=== PATIENT | male | born 1940 | race Caucasian/White ===

== ENCOUNTER → 2016-05-13 | Outpatient (CLI) | payer MEDICARE ==
[2016-05-13 12:14] LABS: Blood Urea Nitrogen 20 mg/dL (9-20); Non-African American GFR(MDRD) >60 (>60 ml/min/1.73 sqM)
--- NOTE | 2016-05-13 13:08 | CT ---
EXAMINATION TYPE: CT chest w con DATE OF EXAM: 05/13/2016 12:47 PM COMPARISON: NONE HISTORY: COPD CT DLP: 637.3 mGycm Automated exposure control for dose reduction was used. CONTRAST: CT scan of the chest is performed with IV Contrast, patient injected with 100 ml mL of Omnipaque 300. FINDINGS: LUNGS: Vague subsegmental changes at the right lung base. There is no pleural effusion or pneumothora x seen. The tracheobronchial tree is patent. Pleural-based density within the left lower lobe appear s linear and likely postinflammatory. MEDIASTINUM: There are no greater than 1 cm hilar or mediastinal lymph nodes. No pericardial effusi on is seen. Sternotomy wires noted. Atherosclerotic change of the aorta. Coronary artery calcificati on seen. Previous intervention rib involving the aortic valve noted. OTHER: There are bilateral less than 5 mm renal calculi and hypodense lesion suggestive of cysts. Nu merous hypodensities are seen involving the liver. The majority appear to relate simple cysts. Lesion at the dome of the liver does not appear to be compatible with a simple cyst and contains rim calcif ication. Follow-up MRI recommended. Degenerative change of the spine noted. IMPRESSION: 1. Subsegmental changes at the right lung base are felt to be more typical of atelectasis than pneumo gregg. Correlate clinically. 2. Numerous hepatic lesions the majority which probably relates simple cyst. There is a lesion in the dome of the liver with peripheral calcification is not compatible with a simple cyst by Hounsfield u nit measurements and MRI is recommended. 3. Bilateral renal cysts and nonobstructing renal calculi
== END ==
LOC: RADCTMAIN 10:31
PROVIDERS: ATTEND Family Medicine
DX: R05 Cough (principal); J44.0 Chronic obstructive pulmonary disease with (acute) lower respiratory infection; R06.02 Shortness of breath
CPT/HCPCS: 82565; 84520; 71260; 36415; Q9967

== ENCOUNTER → 2016-05-30 | Outpatient (CLI) | payer MEDICARE | END | disposition home or self-care (01) | LOC: RADMRIMAIN 11:51 | PROVIDERS: ATTEND Family Medicine | DX: Z53.9 Procedure and treatment not carried out, unspecified reason (principal) ==

== ENCOUNTER → 2019-01-22 | Outpatient (CLI) | payer MEDICARE ==
--- NOTE | 2019-01-22 08:11 | US ---
EXAMINATION TYPE: US venous doppler duplex LE DATE OF EXAM: 01/22/2019 7:54 AM COMPARISON: NONE CLINICAL HISTORY: DVT I82.40. Leg pain SIDE PERFORMED: Bilateral TECHNIQUE: The lower extremity deep venous system is examined utilizing real time linear array sonog rodger with graded compression, doppler sonography and color-flow sonography. VESSELS IMAGED: External Iliac Vein (EIV) Common Femoral Vein Deep Femoral Vein Greater Saphenous Vein * Femoral Vein Popliteal Vein Small Saphenous Vein * Proximal Calf Veins (* superficial vessels) Right Leg: Negative for DVT Left Leg: Negative for DVT Grayscale, color doppler, spectral doppler imaging performed of the deep veins of the bilateral lower extremities. There is normal flow, compressibility, vascular waveforms. IMPRESSION: No ultrasound evidence for acute DVT in either lower extremity.
== END | disposition home or self-care (01) ==
LOC: RADUSWWP 07:30
PROVIDERS: ATTEND Internal Medicine Cardiovascular Disease
DX: I82.403 Acute embolism and thrombosis of unspecified deep veins of lower extremity, bilateral (principal)
CPT/HCPCS: 93970

== ENCOUNTER → 2019-03-16 | Outpatient (CLI) | payer MEDICARE ==
[2019-03-16 11:09] LABS: HCT 47.8 % (39.0-53.0); HGB 16.1 gm/dL (13.0-17.5); MCH 33.4 pg (25.0-35.0); MCHC 33.7 g/dL (31.0-37.0); Platelet Count 256 k/uL (150-450); RBC 4.83 m/uL (4.30-5.90); RDW 12.3 % (11.5-15.5); WBC 6.2 k/uL (3.8-10.6)
[2019-03-16 17:26] LABS: African American GFR (CKD) 99.9 (60.0-200.0); Anion Gap 11.7 mmol/L (4.00-12.00); Carbon Dioxide 25.3 mmol/L (21.6-31.8); Non-African American GFR(CKD) 86.2 (60.0-200.0); Potassium 4.4 mmol/L (3.5-5.5)
== END | disposition home or self-care (01) ==
LOC: LABWHC1 10:32
PROVIDERS: ATTEND Internal Medicine Cardiovascular Disease
DX: I25.10 Atherosclerotic heart disease of native coronary artery without angina pectoris (principal)
CPT/HCPCS: 36415; 80051; 82565; 84520; 85027

== ENCOUNTER 2022-04-30 10:43 | Inpatient (IN) | payer MEDICARE ==
[2022-04-30] MEDS ORDERED: ASPIRIN 81 MG PO STA (11:22)
--- NOTE | 2022-04-30 11:30 | ED ---
General Adult HPI - General Chief complaint: Shortness of Breath Stated complaint: SOB Time Seen by Provider: 04/30/22 11:10 Source: patient, RN notes reviewed, old records reviewed Mode of arrival: ambulatory Limitations: no limitations - History of Present Illness Initial comments: Patient is an 81-year-old male who presents emergency Department complaining of shortness of breath. Has a history of multiple aortic valve replacements. Patient states he should be having a third one place but medically he is not a candidate for surgery as the risks outweigh the benefits. He is a history of hypertension, diabetes, asthma as well. Presents emergency Department complaining of generalized shortness of breath as well as intermittent chest tightness. This is been a progressive issue that is gone worse over the last year or so, noticeably more worse over the last few weeks. On exertion, patient gets chest tightness sensation with dyspnea and has to rest. Follow-up with his PCP today who sent him here for further evaluation over concern for his EKG showing possible new changes but he has no prior one for comparison. We also have no prior EKG for comparison. Patient at rest has no symptoms. Feels well. Follows up with Dr. Reyes his latent fingerprint examiner out of [facility]. Presents for further evaluation at this time. Denies any fevers, chills, cough, vomiting, nausea, vomiting. - Related Data Home Medications Medication Instructions Recorded Confirmed Aspirin EC [Ecotrin Low Dose] 81 mg PO DAILY 04/30/22 04/30/22 Atorvastatin Calcium [Lipitor] 40 mg PO HS 04/30/22 04/30/22 Clopidogrel [Plavix] 75 mg PO DAILY 04/30/22 04/30/22 Dulaglutide [Trulicity] 0.75 mg SQ TH 04/30/22 04/30/22 Dulaglutide [Trulicity] 1.5 mg SQ DIRECTED 04/30/22 04/30/22 Furosemide [Lasix] 40 mg PO BID 04/30/22 04/30/22 Isosorbide Mononitrate ER [Imdur] 60 mg PO HS 04/30/22 04/30/22 Metoprolol Tartrate [Lopressor] 25 mg PO HS 04/30/22 04/30/22 Omeprazole [PriLOSEC] 20 mg PO DAILY 04/30/22 04/30/22 Potassium Chloride [Klor-Con 8] 8 meq PO BID 04/30/22 04/30/22 Tamsulosin HCl [Flomax] 0.4 mg PO HS 04/30/22 04/30/22 lisinopriL [Zestril] 20 mg PO HS 04/30/22 04/30/22 Allergies Allergy/AdvReac Type Severity Reaction Status Date / Time No Known Allergies Allergy Verified 04/30/22 12:55 Review of Systems ROS Statement: Those systems with pertinent positive or pertinent negative responses have been documented in the HPI. Review of Systems: CONST: Denies fever EYES: Denies blurry vision ENT: Denies nasal congestion C/V: Denies Chest pain RESP: Denies shortness of breath GI: Denies abdominal pain : Denies dysuria SKIN: Denies rash. MSK: Denies joint pain. NEURO: Denies headache ROS Other: All systems not noted in ROS Statement are negative. Past Medical History Past Medical History: Asthma, Diabetes Mellitus, Hypertension History of Any Multi-Drug Resistant Organisms: None Reported Additional Past Surgical History / Comment(s): Aortic valve Past Psychological History: No Psychological Hx Reported Smoking Status: Never smoker Past Alcohol Use History: None Reported Past Drug Use History: None Reported General Exam - General Exam Comments Initial Comments: General: Appears in no acute distress. HEAD: Normal with no signs of head trauma. EYES: PERRLA, EOMI, conjunctiva normal, no discharge. ENT: Hearing grossly intact, normal oropharynx. RESPIRATORY: Clear breath sounds bilaterally. No wheezes, rales, or rhonchi. C/V: Regular rate and rhythm. S1 and S2 auscultated, chronic symmetrical lower extremity edema, peripheral pulses 2+ and intact throughout ABD: Abd is soft, nontender, nondistended EXT: Normal range of motion, no obvious deformity SKIN: No rashes or lesions observed on exposed skin. NEURO: Alert and oriented 4. Limitations: no limitations Course Vital Signs 04/30/22 04/30/22 04/30/22 10:47 13:00 14:00 Temperature 98.2 F Pulse Rate 83 73 73 Respiratory 20 22 22 Rate Blood Pressure 185/71 130/56 132/59 O2 Sat by Pulse 95 94 L 91 L Oximetry 04/30/22 14:17 Temperature Pulse Rate Respiratory Rate Blood Pressure O2 Sat by Pulse 94 L Oximetry Medical Decision Making - Medical Decision Making Was pt. sent in by a medical professional or institution (ALEXIS Salazar, [employer], urgent care, hospital, or senior care...) When possible be specific @ -Yes, sent by Dr. Benjie Jacques's office over concern for EKG but had no prior EKG for comparison. Did you speak to anyone other than the patient for history (EMS, parent, family, police, friend...)? What history was obtained from this source @ -No Did you review nursing and triage notes (agree or disagree)? Why? @ -I reviewed and agree with nursing and triage notes Were old charts reviewed (outside hosp., previous admission, EMS record, old EKG, old radiological studies, urgent care reports/EKG's, senior care records)? Report findings @ -EKG from earlier today was compared. No prior charts to review. We'll attempt to obtain an EKG from his latent fingerprint examiner's office. Differential Diagnosis (chest pain, altered mental status, abdominal pain women, abdominal pain men, vaginal bleeding, weakness, fever, dyspnea, syncope, headache, dizziness, GI bleed, back pain, seizure, CVA, palpatations, mental health, musculoskeletal)? @ -Differential Dyspnea: Coronary syndrome, arrhythmia, tamponade, asthma, COPD, pulmonary embolism, pneu monia, pneumothorax, pulmonary effusion, anaphylaxis, diabetic ketoacidosis, flailed chest, pulmonary contusion, diaphragmatic rupture, anemia, neuromuscular, chronic aortic insufficiency, this is not meant to be an all- inclusive list. EKG interpreted by me (3pts min.). @ -As above X-rays interpreted by me (1pt min.). @ -Mild bilateral pleural effusions as well as mild pulmonary vascular congestion seen on chest x-ray CT interpreted by me (1pt min.). @ -None done U/S interpreted by me (1pt. min.). @ -None done What testing was considered but not performed or refused? (CT, X-rays, U/S, labs)? Why? @ -None What meds were considered but not given or refused? Why? @ -None Did you discuss the management of the patient with other professionals (pro fessionals i.e. ALEXIS Salazar, [employer], lab, RT, psych nurse, licensed social worker, edge roller, teacher, commercial loan collection officer, casework specialist)? Give summary @ -No Was smoking cessation discussed for >3mins.? @ -No Was critical care preformed (if so, how long)? @ -Yes, 35 minutes Were there social determinants of health that impacted care today? How? (Homelessness, low income, unemployed, alcoholism, drug addiction, transportation, low edu. Level, literacy, decrease access to med. care, assisted, rehab)? @ -No Was there de-escalation of care discussed even if they declined (Discuss DNR or withdrawal of care, Hospice)? DNR status @ -No What co-morbidities impacted this encounter? (DM, HTN, Smoking, COPD, CAD, Cancer, CVA, ARF, Chemo, Hep., AIDS, mental health diagnosis, sleep apnea, morbid obesity)? @ -None Was patient admitted / discharged? Hospital course, mention meds given and route, prescriptions, significant lab abnormalities, going to OR and other pertinent info. @ -Based on the patient's presentation and physical exam, I'm concerned for cardiopulmonary etiology for his current symptoms. He doesn't a history of aortic insufficiency with multiple aortic valve replacements. Symptoms seem to be progressing over the last months and is likely related to this but cannot rule out acute process at this time. Was sent over due to abnormal EKG with no prior EKG for comparison by his PCP as well as his chronic dyspnea with chest tightness. Has no symptoms at this time. We will obtain cardiopulmonary labs as well as chest x-ray, EKG. We will repeat an EKG as well as attempt to obtain a EKG from Dr. Reyes's office, his latent fingerprint examiner. He was in agreement this plan. Vital signs within acceptable limits. He will be given 324mg aspirin. Patient's EKG did show the ST segment depressions that are very minimal in the lateral precordial leads as well as II and aVF. This is redemonstrated on the EKG from Dr. Jacques's office. Chest x-ray showed mild lateral pleural effusions as well as mild pulmonary vascular congestion. Laboratory studies were remarkable for an elevated BNP of 4300. Troponin is also elevated to 0.7. On reevaluation, patient remains asystematic. Repeat EKG shows improvement in the ST segment depressions normally. We received an EKG from Dr. Nuñez's office which shows that these slight depressions are new. Patient remains asymptomatic with no chest pain and no shortness of breath at this time. He has been asymptomatic he states all morning. Last had symptoms when he presented originally to Dr. Jacques's office but has been having these symptoms on a daily basis for weeks to months. We discussed that his symptoms are likely all chronic, and likely are related to his aortic insufficiency and possible aortic valve replacements but I would like to admitted to the hospital for Nstemi. He was in agreement this plan. He did consent to heparin therapy. Patient was started on a heparin drip. Cardiology was consulted. Echo was ordered. I spoke with the patient's admitting physician, Dr. Jacques who was in agreement with the plan and accepted the admission. Vital signs remained within acceptable limits at this time. Undiagnosed new problem with uncertain prognosis? @ -Yes Drug Therapy requiring intensive monitoring for toxicity (Heparin, Nitro, Insulin, Cardizem)? @ -Heparin Were any procedures done? @ -No Diagnosis/symptom? @ -Dyspnea, likely from aortic valve insufficiency status post multiple aortic valve replacements Acute, or Chronic, or Acute on Chronic? @ -Acute on chronic Uncomplicated (without systemic symptoms) or Complicated (systemic symptoms)? @ -Uncomplicated Side effects of treatment? @ -none Exacerbation, Progression, or Severe Exacerbation] @ -Progression Poses a threat to life or bodily function? @ -Potentially asking result in significant morbidity and mortality. Diagnosis/symptom? @ -Nstemi with elevated troponin and mild ST segment depressions Acute, or Chronic, or Acute on Chronic? @ -Acute Uncomplicated (without systemic symptoms) or Complicated (systemic symptoms)? @ -Complicated Side effects of treatment? @ -none Exacerbation, Progression, or Severe Exacerbation] @ -no Poses a threat to life or bodily function? @ -Yes, if untreated can result in significant morbidity and mortality dep ending in etiology. - Lab Data Result diagrams: 04/30/22 11:29 04/30/22 11:29 Lab Results 04/30/22 04/30/22 04/30/22 Range/Units 11:29 11:29 11:29 WBC 11.3 H (3.8-10.6) k/uL RBC 4.90 (4.30-5.90) m/uL Hgb 16.1 (13.0-17.5) gm/dL Hct 48.3 (39.0-53.0) % MCV 98.6 (80.0-100.0) fL MCH 32.9 (25.0-35.0) pg MCHC 33.3 (31.0-37.0) g/dL RDW 12.7 (11.5-15.5) % Plt Count 185 (150-450) k/uL MPV 9.1 Neutrophils % 80 % Lymphocytes % 7 % Monocytes % 8 % Eosinophils % 0 % Basophils % 1 % Neutrophils # 9.0 H (1.3-7.7) k/uL Lymphocytes # 0.8 L (1.0-4.8) k/uL Monocytes # 0.9 (0-1.0) k/uL Eosinophils # 0.1 (0-0.7) k/uL Basophils # 0.1 (0-0.2) k/uL PT 10.5 (9.0-12.0) sec INR 1.0 (<1.2) APTT 26.4 (22.0-30.0) sec Sodium 138 (137-145) mmol/L Potassium 4.6 (3.5-5.1) mmol/L Chloride 100 (98-107) mmol/L Carbon Dioxide 28 (22-30) mmol/L Anion Gap 10 mmol/L BUN 17 (9-20) mg/dL Creatinine 0.74 (0.66-1.25) mg/dL Est GFR (CKD-EPI)AfAm >90 (>60 ml/min/1.73 sqM) Est GFR (CKD-EPI)NonAf 87 (>60 ml/min/1.73 sqM) Glucose 103 H (74-99) mg/dL Calcium 8.9 (8.4-10.2) mg/dL Magnesium 2.0 (1.6-2.3) mg/dL Total Bilirubin 1.7 H (0.2-1.3) mg/dL AST 39 (17-59) U/L ALT 29 (4-49) U/L Alkaline Phosphatase 80 (38-126) U/L Troponin I (0.000-0.034) ng/mL NT-Pro-B Natriuret Pep pg/mL Total Protein 7.0 (6.3-8.2) g/dL Albumin 4.3 (3.5-5.0) g/dL 04/30/22 04/30/22 Range/Units 11:29 11:29 WBC (3.8-10.6) k/uL RBC (4.30-5.90) m/uL Hgb (13.0-17.5) gm/dL Hct (39.0-53.0) % MCV (80.0-100.0) fL MCH (25.0-35.0) pg MCHC (31.0-37.0) g/dL RDW (11.5-15.5) % Plt Count (150-450) k/uL MPV Neutrophils % % Lymphocytes % % Monocytes % % Eosinophils % % Basophils % % Neutrophils # (1.3-7.7) k/uL Lymphocytes # (1.0-4.8) k/uL Monocytes # (0-1.0) k/uL Eosinophils # (0-0.7) k/uL Basophils # (0-0.2) k/uL PT (9.0-12.0) sec INR (<1.2) APTT (22.0-30.0) sec Sodium (137-145) mmol/L Potassium (3.5-5.1) mmol/L Chloride (98-107) mmol/L Carbon Dioxide (22-30) mmol/L Anion Gap mmol/L BUN (9-20) mg/dL Creatinine (0.66-1.25) mg/dL Est GFR (CKD-EPI)AfAm (>60 ml/min/1.73 sqM) Est GFR (CKD-EPI)NonAf (>60 ml/min/1.73 sqM) Glucose (74-99) mg/dL Calcium (8.4-10.2) mg/dL Magnesium (1.6-2.3) mg/dL Total Bilirubin (0.2-1.3) mg/dL AST (17-59) U/L ALT (4-49) U/L Alkaline Phosphatase (38-126) U/L Troponin I 0.738 H* (0.000-0.034) ng/mL NT-Pro-B Natriuret Pep 4330 pg/mL Total Protein (6.3-8.2) g/dL Albumin (3.5-5.0) g/dL - EKG Data -: EKG Interpreted by Me EKG Comments: 12-lead Electrocardiogram Interpretation Note EKG was reviewed and interpreted by myself. 12-lead ECG performed at 1054 is interpreted by me as revealing normal sinus rhythm at a rate of 80 beats per minute. [place] is normal. CO interval is 198 ms, QRS duration is 80 ms, QTc is 427 ms.. There are mild ST segment depressions in the lateral precordial leads seen on V4, V5, V6, mildly on II, aVF. Seen again on EKG from Dr. Jacques's office. No other prior EKG for comparison.. No other ST segment abnormalities or T wave abnormalities. R wave progression across the precordium was satisfactory. 12-lead Electrocardiogram Interpretation Note EKG was reviewed and interpreted by myself. 12-lead ECG performed at 1220 is interpreted by me as revealing normal sinus rhythm at a rate of 71 beats per minute. [place] is normal. CO interval is 206 ms, QRS duration is 82 ms, QTc is [address] segment depressions seen in leads V4 through V6, II have improved for the most part. Very slight depression and II. Also very mild d epression in V6. Overall improved EKG.. R wave progression across the precordium was satisfactory. When compared with EKG from earlier, appears improved. Able to compare with a EKG from Dr. Pérez's office from December 2021 and these findings are new.. Critical Care Time Critical Care Time: Yes Total Critical Care Time: 35 Critical Care Time: Upon my evaluation, this patient had a high probability of imminent or life- threatening deterioration due to NSTEMI, chronic dyspnea, heparin drip initiation, which required my direct attention, intervention, and personal management. I have personally provided 35 minutes of critical care time exclusive of time spent on separately billable procedures. Time includes review of laboratory data, radiology results, discussion with consultants, and monitoring for potential decompensation. Interventions were performed as documented in my note. Disposition Clinical Impression: NSTEMI (non-ST elevated myocardial infarction), Chronic dyspnea, History of aortic valve repair Disposition: ADMITTED IP TO THIS [facility] Condition: Serious Time of Disposition: 12:35
[2022-04-30 11:37] LABS: Basophils # (A) 0.1 k/uL (0-0.2); Basophils % (A) 1 %; Eosinophils # (A) 0.1 k/uL (0-0.7); Eosinophils % (A) 0 %; HCT 48.3 % (39.0-53.0); HGB 16.1 gm/dL (13.0-17.5); Lymphocytes # (A) 0.8 k/uL (1.0-4.8); Lymphocytes % (A) 7 %; MCH 32.9 pg (25.0-35.0); MCHC 33.3 g/dL (31.0-37.0); MCV 98.6 fL (80.0-100.0); Mean Platelet Volume 9.1; Monocytes # (A) 0.9 k/uL (0-1.0); Monocytes % (A) 8 %; Neutrophils % (A) 80 %; Platelet Count 185 k/uL (150-450); RDW 12.7 % (11.5-15.5); WBC 11.3 k/uL (3.8-10.6)
[2022-04-30 11:48] LABS: ALT 29 U/L (4-49); AST 39 U/L (17-59); African American GFR (CKD) >90 (>60 ml/min/1.73 sqM); Albumin 4.3 g/dL (3.5-5.0); Alkaline Phosphatase 80 U/L (38-126); Anion Gap 10 mmol/L; Blood Urea Nitrogen 17 mg/dL (9-20); Calcium 8.9 mg/dL (8.4-10.2); Carbon Dioxide 28 mmol/L (22-30); Chloride 100 mmol/L (98-107); Glucose 103 mg/dL (74-99); Non-African American GFR(CKD) 87 (>60 ml/min/1.73 sqM); Potassium 4.6 mmol/L (3.5-5.1); Sodium 138 mmol/L (137-145); Total Bilirubin 1.7 mg/dL (0.2-1.3)
--- NOTE | 2022-04-30 11:51 | XR ---
EXAMINATION TYPE: XR chest 2V DATE OF EXAM: 04/30/2022 COMPARISON: NONE HISTORY: Difficulty breathing. TECHNIQUE: Frontal and lateral views of the chest are obtained. FINDINGS: Cardiac silhouette is mildly enlarged. There are midline sternotomy wires. There is some s cattered interstitial changes seen throughout the lungs bilaterally and small bilateral pleural effus ions which is likely related to mild edema. IMPRESSION: Mild cardiomegaly with mild edema and small bilateral pleural effusions.
[2022-04-30 12:02] LABS: Partial Thromboplastin Time 26.4 sec (22.0-30.0); Prothrombin Time 10.5 sec (9.0-12.0)
[2022-04-30] MEDS ORDERED: HEPARIN SODIUM 1,000 UN/ML (10ML VL) IV PRN (12:41)
[2022-04-30] MEDS ORDERED: HEPARIN SODIUM 1,000 UN/ML (10ML VL) IV ONE (12:41)
[2022-04-30] MEDS ORDERED: NALOXONE 0.4 MG/ML 1 ML VIAL IV PRN ×2 (12:42→12:43)
[2022-04-30] MEDS: HEPARIN SOD,PORK IN 0.45% NACL 25,000 UNIT in 0.45% NACL 1 250ML.BAG IV SCH (13:08)
--- NOTE | 2022-04-30 14:54 | P.CRDCN ---
History of Present Illness Consult date: 04/30/22 History of present illness: HISTORY OF PRESENT ILLNESS: This is a 81-year-old male with a past medical history significant for prediabetes, hypertension, hyperlipidemia, bleeding ulcer, asthma, and aortic stenosis with 2 aortic valve replacements. Patient follows with a Dr. Reyes. We have been asked to see the patient in consultation for abnormal troponins. Patient examined at the bedside. Patient states he was at Dr. Jacques office today when he had an EKG performed which concerns Dr. Jacques and he was referred to the emergency room. The patient reports he has chronic shortness of breath. However yesterday his shortness of breath seemed to get worse. He also reports having some chest tightness when he is extremity and shortness of breath. The patient states he had his first aortic valve replacement in 2006 with a bovine valve. He states he had a redo aortic valve replacement after that (unsure of the year). He states he was told he needed another valve replacement but was not a good surgical candidate. The patient currently denies chest pain or pressure. Denies SOB. He was found to have elevated troponin and started on IV heparin. Patient believes he had a cardiac catheterization performed about 6 years ago which was normal to his knowledge. He denies any previous history of coronary artery disease. * EKG reveals sinus mechanism with diffuse ST depression. This is new compared to EKG performed in December 2021 at the patient's primary cardiology office. * Chest xray mild cardio megaly with mild edema and small bilateral pleural effusions. * Laboratory data: WBC 11.3. Hemoglobin 16.1. Platelet count 185. Sodium 138. Potassium 4.6. BUN 17. Creatinine 0.74. Troponin 0.738. ProBNP 4330. * Current home cardiac medications include aspirin 81 mg daily, Plavix 75 mg daily, Lasix 40 mg twice a day, metoprolol tartrate 25 mg at night, Lipitor 40 mg at night, Imdur 60 mg at night, lisinopril 20 mg at night REVIEW OF SYSTEMS: At the time of my exam: CONSTITUTIONAL: Denies fever or chills. HEENT: Denies blurred vision, vision changes, or eye pain. Denies hemoptysis CARDIOVASCULAR: Denies chest pain. Denies orthopnea. Denies PND. Denies palpitations RESPIRATORY: Denies shortness of breath. GASTROINTESTINAL: Denies abdominal pain. Denies nausea or vomiting. HEMATOLOGIC: Denies bleeding disorders. GENITOURINARY: Denies any blood in urine. SKIN: Denies pruitis. Denies rash. PHYSICAL EXAM: VITAL SIGNS: Reviewed. GENERAL: Well-developed in no acute distress. HEENT: Head is normocephalic. Pupils are equal, round. Sclerae anicteric. Mucous membranes of the mouth are moist. Neck supple. No JVD or thyromegaly LUNGS: Respirations even and unlabored. Lungs essentially clear to auscultation bilaterally. HEART: Regular rate and rhythm. S1 and S2 heard. + Systolic murmur noted. ABDOMEN: Soft. Nondistended. Nontender. EXTREMITIES: Normal range of motion. No clubbing or cyanosis. Peripheral pulses intact. No lower extremity edema NEUROLOGIC: Awake and alert. Oriented x 3. ASSESSMENT: Elevated troponin with abnormal EKG, possible NSTEMI History of aortic valve replacement x 2 Aortic stenosis, told he was not a good surgical candidate to have AV replaced again Chronic shortness of breath Hypertension Hyperlipidemia Pre-diabetes, per patient History of bleeding ulcer PLAN: Obtain 2D echo to assess cardiac structure and function Resume home cardiac medications Increase metoprolol to 25mg BID Trend troponins Continue IV heparin NPO at midnight Obtain records from patients primary junior business analyst Possible cardiac catheterization tomorrow Further recommendations pending patient's course Nurse practitioner note has been reviewed by physician. Signing provider agrees with the documented findings, assessment, and plan of care. Past Medical History Past Medical History: Asthma, Diabetes Mellitus, Hypertension History of Any Multi-Drug Resistant Organisms: None Reported Additional Past Surgical History / Comment(s): Aortic valve Past Psychological History: No Psychological Hx Reported Smoking Status: Never smoker Past Alcohol Use History: None Reported Past Drug Use History: None Reported Medications and Allergies Home Medications Medication Instructions Recorded Confirmed Type Aspirin EC [Ecotrin Low Dose] 81 mg PO DAILY 04/30/22 04/30/22 History Atorvastatin Calcium [Lipitor] 40 mg PO HS 04/30/22 04/30/22 History Clopidogrel [Plavix] 75 mg PO DAILY 04/30/22 04/30/22 History Dulaglutide [Trulicity] 0.75 mg SQ TH 04/30/22 04/30/22 History Dulaglutide [Trulicity] 1.5 mg SQ DIRECTED 04/30/22 04/30/22 History Furosemide [Lasix] 40 mg PO BID 04/30/22 04/30/22 History Isosorbide Mononitrate ER [Imdur] 60 mg PO HS 04/30/22 04/30/22 History Metoprolol Tartrate [Lopressor] 25 mg PO HS 04/30/22 04/30/22 History Omeprazole [PriLOSEC] 20 mg PO DAILY 04/30/22 04/30/22 History Potassium Chloride [Klor-Con 8] 8 meq PO BID 04/30/22 04/30/22 History Tamsulosin HCl [Flomax] 0.4 mg PO HS 04/30/22 04/30/22 History lisinopriL [Zestril] 20 mg PO HS 04/30/22 04/30/22 History Allergies Allergy/AdvReac Type Severity Reaction Status Date / Time No Known Allergies Allergy Verified 04/30/22 12:55 Physical Exam Vitals: Vital Signs Temp Pulse Resp BP Pulse Ox 04/30/22 14:17 94 L 04/30/22 14:00 73 22 132/59 91 L 04/30/22 13:00 73 22 130/56 94 L 04/30/22 10:47 98.2 F 83 20 185/71 95 Intake and Output 04/29/22 04/30/22 04/30/22 22:59 06:59 14:59 Other: Weight 106.594 kg Results 04/30/22 11:29 04/30/22 11:29 Cardiac Enzymes 04/30/22 04/30/22 Range/Units 11:29 11:29 AST 39 (17-59) U/L Troponin I 0.738 H* (0.000-0.034) ng/mL Coagulation 04/30/22 Range/Units 11:29 PT 10.5 (9.0-12.0) sec APTT 26.4 (22.0-30.0) sec CBC 04/30/22 Range/Units 11:29 WBC 11.3 H (3.8-10.6) k/uL RBC 4.90 (4.30-5.90) m/uL Hgb 16.1 (13.0-17.5) gm/dL Hct 48.3 (39.0-53.0) % Plt Count 185 (150-450) k/uL Comprehensive Metabolic Panel 04/30/22 Range/Units 11:29 Sodium 138 (137-145) mmol/L Potassium 4.6 (3.5-5.1) mmol/L Chloride 100 (98-107) mmol/L Carbon Dioxide 28 (22-30) mmol/L BUN 17 (9-20) mg/dL Creatinine 0.74 (0.66-1.25) mg/dL Glucose 103 H (74-99) mg/dL Calcium 8.9 (8.4-10.2) mg/dL AST 39 (17-59) U/L ALT 29 (4-49) U/L Alkaline Phosphatase 80 (38-126) U/L Total Protein 7.0 (6.3-8.2) g/dL Albumin 4.3 (3.5-5.0) g/dL Current Medications Generic Name Dose Route Start Last Admin Trade Name Freq PRN Reason Stop Dose Admin Atorvastatin Calcium 40 mg 04/30/22 21:00 Atorvastatin 40 Mg Tab PO HS ADITHYA Clopidogrel Bisulfate 75 mg 05/01/22 09:00 Clopidogrel 75 Mg Tab PO DAILY ADITHYA Furosemide 40 mg 04/30/22 21:00 Furosemide 40 Mg Tab PO BID ADITHYA Heparin Sodium (Porcine) 0 unit 04/30/22 12:41 Heparin Sodium 1,000 Un/Ml (10ml Vl) IV PER PROTOCOL PRN Low PTT Protocol Heparin Sodium/Sodium Chloride 250 mls @ 9.999 mls/hr 04/30/22 12:45 04/30/22 13:08 25,000 unit/ Sodium Chloride IV 9.38 units/kg/hr .Q24H ADITHYA 9.999 mls/hr Administration Protocol 9.38 UNITS/KG/HR Isosorbide Mononitrate 60 mg 04/30/22 21:00 Isosorbide Mononitrate Er 60 Mg Tab.Er.24h PO HS ADITHYA Lisinopril 20 mg 04/30/22 21:00 Lisinopril 20 Mg Tab PO HS ADITHYA Naloxone HCl 0.2 mg 04/30/22 12:42 Naloxone 0.4 Mg/Ml 1 Ml Vial IV Q2M PRN Opioid Reversal Non-Formulary Medication 81 mg 05/01/22 09:00 Aspirin Ec PO DAILY ADITHYA Intake and Output 04/29/22 04/30/22 04/30/22 22:59 06:59 14:59 Other: Weight 106.594 kg Patient Weight 05/01/22 06:59 Weight 106.594 kg 04/30/22 11:29 04/30/22 11:29
[2022-04-30] MEDS: FUROSEMIDE 40 MG TAB PO SCH (16:18)
--- NOTE | 2022-04-30 18:57 | CT ---
EXAMINATION TYPE: CT chest wo con CT DLP: 634.6 mGycm, Automated exposure control for dose reduction was used. DATE OF EXAM: 04/30/2022 6:45 PM COMPARISON: 05/13/2016 CT chest CLINICAL INDICATION:Male, 81 years old with history of dyspnea; SOB TECHNIQUE: Multiple axial images were obtained through the chest. Sagittal and coronal reformats were created for review. Contrast used: none. Oral contrast used: none. FINDINGS: LUNGS/ PLEURA: No evidence of focal consolidation, pneumothorax or pleural effusion. There are some g roundglass opacities predominantly in lung bases. Trace bilateral pleural effusions. 4 mm left lower lobe pulmonary nodule. AIRWAY: Patent and unremarkable. HEART: Size within normal limits. Coronary artery calcifications. MEDIASTINUM: No gross evidence of adenopathy. VASCULATURE: No aortic aneurysm. Aortic valve prosthesis is noted. MUSCULOSKELETAL: Mild disc degeneration changes are present throughout the thoracolumbar spine. Acosta otomy wires are present. SOFT TISSUES/LYMPH NODES: Unremarkable. LOWER NECK: No significant findings. UPPER ABDOMEN: Mildly increased in size in cystic lesions throughout the liver compared to 2017. One of these has peripheral calcification. Additional calcified granuloma noted. Right renal cyst is pres ent. IMPRESSION: 1. Groundglass opacities predominantly in the lower lobes are fairly subtle lung with trace bilatera l pleural effusions. Correlate for early congestive heart failure, alternatively these may represent a resolving atypical infection versus aspiration. 2. 4 mm left lower lobe pulmonary nodule. Stable back to 2017.
[2022-04-30] MEDS ORDERED: METOPROLOL TARTRATE 25 MG TAB PO SCH (21:00)
[2022-04-30] MEDS: ATORVASTATIN 40 MG TAB PO SCH (21:51)
[2022-04-30] MEDS: POTASSIUM CHLORIDE ER 10 MEQ TAB.ER.PRT PO SCH (21:51)
[2022-04-30] MEDS: METOPROLOL TARTRATE 25 MG TAB PO SCH (21:51)
[2022-04-30] MEDS: ISOSORBIDE MONONITRATE ER 60 MG TAB.ER.24H PO SCH (21:51)
[2022-04-30] MEDS: lisinopriL 20 MG TAB PO SCH (21:51)
[2022-04-30] MEDS: TAMSULOSIN 0.4 MG CAP.ER.24H PO SCH (21:51)
[2022-05-01 03:26] LABS: INR 1.1 (<1.2); Prothrombin Time 11.2 sec (9.0-12.0)
[2022-05-01 03:27] LABS: African American GFR (CKD) >90 (>60 ml/min/1.73 sqM); Anion Gap 4 mmol/L; Blood Urea Nitrogen 20 mg/dL (9-20); Calcium 8.1 mg/dL (8.4-10.2); Carbon Dioxide 29 mmol/L (22-30); Chloride 104 mmol/L (98-107); Glucose 93 mg/dL (74-99); Non-African American GFR(CKD) 84 (>60 ml/min/1.73 sqM); Potassium 4.2 mmol/L (3.5-5.1); Sodium 137 mmol/L (137-145)
[2022-05-01 03:46] LABS: HCT 41.3 % (39.0-53.0); HGB 13.6 gm/dL (13.0-17.5); MCHC 32.9 g/dL (31.0-37.0); MCV 100.2 fL (80.0-100.0); Mean Platelet Volume 9.8; Platelet Count 160 k/uL (150-450); RBC 4.13 m/uL (4.30-5.90); RDW 12.8 % (11.5-15.5); WBC 8.1 k/uL (3.8-10.6)
[2022-05-01 04:14] LABS: Eosinophils # (M) 0.08 k/uL (0-0.7); Lymphocytes # (M) 1.46 k/uL (1.0-4.8); Monocytes # (M) 0.81 k/uL (0-1.0); Neutrophils # (M) 5.75 k/uL (1.3-7.7); Neutrophils % (M) 71 %; Nucleated Red Blood Cells 0 /100 WBC (0-0); Total Cells Counted 100
[2022-05-01] MEDS: PANTOPRAZOLE 40 MG TABLET PO SCH (05:27)
[2022-05-01] MEDS: HEPARIN SOD,PORK IN 0.45% NACL 25,000 UNIT in 0.45% NACL 1 250ML.BAG IV SCH ×2 (06:48→23:37)
[2022-05-01] MEDS: ASPIRIN 81 MG PO SCH (10:13)
[2022-05-01] MEDS: POTASSIUM CHLORIDE ER 10 MEQ TAB.ER.PRT PO SCH ×2 (10:13→19:53)
[2022-05-01] MEDS: CLOPIDOGREL 75 MG TAB PO SCH (10:13)
[2022-05-01] MEDS: METOPROLOL TARTRATE 25 MG TAB PO SCH ×2 (10:13→19:52)
[2022-05-01] MEDS: FUROSEMIDE 40 MG TAB PO SCH ×2 (10:14→15:51)
--- NOTE | 2022-05-01 12:53 | P.PN ---
Subjective Progress Note Date: 05/01/22 HISTORY OF PRESENT ILLNESS: This is a 81-year-old male with a past medical history significant for prediabetes, hypertension, hyperlipidemia, bleeding ulcer, asthma, and aortic stenosis with 2 aortic valve replacements. Patient follows with a Dr. Reyes. We have been asked to see the patient in consultation for abnormal troponins. Patient examined at the bedside. Patient states he was at Dr. Jacques office today when he had an EKG performed which concerns Dr. Jacques and he was referred to the emergency room. The patient reports he has chronic shortness of breath. However yesterday his shortness of breath seemed to get worse. He also reports having some chest tightness when he is extremity and shortness of breath. The patient states he had his first aortic valve replacement in 2006 with a bovine valve. He states he had a redo aortic valve replacement after at (unsure of the year). He states he was told he needed another valve replacement but was not a good surgical candidate. The patient currently denies chest pain or pressure. Denies SOB. He was found to have elevated troponin and started on IV heparin. Patient believes he had a cardiac catheterization performed about 6 years ago which was normal to his knowledge. He denies any previous history of coronary artery disease. * EKG reveals sinus mechanism with diffuse ST depression. This is new compared to EKG performed in December 2021 at the patient's primary cardiology office. * Chest xray mild cardio megaly with mild edema and small bilateral pleural effusions. * Laboratory data: WBC 11.3. Hemoglobin 16.1. Platelet count 185. Sodium 138. Potassium 4.6. BUN 17. Creatinine 0.74. Troponin 0.738. ProBNP 4330. * Current home cardiac medications include aspirin 81 mg daily, Plavix 75 mg daily, Lasix 40 mg twice a day, metoprolol tartrate 25 mg at night, Lipitor 40 mg at night, Imdur 60 mg at night, lisinopril 20 mg at night 05/01/2022 Patient examined this morning at the bedside. Patient denies chest pain or pressure. He reports an episode of shortness of breath when he is up ambulating to the bathroom that resolved with rest. He remains on IV heparin. 0.738. 0.716. 0.79. PHYSICAL EXAM: VITAL SIGNS: Reviewed. GENERAL: Well-developed in no acute distress. HEENT: Head is normocephalic. Pupils are equal, round. Sclerae anicteric. Mucous membranes of the mouth are moist. Neck supple. No JVD or thyromegaly LUNGS: Respirations even and unlabored. Lungs essentially clear to auscultation bilaterally. HEART: Regular rate and rhythm. S1 and S2 heard. + Systolic murmur noted. ABDOMEN: Soft. Nondistended. Nontender. EXTREMITIES: Normal range of motion. No clubbing or cyanosis. Peripheral pulses intact. No lower extremity edema NEUROLOGIC: Awake and alert. Oriented x 3. ASSESSMENT: Elevated troponins with abnormal EKG, possible NSTEMI History of aortic valve replacement x 2 Aortic stenosis, told he was not a good surgical candidate to have AV replaced again Chronic shortness of breath Hypertension Hyperlipidemia Pre-diabetes, per patient History of bleeding ulcer PLAN: Continue current cardiac medications Continue IV heparin NPO at midnight Still awaiting records from patients primary electrophysiology tech Possible cardiac catheterization tomorrow Further recommendations pending patient's course Nurse practitioner note has been reviewed by physician. Signing provider agrees with the documented findings, assessment, and plan of care. Objective - Vital Signs Vital signs: Vital Signs Temp 97.4 F L 05/01/22 03:52 Pulse 69 05/01/22 12:40 Resp 16 05/01/22 12:40 BP 130/58 05/01/22 12:40 Pulse Ox 97 05/01/22 12:40 FiO2 Intake & Output 04/30/22 05/01/22 05/01/22 18:59 06:59 18:59 Intake Total 739.345 Balance 739.345 Weight 106.594 kg 109 kg Intake: Intake, IV Titration 199.345 Amount Heparin Sod,Pork in 0.45% 199.345 NaCl 25,000 unit In 0.45 % NaCl 1 250ml.bag @ 9.38 UNITS/KG/HR 9.999 mls/hr IV .Q24H ADITHYA Rx#: [id number] Oral 540 Other: Voiding Method Toilet # Voids 1 - Labs CBC & Chem 7: 05/01/22 02:50 05/01/22 02:50 Labs: Abnormal Lab Results - Last 24 Hours (Table) 04/30/22 04/30/22 04/30/22 Range/Units 16:10 19:01 19:01 RBC (4.30-5.90) m/uL MCV (80.0-100.0) fL APTT 38.2 H (22.0-30.0) sec Calcium (8.4-10.2) mg/dL Troponin I 0.716 H* 0.799 H* (0.000-0.034) ng/mL 05/01/22 05/01/22 05/01/22 Range/Units 02:50 02:50 02:50 RBC 4.13 L (4.30-5.90) m/uL MCV 100.2 H (80.0-100.0) fL APTT 46.4 H (22.0-30.0) sec Calcium 8.1 L (8.4-10.2) mg/dL Troponin I (0.000-0.034) ng/mL
--- NOTE | 2022-05-01 19:18 | HP ---
HISTORY AND PHYSICAL HISTORY OF PRESENT ILLNESS: An 81-year-old white male came in with atypical chest pain. Positive troponins. Cardiology was then consulted. He is on heparin drip. History of extensive cardiac disease, short of breath, oxygen at night recently, has bad COPD, sleep apnea, coronary artery disease, obesity, and diabetes mellitus. REVIEW OF SYSTEMS: A 14-point review of systems otherwise negative. PHYSICAL EXAMINATION: GENERAL: Obese white male who ends up fatigued and weak. LUNGS: Scattered wheeze and rhonchi. HEART: S1, S2. ABDOMEN: Distended, obesity. EXTREMITIES: 2+ to 3+ edema. NEUROLOGIC: Cranial nerves intact. MEDICATIONS: Reviewed. FAMILY HISTORY: Reviewed. ALLERGIES: Reviewed. ASSESSMENT: Elevated troponin, abnormal EKG, possible non-STEMI, history of aortic valve replacement x2. History of extensive coronary artery disease, aortic stenosis, chronic shortness of breath, hypertension, sleep apnea, dyslipidemia, prediabetes, history of bleeding ulcer. Echo has been ordered. Continue on heparin drip, metoprolol. Trend troponins. Prognosis guarded. MMODL / IJN: [id number] /
[2022-05-01] MEDS: ISOSORBIDE MONONITRATE ER 60 MG TAB.ER.24H PO SCH (19:52)
[2022-05-01] MEDS: ATORVASTATIN 40 MG TAB PO SCH (19:53)
[2022-05-01] MEDS: lisinopriL 20 MG TAB PO SCH (19:53)
[2022-05-01] MEDS: TAMSULOSIN 0.4 MG CAP.ER.24H PO SCH (19:53)
[2022-05-02] MEDS: PANTOPRAZOLE 40 MG TABLET PO SCH (04:53)
[2022-05-02] MEDS ORDERED: ALPRAZolam 0.5 MG TAB PO PRN (08:08)
[2022-05-02] MEDS ORDERED: ASPIRIN 325 MG TAB PO STA (08:08)
[2022-05-02] MEDS ORDERED: NITROGLYCERIN SL TABS 0.4 MG TAB SUBLINGUAL PRN (08:08)
[2022-05-02] MEDS ORDERED: ALPRAZolam 0.25 MG TAB PO PRN (08:08)
[2022-05-02] MEDS ORDERED: ATORVASTATIN 80 MG TAB PO STA (08:08)
[2022-05-02] MEDS ORDERED: SODIUM CHLORIDE 0.9% 1,000 ML in EMPTY BAG 1 BAG IV SCH (08:15)
--- NOTE | 2022-05-02 08:26 | CA ---
Transthoracic Echo Report Name: Lonnie Guzman Age: 81 Gender: M : 1940 Exam Date: 05/01/2022 09:17 Exam Location: [facility] Ht (in): 67 Wt (lb): 240 Ordering Physician: Adis Ware MD Attending/Referring Phys: Materials Specialist Chanda Weeks RDCS Procedure CPT: Indications: nstemi, dyspnea Cardiac Hx: Bovine AV; CHF;Obesity Technical Quality: Technically difficult study Contrast 1: Lumason Total Dose (mL): 4 Contrast 2: Total Dose (mL): MEASUREMENTS (Male / Female) Normal Values 2D ECHO LV Diastolic Diameter PLAX 4.2 cm 4.2 - 5.9 / 3.9 - 5.3 cm LV Systolic Diameter PLAX 3.0 cm IVS Diastolic Thickness 1.4 cm 0.6 - 1.0 / 0.6 - 0.9 cm LVPW Diastolic Thickness 1.5 cm 0.6 - 1.0 / 0.6 - 0.9 cm LV Relative Wall Thickness 0.7 LV Diastolic Volume MOD BP 68.8 cm??? 67 - 155 / 56 - 104 cm??? LV Systolic Volume MOD BP 13.2 cm??? 22 - 58 / 19 - 49 cm??? LV Ejection Fraction MOD BP 80.8 % >= 55 % LV Diastolic Volume MOD 4C 64.4 cm??? LV Systolic Volume MOD 4C 20.5 cm??? LV Ejection Fraction MOD 4C 68.1 % LV Diastolic Length 4C 7.5 cm LV Systolic Length 4C 6.4 cm LV Diastolic Volume MOD 2C 65.7 cm??? LV Systolic Volume MOD 2C 8.0 cm??? LV Ejection Fraction MOD 2C 87.8 % LV Diastolic Length 2C 8.5 cm LV Systolic Length 2C 5.6 cm M-MODE MV E Point Septal Separation 1.3 cm DOPPLER AV Peak Velocity 156.9 cm/s AV Peak Gradient 9.8 mmHg AI Peak Velocity 284.9 cm/s AI Peak Gradient 32.5 mmHg AI Pressure Half Time 394.8 ms Mitral E Point Velocity 97.2 cm/s Mitral A Point Velocity 51.4 cm/s Mitral E to A Ratio 1.9 MV Deceleration Time 180.1 ms MV E' Velocity 8.3 cm/s Mitral E to MV E' Ratio 11.7 TR Peak Velocity 145.1 cm/s TR Peak Gradient 8.4 mmHg Right Ventricular Systolic Press 13.4 mmHg PV Peak Velocity 71.4 cm/s PV Peak Gradient 2.0 mmHg FINDINGS Left Ventricle Left ventricular ejection fraction is estimated at 55-60 %. Mild concentric left ventricular hypertrophy. Grade 2 diastolic dysfunction. Right Ventricle Right ventricle not well visualized. Normal right ventricular size and function. Right Atrium Right atrium not well visualized. Normal right atrial size. Left Atrium Left atrium not well visualized. Mitral Valve Mitral valve thickened. Trace mitral regurgitation. Aortic Valve Bovine prosthetic AV with minimal paravalvular AR and mild/moderate central AR. Tricuspid Valve Tricuspid valve not well visualized. Trace to mild tricuspid regurgitation. Pulmonic Valve Pulmonic valve not well visualized. Pericardium Small pericardial effusion. Aorta Aortic root and proximal ascending aorta not well visualized. CONCLUSIONS Normal LV size and function without any segmental wall motion abnormalities, ejection fraction greater than 60% Aortic valve is difficult to visualize, technically difficult study with suboptimal acoustic windows Previewed by: Dr. Noah Tucker MD (Electronically Signed) Final Date: 02 May 2022 08:25
[2022-05-02] MEDS: METOPROLOL TARTRATE 12.5 MG TAB PO SCH ×2 (08:53→20:41)
[2022-05-02] MEDS: FUROSEMIDE 40 MG TAB PO SCH ×2 (08:53→16:38)
[2022-05-02] MEDS: POTASSIUM CHLORIDE ER 10 MEQ TAB.ER.PRT PO SCH ×2 (08:54→20:41)
[2022-05-02] MEDS: CLOPIDOGREL 75 MG TAB PO SCH (08:54)
[2022-05-02] MEDS: ASPIRIN 81 MG PO SCH (10:04)
[2022-05-02] MEDS ORDERED: VERAPAMIL 2.5 MG/ML 2 ML AMP ONE (10:38)
[2022-05-02] MEDS ORDERED: fentaNYL (PF) 50 MCG/ML 2 ML AMP ONE (11:01)
[2022-05-02] MEDS ORDERED: HEPARIN SODIUM 1,000 UN/ML (10ML VL) ONE (11:01)
[2022-05-02] MEDS ORDERED: fentaNYL (PF) 50 MCG/ML 2 ML AMP IVP ONE (11:15)
[2022-05-02] MEDS ORDERED: LIDOCAINE 1% INJ 10MG/ML (5 ML VIAL-PF) SQ ONE ×2 (11:17→11:18)
[2022-05-02] MEDS ORDERED: SODIUM CHLORIDE 0.9% 1,000 ML IV ONE (11:17)
[2022-05-02] MEDS ORDERED: VERAPAMIL SYRINGE (5 MG/10 ML) INTRAARTER ONE (11:20)
[2022-05-02] MEDS ORDERED: HEPARIN SODIUM 1,000 UN/ML (10ML VL) IVP ONE (11:26)
[2022-05-02] MEDS ORDERED: IOPAMIDOL-370 125ML BTL INJ ONE (11:34)
[2022-05-02] MEDS ORDERED: RX INFO: IV CONTRAST WAS GIVEN 1 EACH MISC MISCELLANE PRN (11:48)
--- NOTE | 2022-05-02 11:55 | P.CARDCATH ---
Date of Procedure: 05/02/22 Description of Procedure: Cardiac Catheterization: The patient is an 81-year-old male with known history of aortic valve disease status post surgical aortic valve replacement and subsequent TAVR is evidence of progressive aortic stenosis who presented with symptoms progressive chest discomfort, dyspnea and mild EKG changes and mild troponin elevation Recommendations were made regarding cardiac catheterization, the risks and the complications were discussed with the patient who is in full understanding and agreement. Procedure Description: Patient was brought to cardiac cath lab technologist in fasting semi-sedated state after receiving Fentanyl and Benadryl achieiving moderate conscious sedated state. Using Xylocaine Anesthesia and Seldinger technique, a 6-Libyan sheath was introduced in the right radial artery . Subsequently, selective coronary angiography was performed using a 5-Libyan by bend Mindy catheter. Multiple views of the coronary artery including hemiaxial views were obtained. Following that, catheter and sheath were removed. Hemostasis was obtained with deployment of TR band . There was no immediate complication. Patient was returned to room in stable condition. Of note, the patient received a total of 5000 units of intravenous heparin as well as intra- arterial verapamil. Findings: Left main: This is a large size vessel, bifurcating to LAD and left circumflex the proximal left main is a 30% to 40% plaque, the rest of the vessel has no high-grade stenosis. LAD: This is a large size vessel, reaching the apex with a wraparound the apex segment, the LAD has mild obstructive Left circumflex: Large nondominant vessel giving rise to a large branch obtuse marginal branch that has mild intimal disease RCA: This is a large dominant vessel, bifurcating into PDA and PLV, the RCA has no evidence of high-grade stenosis Left Ventriculogram: Not performed Conclusion: 1. Mild to moderate disease in the proximal left main 2. Mild disease in the LAD and left circumflex 3. No obstructive disease in the RCA 4. Fluoroscopy the valve in valve structure valve Recommendations: Have recommended to continue medical therapy at this time, the patient will follow with his primary lifter regarding the options for treatment of his severe aortic stenosis. The prognosis is guarded. The findings and the recommendations were discussed with the patient and the family and they were in full understanding and agreement. Duration of sedation is 20 minutes.
[2022-05-02] MEDS ORDERED: SODIUM CHLORIDE 0.9% 1,000 ML IV SCH (12:00)
[2022-05-02] MEDS: lisinopriL 20 MG TAB PO SCH (20:41)
[2022-05-02] MEDS: ISOSORBIDE MONONITRATE ER 60 MG TAB.ER.24H PO SCH (20:41)
[2022-05-02] MEDS: ATORVASTATIN 40 MG TAB PO SCH (20:41)
[2022-05-02] MEDS: TAMSULOSIN 0.4 MG CAP.ER.24H PO SCH (20:41)
[2022-05-02 23:31] VITALS: TEMP 97.6
--- NOTE | 2022-05-03 03:41 | PN ---
PROGRESS NOTE SUBJECTIVE: An 81-year-old white male, history of aortic valve disease, status post aortic valve replacement and TAVR, aortic stenosis, was atypical of chest pain, discomfort. He went for heart catheterization today. Findings were 30%-40% blockage in the left main. LAD, mild obstructive disease left circumflex, minimal disease RCA, negative for blockage. Has [id number] aortic disease in the left main and LAD. Follow up with primary health and nutrition specialist for severe aortic stenosis. OBJECTIVE: LUNGS: Clear. GI: Soft. HEMATOLOGY: Negative for Homans. PSYCH: Fair mood and affect. PROGNOSIS: Guarded, followup. He will be possibly discharged home with after cleared by Cardiology. Echo shows good ejection fraction but as mentioned, aortic stenosis, he will possibly be discharged home. Follow up as an outpatient. MMODL / IJN: [id number] /
[2022-05-03 05:11] LABS: African American GFR (CKD) >90 (>60 ml/min/1.73 sqM); Anion Gap 8 mmol/L; Blood Urea Nitrogen 14 mg/dL (9-20); Carbon Dioxide 25 mmol/L (22-30); Chloride 103 mmol/L (98-107); Glucose 83 mg/dL (74-99); Non-African American GFR(CKD) >90 (>60 ml/min/1.73 sqM); Potassium 4.2 mmol/L (3.5-5.1); Sodium 136 mmol/L (137-145)
[2022-05-03] MEDS: PANTOPRAZOLE 40 MG TABLET PO SCH (05:58)
[2022-05-03] MEDS ORDERED: HEPARIN SODIUM,PORCINE 2,500 UNIT in SODIUM CHLORIDE 0.9% 250 ML IRRIGATION PRN (07:00)
[2022-05-03] MEDS ORDERED: HEPARIN SODIUM,PORCINE 10,000 UNIT in SODIUM CHLORIDE 0.9% 1,000 ML IRRIGATION PRN (07:00)
[2022-05-03 08:25] VITALS: RESP 18
[2022-05-03] MEDS: ASPIRIN 81 MG PO SCH (08:25)
[2022-05-03] MEDS: FUROSEMIDE 40 MG TAB PO SCH (08:25)
[2022-05-03] MEDS: METOPROLOL TARTRATE 12.5 MG TAB PO SCH (08:25)
[2022-05-03] MEDS: POTASSIUM CHLORIDE ER 10 MEQ TAB.ER.PRT PO SCH (08:25)
[2022-05-03] MEDS: CLOPIDOGREL 75 MG TAB PO SCH (08:25)
--- NOTE | 2022-05-03 10:55 | P.PN ---
Subjective Progress Note Date: 05/03/22 HISTORY OF PRESENT ILLNESS: This is a 81-year-old male with a past medical history significant for prediabetes, hypertension, hyperlipidemia, bleeding ulcer, asthma, and aortic stenosis with 2 aortic valve replacements. Patient follows with a Dr. Reyes. We have been asked to see the patient in consultation for abnormal troponins. Patient examined at the bedside. Patient states he was at Dr. Jacques office today when he had an EKG performed which concerns Dr. Jacques and he was referred to the emergency room. The patient reports he has chronic shortness of breath. However yesterday his shortness of breath seemed to get worse. He also reports having some chest tightness when he is extremity and shortness of breath. The patient states he had his first aortic valve replacement in 2006 with a bovine valve. He states he had a redo aortic valve replacement after at (unsure of the year). He states he was told he needed another valve replacement but was not a good surgical candidate. The patient currently denies chest pain or pressure. Denies SOB. He was found to have elevated troponin and started on IV heparin. Patient believes he had a cardiac catheterization performed about 6 years ago which was normal to his knowledge. He denies any previous history of coronary artery disease. * EKG reveals sinus mechanism with diffuse ST depression. This is new compared to EKG performed in December 2021 at the patient's primary cardiology office. * Chest xray mild cardio megaly with mild edema and small bilateral pleural effusions. * Laboratory data: WBC 11.3. Hemoglobin 16.1. Platelet count 185. Sodium 138. Potassium 4.6. BUN 17. Creatinine 0.74. Troponin 0.738. ProBNP 4330. * Current home cardiac medications include aspirin 81 mg daily, Plavix 75 mg daily, Lasix 40 mg twice a day, metoprolol tartrate 25 mg at night, Lipitor 40 mg at night, Imdur 60 mg at night, lisinopril 20 mg at night 05/01/2022 Patient examined this morning at the bedside. Patient denies chest pain or pressure. He reports an episode of shortness of breath when he is up ambulating to the bathroom that resolved with rest. He remains on IV heparin. 0.738. 0.716. 0.79. 05/03/2022 Patient is status post cardiac catheterization revealing mild to moderate disease in the proximal left main, mild disease in the LAD and left circumflex, no obstructive disease in the RCA. Patient examined this morning at the bedside. Patient denies chest pain or pressure. PHYSICAL EXAM: VITAL SIGNS: Reviewed. GENERAL: Well-developed in no acute distress. HEENT: Head is normocephalic. Pupils are equal, round. Sclerae anicteric. Mucous membranes of the mouth are moist. Neck supple. No JVD or thyromegaly LUNGS: Respirations even and unlabored. Lungs essentially clear to auscultation bilaterally. HEART: Regular rate and rhythm. S1 and S2 heard. + Systolic murmur noted. ABDOMEN: Soft. Nondistended. Nontender. EXTREMITIES: Normal range of motion. No clubbing or cyanosis. Peripheral pulses intact. No lower extremity edema NEUROLOGIC: Awake and alert. Oriented x 3. ASSESSMENT: Elevated troponins with abnormal EKG, possible NSTEMI History of aortic valve replacement x 2 Aortic stenosis, told he was not a good surgical candidate to have AV replaced again Chronic shortness of breath Hypertension Hyperlipidemia Pre-diabetes, per patient History of bleeding ulcer PLAN: Continue current cardiac medications Stable for discharge home today from a cardiac standpoint Patient to follow up outpatient with his primary hotel guest service agent Nurse practitioner note has been reviewed by physician. Signing provider agrees with the documented findings, assessment, and plan of care. Objective - Vital Signs Vital signs: Vital Signs Temp 97.6 F 05/03/22 03:06 Pulse 66 05/03/22 08:25 Resp 18 05/03/22 08:25 BP 119/66 05/03/22 08:25 Pulse Ox 96 05/03/22 08:25 FiO2 Intake & Output 05/02/22 05/03/22 05/03/22 18:59 06:59 18:59 Intake Total 321.445 598 Output Total 300 Balance 21.445 598 Intake: IV 50 Intake, IV Titration 153.445 Amount Heparin Sod,Pork in 0.45% 153.445 NaCl 25,000 unit In 0.45 % NaCl 1 250ml.bag @ 9.38 UNITS/KG/HR 9.999 mls/hr IV .Q24H ADITHYA Rx#: [id number] Oral 118 598 Output: Urine 300 Other: Voiding Method Toilet Toilet Toilet # Voids 1 - Labs CBC & Chem 7: 05/01/22 02:50 05/03/22 04:31 Labs: Abnormal Lab Results - Last 24 Hours (Table) 05/03/22 Range/Units 04:31 Sodium 136 L (137-145) mmol/L Calcium 8.0 L (8.4-10.2) mg/dL
[2022-05-03 12:58] VITALS: BP 133/65; PULSE 63
--- NOTE | 2022-05-04 07:31 | DS ---
DISCHARGE SUMMARY DISCHARGE MEDICINES: 1. Metoprolol 12.5 b.i.d. 2. Zestril 20 mg daily. 3. Potassium chloride 8 mEq b.i.d. 4. Prilosec 20 mg daily. 5. Lasix 40 mg b.i.d. 6. Plavix 75 mg daily. 7. Aspirin 81 mg daily. 8. Trulicity 1.5 subcu weekly. 9. Flomax 0.4 mg daily. 10.Imdur 60 mg daily. 11.Lipitor 40 mg daily. CONDITION: Stable. PROGNOSIS: Guarded. Ambulate as tolerated. He also is going to go home on a prednisone taper, Medrol Dosepak, a Z-Chicho, and Breztri inhaler 2 puffs b.i.d. DISCHARGE DIAGNOSES: Chronic dyspnea, non-STEMI, aortic valve repair, diastolic congestive heart failure, coronary artery disease. He had a heart catheterization done which showed [id number] blockage. Medicines were adjusted. CAT scan of his chest shows possible aspiration pneumonia, some interstitial fibrosis. Medicines were given for that. He will follow up as an outpatient. He qualifies to wear home O2 at nighttime due to overnight test at his house. He will go home on home O2 2 L at night . Condition stable, prognosis guarded. MMODL / IJN: [id number] /
--- NOTE | 2022-05-07 11:09 | CDI ---
Documentation Clarification Form Date: 05/07/2022 10:33:10 AM From: Criss Carl RN CCDS Phone: [phone] Admit Date: 04/30/2022 12:44:00 PM Patient Name: Lonnie Guzman Visit Number: [id number] Discharge Date: 05/03/2022 4:08:00 PM ATTENTION: The Clinical Documentation Specialists (CDI) and [facility] Coding Staff appreciate your assistance in clarifying documentation. Please respond to the clarification below the line at the bottom and electronically sign. The CDI & [facility] Coding staff will review the response and follow-up if needed. Please note: Queries are made part of the Legal Health Record. If you have any questions, please contact the author of this message via ITS. Dr. Benjie Jacques Aspiration Pneumonia is documented 05/03, Discharge summary which may lack sufficient clinical evidence/support in the medical record. Additional clarification is requested. History/Risk Factors: 81-year-old male presents to the ED for chest pain. Medical History: HTN, CAD, SOB, HTN, Sleep Apnea, Dyslipidemia and Prediabetes. 05/01, H&P. Clinical Indicators: VSS, 04/30: B/P 185/71, HR 83, Temp 98.2 F Oral, RR 20, SpO2 95% room air CXR, 04/30: Mild cardiomegaly with mild edema and small bilateral pleural effusions. CT ABD PELVIS, 04/30: Groundglass opacities predominantly in the lower lobes are fairly subtle lung with trace bilateral pleural effusions. Correlate for early congestive heart failure, alternatively these may represent a resolving atypical infection versus aspiration. 05/07, DCS: He is also going to go home on a prednisone taper, Medrol Dosepak, a Z-Chicho, and Breztri inhaler 2 puffs bid. Treatment: 04/30 19:39 05/01 19:56 2L Please clarify if Aspiration Pneumonia is a valid diagnosis? [ ] Yes, Aspiration Pneumonia is present as evidence by (additional clinical support): [ ] No, Aspiration Pneumonia is ruled out [ ] Other (please specify diagnosis) [ ] Unable to determine See prog note 05/08 for responseJames MTDErnie
--- NOTE | 2022-05-08 21:27 | PN ---
PROGRESS NOTE He has aspiration pneumonia. MMODL / IJN: [id number] /
== END 2022-05-03 16:08 | disposition home or self-care (01) | DRG 280 ==
LOC: EC 10:43 → 3SCARD 12:44
PROVIDERS: ADMIT Family Medicine; ATTEND Family Medicine
PROC: B246ZZ4 Ultrasonography of Right and Left Heart, Transesophageal (ICD-10-PCS; 2022-05-01)
PROC: B2111ZZ Fluoroscopy of Multiple Coronary Arteries using Low Osmolar Contrast (ICD-10-PCS; 2022-05-02)
PROC: 4A023N7 Measurement of Cardiac Sampling and Pressure, Left Heart, Percutaneous Approach (ICD-10-PCS; principal; 2022-05-02 09:55)
DX: I21.4 Non-ST elevation (NSTEMI) myocardial infarction (principal); J69.0 Pneumonitis due to inhalation of food and vomit; I50.32 Chronic diastolic (congestive) heart failure; Z95.2 Presence of prosthetic heart valve; I08.3 Combined rheumatic disorders of mitral, aortic and tricuspid valves; I11.0 Hypertensive heart disease with heart failure; Z68.37 Body mass index [BMI] 37.0-37.9, adult; E11.9 Type 2 diabetes mellitus without complications; J45.909 Unspecified asthma, uncomplicated; I25.10 Atherosclerotic heart disease of native coronary artery without angina pectoris; E78.5 Hyperlipidemia, unspecified; J84.89 Other specified interstitial pulmonary diseases; G47.30 Sleep apnea, unspecified; E66.9 Obesity, unspecified; Z79.02 Long term (current) use of antithrombotics/antiplatelets; Z79.82 Long term (current) use of aspirin; Z79.899 Other long term (current) drug therapy; Z87.19 Personal history of other diseases of the digestive system
CPT/HCPCS: 36415; 71046; 71250; 80048; 80053; 83735; 83880; 84484; 85025; 85610; 85730; 93005; 93306; 93458; 94760; 96374; 99291

== ENCOUNTER 2022-08-23 19:13 | Observation (INO) | payer MEDICARE ==
[2022-08-23] MEDS ORDERED: IOPAMIDOL CONTRAST (ORAL USE) VIAL PO PRN (19:49)
--- NOTE | 2022-08-23 20:05 | ED ---
Abdominal Pain HPI - General Chief Complaint: Abdominal Pain Stated Complaint: Abd pain Time Seen by Provider: 08/23/22 19:35 Source: patient Mode of arrival: ambulatory Limitations: no limitations - History of Present Illness Initial Comments: 82-year-old male with past medical history significant for hypertension, aortic stenosis, and prior LA presents to the ED with a chief complaint of abdominal pain. Patient states upon getting out of bed this morning onset of upper abdominal pain. Pain does not radiate. Pain at onset was 8/10 on the severity however patient reports now pain is almost a 0. Associated nausea no vomiting. Patient states he has had problems with constipation over the last few days however now reports that he has been having bowel movements normally. Patient states last bowel movement approximately 12 PM, nonbloody in normal in consistency. No other complaints. - Related Data Home Medications Medication Instructions Recorded Confirmed Aspirin EC [Ecotrin Low Dose] 81 mg PO DAILY 04/30/22 08/23/22 Atorvastatin Calcium [Lipitor] 40 mg PO HS 04/30/22 08/23/22 Clopidogrel [Plavix] 75 mg PO DAILY 04/30/22 08/23/22 Dulaglutide [Trulicity] 1.5 mg SQ SA 04/30/22 08/23/22 Furosemide [Lasix] 40 mg PO BID 04/30/22 08/23/22 Isosorbide Mononitrate ER [Imdur] 60 mg PO HS 04/30/22 08/23/22 Potassium Chloride [Klor-Con 8] 8 meq PO BID 04/30/22 08/23/22 Tamsulosin HCl [Flomax] 0.4 mg PO HS 04/30/22 08/23/22 lisinopriL [Zestril] 20 mg PO BID 04/30/22 08/23/22 Budesonide/Formoterol Fumarate 2 puff INHALATION RT-BID 08/23/22 08/23/22 [Symbicort 160-4.5 Mcg Inhaler] Metoprolol Tartrate [Lopressor] 25 mg PO HS 08/23/22 08/23/22 Omeprazole 40 mg PO DAILY 08/23/22 08/23/22 Allergies Allergy/AdvReac Type Severity Reaction Status Date / Time No Known Allergies Allergy Verified 08/23/22 21:34 Review of Systems ROS Statement: Those systems with pertinent positive or pertinent negative responses have been documented in the HPI. ROS Other: All systems not noted in ROS Statement are negative. Past Medical History Past Medical History: Asthma, Cancer, Hypertension Additional Past Medical History / Comment(s): pre diabetic History of Any Multi-Drug Resistant Organisms: None Reported Additional Past Surgical History / Comment(s): Aortic valve replaced - to cor valve inside other valve. dental sx Past Anesthesia/Blood Transfusion Reactions: No Reported Reaction Past Psychological History: No Psychological Hx Reported Smoking Status: Never smoker Past Alcohol Use History: None Reported Past Drug Use History: None Reported General Exam Limitations: no limitations General appearance: alert, in no apparent distress Head exam: Present: atraumatic, normocephalic Eye exam: Present: normal appearance ENT exam: Present: mucous membranes moist Neck exam: Present: other (No bruit) Respiratory exam: Present: normal lung sounds bilaterally Cardiovascular Exam: Present: regular rate, normal rhythm, systolic murmur (2/6 S heard over RUSB) GI/Abdominal exam: Present: soft, distended, mass (Vental hernia easily reducible) Neurological exam: Present: alert, oriented X3 Psychiatric exam: Present: normal affect, normal mood Skin exam: Present: warm, dry Course Vital Signs 08/23/22 08/23/22 19:15 21:46 Temperature 97.9 F Pulse Rate 81 72 Respiratory 20 16 Rate Blood Pressure 145/59 154/60 O2 Sat by Pulse 94 L 95 Oximetry - Reevaluation(s) Reevaluation #1: Spoke to Dr. Jacques who accepts admission with consult to surgery. 08/24/22 00:06 Medical Decision Making - Medical Decision Making Was pt. sent in by a medical professional or institution (, PA, VB NET DEVELOPER, urgent care, hospital, or assisted...) When possible be specific @ -No Did you speak to anyone other than the patient for history (EMS, parent, family, police, friend...)? What history was obtained from this source @ -No Did you review nursing and triage notes (agree or disagree)? Why? @ -I reviewed and agree with nursing and triage notes Were old charts reviewed (outside hosp., previous admission, EMS record, old EKG, old radiological studies, urgent care reports/EKG's, assisted records)? Report findings @ -Old charts reviewed showing history of an NSTEMI and aortic valve repair. Differential Diagnosis (chest pain, altered mental status, abdominal pain women, abdominal pain men, vaginal bleeding, weakness, fever, dyspnea, syncope, headache, dizziness, GI bleed, back pain, seizure, CVA, palpatations, mental health, musculoskeletal)? @ -Differential Abdominal Pain Men: Appendicitis, cholecystitis, diverticulosis, ischemic bowel, pancreatitis, hepatitis, UTI, gastroenteritis, AAA, incarcerated hernia, bowel obstruction, constipation, inflammatory bowel, hepatitis, peptic ulcer disease, splenic infarction, perforated viscus, testicular torsion, this is not meant to be an all-inclusive list EKG interpreted by me (3pts min.). @ -As above X-rays interpreted by me (1pt min.). @ -Chest x-ray showed no acute process CT interpreted by me (1pt min.). @ -Abdominal CT showed gallbladder wall thickening with no cholelithiasis. Also findings of multiple hepatic and renal cysts. Nonobstructing right renal colic list. U/S interpreted by me (1pt. min.). @ -Ultrasound being performed at time of disposition and unavailable for review. What testing was considered but not performed or refused? (CT, X-rays, U/S, labs)? Why? @ -None What meds were considered but not given or refused? Why? @ -None Did you discuss the management of the patient with other professionals (professionals i.e. , PA, VB NET DEVELOPER, lab, RT, psych nurse, social media specialist, medical device engineer, teacher, chief nursing officer, nurse outreach case manager)? Give summary @ -Spoke to , who accepts admission and requests consult to Dr. Mccann Was smoking cessation discussed for >3mins.? @ -No Was critical care preformed (if so, how long)? @ -No Were there social determinants of health that impacted care today? How? (Homelessness, low income, unemployed, alcoholism, drug addiction, transportation, low edu. Level, literacy, decrease access to med. care, residential, rehab)? @ -No Was there de-escalation of care discussed even if they declined (Discuss DNR or withdrawal of care, Hospice)? DNR status @ -No What co-morbidities impacted this encounter? (DM, HTN, Smoking, COPD, CAD, Cancer, CVA, ARF, Chemo, Hep., AIDS, mental health diagnosis, sleep apnea, morbid obesity)? @ - Obesity Was patient admitted / discharged? Hospital course, mention meds given and route, prescriptions, significant lab abnormalities, going to OR and other pertinent info. @ -Admitted. Laboratory studies significant for white blood cell count of 11.9. Bilirubin 3.2. AST 258. ALT 185. Imaging studies showed evidence of cholecystitis. Ultrasound pending at this time. Additionally initial troponin elevated at 0.083. Repeat troponin at 0.110. She will be admitted with consult to surgery with serial troponins. Discussed plan of care with patient who is agreeable. Undiagnosed new problem with uncertain prognosis? @ -No Drug Therapy requiring intensive monitoring for toxicity (Heparin, Nitro, Insuli n, Cardizem)? @ -No Were any procedures done? @ -No Diagnosis/symptom? @ -Cholecystitis, rule out NSTEMI. Acute, or Chronic, or Acute on Chronic? @ -Acute Uncomplicated (without systemic symptoms) or Complicated (systemic symptoms)? @ -Uncomplicated Side effects of treatment? @ -No Exacerbation, Progression, or Severe Exacerbation? @ -No Poses a threat to life or bodily function? How? (Chest pain, USA, LA, pneumonia, PE, COPD, DKA, ARF, appy, cholecystitis, CVA, Diverticulitis, Homicidal, Suicidal, threat to staff... and all critical care pts) @ -No - Lab Data Result diagrams: 08/23/22 20:14 08/23/22 20:14 Lab Results 08/23/22 08/23/22 08/23/22 Range/Units 20:14 20:14 20:14 WBC 11.9 H (3.8-10.6) k/uL RBC 4.51 (4.30-5.90) m/uL Hgb 15.3 (13.0-17.5) gm/dL Hct 45.9 (39.0-53.0) % MCV 101.8 H (80.0-100.0) fL MCH 33.9 (25.0-35.0) pg MCHC 33.2 (31.0-37.0) g/dL RDW 13.2 (11.5-15.5) % Plt Count 227 (150-450) k/uL MPV 9.4 Neutrophils % 81 % Lymphocytes % 7 % Monocytes % 9 % Eosinophils % 0 % Basophils % 0 % Neutrophils # 9.6 H (1.3-7.7) k/uL Lymphocytes # 0.9 L (1.0-4.8) k/uL Monocytes # 1.0 (0-1.0) k/uL Eosinophils # 0.0 (0-0.7) k/uL Basophils # 0.0 (0-0.2) k/uL Macrocytosis Slight Sodium 139 (137-145) mmol/L Potassium 4.1 (3.5-5.1) mmol/L Chloride 105 (98-107) mmol/L Carbon Dioxide 27 (22-30) mmol/L Anion Gap 7 mmol/L BUN 26 H (9-20) mg/dL Creatinine 0.86 (0.66-1.25) mg/dL Est GFR (CKD-EPI)AfAm >90 (>60 ml/min/1.73 sqM) Est GFR (CKD-EPI)NonAf 82 (>60 ml/min/1.73 sqM) Glucose 102 H (74-99) mg/dL Plasma Lactic Acid Giorgio 1.9 (0.7-2.0) mmol/L Calcium 8.9 (8.4-10.2) mg/dL Total Bilirubin 3.2 H (0.2-1.3) mg/dL AST 258 H (17-59) U/L ALT 185 H (4-49) U/L Alkaline Phosphatase 76 (38-126) U/L Troponin I (0.000-0.034) ng/mL Total Protein 6.4 (6.3-8.2) g/dL Albumin 3.9 (3.5-5.0) g/dL Amylase 46 (30-110) U/L Lipase 143 (23-300) U/L Urine Color Urine Appearance (Clear) Urine pH (5.0-8.0) Ur Specific [place] (1.001-1.035) Urine Protein (Negative) Urine Glucose (UA) (Negative) Urine Ketones (Negative) Urine Blood (Negative) Urine Nitrite (Negative) Urine Bilirubin (Negative) Urine Urobilinogen (<2.0) mg/dL Ur Leukocyte Esterase (Negative) 08/23/22 08/23/22 08/23/22 Range/Units 20:14 22:55 22:58 WBC (3.8-10.6) k/uL RBC (4.30-5.90) m/uL Hgb (13.0-17.5) gm/dL Hct (39.0-53.0) % MCV (80.0-100.0) fL MCH (25.0-35.0) pg MCHC (31.0-37.0) g/dL RDW (11.5-15.5) % Plt Count (150-450) k/uL MPV Neutrophils % % Lymphocytes % % Monocytes % % Eosinophils % % Basophils % % Neutrophils # (1.3-7.7) k/uL Lymphocytes # (1.0-4.8) k/uL Monocytes # (0-1.0) k/uL Eosinophils # (0-0.7) k/uL Basophils # (0-0.2) k/uL Macrocytosis Sodium (137-145) mmol/L Potassium (3.5-5.1) mmol/L Chloride (98-107) mmol/L Carbon Dioxide (22-30) mmol/L Anion Gap mmol/L BUN (9-20) mg/dL Creatinine (0.66-1.25) mg/dL Est GFR (CKD-EPI)AfAm (>60 ml/min/1.73 sqM) Est GFR (CKD-EPI)NonAf (>60 ml/min/1.73 sqM) Glucose (74-99) mg/dL Plasma Lactic Acid Giorgio (0.7-2.0) mmol/L Calcium (8.4-10.2) mg/dL Total Bilirubin (0.2-1.3) mg/dL AST (17-59) U/L ALT (4-49) U/L Alkaline Phosphatase (38-126) U/L Troponin I 0.083 H* 0.110 H* (0.000-0.034) ng/mL Total Protein (6.3-8.2) g/dL Albumin (3.5-5.0) g/dL Amylase (30-110) U/L Lipase (23-300) U/L Urine Color Dark Yellow Urine Appearance Clear (Clear) Urine pH 6.5 (5.0-8.0) Ur Specific [place] >1.050 H (1.001-1.035) Urine Protein Trace H (Negative) Urine Glucose (UA) Negative (Negative) Urine Ketones Negative (Negative) Urine Blood Negative (Negative) Urine Nitrite Negative (Negative) Urine Bilirubin 1+ H (Negative) Urine Urobilinogen 8.0 (<2.0) mg/dL Ur Leukocyte Esterase Negative (Negative) - EKG Data EKG Comments: EKG shows a sinus rhythm with nonspecific T-wave and ST wave changes at 72 bpm. GA 186, QRS 90, QT/QTc 405/429 Disposition Clinical Impression: Cholecystitis Disposition: ADMITTED IP TO THIS HOSP Condition: Good Referrals: Benjie Jacques MD [Primary Care Provider] - 1-2 days Time of Disposition: 00:06
[2022-08-23 20:31] LABS: Basophils % (A) 0 %; Eosinophils % (A) 0 %; HCT 45.9 % (39.0-53.0); HGB 15.3 gm/dL (13.0-17.5); Lymphocytes # (A) 0.9 k/uL (1.0-4.8); Lymphocytes % (A) 7 %; MCH 33.9 pg (25.0-35.0); MCHC 33.2 g/dL (31.0-37.0); MCV 101.8 fL (80.0-100.0); Macrocytosis Slight; Mean Platelet Volume 9.4; Monocytes % (A) 9 %; Neutrophils # (A) 9.6 k/uL (1.3-7.7); Neutrophils % (A) 81 %; Platelet Count 227 k/uL (150-450); RBC 4.51 m/uL (4.30-5.90); RDW 13.2 % (11.5-15.5); WBC 11.9 k/uL (3.8-10.6)
[2022-08-23 20:47] LABS: ALT 185 U/L (4-49); AST 258 U/L (17-59); African American GFR (CKD) >90 (>60 ml/min/1.73 sqM); Albumin 3.9 g/dL (3.5-5.0); Alkaline Phosphatase 76 U/L (38-126); Amylase 46 U/L (30-110); Anion Gap 7 mmol/L; Blood Urea Nitrogen 26 mg/dL (9-20); Calcium 8.9 mg/dL (8.4-10.2); Carbon Dioxide 27 mmol/L (22-30); Chloride 105 mmol/L (98-107); Glucose 102 mg/dL (74-99); Lipase 143 U/L (23-300); Non-African American GFR(CKD) 82 (>60 ml/min/1.73 sqM); Potassium 4.1 mmol/L (3.5-5.1); Sodium 139 mmol/L (137-145); Total Bilirubin 3.2 mg/dL (0.2-1.3); Total Protein 6.4 g/dL (6.3-8.2)
--- NOTE | 2022-08-23 21:49 | CT ---
EXAMINATION TYPE: CT abdomen pelvis w con DATE OF EXAM: 08/23/2022 COMPARISON: CT chest 04/30/2022 HISTORY: abdominal pain, bloating CT DLP: 1972.6 mGycm CONTRAST: CT scan of the abdomen and pelvis is performed with Oral Contrast and with IV Contrast, patient injec lexis with 100 mL of Isovue 300. FINDINGS: LUNG BASES-: No visible nodule. No infiltrate. Small bilateral pleural effusions. LIVER/GB: Gallbladder hydrops at 9.1 cm with mild wall thickening. No obvious cholelithiasis seen at this time. Multiple hepatic cystic lesions seen on prior CT chest 04/30/2022. Biliary tree is of normal caliber. PANCREAS: No inflammation. No distinct mass. SPLEEN: No splenic enlargement. No lesion seen. ADRENALS: No nodule. No thickening. KIDNEYS/BLADDER: No hydronephrosis. 7.8 cm cyst upper pole right kidney. Nonobstructing 5 mm calculu s mid pole right kidney. Urinary bladder wall thickening may reflect cystitis. Correlate clinically. BOWEL: Normal appendix. Normal bowel caliber. No inflammation. Sigmoid diverticulosis without diver ticulitis. GENITAL ORGANS: No gross abnormality. LYMPH NODES: No greater than 1cm abdominal or pelvic lymph nodes are appreciated. AORTA: No significant abnormality. OSSEOUS STRUCTURES: Generative changes lumbar spine and bilateral hips. OTHER: No significant additional abnormality is seen. IMPRESSION: 1. Correlate for urinary bladder cystitis. 2. Gallbladder hydrops with wall thickening and no calcified cholelithiasis. Consider ultrasound candie elation. 3. Multiple hepatic and renal cysts. 4. nonobstructing right renal calculus.
--- NOTE | 2022-08-23 21:50 | XR ---
EXAMINATION TYPE: XR chest 2V DATE OF EXAM: 08/23/2022 COMPARISON: 04/30/22 HISTORY: Shortness of breath TECHNIQUE: Frontal and lateral views of the chest are obtained. FINDINGS: Scattered senescent parenchymal changes noted. Hyperinflation compatible with COPD. No evidence for infiltrate. No evidence for atelectasis. Small pleural effusions noted. Heart size is stable. Pulmonary venous congestion without evidence for overt failure. Mediastinal structures are stable and grossly unremarkable. No evidence for hilar prominence. Degenerative changes dorsal spine. IMPRESSION: 1. Pulmonary venous congestion without evidence for overt failure. Small pleural effusions noted.
[2022-08-23 23:54] LABS: Appearance,Urine Clear (Clear); Bilirubin,Urine 1+ (Negative); Blood,Urine Negative (Negative); Color,Urine Dark Yellow; Glucose,Urine (UA) Negative (Negative); Ketones,Urine Negative (Negative); Leukocyte Esterase,Urine Negative (Negative); Nitrite,Urine Negative (Negative); PH, Urine 6.5 (5.0-8.0); Protein,Urine Trace (Negative)
[2022-08-23 23:55] LABS: Specific Gravity,Urine >1.050 (1.001-1.035)
[2022-08-24] MEDS ORDERED: ACETAMINOPHEN TAB 325 MG TAB PO PRN (00:16)
[2022-08-24] MEDS ORDERED: NALOXONE 0.4 MG/ML 1 ML VIAL IV PRN (00:16)
[2022-08-24] MEDS ORDERED: MORPHINE SULFATE 4 MG/ML SYRINGE IV PRN (00:16)
--- NOTE | 2022-08-24 02:34 | US ---
EXAM: US Abdomen Limited, Right Upper Quadrant CLINICAL HISTORY: ITS.REASON US Reason: r/o cholelithiasis TECHNIQUE: Real-time ultrasound of the right upper quadrant with image documentation. COMPARISON: CT 08/23/2022 FINDINGS: Liver: Multiple cysts in the liver. Peripherally calcified lesion measuring 4.4 x 4.2 cm. Gallbladder: No cholelithiasis or cholecystitis. Common bile duct: Common bile duct measures 5 mm. Pancreas: Unremarkable as visualized. Right kidney: Nonobstructing stone superior pole of the right kidney measuring 7 mm. Right renal simple cyst measuring 8.3 x 6.7 x 7.2 cm. IMPRESSION: 1. No cholelithiasis or cholecystitis. 2. Multiple cysts in the liver. Peripherally calcified lesion in the liver which is incompletely characterized.
[2022-08-24] MEDS ORDERED: NON FORMULARY DRUG (Dulaglutide [Trulicity] 1.5 MG/0.5 ML Each) SQ SCH (10:45)
[2022-08-24 11:16] LABS: HCT 42.3 % (39.0-53.0); MCH 34.3 pg (25.0-35.0); MCHC 33.1 g/dL (31.0-37.0); MCV 103.7 fL (80.0-100.0); Macrocytosis Slight; Platelet Count 219 k/uL (150-450); RBC 4.09 m/uL (4.30-5.90); RDW 13.2 % (11.5-15.5); WBC 8.1 k/uL (3.8-10.6)
[2022-08-24 11:22] LABS: ALT 225 U/L (4-49); AST 169 U/L (17-59); African American GFR (CKD) >90 (>60 ml/min/1.73 sqM); Alkaline Phosphatase 86 U/L (38-126); Anion Gap 5 mmol/L; Blood Urea Nitrogen 23 mg/dL (9-20); Calcium 8.3 mg/dL (8.4-10.2); Carbon Dioxide 27 mmol/L (22-30); Chloride 105 mmol/L (98-107); Glucose 88 mg/dL (74-99); Non-African American GFR(CKD) 86 (>60 ml/min/1.73 sqM); Potassium 4.2 mmol/L (3.5-5.1); Sodium 137 mmol/L (137-145); Total Bilirubin 1.5 mg/dL (0.2-1.3); Total Protein 5.3 g/dL (6.3-8.2)
--- NOTE | 2022-08-24 11:24 | P.GSCN ---
History of Present Illness Consult date: 08/24/22 Reason for Consult: abdominal pain History of present illness: 82M developed upper abdominal pain, bandlike with significant "regurgitation". Has known history of GERD, reflux & ulcers. Has had EGDs in past but unsure of date of last one. Has had similar pain in past. Also has had colonoscopies in past with Dr. Zamora. No bowel issues. No current pain. Wants to eat something. CT showing a dilated gallbladder; US with no significant pathology, no signs of cholecystitis or cholelithiasis. Elevated TBili & LFTs. Slight leukocytosis. Has a significant cardiac history of aortic stenosis. Has had two AVR by Dr. Nuñez & had been told he will likely need another aortic valve replacement vs open heart surgery. Does cause him to have shortness of breath. Had troponin release this admission. Also has history of buccal oral cancer, underwent surgery; no chemo or radiation needed. Review of Systems - Constitutional Reports as per HPI - Cardiovascular Reports as per HPI - Respiratory Reports as per HPI - Gastrointestinal Reports as per HPI - Genitourinary Reports as per HPI - Musculoskeletal Reports as per HPI - Integumentary Reports as per HPI - Neurological Reports as per HPI - Psychiatric Reports as per HPI - Endocrine Reports as per HPI - Hematologic/Lymphatic Reports as per HPI - Allergic/Immunologic Reports as per HPI Past Medical History Past Medical History: Asthma, Cancer, Hypertension Additional Past Medical History / Comment(s): pre diabetic, mouth cancer, aortic stenosis, polio as a child History of Any Multi-Drug Resistant Organisms: None Reported Past Surgical History: Cardiac Valve Replacement, Heart Catheterization Additional Past Surgical History / Comment(s): Aortic valve replaced - to cor valve inside other valve, colonoscopy- polyp removal. dental sx Past Anesthesia/Blood Transfusion Reactions: No Reported Reaction Past Psychological History: No Psychological Hx Reported Smoking Status: Never smoker Past Alcohol Use History: None Reported Past Drug Use History: None Reported - Past Family History Diabetes Family Medical History: Diabetes Mellitus Medications and Allergies Home Medications Medication Instructions Recorded Confirmed Type Aspirin EC [Ecotrin Low Dose] 81 mg PO DAILY 04/30/22 08/23/22 History Atorvastatin Calcium [Lipitor] 40 mg PO HS 04/30/22 08/23/22 History Clopidogrel [Plavix] 75 mg PO DAILY 04/30/22 08/23/22 History Dulaglutide [Trulicity] 1.5 mg SQ SA 04/30/22 08/23/22 History Furosemide [Lasix] 40 mg PO BID 04/30/22 08/23/22 History Isosorbide Mononitrate ER [Imdur] 60 mg PO HS 04/30/22 08/23/22 History Potassium Chloride [Klor-Con 8] 8 meq PO BID 04/30/22 08/23/22 History Tamsulosin HCl [Flomax] 0.4 mg PO HS 04/30/22 08/23/22 History lisinopriL [Zestril] 20 mg PO BID 04/30/22 08/23/22 History Budesonide/Formoterol Fumarate 2 puff INHALATION RT-BID 08/23/22 08/23/22 History [Symbicort 160-4.5 Mcg Inhaler] Metoprolol Tartrate [Lopressor] 25 mg PO HS 08/23/22 08/23/22 History Omeprazole 40 mg PO DAILY 08/23/22 08/23/22 History Allergies Allergy/AdvReac Type Severity Reaction Status Date / Time No Known Allergies Allergy Verified 08/23/22 21:34 Surgical - Exam Vital Signs Temp Pulse Resp BP Pulse Ox 97.9 F 81 20 145/59 94 L 08/23/22 19:15 08/23/22 19:15 08/23/22 19:15 08/23/22 19:15 08/23/22 19:15 - General well developed, well nourished, no distress, no pain - ENT normal mucosa, no hearing loss - Neck supple - Respiratory normal expansion, normal respiratory effort, clear to auscultation - Cardiovascular Rhythm: regular Abnormal Heart Sounds: other (murmurs present) - Abdomen Abdomen: soft, non tender, no guarding, no rigid, no rebound, no distended - Integumentary warm & dry, no diaphoresis - Neurologic no gross deficits - Musculoskeletal slight LE edema, no obvious deformities - Psychiatric alert & oriented, normal affect Results - Labs 08/23/22 20:14 08/23/22 20:14 Abnormal Lab Results - Last 24 Hours (Table) 08/23/22 08/23/22 08/23/22 Range/Units 20:14 20:14 20:14 WBC 11.9 H (3.8-10.6) k/uL MCV 101.8 H (80.0-100.0) fL Neutrophils # 9.6 H (1.3-7.7) k/uL Lymphocytes # 0.9 L (1.0-4.8) k/uL BUN 26 H (9-20) mg/dL Glucose 102 H (74-99) mg/dL Total Bilirubin 3.2 H (0.2-1.3) mg/dL AST 258 H (17-59) U/L ALT 185 H (4-49) U/L Troponin I 0.083 H* (0.000-0.034) ng/mL Ur Specific [place] (1.001-1.035) Urine Protein (Negative) Urine Bilirubin (Negative) 08/23/22 08/23/22 08/24/22 Range/Units 22:55 22:58 02:30 WBC (3.8-10.6) k/uL MCV (80.0-100.0) fL Neutrophils # (1.3-7.7) k/uL Lymphocytes # (1.0-4.8) k/uL BUN (9-20) mg/dL Glucose (74-99) mg/dL Total Bilirubin (0.2-1.3) mg/dL AST (17-59) U/L ALT (4-49) U/L Troponin I 0.110 H* 0.118 H* (0.000-0.034) ng/mL Ur Specific [place] >1.050 H (1.001-1.035) Urine Protein Trace H (Negative) Urine Bilirubin 1+ H (Negative) 08/24/22 Range/Units 06:46 WBC (3.8-10.6) k/uL MCV (80.0-100.0) fL Neutrophils # (1.3-7.7) k/uL Lymphocytes # (1.0-4.8) k/uL BUN (9-20) mg/dL Glucose (74-99) mg/dL Total Bilirubin (0.2-1.3) mg/dL AST (17-59) U/L ALT (4-49) U/L Troponin I 0.107 H* (0.000-0.034) ng/mL Ur Specific [place] (1.001-1.035) Urine Protein (Negative) Urine Bilirubin (Negative) Diabetes panel 08/23/22 Range/Units 20:14 Sodium 139 (137-145) mmol/L Potassium 4.1 (3.5-5.1) mmol/L Chloride 105 (98-107) mmol/L Carbon Dioxide 27 (22-30) mmol/L BUN 26 H (9-20) mg/dL Creatinine 0.86 (0.66-1.25) mg/dL Glucose 102 H (74-99) mg/dL Calcium 8.9 (8.4-10.2) mg/dL AST 258 H (17-59) U/L ALT 185 H (4-49) U/L Alkaline Phosphatase 76 (38-126) U/L Total Protein 6.4 (6.3-8.2) g/dL Albumin 3.9 (3.5-5.0) g/dL Calcium panel 08/23/22 Range/Units 20:14 Calcium 8.9 (8.4-10.2) mg/dL Albumin 3.9 (3.5-5.0) g/dL Pituitary panel 08/23/22 Range/Units 20:14 Sodium 139 (137-145) mmol/L Potassium 4.1 (3.5-5.1) mmol/L Chloride 105 (98-107) mmol/L Carbon Dioxide 27 (22-30) mmol/L BUN 26 H (9-20) mg/dL Creatinine 0.86 (0.66-1.25) mg/dL Glucose 102 H (74-99) mg/dL Calcium 8.9 (8.4-10.2) mg/dL Adrenal panel 08/23/22 Range/Units 20:14 Sodium 139 (137-145) mmol/L Potassium 4.1 (3.5-5.1) mmol/L Chloride 105 (98-107) mmol/L Carbon Dioxide 27 (22-30) mmol/L BUN 26 H (9-20) mg/dL Creatinine 0.86 (0.66-1.25) mg/dL Glucose 102 H (74-99) mg/dL Calcium 8.9 (8.4-10.2) mg/dL Total Bilirubin 3.2 H (0.2-1.3) mg/dL AST 258 H (17-59) U/L ALT 185 H (4-49) U/L Alkaline Phosphatase 76 (38-126) U/L Total Protein 6.4 (6.3-8.2) g/dL Albumin 3.9 (3.5-5.0) g/dL - Imaging CT scan - abdomen: report reviewed, image reviewed CT scan - pelvis: report reviewed, image reviewed US - abdomen: report reviewed, image reviewed Assessment and Plan Assessment: epigastric abdominal pain, resolved - has history of gastric ulcers, GERD - CT showing dilated GB but US showing no signs of cholecystitis elevated TBili, LFTs slight leukocytosis troponin release - has significant cardiac history including two AVR, needing a third vs open heart surgery hx of buccal oral cancer, treated with surgery Plan: Poor surgical candidate without medical & cardiac optimization, especially due to his potential need for a third AVR vs open heart surgery. - Would recommend outpatient follow up for EGD & discussion regarding gallbladder options. - Agree with Cardiac consultation Repeat CMP ordered. If LFTs, TBili still elevated will need MRCP. - Agree with GI consultation - If labs down-trending, OK to trial clear liquids. If continues to have abdominal pain & unable to tolerate PO, best option due to his medical comorbidities at this time would be IR placed cholecystostomy tube until cleared for any surgical intervention. May need HIDA prior to placement to confirm biliary pathology. Not an ideal inpatient surgical candidate. Thank you for this consultation & allowing me to participate in the care of your patient. Time with Patient: Greater than 30
[2022-08-24 11:31] LABS: NT-Pro-B-Type Natriuretic Pept 8600 pg/mL
[2022-08-24] MEDS: IPRATROPIUM-ALBUTEROL 3 ML NEB INHALATION SCH ×3 (11:36→20:44)
[2022-08-24] MEDS: SODIUM CHLORIDE 0.9% 1,000 ML IV SCH (12:07)
[2022-08-24] MEDS: HEPARIN SODIUM,PORCINE/PF 5,000 UNIT/0.5 ML SYRINGE SQ SCH ×2 (12:11→15:36)
--- NOTE | 2022-08-24 14:10 | CT ---
EXAMINATION TYPE: CT chest wo con DATE OF EXAM: 08/24/2022 COMPARISON: 04/30/2022 HISTORY: Dyspnea CT DLP: 641.2 mGycm. Automated Exposure Control for Dose Reduction was Utilized. TECHNIQUE: CT scan of the thorax is performed without IV contrast. FINDINGS: There are scattered groundglass opacities in the lower lung zones which have increased compared to pr evious. There are small to moderate bilateral pleural effusions which have increased in the interval as well. There are median sternotomy wires and a prosthetic aortic valve. The heart is mildly prominent in siz e. There are median sternotomy wires otherwise the osseous structures are intact. As noted on prior study are multiple hepatic cysts one of which contains rim-like calcification. The abdomen is unchanged compared to previous IMPRESSION: 1. Scattered groundglass opacities and rudil-vz-gxnoartd pleural effusions both of which have increas ed compared to the prior study 04/30/2022.. Findings raise question of CHF although there are nonspecif ic findings and inflammatory disease not excluded. Clinical correlation recommended 2. Prosthetic aortic valve and mild cardiomegaly. 3. Multiple hepatic cysts.
[2022-08-24] MEDS: SYMBICORT 160-4.5 MCG INHALER INHALATION SCH (20:44)
[2022-08-24] MEDS ORDERED: ATORVASTATIN 40 MG TAB PO SCH (21:00)
[2022-08-24] MEDS: METOPROLOL TARTRATE 25 MG TAB PO SCH (21:27)
[2022-08-24] MEDS: lisinopriL 20 MG TAB PO SCH (21:28)
[2022-08-24] MEDS: POTASSIUM CHLORIDE ER 10 MEQ TAB.ER.PRT PO SCH (21:28)
[2022-08-24] MEDS: ISOSORBIDE MONONITRATE ER 60 MG TAB.ER.24H PO SCH (21:28)
[2022-08-24] MEDS: TAMSULOSIN 0.4 MG CAP.ER.24H PO SCH (21:28)
[2022-08-24] MEDS: FUROSEMIDE 40 MG TAB PO SCH (21:28)
[2022-08-24 23:34] LABS: Alpha Fetoprotein, Tumor Mkr <3.00 ng/mL (0.00-7.90)
[2022-08-25] MEDS: HEPARIN SODIUM,PORCINE/PF 5,000 UNIT/0.5 ML SYRINGE SQ SCH ×4 (00:09→23:36)
[2022-08-25] MEDS: SODIUM CHLORIDE 0.9% 1,000 ML IV SCH (05:39)
[2022-08-25 08:05] LABS: HCT 44.1 % (39.0-53.0); HGB 14.3 gm/dL (13.0-17.5); MCH 33.9 pg (25.0-35.0); MCHC 32.5 g/dL (31.0-37.0); MCV 104.4 fL (80.0-100.0); Macrocytosis Slight; Mean Platelet Volume 9.3; Platelet Count 204 k/uL (150-450); RBC 4.22 m/uL (4.30-5.90); RDW 13.1 % (11.5-15.5); WBC 7.6 k/uL (3.8-10.6)
[2022-08-25] MEDS: IPRATROPIUM-ALBUTEROL 3 ML NEB INHALATION SCH ×4 (08:14→20:34)
[2022-08-25] MEDS: SYMBICORT 160-4.5 MCG INHALER INHALATION SCH ×2 (08:14→20:33)
[2022-08-25 08:21] LABS: ALT 160 U/L (4-49); African American GFR (CKD) >90 (>60 ml/min/1.73 sqM); Albumin 3.3 g/dL (3.5-5.0); Anion Gap 6 mmol/L; Blood Urea Nitrogen 21 mg/dL (9-20); Calcium 8.4 mg/dL (8.4-10.2); Carbon Dioxide 23 mmol/L (22-30); Chloride 107 mmol/L (98-107); Glucose 89 mg/dL (74-99); Non-African American GFR(CKD) 86 (>60 ml/min/1.73 sqM); Sodium 136 mmol/L (137-145); Total Bilirubin 1.8 mg/dL (0.2-1.3); Total Protein 5.6 g/dL (6.3-8.2)
[2022-08-25 08:29] LABS: AST 65 U/L (17-59); Alkaline Phosphatase 74 U/L (38-126); Potassium 4.3 mmol/L (3.5-5.1)
[2022-08-25] MEDS: POTASSIUM CHLORIDE ER 10 MEQ TAB.ER.PRT PO SCH ×2 (08:59→19:52)
[2022-08-25] MEDS: lisinopriL 20 MG TAB PO SCH ×2 (08:59→19:53)
[2022-08-25] MEDS: ASPIRIN 81 MG PO SCH (08:59)
[2022-08-25] MEDS: FUROSEMIDE 40 MG TAB PO SCH ×2 (08:59→19:52)
[2022-08-25] MEDS: PANTOPRAZOLE 40 MG TABLET PO SCH (08:59)
[2022-08-25] MEDS ORDERED: CLOPIDOGREL 75 MG TAB PO SCH (09:00)
--- NOTE | 2022-08-25 09:38 | P.PN ---
Subjective Progress Note Date: 08/25/22 Principal diagnosis: abdominal pain, distended GB on CT with negative GB US 82M developed upper abdominal pain, bandlike with significant "regurgitation". Has known history of GERD, reflux & ulcers. Has had EGDs in past but unsure of date of last one. Has had similar pain in past. Also has had colonoscopies in past with Dr. Zamora. No bowel issues. No current pain. Wants to eat something. CT showing a dilated gallbladder; US with no significant pathology, no signs of cholecystitis or cholelithiasis. Elevated TBili & LFTs. Slight leukocytosis. Has a significant cardiac history of aortic stenosis. Has had two AVR by Dr. Nuñez & had been told he will likely need another aortic valve replacement vs open heart surgery. Does cause him to have shortness of breath. Had troponin release this admission. Also has history of buccal oral cancer, underwent surgery; no chemo or radiation needed. Today, TBili up-trending. Tolerated clears without nausea or abdominal pain. H aving some diarrhea. Objective - Vital Signs Vital signs: Vital Signs Temp 97.5 F L 08/25/22 04:10 Pulse 70 08/25/22 08:44 Resp 18 08/25/22 04:10 BP 117/58 08/25/22 04:10 Pulse Ox 98 08/25/22 08:30 FiO2 Intake & Output 08/24/22 08/25/22 08/25/22 18:59 06:59 18:59 Intake Total 682 100 Balance 682 100 Intake: Intake, IV Titration 50 Amount Sodium Chloride 0.9% 1, 50 000 ml @ 50 mls/hr IV . Q20H [facility] Rx#:[id number] Oral 632 100 Other: # Voids 1 - Constitutional Constitutional Comment(s): sitting up in chair, resting comfortably General appearance: Present: cooperative, no acute distress - EENT Eyes: Present: anicteric sclerae ENT: Present: hearing grossly normal - Neck Details: supple - Respiratory Details: non labored, normal effort & excursion - Cardiovascular Details: known murmur Rhythm: regular - Gastrointestinal General gastrointestinal: Present: soft. Absent: distended, rigid, tenderness - Integumentary Integumentary Comment(s): warm & dry, no diaphoresis - Neurologic Neurologic Comment(s): no gross deficits - Psychiatric Psychiatric Comment(s): cooperative, normal affect - Labs CBC & Chem 7: 08/25/22 07:16 08/25/22 07:16 Labs: Abnormal Lab Results - Last 24 Hours (Table) 08/24/22 08/24/22 08/25/22 Range/Units 06:46 06:46 07:16 RBC 4.09 L 4.22 L (4.30-5.90) m/uL MCV 103.7 H 104.4 H (80.0-100.0) fL Sodium (137-145) mmol/L BUN 23 H (9-20) mg/dL Calcium 8.3 L (8.4-10.2) mg/dL Total Bilirubin 1.5 H (0.2-1.3) mg/dL AST 169 H (17-59) U/L ALT 225 H (4-49) U/L Total Protein 5.3 L (6.3-8.2) g/dL Albumin 3.0 L (3.5-5.0) g/dL 08/25/22 Range/Units 07:16 RBC (4.30-5.90) m/uL MCV (80.0-100.0) fL Sodium 136 L (137-145) mmol/L BUN 21 H (9-20) mg/dL Calcium (8.4-10.2) mg/dL Total Bilirubin 1.8 H (0.2-1.3) mg/dL AST 65 H (17-59) U/L ALT 160 H (4-49) U/L Total Protein 5.6 L (6.3-8.2) g/dL Albumin 3.3 L (3.5-5.0) g/dL Assessment and Plan Assessment: epigastric abdominal pain, resolved - has history of gastric ulcers, GERD - CT showing dilated GB but US showing no signs of cholecystitis or cholelithiasis elevated TBili, LFTs - concerning in light of no cholelithiasis noted on US; must rule out other biliary pathology slight leukocytosis, resolved troponin release - has significant cardiac history including two AVR, needing a third vs open heart surgery hx of buccal oral cancer, treated with surgery Plan: Poor surgical candidate without medical & cardiac optimization, especially due t o his potential need for a third AVR vs open heart surgery. - Would recommend outpatient follow up for EGD & discussion regarding gallbladder options. - Agree with Cardiac consultation MRCP ordered, will make NPO at midnight for imaging - Needs GI consultation for possible ERCP - If unable to obtain MRCP tomorrow, would recommend transfer to tertiary care facility with hepatobiliary surgery & GI capabilities for possible ERCP. Would recommend [facility], the same system as his activity leader. If continues to have abdominal pain & unable to tolerate PO, best option due to his medical comorbidities at this time would be IR placed cholecystostomy tube until cleared for any surgical intervention. May need HIDA prior to placement to confirm biliary pathology. Not an ideal inpatient surgical candidate. Time with Patient: Greater than 30 (Spent 30 min face to face with patient discussing labs, clinical picture & answering questions. Spent another 20 minutes talking to RN, reviewing chart & completing documentation.)
--- NOTE | 2022-08-25 10:50 | P.CRDCN ---
History of Present Illness Consult date: 08/25/22 Reason for Consult (text): High troponins History of present illness: History of present illness: This is an 82-year-old male patient of Dr. Reyes with past medical history of prediabetes, hypertension, hyperlipidemia, bleeding ulcer, asthma, and aortic stenosis status post surgical aortic valve replacement and subsequently TAVR with progression of aortic stenosis. We have been asked to evaluate the patient for elevated troponins. Patient presented to [facility] in April of this year at which time he was seen by Dr. Winter underwent cardiac catheterization which revealed mild to moderate obstructive disease. He has chronic dyspnea on exertion and peripheral edema and in the past has been thought to be high risk for redo aortic valve surgery. Patient presented to the hospital due to pain along the ribs most severe at the epigastric area and has been worked up for gallbladder disease with plan for MRCP possibly on Friday. Patient denies having any chest pain. He continues to have difficulty with exertion and lower extremity edema but no worsening of these symptoms. EKG reveals sinus rhythm Chest xray pulmonary venous congestion without evidence of overt failure. Small pleural effusions. CTA of the chest revealed scattered groundglass opacities and small to moderate pleural effusions both of which have increased compared to study on . Findings raise question of heart failure although nonspecific findings and inflammatory disease not excluded. Prosthetic aortic valve and mild cardiom egaly. Multiple hepatic cysts. WBC 7.6, hemoglobin 14.3, platelet count 204. Sodium 136, potassium 4.3, BUN 21 and creatinine 0.75. Total bilirubin 1.8, AST 65, ALT 160, alkaline phosphatase 74. Troponins 0.083, 0.110, 0.118, 0.107. ProBNP 8600. AFP tumor marker less than 3. CA 199 33. Current home cardiac medications include aspirin 81 mg daily, atorvastatin 40 mg at bedtime, Plavix 75 mg daily, Lasix 40 mg twice a day, Imdur 60 mg at bedtime, lisinopril 20 mg twice daily, Lopressor 25 mg at bedtime, potassium chloride 8 mEq twice daily. Cardiac catheterization 05/02/2022 revealed 35% stenosis of the mid LM, 20% in the mid LAD, right dominant. Echocardiogram 05/01/2022 revealed normal EF, TTS, [id number] AR, prosthetic AV. REVIEW OF SYSTEMS: At the time of my exam: CONSTITUTIONAL: Denies fever or chills. HEENT: Denies blurred vision, vision changes, or eye pain. Denies hemoptysis CARDIOVASCULAR: Denies chest pain. Denies orthopnea. Denies PND. Denies palpitations RESPIRATORY: Denies shortness of breath. GASTROINTESTINAL: Denies abdominal pain. Denies nausea or vomiting. HEMATOLOGIC: Denies bleeding disorders. GENITOURINARY: Denies any blood in urine. SKIN: Denies pruitis. Denies rash. PHYSICAL EXAM: VITAL SIGNS: Reviewed. GENERAL: Well-developed in no acute distress. HEENT: Head is normocephalic. Pupils are equal, round. Sclerae anicteric. Mucous membranes of the mouth are moist. Neck supple. No JVD or thyromegaly LUNGS: Respirations even and unlabored. Lungs essentially clear to auscultation bilaterally. HEART: Regular rate and rhythm. S1 and S2 heard. 3/6 Systolic murmur noted radiating to the neck. ABDOMEN: Soft. Nondistended. Nontender. EXTREMITIES: Normal range of motion. No clubbing or cyanosis. Peripheral pulses intact. Mild lower extremity edema NEUROLOGIC: Awake and alert. Oriented x 3. ASSESSMENT: Epigastric pain Elevated troponins most likely due to congestive heart failure. Elevated troponins are substantially less than when previously documented in April Chronic diastolic heart failure History of aortic valve replacement and TAVR Aortic stenosis, told he was not a good surgical candidate to have AV replaced again Chronic dyspnea on exertion and edema Hypertension Hyperlipidemia Pre-diabetes, per patient History of bleeding ulcer PLAN: Resume home cardiac medications Hold Lipitor due to elevated liver function tests Abdominal pain workup per general surgery Elevated troponins most likely due to heart failure is less elevated than on previous admission. Plan for medical therapy. At the time of discharge, sheryl ent may follow up with his primary visual supervisor, Dr. Reyes. Further recommendations pending patient's course Nurse practitioner note has been reviewed by physician. Signing provider agrees with the documented findings, assessment, and plan of care. Past Medical History Past Medical History: Asthma, Cancer, Hypertension Additional Past Medical History / Comment(s): pre diabetic, mouth cancer, aortic stenosis, polio as a child History of Any Multi-Drug Resistant Organisms: None Reported Past Surgical History: Cardiac Valve Replacement, Heart Catheterization Additional Past Surgical History / Comment(s): Aortic valve replaced - to cor valve inside other valve, colonoscopy- polyp removal. dental sx Past Anesthesia/Blood Transfusion Reactions: No Reported Reaction Past Psychological History: No Psychological Hx Reported Smoking Status: Never smoker Past Alcohol Use History: None Reported Past Drug Use History: None Reported - Past Family History Diabetes Family Medical History: Diabetes Mellitus Medications and Allergies Home Medications Medication Instructions Recorded Confirmed Type Aspirin EC [Ecotrin Low Dose] 81 mg PO DAILY 04/30/22 08/23/22 History Atorvastatin Calcium [Lipitor] 40 mg PO HS 04/30/22 08/23/22 History Clopidogrel [Plavix] 75 mg PO DAILY 04/30/22 08/23/22 History Dulaglutide [Trulicity] 1.5 mg SQ SA 04/30/22 08/23/22 History Furosemide [Lasix] 40 mg PO BID 04/30/22 08/23/22 History Isosorbide Mononitrate ER [Imdur] 60 mg PO HS 04/30/22 08/23/22 History Potassium Chloride [Klor-Con 8] 8 meq PO BID 04/30/22 08/23/22 History Tamsulosin HCl [Flomax] 0.4 mg PO HS 04/30/22 08/23/22 History lisinopriL [Zestril] 20 mg PO BID 04/30/22 08/23/22 History Budesonide/Formoterol Fumarate 2 puff INHALATION RT-BID 08/23/22 08/23/22 History [Symbicort 160-4.5 Mcg Inhaler] Metoprolol Tartrate [Lopressor] 25 mg PO HS 08/23/22 08/23/22 History Omeprazole 40 mg PO DAILY 08/23/22 08/23/22 History Allergies Allergy/AdvReac Type Severity Reaction Status Date / Time No Known Allergies Allergy Verified 08/23/22 21:34 Physical Exam Vitals: Vital Signs Temp Pulse Pulse Resp BP Pulse Ox 08/25/22 04:10 97.5 F L 61 18 117/58 96 08/25/22 01:57 66 18 08/25/22 00:00 97.6 F 64 18 109/66 96 08/24/22 20:00 98.1 F 66 18 123/68 95 08/24/22 15:36 70 08/24/22 15:22 70 08/24/22 14:30 97.4 F L 68 18 162/68 94 L 08/24/22 11:53 68 08/24/22 11:37 70 92 L 08/24/22 08:40 98.3 F 62 18 148/67 94 L Intake and Output 08/24/22 08/25/22 08/25/22 22:59 06:59 14:59 Intake Total 732 Balance 732 Intake: Oral 732 Other: # Voids 1 1 Results 08/25/22 07:16 08/25/22 07:16 Cardiac Enzymes 08/24/22 Range/Units 06:46 AST 169 H (17-59) U/L CBC 08/24/22 08/25/22 Range/Units 06:46 07:16 WBC 8.1 7.6 (3.8-10.6) k/uL RBC 4.09 L 4.22 L (4.30-5.90) m/uL Hgb 14.0 14.3 (13.0-17.5) gm/dL Hct 42.3 44.1 (39.0-53.0) % Plt Count 219 204 (150-450) k/uL Comprehensive Metabolic Panel 08/24/22 Range/Units 06:46 Sodium 137 (137-145) mmol/L Potassium 4.2 (3.5-5.1) mmol/L Chloride 105 (98-107) mmol/L Carbon Dioxide 27 (22-30) mmol/L BUN 23 H (9-20) mg/dL Creatinine 0.75 (0.66-1.25) mg/dL Glucose 88 (74-99) mg/dL Calcium 8.3 L (8.4-10.2) mg/dL AST 169 H (17-59) U/L ALT 225 H (4-49) U/L Alkaline Phosphatase 86 (38-126) U/L Total Protein 5.3 L (6.3-8.2) g/dL Albumin 3.0 L (3.5-5.0) g/dL Current Medications Generic Name Dose Route Start Last Admin Trade Name Freq PRN Reason Stop Dose Admin Acetaminophen 650 mg 08/24/22 00:16 Acetaminophen Tab 325 Mg Tab PO Q6HR PRN Mild Pain or Fever > 100.5 Albuterol/Ipratropium 3 ml 08/24/22 12:00 08/24/22 20:44 Ipratropium-Albuterol 3 Ml Neb INHALATION Not Given RT-QID [facility] Aspirin 81 mg 08/25/22 09:00 Aspirin 81 Mg PO DAILY [facility] Atorvastatin Calcium 40 mg 08/24/22 21:00 08/24/22 21:27 Atorvastatin 40 Mg Tab PO 40 mg HS [facility] Administration Budesonide/Formoterol Fumarate 2 puff 08/24/22 20:00 08/24/22 20:44 Symbicort 160-4.5 Mcg Inhaler INHALATION Not Given RT-BID [facility] Furosemide 40 mg 08/24/22 21:00 08/24/22 21:28 Furosemide 40 Mg Tab PO 40 mg BID [facility] Administration Heparin Sodium (Porcine) 5,000 unit 08/24/22 10:45 08/25/22 00:09 Heparin Sodium,Porcine/Pf 5,000 Unit/0.5 Ml Syringe SQ 5,000 unit Q8HR [facility] Administration Sodium Chloride 1,000 mls @ 50 mls/hr 08/24/22 11:00 08/25/22 05:39 Saline 0.9% IV Not Given .Q20H [facility] Isosorbide Mononitrate 60 mg 08/24/22 21:00 08/24/22 21:28 Isosorbide Mononitrate Er 60 Mg Tab.Er.24h PO 60 mg HS [facility] Administration Lisinopril 20 mg 08/24/22 21:00 08/24/22 21:28 Lisinopril 20 Mg Tab PO 20 mg BID [facility] Administration Metoprolol Tartrate 25 mg 08/24/22 21:00 08/24/22 21:27 Metoprolol Tartrate 25 Mg Tab PO 25 mg HS [facility] Administration Morphine Sulfate 4 mg 08/24/22 00:16 Morphine Sulfate 4 Mg/Ml Syringe IV Q4HR PRN Severe Pain (Scale 7 to 10) Naloxone HCl 0.2 mg 08/24/22 00:16 Naloxone 0.4 Mg/Ml 1 Ml Vial IV Q2M PRN Opioid Reversal Non-Formulary Medication 1.5 mg 08/24/22 10:45 08/24/22 12:12 Dulaglutide [Trulicity] SQ Not Given SA [facility] Pantoprazole Sodium 40 mg 08/25/22 09:00 Pantoprazole 40 Mg Tablet PO DAILY [facility] Potassium Chloride 8 meq 08/24/22 21:00 08/24/22 21:28 Potassium Chloride Er 10 Meq Tab.Er.Prt PO 8 meq BID [facility] Administration Tamsulosin HCl 0.4 mg 08/24/22 21:00 08/24/22 21:28 Tamsulosin 0.4 Mg Cap.Er.24h PO 0.4 mg HS [facility] Administration Intake and Output 08/24/22 08/25/22 08/25/22 22:59 06:59 14:59 Intake Total 732 Balance 732 Intake: Oral 732 Other: # Voids 1 1 08/25/22 07:16 08/24/22 06:46
[2022-08-25] MEDS: TAMSULOSIN 0.4 MG CAP.ER.24H PO SCH (19:52)
[2022-08-25] MEDS: METOPROLOL TARTRATE 25 MG TAB PO SCH (19:52)
[2022-08-25] MEDS: ISOSORBIDE MONONITRATE ER 60 MG TAB.ER.24H PO SCH (19:53)
--- NOTE | 2022-08-25 21:48 | DS ---
DISCHARGE SUMMARY He came in with cholecystitis, tolerating bilirubin of 3.1. He gets hydrated. His bilirubin went down to 1.5 and also gone back up to 1.8. He had elevated troponins secondary to diastolic heart failure with increased pleural effusions on a CAT scan of his chest. Elevated bilirubin on admission of 3.1 and is going back up again. He needs a tertiary center for ERCP. He has MRCP ordered for morning, but the patient wants to go down with [facility] as we do not have a GI ERCP physician here at this time. Condition stable. Prognosis guarded. Ambulate as tolerated. Discussed the case with the surgeon. He has multiple liver and renal cysts. Liver cysts are negative for tumor markers for alpha fetoprotein, CA-19-9 all negative. BNP was 8600. Cardiology saw the patient. Adjust medicines and await for transfer down to a tertiary center. He is on Lovenox, he went off his Plavix in order to procedures to be done with his gallbladder. He will go back on Plavix after that is over. Continue on Lovenox subcu in the meantime. He normally takes Plavix and aspirin for blood thinners. He has COPD also. He takes updraft treatments. He has taken Trulicity for weight loss, hypertension medications, BPH medications, etc. He has GERD medicine but he is stable from medical standpoint at this time for the ERCP or cholecystectomy if needed. He had normal heart catheterization 3 months ago in April of 2022, it showed [id number] aortic regurg and now just 25% to 30% blockage in his LAD, that is it. He has a history of 5 stents, but his heart catheterization was good, so he will be cleared for surgical standpoint. He goes to see so if you need him, you can get him, but his heart catheterization is essentially good in April of this year. MMODL / IJN: [id number] /
[2022-08-26 00:39] VITALS: TEMP 98.2
[2022-08-26] MEDS: SODIUM CHLORIDE 0.9% 1,000 ML IV SCH (05:43)
[2022-08-26 07:28] LABS: Basophils % (A) 0 %; Eosinophils # (A) 0.2 k/uL (0-0.7); Eosinophils % (A) 2 %; HCT 40.6 % (39.0-53.0); HGB 13.5 gm/dL (13.0-17.5); Lymphocytes # (A) 0.7 k/uL (1.0-4.8); Lymphocytes % (A) 9 %; MCH 34.2 pg (25.0-35.0); MCHC 33.2 g/dL (31.0-37.0); MCV 102.9 fL (80.0-100.0); Macrocytosis Slight; Monocytes # (A) 0.6 k/uL (0-1.0); Monocytes % (A) 7 %; Neutrophils # (A) 6.6 k/uL (1.3-7.7); Neutrophils % (A) 79 %; Platelet Count 206 k/uL (150-450); RBC 3.94 m/uL (4.30-5.90); RDW 13.2 % (11.5-15.5); WBC 8.4 k/uL (3.8-10.6)
[2022-08-26 07:42] LABS: ALT 103 U/L (4-49); AST 33 U/L (17-59); African American GFR (CKD) >90 (>60 ml/min/1.73 sqM); Albumin 2.9 g/dL (3.5-5.0); Alkaline Phosphatase 74 U/L (38-126); Anion Gap 2 mmol/L; Blood Urea Nitrogen 15 mg/dL (9-20); Carbon Dioxide 28 mmol/L (22-30); Chloride 106 mmol/L (98-107); Glucose 94 mg/dL (74-99); Non-African American GFR(CKD) 85 (>60 ml/min/1.73 sqM); Potassium 4.3 mmol/L (3.5-5.1); Sodium 136 mmol/L (137-145); Total Bilirubin 1.4 mg/dL (0.2-1.3); Total Protein 5.1 g/dL (6.3-8.2)
--- NOTE | 2022-08-26 09:26 | NM ---
EXAMINATION TYPE: NM hepatobiliary w CCK DATE OF EXAM: 08/26/2022 COMPARISON: NONE INDICATION: Cholecystitis TECHNIQUE: After the intravenous administration of 4.72 mCi Tc 99m Mebrofenin hepatobiliary scintigra phy is performed. Images were obtained immediately post injection. FINDINGS: There is prompt uptake and excretion of radiotracer by the liver. Extrahepatic ducts are identified at 4 minutes. The gallbladder is visualized within 24 minutes. Small bowel activity is noted within 8 minutes. At one hour CCK was administered, patient was injected with 2.14 mcg of Kinevac, and gallbladder ejec tion fraction is calculated at 12 %, which is which is low. (Normal >35% and <80%.). IMPRESSION: 1. Biliary hypokinesia with low ejection fraction of 12%. 2. No obstruction evident.
[2022-08-26] MEDS: IPRATROPIUM-ALBUTEROL 3 ML NEB INHALATION SCH ×3 (09:31→16:28)
[2022-08-26] MEDS: HEPARIN SODIUM,PORCINE/PF 5,000 UNIT/0.5 ML SYRINGE SQ SCH ×2 (10:21→16:05)
[2022-08-26] MEDS: ASPIRIN 81 MG PO SCH (10:21)
[2022-08-26] MEDS: PANTOPRAZOLE 40 MG TABLET PO SCH (10:21)
[2022-08-26] MEDS: FUROSEMIDE 40 MG TAB PO SCH (10:21)
[2022-08-26] MEDS: lisinopriL 20 MG TAB PO SCH (10:22)
[2022-08-26] MEDS: POTASSIUM CHLORIDE ER 10 MEQ TAB.ER.PRT PO SCH (10:22)
--- NOTE | 2022-08-26 10:33 | MR ---
EXAMINATION TYPE: MR MRCP DATE OF EXAM: 08/26/2022 10:10 AM CLINICAL INDICATION:Male, 82 years old with history of suspect choledocholithiasis; Abdominal pain, b loating, cholecystitis. COMPARISON: Ultrasound 08/23/2022, nuclear medicine scan 08/26/2022, CT 08/23/2022 TECHNIQUE: Multi planar, T2-weighted imaging with and without fat saturation and chemical shift imag ing was performed of the abdomen. Then, heavily T2 weighted imaging (half-Fourier acquisition single- shot turbo spin-echo) was utilized in order to study the biliary system. Maximum intensity projectio n images were reconstructed from the original data of the biliary tree. 3D images were created on a [employer] ([employer]AM) work station. No Gadolinium given. FINDINGS: Motion limits evaluation. Lower thorax: Trace bilateral pleural effusions are high T2 signal. MRCP: The intrahepatic ducts have a normal appearance. The common bile duct at the level of the welsh creatic head measures 6 mm in size. The common hepatic duct measures 6 mm in size. The pancreatic du ct is normal. The gallbladder appears mildly distended as characterized on prior CT during up to 7.7 cm in greatest dimension. Abdomen: Liver: Scattered simple appearing hepatic cysts. Additional cyst with thin septation versus 2 adjacen t cysts in the left hepatic lobe measuring up to 5.3 x 4.2 cm. There is a low T2 signal lesion within the liver which is higher signal on Ayala chemical shift in ph ase imaging somewhat heterogenous. There is peripheral desiccation within this lesion on prior CT. Pancreas: Unremarkable. Spleen: Unremarkable. Adrenal glands: Unremarkable. Kidneys: Bilateral simple appearing renal cysts measuring up to 8.3 cm on the right and 2.1 cm on lef t which are high T2 signal. Nonobstructing right low signal calculus as seen on prior CT. Stomach and Bowel: No evidence for bowel obstruction or acute bowel process. Peritoneum: No evidence of pneumoperitoneum or free fluid. Vasculature: Unremarkable. No aortic aneurysm. Musculoskeletal: The osseous structures appear intact. Lymph Nodes: No gross evidence for lymphadenopathy. Abdominal wall: Unremarkable. IMPRESSION: Mild motion limited exam. 1. No evidence to suggest ductal stricture, choledocholithiasis, or biliary ductal dilatation. No ev idence for cholelithiasis. The gallbladder is mildly distended. 2. Indeterminate hepatic lesion measuring up to 4.5 x 3.6 cm. Further evaluation with MRI or CT live r mass protocol with IV contrast is recommended. Additional simple appearing renal cysts. 3. Trace bilateral pleural effusions. 4. Simple appearing renal cysts. 5. Nonobstructing right renal calculus.
[2022-08-26 11:31] VITALS: RESP 17
--- NOTE | 2022-08-26 12:26 | P.CONS ---
History of Present Illness - Reason for Consult Consult date: 08/26/22 Elevated LFTs, ERCP Requesting physician: Benjie Jacques - Chief Complaint Epigastric pain - History of Present Illness This 40 pleasant 82-year-old male with a past medical history including asthma, hypertension, aortic stenosis with aortic valve replacement, and GERD who presented to the emergency department 4 days ago with complaints of abdominal pain/epigastric pain. States the was radiating across his abdomen, and he was belching. He had no associated nausea or vomiting. He states he has a history of acid reflux and GERD currently on omeprazole. He's had previous upper endoscopy done he plays around 10 years ago. I pain was intermittent and lasted about one week therefore he came in for further evaluation. Due to his cardiac history also had troponins drawn that were elevated however acute coronary event was ruled out. On admission he was noted to have elevated LFTs. He had a CT abdomen pelvis with contrast reporting correlate for urinary bladder cystitis, gallbladder hydrops with wall thickening cholelithiasis. consider ultrasound correlation. multiple hepatic and renal cysts, nonobstructing right renal calculus. Also underwent gallbladder ultrasound again reporting no cholelithiasis or cholecystitis. Common bile duct within normal limits measuring at 5 mm. Multiple cysts in the liver. Peripherally calcified lesion in the liver which is incompletely characterized. Gastroenterology was consulted for elevated LFTs, ERCP. Admitting LFTs total bilirubin 3.2 AST 258 ALT 185 alkaline phosphatase 76 he also had a tumor marker AFP which was less than 3 and a CA-19-9 antigen 33.0. In the meantime patient was evaluated by general surgery Dr. Mccann for cholecystitis, she had recommended HIDA scan and MRCP however those studies were not done until today. During which time she had recommended patient consider transfer to tertiary center for gastroenterology evaluation and possible ERCP. He did undergo his MRCP this morning with no evidence suggesting ductal stricture, choledocholithiasis or biliary ductal dilation. No evidence for cholelithiasis. Gallbladder is mildly distended. And determining hepatic lesion measuring up to 4.5 x 3.6 cm. Further evaluation with MRI or CT liver mass protocol with IV contrast recommended. Additional simple appearing renal cysts. Trace bilateral pleural effusions. Simple appearing renal cysts and nonobstructing right renal calculus. He also underwent a HIDA scan that reported biliary hypokinesia with an EF of 12%. He currently states abdominal pain has resolved. He denies any nausea or vomiting. Has not had any further abdominal pain since Friday evening. LFTs continued to trend down with a repeat today total bilirubin 1.4 AST 33 HE 103 alkaline phosphatase 74. Patient is unsure of he's had previous history of elevated liver enzymes, he states that he does know that he has hepatic cysts. Review of Systems REVIEW OF SYSTEMS: CARDIOPULMONARY: No chest pain or shortness of breath. Gastrointestinal: Patient was having epigastric pain spanning across his upper abdomen for several days, intermittent with no associated nausea or vomiting. Pain has improved. No hematemesis, coffee-ground emesis. No rectal bleeding, or melena. GENITOURINARY: No dysuria or hematuria. MUSCULOSKELETAL: Reports normal range of motion. SKIN: No rashes. No jaundice. ENDOCRINE: No chills, fevers. No excessive weight gain or loss. No polydipsia or polyuria. PSYCHIATRIC: Unremarkable. NEUROLOGY: No change in mental status. Denies dizziness, headache. ENT: Vision unremarkable. CONSTITUTIONAL: No recent weight loss. No fever, chills, night sweats. Past Medical History Past Medical History: Asthma, Cancer, Hypertension Additional Past Medical History / Comment(s): pre diabetic, mouth cancer, aortic stenosis, polio as a child History of Any Multi-Drug Resistant Organisms: None Reported Past Surgical History: Cardiac Valve Replacement, Heart Catheterization Additional Past Surgical History / Comment(s): Aortic valve replaced - to cor valve inside other valve, colonoscopy- polyp removal. dental sx Past Anesthesia/Blood Transfusion Reactions: No Reported Reaction Past Psychological History: No Psychological Hx Reported Smoking Status: Never smoker Past Alcohol Use History: None Reported Past Drug Use History: None Reported - Past Family History Diabetes Family Medical History: Diabetes Mellitus Medications and Allergies Home Medications Medication Instructions Recorded Confirmed Type Aspirin EC [Ecotrin Low Dose] 81 mg PO DAILY 04/30/22 08/23/22 History Atorvastatin Calcium [Lipitor] 40 mg PO HS 04/30/22 08/23/22 History Dulaglutide [Trulicity] 1.5 mg SQ SA 04/30/22 08/23/22 History Furosemide [Lasix] 40 mg PO BID 04/30/22 08/23/22 History Isosorbide Mononitrate ER [Imdur] 60 mg PO HS 04/30/22 08/23/22 History Potassium Chloride [Klor-Con 8] 8 meq PO BID 04/30/22 08/23/22 History Tamsulosin HCl [Flomax] 0.4 mg PO HS 04/30/22 08/23/22 History lisinopriL [Zestril] 20 mg PO BID 04/30/22 08/23/22 History Budesonide/Formoterol Fumarate 2 puff INHALATION RT-BID 08/23/22 08/23/22 History [Symbicort 160-4.5 Mcg Inhaler] Metoprolol Tartrate [Lopressor] 25 mg PO HS 08/23/22 08/23/22 History Omeprazole 40 mg PO DAILY 08/23/22 08/23/22 History Ipratropium-Albuterol Nebulize 3 ml INHALATION RT-QID each 08/25/22 Rx [Duoneb 0.5 mg-3 mg/3 ml Soln] Allergies Allergy/AdvReac Type Severity Reaction Status Date / Time No Known Allergies Allergy Verified 08/23/22 21:34 Physical Exam Vitals: Vital Signs Temp Pulse Pulse Resp BP Pulse Ox 08/26/22 10:20 74 16 155/67 97 08/26/22 02:00 66 18 118/56 94 L 08/25/22 20:44 77 08/25/22 20:34 73 08/25/22 20:00 98.2 F 64 18 131/61 97 08/25/22 16:00 98.3 F 69 18 122/59 95 08/25/22 15:56 68 08/25/22 15:40 70 08/25/22 11:53 72 08/25/22 11:40 74 Intake and Output 08/25/22 08/26/22 08/26/22 22:59 06:59 14:59 Intake Total 675 120 Balance 675 120 Intake: Oral 675 120 Other: # Voids 2 1 General appearance: The patient is alert, oriented, appears in no acute distress. HET: Head is normocephalic and atraumatic. Conjunctiva pink. Sclera anicteric. Neck: Supple without lymphadenopathy. Trachea midline. Heart: S1 S2. Regular rate and rhythm. Lungs: Clear to auscultation. Abdomen: Soft, nontender, nondistended with bowel sounds. No guarding or rigidity. Skin: No rashes. No jaundice. Extremities: Normal skin color and turgor. No pedal edema. Neurological: No focal deficits. Alert and oriented x3. Results CBC & Chem 7: 08/26/22 07:08 08/26/22 07:08 Labs: Abnormal Lab Results - Last 24 Hours (Table) 08/25/22 08/26/22 08/26/22 Range/Units 10:42 07:08 07:08 RBC 3.94 L (4.30-5.90) m/uL MCV 102.9 H (80.0-100.0) fL Lymphocytes # 0.7 L (1.0-4.8) k/uL Sodium 136 L (137-145) mmol/L Calcium 8.0 L (8.4-10.2) mg/dL Total Bilirubin 1.4 H (0.2-1.3) mg/dL ALT 103 H (4-49) U/L Troponin I 0.075 H* (0.000-0.034) ng/mL Total Protein 5.1 L (6.3-8.2) g/dL Albumin 2.9 L (3.5-5.0) g/dL 08/26/22 Range/Units 07:08 RBC (4.30-5.90) m/uL MCV (80.0-100.0) fL Lymphocytes # (1.0-4.8) k/uL Sodium (137-145) mmol/L Calcium (8.4-10.2) mg/dL Total Bilirubin (0.2-1.3) mg/dL ALT (4-49) U/L Troponin I 0.060 H* (0.000-0.034) ng/mL Total Protein (6.3-8.2) g/dL Albumin (3.5-5.0) g/dL Assessment and Plan (1) Elevated LFTs Narrative/Plan: 82-year-old male presenting with upper abdominal pain that had occurred intermittently for 1 week duration prior to coming in to the emergency department. Has a history of coronary artery disease with cardiac stenosis and mitral valve repair. Was found to have elevated troponins on admission and had cardiac workup with acute coronary event being ruled out. Patient does have long-standing history of occurred last EGD he believes was about 10 years ago. He maintains with omeprazole at home. She had elevated LFTs on admission, computed tomography scan without any evidence of cholelithiasis however did show gallbladder wall thickening. No dilated ducts. Also seen on gallbladder ultrasound with gallbladder wall thickening, and no cholelithiasis or CBD dilation. Further imaging with HIDA scan shows biliary hypokinesia with an EF of 12% as well as MRCP without any evidence of cholelithiasis, choledocholithiasis, cholecystitis and no biliary dilation. However liver lesion was noted along with multiple liver cyst. Unclear etiology of elevated LFTs, need to consider possible CBD stone that may have passed however LFTs continued to trend down, patient is without any abdominal pain and MRCP is negative for choledocholithiasis. No plans on ERCP. Current Visit: Yes Status: Acute Code(s): R79.89 - OTHER SPECIFIED ABNORMAL FINDINGS OF BLOOD CHEMISTRY SNOMED Code(s): 688290440 (2) Abdominal pain Current Visit: Yes Status: Acute Code(s): R10.9 - UNSPECIFIED ABDOMINAL PAIN SNOMED Code(s): 28000015 (3) History of gastroesophageal reflux (GERD) Current Visit: Yes Status: Acute Code(s): Z87.19 - PERSONAL HISTORY OF OTHER DISEASES OF THE DIGESTIVE SYSTEM SNOMED Code(s): 74603180005012 (4) Liver lesion Narrative/Plan: No further workup indicated. Liver lesion consistent with known liver cysts also documented per CT abdomen and pelvis as well as ultrasound. Current Visit: Yes Status: Acute Code(s): K76.9 - LIVER DISEASE, UNSPECIFIED SNOMED Code(s): 036476865 (5) Abnormal gallbladder ultrasound Current Visit: Yes Status: Acute Code(s): R93.2 - ABNORMAL FINDINGS ON DX IMAGING OF LIVER AND BILIARY TRACT SNOMED Code(s): 58043050182606424 (6) History of aortic valve repair Current Visit: No Status: Acute Code(s): Z98.890 - OTHER SPECIFIED POSTPROCEDURAL STATES; Z86.79 - PERSONAL HISTORY OF OTHER DISEASES OF THE CIRCULATORY SYSTEM SNOMED Code(s): 471475318266503 (7) Elevated troponin Current Visit: Yes Status: Acute Code(s): R77.8 - OTHER SPECIFIED ABNORMALITIES OF PLASMA PROTEINS SNOMED Code(s): 384857579 Plan: 1. Continue symptomatic and supportive care 2. Continue Protonix 40 mg daily 3. MRCP and HIDA scan reviewed 4. Can consider CT/MRI liver protocol as outpatient 5. No plans on any endoscopic evaluation, can consider outpatient EGD if symptoms return 6. Continue with recommendations from general surgery 7. Patient may advance to low-fat diet 8. The patient is cleared from gastroenterology for discharge Thank you for this consultation, we will continue to follow. Dr. Lisa York I agree with the dictator's note, documented as a scribe by Renea Mills.
[2022-08-26] MEDS: SYMBICORT 160-4.5 MCG INHALER INHALATION SCH (12:27)
--- NOTE | 2022-08-26 13:53 | P.PN ---
Subjective Progress Note Date: 08/26/22 History of present illness: This is an 82-year-old male patient of Dr. Reyes with past medical history of prediabetes, hypertension, hyperlipidemia, bleeding ulcer, asthma, and aortic stenosis status post surgical aortic valve replacement and subsequently TAVR with progression of aortic stenosis. We have been asked to evaluate the patient for elevated troponins. Patient presented to [facility] in April of this year at which time he was seen by Dr. Winter underwent cardiac catheterization which revealed mild to moderate obstructive disease. He has chronic dyspnea on exertion and peripheral edema and in the past has been thought to be high risk for redo aortic valve surgery. Patient presented to the hospital due to pain along the ribs most severe at the epigastric area and has been worked up for gallbladder disease with plan for MRCP possibly on Friday. Patient denies having any chest pain. He continues to have difficulty with exertion and lower extremity edema but no worsening of these symptoms. EKG reveals sinus rhythm Chest xray pulmonary venous congestion without evidence of overt failure. Small pleural effusions. CTA of the chest revealed scattered groundglass opacities and small to moderate pleural effusions both of which have increased compared to study on . Findings raise question of heart failure although nonspecific findings and inflammatory disease not excluded. Prosthetic aortic valve and mild cardiomegaly. Multiple hepatic cysts. WBC 7.6, hemoglobin 14.3, platelet count 204. Sodium 136, potassium 4.3, BUN 21 and creatinine 0.75. Total bilirubin 1.8, AST 65, ALT 160, alkaline phosphatase 74. Troponins 0.083, 0.110, 0.118, 0.107. ProBNP 8600. AFP tumor marker less than 3. CA 199 33. Current home cardiac medications include aspirin 81 mg daily, atorvastatin 40 mg at bedtime, Plavix 75 mg daily, Lasix 40 mg twice a day, Imdur 60 mg at bedtime, lisinopril 20 mg twice daily, Lopressor 25 mg at bedtime, potassium chloride 8 mEq twice daily. Cardiac catheterization 05/02/2022 revealed 35% stenosis of the mid LM, 20% in the mid LAD, right dominant. Echocardiogram 05/01/2022 revealed normal EF, TTS, [id number] AR, prosthetic AV. 08/26 Patient is seen today for follow-up. He now has GI on consult and underwent MRI and HIDA scan this morning. Blood pressure is 134/65, heart rate in the 60s, pulse ox 96% on room air. Patient continues to deny any chest pain. He also denies having any epigastric pain. He has chronic shortness of breath which is unchanged. Repeat blood work reveals WBC 8.4, hemoglobin 13.5, platelet count 206. Sodium 136, potassium 4.3, creatinine 0.78. Liver function tests improving with ALT 103, AST 33, total bilirubin 1.4. Repeat troponins were 0.075 and 0.060. PHYSICAL EXAM: VITAL SIGNS: Reviewed. GENERAL: Well-developed in no acute distress. HEENT: Head is normocephalic. Pupils are equal, round. Sclerae anicteric. Mucous membranes of the mouth are moist. Neck supple. No JVD or thyromegaly LUNGS: Respirations even and unlabored. Lungs essentially clear to auscultation bilaterally. HEART: Regular rate and rhythm. S1 and S2 heard. 3/6 Systolic murmur noted radiating to the neck. ABDOMEN: Soft. Nondistended. Nontender. EXTREMITIES: Normal range of motion. No clubbing or cyanosis. Peripheral pulses intact. Mild lower extremity edema NEUROLOGIC: Awake and alert. Oriented x 3. ASSESSMENT: Epigastric pain Elevated troponins most likely due to congestive heart failure. Elevated troponins are substantially less than when previously documented in April Chronic diastolic heart failure History of aortic valve replacement and TAVR Aortic stenosis, told he was not a good surgical candidate to have AV replaced again Chronic dyspnea on exertion and edema Hypertension Hyperlipidemia Pre-diabetes, per patient History of bleeding ulcer PLAN: Resume home cardiac medications Hold Lipitor due to elevated liver function tests Abdominal pain and elevated liver function test workup per general surgery Elevated troponins most likely due to heart failure is less elevated than on previous admission. Plan for medical therapy. At the time of discharge, patient may follow up with his primary security systems administrator, Dr. Reyes. Cardiology will sign off and follow on an as-needed basis. Please reconsult for any new concerns. Nurse practitioner note has been reviewed by physician. Signing provider agrees with the documented findings, assessment, and plan of care. Objective - Vital Signs Vital signs: Vital Signs Temp 98.2 F 08/25/22 20:00 Pulse 69 08/26/22 11:30 Resp 17 08/26/22 11:30 BP 134/65 08/26/22 11:30 Pulse Ox 96 08/26/22 11:30 FiO2 Intake & Output 08/25/22 08/26/22 08/26/22 18:59 06:59 18:59 Intake Total 750 360 Balance 750 360 Intake: Oral 750 360 Other: Voiding Method Toilet Urinal # Voids 2 1 - Labs CBC & Chem 7: 08/26/22 07:08 08/26/22 07:08 Labs: Abnormal Lab Results - Last 24 Hours (Table) 08/25/22 08/26/22 08/26/22 Range/Units 10:42 07:08 07:08 RBC 3.94 L (4.30-5.90) m/uL MCV 102.9 H (80.0-100.0) fL Lymphocytes # 0.7 L (1.0-4.8) k/uL Sodium 136 L (137-145) mmol/L Calcium 8.0 L (8.4-10.2) mg/dL Total Bilirubin 1.4 H (0.2-1.3) mg/dL ALT 103 H (4-49) U/L Troponin I 0.075 H* (0.000-0.034) ng/mL Total Protein 5.1 L (6.3-8.2) g/dL Albumin 2.9 L (3.5-5.0) g/dL 08/26/22 Range/Units 07:08 RBC (4.30-5.90) m/uL MCV (80.0-100.0) fL Lymphocytes # (1.0-4.8) k/uL Sodium (137-145) mmol/L Calcium (8.4-10.2) mg/dL Total Bilirubin (0.2-1.3) mg/dL ALT (4-49) U/L Troponin I 0.060 H* (0.000-0.034) ng/mL Total Protein (6.3-8.2) g/dL Albumin (3.5-5.0) g/dL
[2022-08-26 16:04] VITALS: BP 178/66
[2022-08-26 16:38] VITALS: PULSE 76
--- NOTE | 2022-08-26 19:26 | P.DS ---
Providers Date of admission: 08/24/22 01:03 Expected date of discharge: 08/26/22 Attending physician: Benjie Jacques Consults: 08/24/22 00:16 Consult Physician Urgent Consulting Provider: Sadie Mccann Consult Reason/Comments: Cholecystitis Do you want consulting provider notified?: Yes 08/24/22 10:43 Consult Physician Routine Consulting Provider: Ean Moore Consult Reason/Comments: high troponin Do you want consulting provider notified?: Yes 08/26/22 07:39 Consult Physician Routine Consulting Provider: Samina York Consult Reason/Comments: elevated LFT's Do you want consulting provider notified?: Already Contacted Primary care physician: [facility] Hospital Course: Hospital course: I'm rounding for Dr. Benjie Jacques. Patient was admitted with upper abdominal pain. After patient presented to the hospital the pain was not present anymore. It was in the upper abdomen bandlike. CT abdomen pelvis: Gallbladder hydrops with wall thickening. Multiple hepatic and renal cyst. Nonobstructing right renal calculus Gallbladder ultrasound: No gallstones. Or cholecystitis. Multiple liver cysts. CT chest: Scattered groundglass opacities. Prosthetic aortic valve. Today: Patient feeling comfortable. Did tolerate a diet. Comfortable HIDA scan done today showed biliary hypokinesia with EF of 20%. Cholangiopancreatography MRI showed: No evidence of stricture. No gallstones. No bile duct dilatation. Mildly distended. Indeterminate hepatic lesion 4.5 x 3.[address] with from Dr[address] surgery: Patient to be discharged. He'll follow-up in the office in one week. No surgical intervention at present time. Patient at risk for surgery because of his valve. Patient also seen by Dr. Lisa York from GI. Cleared for discharge. Follow-up outpatient. Discussion and discharge planning more than 35 minutes On examination: Afebrile, 85, 17, 134/65, 96% room air Sitting up, comfortable Abdomen: Soft nontender Cardiovascular: First seconds are normal, no edema Psychiatry A0 3 Assessment and plan: -Probable acalculous cholecystitis. Patient is a risk for surgery. Patient's had no further symptoms following his presentation. No fever. No white count. Patient to follow-up outpatient with surgery. -Chronic diastolic heart failure. Causing elevated troponins. -Aortic stenosis, not a good surgical candidate to have AV replaced again. Prior history of aortic valve replacement and TAVR. Patient seen by cardiology. Follow-up with Dr. Reyes outpatient. -GERD -Diabetes mellitus type 2 On Trulicity. -Moderate persistent asthma DuoNeb, Symbicort -BPH Flomax Disposition: Home Follow up with general surgery Dr. Mccann, Dr. Blackmon, from GI, Dr. Reyes from cardiology. Dr. Jacques Plan - Discharge Summary Discharge Rx Participant: Yes New Discharge Prescriptions: New Ipratropium-Albuterol Nebulize [Duoneb 0.5 mg-3 mg/3 ml Soln] 3 ml INHALATION RT-QID each Continue lisinopriL [Zestril] 20 mg PO BID Potassium Chloride [Klor-Con 8] 8 meq PO BID Furosemide [Lasix] 40 mg PO BID Aspirin EC [Ecotrin Low Dose] 81 mg PO DAILY Metoprolol Tartrate [Lopressor] 25 mg PO HS Omeprazole 40 mg PO DAILY Dulaglutide [Trulicity] 1.5 mg SQ SA Tamsulosin HCl [Flomax] 0.4 mg PO HS Isosorbide Mononitrate ER [Imdur] 60 mg PO HS Atorvastatin Calcium [Lipitor] 40 mg PO HS Budesonide/Formoterol Fumarate [Symbicort 160-4.5 Mcg Inhaler] 2 puff INHALATION RT-BID Discontinued Clopidogrel [Plavix] 75 mg PO DAILY Discharge Medication List Aspirin EC [Ecotrin Low Dose] 81 mg PO DAILY 04/30/22 [History] Atorvastatin Calcium [Lipitor] 40 mg PO HS 04/30/22 [History] Dulaglutide [Trulicity] 1.5 mg SQ SA 04/30/22 [History] Furosemide [Lasix] 40 mg PO BID 04/30/22 [History] Isosorbide Mononitrate ER [Imdur] 60 mg PO HS 04/30/22 [History] Potassium Chloride [Klor-Con 8] 8 meq PO BID 04/30/22 [History] Tamsulosin HCl [Flomax] 0.4 mg PO HS 04/30/22 [History] lisinopriL [Zestril] 20 mg PO BID 04/30/22 [History] Budesonide/Formoterol Fumarate [Symbicort 160-4.5 Mcg Inhaler] 2 puff INHALATION RT-BID 08/23/22 [History] Metoprolol Tartrate [Lopressor] 25 mg PO HS 08/23/22 [History] Omeprazole 40 mg PO DAILY 08/23/22 [History] Ipratropium-Albuterol Nebulize [Duoneb 0.5 mg-3 mg/3 ml Soln] 3 ml INHALATION RT-QID each 08/25/22 [Rx] Follow up Appointment(s)/Referral(s): Benjie Jacques MD [Primary Care Provider] - 1-2 days Samina York MD [STAFF PHYSICIAN] - 10 Days Sadie Mccann DO [Doctor of Osteopathic Medicine] - 1 Week Patient Instructions/Handouts: Cholecystitis (GEN), Low Fat Diet (DC) Discharge Disposition: HOME SELF-CARE
== END 2022-08-26 18:36 | disposition home or self-care (01) ==
LOC: EC 19:13 → 6NMEDSUR 08-24 01:03 → 3SCARD 08-24 01:36
PROVIDERS: ADMIT Family Medicine; ATTEND Family Medicine
DX: K81.9 Cholecystitis, unspecified (principal); R74.8 Abnormal levels of other serum enzymes; K21.9 Gastro-esophageal reflux disease without esophagitis; I11.0 Hypertensive heart disease with heart failure; I50.30 Unspecified diastolic (congestive) heart failure; J90 Pleural effusion, not elsewhere classified; N28.1 Cyst of kidney, acquired; R73.03 Prediabetes; E78.5 Hyperlipidemia, unspecified; K76.89 Other specified diseases of liver; J44.9 Chronic obstructive pulmonary disease, unspecified; N40.0 Benign prostatic hyperplasia without lower urinary tract symptoms; R06.09 Other forms of dyspnea; Z95.5 Presence of coronary angioplasty implant and graft; I35.0 Nonrheumatic aortic (valve) stenosis; Z95.2 Presence of prosthetic heart valve; Z85.819 Personal history of malignant neoplasm of unspecified site of lip, oral cavity, and pharynx; J45.30 Mild persistent asthma, uncomplicated; Z86.12 Personal history of poliomyelitis; Z87.11 Personal history of peptic ulcer disease; Z83.3 Family history of diabetes mellitus; Z79.85 Long-term (current) use of injectable non-insulin antidiabetic drugs; Z79.02 Long term (current) use of antithrombotics/antiplatelets; Z79.82 Long term (current) use of aspirin; Z79.51 Long term (current) use of inhaled steroids; Z79.899 Other long term (current) drug therapy
CPT/HCPCS: 96376 ×2; 96374; 99285; 36415; 94640 ×6; 94760 ×3; 93005; 83880; 80053 ×4; 82150; 83605; 83690; 84484 ×4; 85025 ×2; 85027 ×2; 81003; 82105; 86301; 71046; 76705; 71250; 74177; 74181; 78227; G0378 ×4; A9537; J2805; Q9967; J1644 ×3

== ENCOUNTER 2022-08-30 11:26 | Observation (INO) | payer MEDICARE ==
[2022-08-30 12:42] LABS: Basophils % (A) 0 %; Eosinophils % (A) 0 %; HCT 46.2 % (39.0-53.0); HGB 15.6 gm/dL (13.0-17.5); Lymphocytes # (A) 0.6 k/uL (1.0-4.8); Lymphocytes % (A) 5 %; MCHC 33.8 g/dL (31.0-37.0); MCV 100.7 fL (80.0-100.0); Macrocytosis Slight; Monocytes # (A) 0.5 k/uL (0-1.0); Monocytes % (A) 4 %; Neutrophils # (A) 10.1 k/uL (1.3-7.7); Neutrophils % (A) 88 %; Platelet Count 206 k/uL (150-450); RBC 4.59 m/uL (4.30-5.90); RDW 13.8 % (11.5-15.5); WBC 11.6 k/uL (3.8-10.6)
[2022-08-30 12:54] LABS: ALT 113 U/L (4-49); AST 63 U/L (17-59); African American GFR (CKD) >90 (>60 ml/min/1.73 sqM); Albumin 3.9 g/dL (3.5-5.0); Alkaline Phosphatase 82 U/L (38-126); Anion Gap 10 mmol/L; Blood Urea Nitrogen 24 mg/dL (9-20); Calcium 8.9 mg/dL (8.4-10.2); Carbon Dioxide 20 mmol/L (22-30); Chloride 106 mmol/L (98-107); Glucose 115 mg/dL (74-99); Magnesium 2.1 mg/dL (1.6-2.3); Non-African American GFR(CKD) 81 (>60 ml/min/1.73 sqM); Potassium 4.5 mmol/L (3.5-5.1); Sodium 136 mmol/L (137-145); Total Bilirubin 1.3 mg/dL (0.2-1.3); Total Protein 6.3 g/dL (6.3-8.2)
--- NOTE | 2022-08-30 12:58 | XR ---
EXAMINATION TYPE: XR chest 2V DATE OF EXAM: 08/30/2022 12:51 PM COMPARISON: Chest radiographs from 08/23/2022 TECHNIQUE: XR chest 2V Frontal and lateral views of the chest. CLINICAL INDICATION:Male, 82 years old with history of difficulty breathing; FINDINGS: Lungs/Pleura: No evidence of focal consolidation or pneumothorax. Blunting of the costophrenic angles is present. Pulmonary vascularity: Pulmonary vascular congestion. Heart/mediastinum: Cardiomediastinal silhouette is enlarged and stable. Post aortic valve repair morena nges. Musculoskeletal: No acute osseous pathology. Midline sternotomy wires are noted. IMPRESSION: Cardiomegaly, pulmonary vascular congestion and bilateral pleural effusions. Correlate with BNP for c ongestive heart failure.
--- NOTE | 2022-08-30 13:03 | ED ---
SOB HPI - General Chief Complaint: Shortness of Breath Stated Complaint: SOB Time Seen by Provider: 08/30/22 12:00 Source: patient Mode of arrival: wheelchair Limitations: no limitations - History of Present Illness Initial Comments: Lonnie Guzman is a pleasant 82yo M with PMH of CHF, aortic stenosis who presents to the ER today for re-evaluation of progressively worsening shortness of breath. Patient was hospitalized last week for similar symptoms, he has been on home oxygen at night for months. Despite compliance with this he continues to have worsening shortness of breath and exertional dyspnea. Patient states he cannot walk to his restroom without becoming very short of breath. Patient denies any chest pain, productive cough, fever or any other complaints. Asians had 2 aortic valve replacements but has been told he has recurrent critical aortic stenosis, there is no current treatment plan in place for this. - Related Data Home Medications Medication Instructions Recorded Confirmed Aspirin EC [Ecotrin Low Dose] 81 mg PO DAILY 04/30/22 08/23/22 Atorvastatin Calcium [Lipitor] 40 mg PO HS 04/30/22 08/23/22 Dulaglutide [Trulicity] 1.5 mg SQ SA 04/30/22 08/23/22 Furosemide [Lasix] 40 mg PO BID 04/30/22 08/23/22 Isosorbide Mononitrate ER [Imdur] 60 mg PO HS 04/30/22 08/23/22 Potassium Chloride [Klor-Con 8] 8 meq PO BID 04/30/22 08/23/22 Tamsulosin HCl [Flomax] 0.4 mg PO HS 04/30/22 08/23/22 lisinopriL [Zestril] 20 mg PO BID 04/30/22 08/23/22 Budesonide/Formoterol Fumarate 2 puff INHALATION RT-BID 08/23/22 08/23/22 [Symbicort 160-4.5 Mcg Inhaler] Metoprolol Tartrate [Lopressor] 25 mg PO HS 08/23/22 08/23/22 Omeprazole 40 mg PO DAILY 08/23/22 08/23/22 Previous Rx's Medication Instructions Recorded Ipratropium-Albuterol Nebulize 3 ml INHALATION RT-QID each 08/25/22 [Duoneb 0.5 mg-3 mg/3 ml Soln] Allergies Allergy/AdvReac Type Severity Reaction Status Date / Time No Known Allergies Allergy Verified 08/23/22 21:34 Review of Systems ROS Statement: Those systems with pertinent positive or pertinent negative responses have been documented in the HPI. ROS Other: All systems not noted in ROS Statement are negative. 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 dental sx Past Anesthesia/Blood Transfusion Reactions: No Reported Reaction Past Psychological History: No Psychological Hx Reported Smoking Status: Never smoker Past Alcohol Use History: None Reported Past Drug Use History: None Reported - Past Family History Diabetes Family Medical History: Diabetes Mellitus General Exam - General Exam Comments Initial Comments: Physical Exam GENERAL: Chronically ill-appearing elderly gentleman HENT: Normocephalic, Atraumatic. EYES: PERRL, EOMI PULMONARY: Crackles at bases CARDIOVASCULAR: Systolic murmur consistent with aortic stenosis ABDOMEN: Soft and nontender with normal bowel sounds. SKIN: Skin is clear with no lesions or rashes and otherwise unremarkable. : Deferred NEUROLOGIC: Patient is alert and oriented x3. Moving all extremities spontaneously MUSCULOSKELETAL: 1+ pitting edema bilateral lower extremities PSYCHIATRIC: Normal psychiatric evaluation. Limitations: no limitations Course Vital Signs 08/30/22 08/30/22 11:28 13:05 Temperature 98.6 F Pulse Rate 83 73 Respiratory 24 20 Rate Blood Pressure 166/64 162/67 O2 Sat by Pulse 92 L 95 Oximetry Medical Decision Making - Medical Decision Making The patient was seen and evaluated, history is obtained from patient and review of medical record. 82-year-old gentleman with critical aortic stenosis, CHF who presents the ER today with progressively worsening shortness of breath without chest pain. Patient reports that the exertional dyspnea limits his ability to care for himself in the home. Patient's workup is consistent with CHF, troponin is chronically elevated and at baseline. Plan to admit patient for CHF exacerbation, this plan was discussed with the patient's primary care provider Dr. Benjie Baker who accepts admission. Patient requests consult to pastoral care while in the hospital. Was pt. sent in by a medical professional or institution (, [facility], HEAVY FORGER HELPER, urgent care, hospital, or intermediate...) When possible be specific @ -No Did you speak to anyone other than the patient for history (EMS, parent, family, police, friend...)? What history was obtained from this source @ -No Did you review nursing and triage notes (agree or disagree)? Why? @ -I reviewed and agree with nursing and triage notes Were old charts reviewed (outside hosp., previous admission, EMS record, old EKG, old radiological studies, urgent care reports/EKG's, intermediate records)? Report findings @ -Previous admission notes reviewed Differential Diagnosis (chest pain, altered mental status, abdominal pain women, abdominal pain men, vaginal bleeding, weakness, fever, dyspnea, syncope, headache, dizziness, GI bleed, back pain, seizure, CVA, palpatations, mental health, musculoskeletal)? @ -Differential Headache: Migraine, tension, cluster, carbon monoxide, central venous thrombosis, pension karma temporal arteritis, acute closure glaucoma, intercranial hemorrhage, mastoiditis, sinusitis, head injury, this is not meant to be an all-inclusive list. EKG interpreted by me (3pts min.). @ -As above X-rays interpreted by me (1pt min.). @ -X-ray interpreted by me with cardiomegaly and volume overload, no pneumo CT interpreted by me (1pt min.). @ -None done U/S interpreted by me (1pt. min.). @ -None done What testing was considered but not performed or refused? (CT, X-rays, U/S, labs)? Why? @ -Repeat echo could be considered, repeat troponins to be ordered upon admission What meds were considered but not given or refused? Why? @ -None Did you discuss the management of the patient with other professionals (professionals i.e. , [facility], HEAVY FORGER HELPER, lab, RT, psych nurse, social media project manager, diamond powder technician, teacher, branch officer, ed case manager)? Give summary @ -Discussed with patient's primary care Dr. Jacques Was smoking cessation discussed for >3mins.? @ -No Was critical care preformed (if so, how long)? @ -No Were there social determinants of health that impacted care today? How? (Homelessness, low income, unemployed, alcoholism, drug addiction, transportation, low edu. Level, literacy, decrease access to med. care, retirement, rehab)? @ -Transportation, decrease access to medical care Was there de-escalation of care discussed even if they declined (Discuss DNR or withdrawal of care, Hospice)? DNR status @ -No What co-morbidities impacted this encounter? (DM, HTN, Smoking, COPD, CAD, C ancer, CVA, ARF, Chemo, Hep., AIDS, mental health diagnosis, sleep apnea, morbid obesity)? @ -Hypertension, CAD, CHF Was patient admitted / discharged? Hospital course, mention meds given and route, prescriptions, significant lab abnormalities, going to OR and other pertinent info. @ -Admit Undiagnosed new problem with uncertain prognosis? @ -No Drug Therapy requiring intensive monitoring for toxicity (Heparin, Nitro, Insulin, Cardizem)? @ -No Were any procedures done? @ -No Diagnosis/symptom? @ -CHF exacerbation Acute, or Chronic, or Acute on Chronic? @ -Acute on chronic Uncomplicated (without systemic symptoms) or Complicated (systemic symptoms)? @ -Complicated Side effects of treatment? @ -No Exacerbation, Progression, or Severe Exacerbation? @ -Exacerbation Poses a threat to life or bodily function? How? (Chest pain, USA, ND, pneumonia, PE, COPD, DKA, ARF, appy, cholecystitis, CVA, Diverticulitis, Homicidal, Suicidal, threat to staff... and all critical care pts) @ -Yes, heart failure respiratory distress - Lab Data Result diagrams: 08/30/22 12:22 08/30/22 12:22 Lab Results 08/30/22 08/30/22 08/30/22 Range/Units 12:22 12:22 12:22 WBC 11.6 H (3.8-10.6) k/uL RBC 4.59 (4.30-5.90) m/uL Hgb 15.6 (13.0-17.5) gm/dL Hct 46.2 (39.0-53.0) % MCV 100.7 H (80.0-100.0) fL MCH 34.0 (25.0-35.0) pg MCHC 33.8 (31.0-37.0) g/dL RDW 13.8 (11.5-15.5) % Plt Count 206 (150-450) k/uL MPV 10.0 Neutrophils % 88 % Lymphocytes % 5 % Monocytes % 4 % Eosinophils % 0 % Basophils % 0 % Neutrophils # 10.1 H (1.3-7.7) k/uL Lymphocytes # 0.6 L (1.0-4.8) k/uL Monocytes # 0.5 (0-1.0) k/uL Eosinophils # 0.0 (0-0.7) k/uL Basophils # 0.0 (0-0.2) k/uL Macrocytosis Slight PT (9.0-12.0) sec INR (<1.2) APTT (22.0-30.0) sec Sodium 136 L (137-145) mmol/L Potassium 4.5 (3.5-5.1) mmol/L Chloride 106 (98-107) mmol/L Carbon Dioxide 20 L (22-30) mmol/L Anion Gap 10 mmol/L BUN 24 H (9-20) mg/dL Creatinine 0.88 (0.66-1.25) mg/dL Est GFR (CKD-EPI)AfAm >90 (>60 ml/min/1.73 sqM) Est GFR (CKD-EPI)NonAf 81 (>60 ml/min/1.73 sqM) Glucose 115 H (74-99) mg/dL Plasma Lactic Acid Giorgio 1.4 (0.7-2.0) mmol/L Calcium 8.9 (8.4-10.2) mg/dL Magnesium 2.1 (1.6-2.3) mg/dL Total Bilirubin 1.3 (0.2-1.3) mg/dL AST 63 H (17-59) U/L ALT 113 H (4-49) U/L Alkaline Phosphatase 82 (38-126) U/L Troponin I (0.000-0.034) ng/mL NT-Pro-B Natriuret Pep pg/mL Total Protein 6.3 (6.3-8.2) g/dL Albumin 3.9 (3.5-5.0) g/dL 08/30/22 08/30/22 08/30/22 Range/Units 12:22 12:22 12:22 WBC (3.8-10.6) k/uL RBC (4.30-5.90) m/uL Hgb (13.0-17.5) gm/dL Hct (39.0-53.0) % MCV (80.0-100.0) fL MCH (25.0-35.0) pg MCHC (31.0-37.0) g/dL RDW (11.5-15.5) % Plt Count (150-450) k/uL MPV Neutrophils % % Lymphocytes % % Monocytes % % Eosinophils % % Basophils % % Neutrophils # (1.3-7.7) k/uL Lymphocytes # (1.0-4.8) k/uL Monocytes # (0-1.0) k/uL Eosinophils # (0-0.7) k/uL Basophils # (0-0.2) k/uL Macrocytosis PT 10.8 (9.0-12.0) sec INR 1.0 (<1.2) APTT 26.0 (22.0-30.0) sec Sodium (137-145) mmol/L Potassium (3.5-5.1) mmol/L Chloride (98-107) mmol/L Carbon Dioxide (22-30) mmol/L Anion Gap mmol/L BUN (9-20) mg/dL Creatinine (0.66-1.25) mg/dL Est GFR (CKD-EPI)AfAm (>60 ml/min/1.73 sqM) Est GFR (CKD-EPI)NonAf (>60 ml/min/1.73 sqM) Glucose (74-99) mg/dL Plasma Lactic Acid Giorgio (0.7-2.0) mmol/L Calcium (8.4-10.2) mg/dL Magnesium (1.6-2.3) mg/dL Total Bilirubin (0.2-1.3) mg/dL AST (17-59) U/L ALT (4-49) U/L Alkaline Phosphatase (38-126) U/L Troponin I 0.054 H* (0.000-0.034) ng/mL NT-Pro-B Natriuret Pep 9640 pg/mL Total Protein (6.3-8.2) g/dL Albumin (3.5-5.0) g/dL - EKG Data -: EKG Interpreted by Me EKG Comments: EKG was obtained due to minor shortness of breath, EKG was obtained at 1144 and interpreted by me with a rate of 78 and rhythm of sinus with first-degree AV block, OH interval prolonged at 211, QRS 86, QTC 433 there are no acute ST elevations or depressions there is no evidence of acute ischemia or infarction. Disposition Clinical Impression: Congestive heart failure, Elevated troponin, Elevated LFTs Disposition: ADMITTED IP TO THIS HOSP Condition: Serious Is patient prescribed a controlled substance at d/c from ED?: No Referrals: Benjie Jacques MD [Primary Care Provider] - 1-2 days
[2022-08-30] MEDS ORDERED: FUROSEMIDE 10 MG/ML 4 ML VIAL IV STA (13:12)
[2022-08-30 13:15] LABS: Prothrombin Time 10.8 sec (9.0-12.0)
[2022-08-30] MEDS ORDERED: NALOXONE 0.4 MG/ML 1 ML VIAL IV PRN (13:48)
[2022-08-30] MEDS ORDERED: NON FORMULARY DRUG (Fluticasone/Umeclidin/Vilanter [Trelegy Ellipta 200-62.5-25] 1 EACH Bl INHALATION SCH (18:00)
[2022-08-30] MEDS: POTASSIUM CHLORIDE ER 10 MEQ TAB.ER.PRT PO SCH (20:08)
[2022-08-30] MEDS: ATORVASTATIN 40 MG TAB PO SCH (20:08)
[2022-08-30] MEDS: lisinopriL 20 MG TAB PO SCH (20:08)
[2022-08-30] MEDS: TAMSULOSIN 0.4 MG CAP.ER.24H PO SCH (20:08)
[2022-08-30] MEDS: ISOSORBIDE MONONITRATE ER 30 MG TAB.ER.24H PO SCH (20:08)
[2022-08-30] MEDS: FUROSEMIDE 40 MG TAB PO SCH (20:08)
[2022-08-30] MEDS: METOPROLOL TARTRATE 25 MG TAB PO SCH (20:08)
[2022-08-30] MEDS: SYMBICORT 160-4.5 MCG INHALER INHALATION SCH ×2 (20:50→21:00)
[2022-08-30] MEDS: IPRATROPIUM-ALBUTEROL 3 ML NEB INHALATION SCH (20:50)
[2022-08-31] MEDS: PANTOPRAZOLE 40 MG TABLET PO SCH (07:42)
[2022-08-31] MEDS: POTASSIUM CHLORIDE ER 10 MEQ TAB.ER.PRT PO SCH ×2 (07:42→21:05)
[2022-08-31] MEDS: ASPIRIN 81 MG PO SCH (07:42)
[2022-08-31] MEDS: FUROSEMIDE 40 MG TAB PO SCH (07:43)
[2022-08-31] MEDS: lisinopriL 20 MG TAB PO SCH ×2 (07:43→21:05)
[2022-08-31] MEDS: SYMBICORT 160-4.5 MCG INHALER INHALATION SCH ×2 (08:09→19:38)
[2022-08-31] MEDS: IPRATROPIUM-ALBUTEROL 3 ML NEB INHALATION SCH ×4 (08:09→19:38)
--- NOTE | 2022-08-31 09:57 | P.CRDCN ---
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 He presented to the hospital complaining of one-week history of progressive exertional dyspnea associated was bilateral lower extremity edema and also weight gain. No pain in the chest and no dizziness or lightheadedness and no feeling of heart racing or fluttering and no presyncope or syncope. He underwent further workup including EKG showing sinus mechanism was no significant ST or T-wave abnormalities and chest x-ray showed findings consistent with heart failure. The ENT proBNP came in to be 10,000. The troponin came in to be slightly elevated but that has been chronically elevated. The patient underwent a heart catheterization in 2022 and that showed [id number] nonobstructive coronary artery disease. The echo from 2019 showed normal right ventricular dimension and systolic function with normally functioning bioprosthetic aortic valve and only mild gradient and mild aortic insufficiency. The patient stated that he has not been compliant with his medications. The dose of Lasix which was twice a day and he has not been feeding twice daily on regular basis. He is compliant was low sodium diet. Examination is remarkable for severe bilateral lower extremity is pitting edema associated with diminished breathing sounds bilaterally and also regular rhythm with a systolic murmur at the right upper sternal border. Assessment Heart failure exacerbation secondary to heart failure with preserved ejection fraction Status post surgical aortic valve replacement and subsequently transcutaneous aortic valve replacement Noncompliance with medications Coronary artery disease mild to moderate on recent heart catheterization Multiple comorbid conditions including hypertension and dyslipidemia Plan Continue the current medical regimen Start the patient on Lasix IV and stop Lasix by mouth Monitor the kidney function and electrolytes Follow-up with the patient Past Medical History Past Medical History: Asthma, Cancer, Heart Failure, Hypertension Additional Past Medical History / Comment(s): pre diabetic, mouth cancer, aortic stenosis, polio as a child History of Any Multi-Drug Resistant Organisms: None Reported Past Surgical History: Cardiac Valve Replacement, Heart Catheterization Additional Past Surgical History / Comment(s): Aortic valve replaced - to cor valve inside other valve, colonoscopy- polyp removal. dental sx Past Anesthesia/Blood Transfusion Reactions: No Reported Reaction Past Psychological History: No Psychological Hx Reported Smoking Status: Never smoker Past Alcohol Use History: None Reported Past Drug Use History: None Reported - Past Family History Diabetes Family Medical History: Diabetes Mellitus Medications and Allergies Home Medications Medication Instructions Recorded Confirmed Type Aspirin EC [Ecotrin Low Dose] 81 mg PO DAILY 04/30/22 08/30/22 History Atorvastatin Calcium [Lipitor] 40 mg PO HS 04/30/22 08/30/22 History Dulaglutide [Trulicity] 1.5 mg SQ SA 04/30/22 08/30/22 History Furosemide [Lasix] 40 mg PO BID 04/30/22 08/30/22 History Isosorbide Mononitrate ER [Imdur] 60 mg PO HS 04/30/22 08/30/22 History Potassium Chloride [Klor-Con 8] 8 meq PO BID 04/30/22 08/30/22 History Tamsulosin HCl [Flomax] 0.4 mg PO HS 04/30/22 08/30/22 History lisinopriL [Zestril] 20 mg PO BID 04/30/22 08/30/22 History Budesonide/Formoterol Fumarate 2 puff INHALATION RT-BID 08/23/22 08/30/22 History [Symbicort 160-4.5 Mcg Inhaler] Metoprolol Tartrate [Lopressor] 25 mg PO HS 08/23/22 08/30/22 History Omeprazole 40 mg PO DAILY 08/23/22 08/30/22 History Ipratropium-Albuterol Nebulize 3 ml INHALATION RT-QID each 08/25/22 08/30/22 Rx [Duoneb 0.5 mg-3 mg/3 ml Soln] Albuterol Inhaler [Ventolin Hfa 1 - 2 puff INHALATION RT-Q6H PRN 08/30/22 08/30/22 History Inhaler] Fluticasone/Umeclidin/Vilanter 1 puff INHALATION DIRECTED 08/30/22 08/30/22 History [Trelegy Ellipta 200-62.5-25] Allergies Allergy/AdvReac Type Severity Reaction Status Date / Time No Known Allergies Allergy Verified 08/30/22 16:29 Physical Exam Vitals: Vital Signs Temp Pulse Pulse Resp BP BP Pulse Ox 08/31/22 08:25 60 08/31/22 08:10 58 L 95 08/31/22 07:00 97.3 F L 57 L 15 105/52 97 08/31/22 01:42 97.7 F 62 18 120/55 98 08/30/22 20:59 56 L 08/30/22 20:50 56 L 08/30/22 19:40 97.8 F 67 16 108/57 97 08/30/22 16:01 79 18 147/69 97 08/30/22 15:35 71 22 125/51 97 08/30/22 13:05 73 20 162/67 95 08/30/22 11:28 98.6 F 83 24 166/64 92 L Intake and Output 08/30/22 08/31/22 08/31/22 22:59 06:59 14:59 Intake Total 240 Balance 240 Intake: Oral 240 Other: # Voids 1 1 Results 08/30/22 12:22 08/30/22 12:22 Cardiac Enzymes 08/30/22 08/30/22 08/30/22 Range/Units 12:22 12:22 15:08 AST 63 H (17-59) U/L Troponin I 0.054 H* 0.070 H* (0.000-0.034) ng/mL 08/30/22 Range/Units 18:44 AST (17-59) U/L Troponin I 0.061 H* (0.000-0.034) ng/mL Coagulation 08/30/22 Range/Units 12:22 PT 10.8 (9.0-12.0) sec APTT 26.0 (22.0-30.0) sec CBC 08/30/22 Range/Units 12:22 WBC 11.6 H (3.8-10.6) k/uL RBC 4.59 (4.30-5.90) m/uL Hgb 15.6 (13.0-17.5) gm/dL Hct 46.2 (39.0-53.0) % Plt Count 206 (150-450) k/uL Comprehensive Metabolic Panel 08/30/22 Range/Units 12:22 Sodium 136 L (137-145) mmol/L Potassium 4.5 (3.5-5.1) mmol/L Chloride 106 (98-107) mmol/L Carbon Dioxide 20 L (22-30) mmol/L BUN 24 H (9-20) mg/dL Creatinine 0.88 (0.66-1.25) mg/dL Glucose 115 H (74-99) mg/dL Calcium 8.9 (8.4-10.2) mg/dL AST 63 H (17-59) U/L ALT 113 H (4-49) U/L Alkaline Phosphatase 82 (38-126) U/L Total Protein 6.3 (6.3-8.2) g/dL Albumin 3.9 (3.5-5.0) g/dL Current Medications Generic Name Dose Route Start Last Admin Trade Name Freq PRN Reason Stop Dose Admin Albuterol/Ipratropium 3 ml 08/30/22 20:00 08/31/22 08:09 Ipratropium-Albuterol 3 Ml Neb INHALATION 3 ml RT-QID ADITHYA Administration Aspirin 81 mg 08/31/22 09:00 08/31/22 07:42 Aspirin 81 Mg PO 81 mg DAILY ADITHYA Administration Atorvastatin Calcium 40 mg 08/30/22 21:00 08/30/22 20:08 Atorvastatin 40 Mg Tab PO 40 mg HS ADITHYA Administration Budesonide/Formoterol Fumarate 2 puff 08/30/22 20:00 08/31/22 08:09 Symbicort 160-4.5 Mcg Inhaler INHALATION 2 puff RT-BID ADITHYA Administration Furosemide 40 mg 08/30/22 21:00 08/31/22 07:43 Furosemide 40 Mg Tab PO 40 mg BID ADITHYA Administration Isosorbide Mononitrate 60 mg 08/30/22 21:00 08/30/22 20:08 Isosorbide Mononitrate Er 30 Mg Tab.Er.24h PO 60 mg HS ADITHYA Administration Lisinopril 20 mg 08/30/22 21:00 08/31/22 07:43 Lisinopril 20 Mg Tab PO 20 mg BID ADITHYA Administration Metoprolol Tartrate 25 mg 08/30/22 21:00 08/30/22 20:08 Metoprolol Tartrate 25 Mg Tab PO 25 mg HS ADITHYA Administration Naloxone HCl 0.2 mg 08/30/22 13:48 Naloxone 0.4 Mg/Ml 1 Ml Vial IV Q2M PRN Opioid Reversal Dulaglutide [ 1.5 mg 08/31/22 17:56 Trulicity] 1.5 Mg/0. SQ 5 Ml Each SA ADITHYA Pantoprazole Sodium 40 mg 08/31/22 09:00 08/31/22 07:42 Pantoprazole 40 Mg Tablet PO 40 mg DAILY ADITHYA Administration Potassium Chloride 10 meq 08/30/22 21:00 08/31/22 07:42 Potassium Chloride Er 10 Meq Tab.Er.Prt PO 10 meq BID ADITHYA Administration Tamsulosin HCl 0.4 mg 08/30/22 21:00 08/30/22 20:08 Tamsulosin 0.4 Mg Cap.Er.24h PO 0.4 mg HS ADITHYA Administration Intake and Output 08/30/22 08/31/22 08/31/22 22:59 06:59 14:59 Intake Total 240 Balance 240 Intake: Oral 240 Other: # Voids 1 1 08/30/22 12:22 08/30/22 12:22
[2022-08-31] MEDS: FUROSEMIDE 10 MG/ML 4 ML VIAL IV SCH ×2 (10:18→21:04)
[2022-08-31 12:05] LABS: Glucose,Whole Blood 113 mg/dL (70-110)
[2022-08-31] MEDS: DAPAGLIFLOZIN PROPANEDIOL 10 MG TABLET PO SCH (12:12)
--- NOTE | 2022-08-31 12:30 | HP ---
HISTORY AND PHYSICAL HISTORY OF PRESENT ILLNESS: He came in with shortness of breath, unable to ambulate. He went home from the hospital recently. He did not get his nebulizers or updraft treatments at home. He became severely hypoxic at home and had severe swelling of his extremities and short of breath and unable to ambulate. He has critical aortic stenosis, mild to moderate amount. He had 2 aortic valve replacements. His breathing is awful. He subsequently wears sleep apnea machine at home, he does not wear this also. HOME MEDICATIONS: 1. Lasix. 2. Trulicity. 3. Lipitor. 4. Aspirin. 5. Imdur. 6. . 7. Flomax. 8. Zestril. 9. Lopressor. 10.Symbicort inhaler. 11.Omeprazole. 12.DuoNeb updraft t.i.d. 13.Budesonide updrafts b.i.d. REVIEW OF SYSTEMS: 14-point review of systems otherwise negative. PAST MEDICAL HISTORY: CHF, coronary artery disease, acute on chronic diastolic heart failure, hypertension, diabetes, obesity, aortic stenosis, aortic valve replacement, heart catheterization, 5 stents. FAMILY HISTORY: Diabetes in the family, mother and father. PHYSICAL EXAMINATION: VITAL SIGNS: Reviewed. GENERAL: He is an elderly-appearing white male. He has fluid overload, generalized changes. CARDIOVASCULAR: 2/6 harsh mid sternal rub. LUNGS: Crackles at the bases. SKIN: Warm and dry. EXTREMITIES: 2 to 3+ edema. PSYCH: Fair mood and affect. NEUROLOGIC: Alert and oriented x3. Cranial nerves intact. Blood pressure /67, O2 92-95 on room air, temp 98.6, pulse 73 to 80. ASSESSMENT: Congestive heart failure with fluid overload, aortic stenosis, chronic obstructive pulmonary disease, asthma shortness of breath to diurese him, breathing treatments, etc. Prognosis is guarded. Since he was not taking his medicines at home, probably noncompliance is contributing to his readmission at this point in my opinion. Please see further orders. MMODL / IJN: [id number] /
--- NOTE | 2022-08-31 12:33 | PN ---
PROGRESS NOTE DATE OF SERVICE: 08/31/2022 SUBJECTIVE: The patient is improved now with IV Lasix. Going to get his breathing treatments. He is mid to low 90s on 3 L. Continue with diuresis for another 24 hours prior to discharge to a halfway or to home. OBJECTIVE: CARDIOVASCULAR: S1, S2. LUNGS: Rales at the base. HEMATOLOGY: 2+ edema. NEUROLOGIC: Cranial nerves intact. ASSESSMENT AND PLAN: Congestive heart failure with reduced ejection fraction, aortic stenosis, COPD, asthma. Prognosis guarded. Continue current treatments, home nighttime oxygen, do breathing treatments. Prognosis guarded. Possible discharge home in next 24 to 48 hours. MMODL / IJN: [id number] /
[2022-08-31] MEDS ORDERED: Dulaglutide [Trulicity] 1.5 MG/0.5 ML Each SQ SCH (17:56)
[2022-08-31] MEDS: BUDESONIDE 0.5 MG/2 ML NEBU INHALATION SCH (19:38)
[2022-08-31] MEDS: ATORVASTATIN 40 MG TAB PO SCH (21:04)
[2022-08-31] MEDS: TAMSULOSIN 0.4 MG CAP.ER.24H PO SCH (21:05)
[2022-08-31] MEDS: ISOSORBIDE MONONITRATE ER 30 MG TAB.ER.24H PO SCH (21:05)
[2022-08-31] MEDS: METOPROLOL TARTRATE 25 MG TAB PO SCH (21:05)
--- NOTE | 2022-09-01 01:46 | P.PN ---
Subjective Progress Note Date: 08/31/[address] Jacques Patient is a 82-year-old male with a past medical history of hypertension, hype rlipidemia, HFpEF, mild nonobstructive coronary disease, valvular heart disease status post aortic valve replacement in 2007 and subsequently transcutaneous aortic valve replacement in 2016 admitted to hospital with complaints of exertional dyspnea and bilateral lower extremity edema and weight gain. 08/31/2022 Patient is currently sitting in the chair. Breathing status is better. Leg swelling is also improving. No complaints of chest pain/chest tightness. No nausea vomiting abdominal pain or diarrhea. No cough or sputum production. Patient has been afebrile. Laboratory data reviewed. Troponin 0.054, 0.070 and 0.061, proBNP 9640. Cardiology is on board. Patient is being current Lasix 40 mg every 12. Current medications reviewed. Objective - Vital Signs Vital signs: Vital Signs Temp 97.3 F L 08/31/22 14:40 Pulse 63 08/31/22 19:40 Resp 16 08/31/22 14:40 BP 93/45 08/31/22 14:40 Pulse Ox 98 08/31/22 14:40 FiO2 Intake & Output 08/31/22 08/31/22 09/01/22 06:59 18:59 06:59 Intake Total 118 Balance 118 Intake: Oral 118 Other: # Voids 1 4 - Exam PHYSICAL EXAMINATION: Patient is lying in the bed comfortably, no acute distress, awake alert and oriented.. HEENT: Normocephalic. Neck is supple. Pupils reactive. Nostrils clear. Oral cavity is moist. Neck reveals no JVD, carotid bruits, or thyromegaly. CHEST EXAMINATION: Trachea is central. Symmetrical expansion. Bibasilar diminished sounds. No wheezing or rhonchi.. CARDIAC: Normal S1, S2 with no gallops. Systolic murmur. ABDOMEN: Soft. Bowel sounds present. Nontender. No organomegaly. No abdominal bruits. Extremities: Bilateral lower extremity 2+ edema. No clubbing or cyanosis Neurologically awake, alert, oriented x3 with well-coordinated movements. No focal deficits noted Skin: No rash or skin lesions. Psychiatric: Coperative. Nonsuicidal, Musculoskeletal: No joint swelling or deformity. Normal range of motion. - Labs CBC & Chem 7: 08/30/22 12:22 07/07/23 12:22 Labs: Abnormal Lab Results - Last 24 Hours (Table) 08/30/22 08/31/22 Range/Units 18:44 11:58 POC Glucose (mg/dL) 113 H (70-110) mg/dL Troponin I 0.061 H* (0.000-0.034) ng/mL Assessment and Plan Assessment: Acute on chronic CHF with preserved ejection fraction. History of aortic valve replacement and subsequently transcutaneous aortic valve replacement. Coronary artery disease mild to moderate as per recent cardiac catheterization. Hypertension Hyperlipidemia Noncompliance with medications Asthma not in exacerbation History of mouth cancer Polio as a child DVT prophylaxis Plan: Patient will be continued on Lasix 40 mg IV every 12. Continue with telemetry monitoring. Can with aspirin and statin Metoprolol and lisinopril. Continue with breathing treatments and follow-up renal function. Cardiology is on board. DVT prophylax with heparin subcu Time with Patient: Greater than 30
[2022-09-01] MEDS: SYMBICORT 160-4.5 MCG INHALER INHALATION SCH ×2 (07:33→21:25)
[2022-09-01] MEDS: BUDESONIDE 0.5 MG/2 ML NEBU INHALATION SCH ×3 (07:33→21:24)
[2022-09-01] MEDS: IPRATROPIUM-ALBUTEROL 3 ML NEB INHALATION SCH ×4 (07:33→21:25)
[2022-09-01] MEDS: HEPARIN SODIUM,PORCINE/PF 5,000 UNIT/0.5 ML SYRINGE SQ SCH ×3 (08:04→19:49)
[2022-09-01] MEDS: POTASSIUM CHLORIDE ER 10 MEQ TAB.ER.PRT PO SCH ×2 (08:04→19:49)
[2022-09-01] MEDS: PANTOPRAZOLE 40 MG TABLET PO SCH (08:04)
[2022-09-01] MEDS: DAPAGLIFLOZIN PROPANEDIOL 10 MG TABLET PO SCH (08:04)
[2022-09-01] MEDS: ASPIRIN 81 MG PO SCH (08:04)
[2022-09-01] MEDS: lisinopriL 20 MG TAB PO SCH ×2 (08:04→19:49)
[2022-09-01] MEDS: FUROSEMIDE 10 MG/ML 4 ML VIAL IV SCH ×2 (08:05→19:49)
[2022-09-01 08:30] LABS: Glucose,Whole Blood 94 mg/dL (70-110)
--- NOTE | 2022-09-01 09:41 | P.PN ---
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 He presented to the hospital complaining of one-week history of progressive exertional dyspnea associated was bilateral lower extremity edema and also weight gain. No pain in the chest and no dizziness or lightheadedness and no feeling of heart racing or fluttering and no presyncope or syncope. He underwent further workup including EKG showing sinus mechanism was no significant ST or T-wave abnormalities and chest x-ray showed findings consistent with heart failure. The ENT proBNP came in to be 10,000. The troponin came in to be slightly elevated but that has been chronically elevated. The patient underwent a heart catheterization in 2022 and that showed [id number] nonobstructive coronary artery disease. The echo from 2019 showed normal right ventricular dimension and systolic function with normally functioning bioprosthetic aortic valve and only mild gradient and mild aortic insufficiency. The patient stated that he has not been compliant with his medications. The dose of Lasix which was twice a day and he has not been feeding twice daily on regular basis. He is compliant was low sodium diet. 09/01/2022 The patient was seen and evaluated this morning. He stated that the shortness of breath has improved but not back to baseline. He continues to have bilateral lower extremity edema. No symptoms of chest pain or chest discomfort. He continues to be on Lasix IV and has been diuresing well. The patient continues to be in failure. He still have severe diminished in the breathing sounds bilat erally in both bases and bilateral lower extremity is edema noted. I will suggest continue the current medical regimen including the current dose of Lasix IV and follow-up with the BUN and creatinine and electrolytes from this morning. Examination is remarkable for severe bilateral lower extremity is pitting edema associated with diminished breathing sounds bilaterally and also regular rhythm with a systolic murmur at the right upper sternal border. Assessment Heart failure exacerbation secondary to heart failure with preserved ejection fraction Status post surgical aortic valve replacement and subsequently transcutaneous aortic valve replacement Noncompliance with medications Coronary artery disease mild to moderate on recent heart catheterization Multiple comorbid conditions including hypertension and dyslipidemia Plan Continue the current medical regimen Continue IV Lasix for additional 24 hours Monitor the kidney function and electrolytes Follow-up with the patient Objective - Vital Signs Vital signs: Vital Signs Temp 97.6 F 09/01/22 07:00 Pulse 66 09/01/22 07:46 Resp 18 09/01/22 07:00 BP 110/49 09/01/22 07:00 Pulse Ox 96 09/01/22 07:35 FiO2 Intake & Output 08/31/22 09/01/22 09/01/22 18:59 06:59 18:59 Intake Total 118 120 Balance 118 120 Intake: Oral 118 120 Other: # Voids 4 1 1 - Labs CBC & Chem 7: 08/30/22 12:22 08/30/22 12:22 Labs: Abnormal Lab Results - Last 24 Hours (Table) 08/31/22 Range/Units 11:58 POC Glucose (mg/dL) 113 H (70-110) mg/dL
[2022-09-01 13:46] LABS: ALT 78 U/L (10-49); AST 27 U/L (14-35); Albumin 3.5 d/dL (3.8-4.9); Albumin/Globulin Ratio 2.33 Ratio (1.60-3.17); Alkaline Phosphatase 57 U/L (41-126); Blood Urea Nitrogen 26.3 mg/dL (9.0-27.0); Calcium 8.7 mg/dL (8.7-10.3); Carbon Dioxide 23.1 mmol/L (21.6-31.8); Chloride 106 mmol/L (96-109); Globulin 1.5 d/dL (1.6-3.3); Glucose 90 mg/dL (70-110); Potassium 4.5 mmol/L (3.5-5.5); Sodium 140 mmol/L (135-145); Total Bilirubin 0.6 mg/dL (0.3-1.2)
[2022-09-01 15:06] LABS: Basophils # (A) 0.04 X 10*3/uL (0.00-0.10); Basophils % (A) 0.4 %; Eosinophils # (A) 0.16 X 10*3/uL (0.04-0.35); Eosinophils % (A) 1.7 %; HCT 39.3 % (39.6-50.0); HGB 12.8 d/dL (12.0-15.0); Lymphocytes # (A) 1.46 X 10*3/uL (0.90-5.00); Lymphocytes % (A) 15.4 %; MCHC 32.6 d/dL (32.0-37.0); MCV 104.2 FL (80.0-97.0); Mean Platelet Volume 13.1 FL (9.5-12.2); Monocytes # (A) 1.19 X 10*3/uL (0.20-1.00); Monocytes % (A) 12.6 %; NRBC Per 100 WBC 0 X 10*3/uL (0.00-0.01); Neutrophils % (A) 69.6 %; Platelet Count 164 X 10*3/uL (140-440); RBC 3.77 X 10*6/uL (4.40-5.60); WBC 9.48 X 10*3/uL (4.50-10.00)
[2022-09-01 19:25] VITALS: RESP 17
[2022-09-01] MEDS: ATORVASTATIN 40 MG TAB PO SCH (19:49)
[2022-09-01] MEDS: METOPROLOL TARTRATE 25 MG TAB PO SCH (19:49)
[2022-09-01] MEDS: TAMSULOSIN 0.4 MG CAP.ER.24H PO SCH (19:49)
[2022-09-01] MEDS: ISOSORBIDE MONONITRATE ER 30 MG TAB.ER.24H PO SCH (19:49)
--- NOTE | 2022-09-01 23:12 | PN ---
PROGRESS NOTE SUBJECTIVE: An 82-year-old white male with congestive heart failure diastolic in nature, coronary artery disease. He is breathing much better since when he is coming in. 24 hours. Possible discharge home tomorrow. He will use his nebulizer prior to going home. Afforded Osmel and Vane for his nebulizer. OBJECTIVE: VITAL SIGNS: O2 of 94% on room air, blood pressure 121/73, temp 97.9, pulse 60s, respiratory rate 16 to 18. CARDIOVASCULAR: S1, S2. LUNGS: Transmitted upper sounds. GI: Soft. HEMATOLOGY: Negative Homans. PLAN: Continue current treatment. Continue with Lasix for 24 hours. Possible discharge home on breathing treatments with nebulizer. PT, OT involved. ELISA / PRUDENCION: [id number] /
[2022-09-02] MEDS: BUDESONIDE 0.5 MG/2 ML NEBU INHALATION SCH (08:15)
[2022-09-02] MEDS: SYMBICORT 160-4.5 MCG INHALER INHALATION SCH (08:16)
[2022-09-02] MEDS: IPRATROPIUM-ALBUTEROL 3 ML NEB INHALATION SCH ×3 (08:16→15:56)
[2022-09-02 08:44] LABS: ALT 63 U/L (10-49); AST 22 U/L (14-35); Albumin 3.5 d/dL (3.8-4.9); Albumin/Globulin Ratio 2.06 Ratio (1.60-3.17); Alkaline Phosphatase 58 U/L (41-126); BUN/Creat Ratio 23.91 Ratio (12.00-20.00); Blood Urea Nitrogen 26.3 mg/dL (9.0-27.0); Calcium 8.9 mg/dL (8.7-10.3); Carbon Dioxide 24.9 mmol/L (21.6-31.8); Chloride 104 mmol/L (96-109); Globulin 1.7 d/dL (1.6-3.3); Glucose 87 mg/dL (70-110); Potassium 4.3 mmol/L (3.5-5.5); Sodium 141 mmol/L (135-145); Total Bilirubin 0.7 mg/dL (0.3-1.2); Total Protein 5.2 d/dL (6.2-8.2)
[2022-09-02] MEDS ORDERED: CLOPIDOGREL 75 MG TAB PO SCH (09:00)
[2022-09-02 09:35] LABS: Basophils # (A) 0.03 X 10*3/uL (0.00-0.10); Basophils % (A) 0.4 %; Eosinophils # (A) 0.19 X 10*3/uL (0.04-0.35); Eosinophils % (A) 2.4 %; HCT 40.4 % (39.6-50.0); HGB 13.6 d/dL (12.0-15.0); Lymphocytes # (A) 1.27 X 10*3/uL (0.90-5.00); Lymphocytes % (A) 16.1 %; MCH 34.9 pg (27.0-32.0); MCHC 33.7 d/dL (32.0-37.0); MCV 103.6 FL (80.0-97.0); Mean Platelet Volume 12.8 FL (9.5-12.2); Monocytes # (A) 0.99 X 10*3/uL (0.20-1.00); Monocytes % (A) 12.5 %; NRBC Per 100 WBC 0 X 10*3/uL (0.00-0.01); Neutrophils # (A) 5.39 X 10*3/uL (1.80-7.70); Neutrophils % (A) 68.3 %; Platelet Count 184 X 10*3/uL (140-440); RDW 13.8 % (11.5-14.5); WBC 7.89 X 10*3/uL (4.50-10.00)
[2022-09-02] MEDS: ASPIRIN 81 MG PO SCH (09:51)
[2022-09-02] MEDS: HEPARIN SODIUM,PORCINE/PF 5,000 UNIT/0.5 ML SYRINGE SQ SCH ×2 (09:51→15:09)
[2022-09-02] MEDS: DAPAGLIFLOZIN PROPANEDIOL 10 MG TABLET PO SCH (09:52)
[2022-09-02] MEDS: FUROSEMIDE 40 MG TAB PO SCH ×2 (09:52→15:09)
[2022-09-02] MEDS: POTASSIUM CHLORIDE ER 10 MEQ TAB.ER.PRT PO SCH (09:54)
[2022-09-02] MEDS: lisinopriL 20 MG TAB PO SCH (09:54)
[2022-09-02] MEDS: PANTOPRAZOLE 40 MG TABLET PO SCH (09:54)
--- NOTE | 2022-09-02 10:06 | PN ---
PROGRESS NOTE SUBJECTIVE: An 82-year-old gentleman who is admitted to hospital with acute exacerbation of chronic diastolic heart failure secondary to severe aortic stenosis involving the prosthetic valve. He had been treated with Lasix with significant improvement in his symptoms. 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 OBJECTIVE: GENERAL: He is comfortable at rest. VITAL SIGNS: Stable. NECK: There is no jugular venous distention. CHEST: Reveals good air entry bilaterally. HEART: Reveals first and second heart sounds. A grade 4/6 ejection systolic murmur in the aortic area. ABDOMEN: Soft. EXTREMITIES: Did not reveal any edema. Peripheral pulses are felt. ASSESSMENT: 1. Severe prosthetic valve aortic stenosis. 2. Acute exacerbation of chronic diastolic heart failure. PLAN: The patient is feeling better. I will switch the Lasix to p.o. Hopefully he can be discharged home later today. MMPABLOL / IJN: [id number] /
[2022-09-02] MEDS: FUROSEMIDE 10 MG/ML 4 ML VIAL IV SCH (10:11)
[2022-09-02 14:47] VITALS: BP 105/51; TEMP 97.3
[2022-09-02 16:06] VITALS: PULSE 60
--- NOTE | 2022-09-03 01:36 | DS ---
DISCHARGE SUMMARY HOSPITAL COURSE: An 82-year-old white male came with congestive heart failure, noncompliant with medications at home, asthma, COPD exacerbation, congestive heart failure, elevated LFTs, elevated troponin, history of aortic stenosis in moderate amount, treated with IV steroids, IV Lasix for 2-3 days. He improved with his breathing, at which time he was sent home on budesonide and DuoNeb nebulizers. Home medications; 1. Plavix 75 mg daily. 2. Pulmicort 0.5 b.i.d. 3. DuoNeb q.i.d. 4. Farxiga 10 mg daily. 5. Zestril 20 b.i.d. 6. Potassium chloride 8 mEq b.i.d. 7. Lasix 40 b.i.d. 8. Ecotrin 81 daily. 9. Lopressor 25 at night. 10.Omeprazole 40 daily. 11.Trulicity 1.5 subcu weekly. 12.Flomax 0.4 mg daily. 13.Imdur 60 mg daily. 14.Lipitor 40 mg daily. 15.Ventolin HFA p.r.n. 16. . Follow up in my office in a week. Diet as tolerated. Ambulate as tolerated. MMODL / IJN: [id number] /
== END 2022-09-02 19:07 ==
LOC: EC 11:26 → 6NMEDSUR 13:57
PROVIDERS: ADMIT Family Medicine; ATTEND Family Medicine
DX: T82.857A Stenosis of other cardiac prosthetic devices, implants and grafts, initial encounter (principal); I11.0 Hypertensive heart disease with heart failure; I50.33 Acute on chronic diastolic (congestive) heart failure; Z95.3 Presence of xenogenic heart valve; Y83.1 Surgical operation with implant of artificial internal device as the cause of abnormal reaction of the patient, or of later complication, without mention of misadventure at the time of the procedure; J44.1 Chronic obstructive pulmonary disease with (acute) exacerbation; Z99.81 Dependence on supplemental oxygen; I25.10 Atherosclerotic heart disease of native coronary artery without angina pectoris; E11.9 Type 2 diabetes mellitus without complications; I44.0 Atrioventricular block, first degree; E78.5 Hyperlipidemia, unspecified; Z91.148 Patient's other noncompliance with medication regimen for other reason; R79.89 Other specified abnormal findings of blood chemistry; R74.01 Elevation of levels of liver transaminase levels; E66.9 Obesity, unspecified; Z68.36 Body mass index [BMI] 36.0-36.9, adult; Z79.82 Long term (current) use of aspirin; Z79.85 Long-term (current) use of injectable non-insulin antidiabetic drugs; Z79.51 Long term (current) use of inhaled steroids; Z79.899 Other long term (current) drug therapy; Z85.819 Personal history of malignant neoplasm of unspecified site of lip, oral cavity, and pharynx; Z86.12 Personal history of poliomyelitis; Z86.010 Personal history of colon polyps; Z98.890 Other specified postprocedural states; Z83.3 Family history of diabetes mellitus
CPT/HCPCS: 96376 ×2; 96372 ×2; 96374; 99285; 36415; 94640 ×6; 94760 ×3; 93005; 97162; 97165; 83880; 80053 ×3; 83605; 83735; 84484; 85025 ×3; 85610; 85730; 71046; G0378 ×4; J1940 ×3; J1644 ×2

== ENCOUNTER 2022-11-21 13:42 | Inpatient (IN) | payer MEDICARE ==
--- NOTE | 2022-11-21 15:16 | ED ---
Chest Pain HPI - General Chief Complaint: Chest Pain Stated Complaint: sob/chest pains Time Seen by Provider: 11/21/22 13:51 Source: patient, RN notes reviewed Mode of arrival: ambulatory Limitations: no limitations - History of Present Illness Initial Comments: 82-year-old male presents emergency Department chief complaint chest pain, shortness breath. Patient has been hospital for CHF exacerbation. Patient states he's been getting worse and last couple nights states he has to sleep in his recliner. He states skin approximately 10 pounds. He states he cannot walk on distance because he is short of breath. Patient sees cardiology and he states his primary care physician is Dr. Valadez. Patient denies any fevers or chills states he has pain in his lower chest region. - Related Data Home Medications Medication Instructions Recorded Confirmed Aspirin EC [Ecotrin Low Dose] 81 mg PO DAILY 04/30/22 08/30/22 Atorvastatin Calcium [Lipitor] 40 mg PO HS 04/30/22 08/30/22 Dulaglutide [Trulicity] 1.5 mg SQ SA 04/30/22 08/30/22 Furosemide [Lasix] 40 mg PO BID 04/30/22 08/30/22 Isosorbide Mononitrate ER [Imdur] 60 mg PO HS 04/30/22 08/30/22 Potassium Chloride [Klor-Con 8] 8 meq PO BID 04/30/22 08/30/22 Tamsulosin HCl [Flomax] 0.4 mg PO HS 04/30/22 08/30/22 lisinopriL [Zestril] 20 mg PO BID 04/30/22 08/30/22 Budesonide/Formoterol Fumarate 2 puff INHALATION RT-BID 08/23/22 08/30/22 [Symbicort 160-4.5 Mcg Inhaler] Metoprolol Tartrate [Lopressor] 25 mg PO HS 08/23/22 08/30/22 Omeprazole 40 mg PO DAILY 08/23/22 08/30/22 Albuterol Inhaler [Ventolin Hfa 1 - 2 puff INHALATION RT-Q6H PRN 08/30/22 08/30/22 Inhaler] Fluticasone/Umeclidin/Vilanter 1 puff INHALATION DIRECTED 08/30/22 08/30/22 [Trelegy Ellipta 200-62.5-25] Previous Rx's Medication Instructions Recorded Budesonide [Pulmicort] 0.5 mg INHALATION RT-BID 30 Days 09/02/22 #60 ml Clopidogrel [Plavix] 75 mg PO DAILY tab 09/02/22 Dapagliflozin Propanediol [Farxiga] 10 mg PO DAILY 90 Days #90 tab 09/02/22 Ipratropium-Albuterol Nebulize 3 ml INHALATION RT-QID 30 Days 09/02/22 [Duoneb 0.5 mg-3 mg/3 ml Soln] #120 each Allergies Allergy/AdvReac Type Severity Reaction Status Date / Time No Known Allergies Allergy Verified 08/30/22 16:29 Review of Systems ROS Statement: Those systems with pertinent positive or pertinent negative responses have been documented in the HPI. ROS Other: All systems not noted in ROS Statement are negative. EKG Findings - EKG Comments: EKG Findings:: EKG performed at 13:56 sinus rhythm with first-degree block rate of 64 KS 220/84 QT/QTC 419/428 - EKG Results: EKG: interpreted by TANYA Past Medical History Past Medical History: Asthma, Cancer, Heart Failure, Hypertension Additional Past Medical History / Comment(s): pre diabetic, mouth cancer, aortic stenosis, polio as a child History of Any Multi-Drug Resistant Organisms: None Reported Past Surgical History: Cardiac Valve Replacement, Heart Catheterization Additional Past Surgical History / Comment(s): Aortic valve replaced - to cor valve inside other valve, colonoscopy- polyp removal. dental sx Past Anesthesia/Blood Transfusion Reactions: No Reported Reaction Past Psychological History: No Psychological Hx Reported Smoking Status: Never smoker Past Alcohol Use History: None Reported Past Drug Use History: None Reported - Past Family History Diabetes Family Medical History: Diabetes Mellitus General Exam Limitations: no limitations General appearance: alert, in no apparent distress Head exam: Present: atraumatic, normocephalic, normal inspection Eye exam: Present: normal appearance, PERRL, EOMI. Absent: scleral icterus, conjunctival injection, periorbital swelling ENT exam: Present: normal exam, mucous membranes moist Neck exam: Present: normal inspection, full ROM. Absent: tenderness, meningismus, lymphadenopathy Respiratory exam: Present: rales. Absent: normal lung sounds bilaterally, respiratory distress, wheezes, rhonchi, stridor Cardiovascular Exam: Present: regular rate, normal rhythm, normal heart sounds. Absent: systolic murmur, diastolic murmur, rubs, gallop, clicks Extremities exam: Present: pedal edema Course Vital Signs 11/21/22 13:43 Temperature 98.4 F Pulse Rate 70 Respiratory 18 Rate Blood Pressure 141/47 O2 Sat by Pulse 94 L Oximetry Chest Pain MDM - MDM Was pt. sent in by a medical professional or institution (, PA, [facility], urgent care, hospital, or longterm...) When possible be specific @ -No Did you speak to anyone other than the patient for history (EMS, parent, family, police, friend...)? What history was obtained from this source @ -No Did you review nursing and triage notes (agree or disagree)? Why? @ -I reviewed and agree with nursing and triage notes Were old charts reviewed (outside hosp., previous admission, EMS record, old EKG, old radiological studies, urgent care reports/EKG's, longterm records)? Report findings @ -No old charts were reviewed Differential Diagnosis (chest pain, altered mental status, abdominal pain women, abdominal pain men, vaginal bleeding, weakness, fever, dyspnea, syncope, headache, dizziness, GI bleed, back pain, seizure, CVA, palpatations, mental health, musculoskeletal)? @ -Differential Dyspnea: Coronary syndrome, arrhythmia, tamponade, asthma, COPD, pulmonary embolism, pneumonia, pneumothorax, pulmonary effusion, anaphylaxis, diabetic ketoacidosis, flailed chest, pulmonary contusion, diaphragmatic rupture, anemia, neuromuscular, this is not meant to be an all-inclusive list. le EKG interpreted by me (3pts min.). @ -As above X-rays interpreted by me (1pt min.). @ -Chest x-ray shows pulmonary edema, pleural effusions CT interpreted by me (1pt min.). @ -None done U/S interpreted by me (1pt. min.). @ -None done What testing was considered but not performed or refused? (CT, X-rays, U/S, labs)? Why? @ -None What meds were considered but not given or refused? Why? @ -None Did you discuss the management of the patient with other professionals (professionals i.e. , [facility], [facility], lab, RT, psych nurse, rn social services, physical director, teacher, promotions officer, shoe caser)? Give summary @ -PCP for admission secondary to CHF exacerbation, chest pain Was smoking cessation discussed for >3mins.? @ -No Was critical care preformed (if so, how long)? @ -35 Were there social determinants of health that impacted care today? How? (Homelessness, low income, unemployed, alcoholism, drug addiction, transportation, low edu. Level, literacy, decrease access to med. care, group home, rehab)? @ -No Was there de-escalation of care discussed even if they declined (Discuss DNR or withdrawal of care, Hospice)? DNR status @ -No What co-morbidities impacted this encounter? (DM, HTN, Smoking, COPD, CAD, Cancer, CVA, ARF, Chemo, Hep., AIDS, mental health diagnosis, sleep apnea, morbid obesity)? @ -CHF Was patient admitted / discharged? Hospital course, mention meds given and route, prescriptions, significant lab abnormalities, going to OR and other pertinent info. @ -Admitted patient has acute CHF exacerbation. Patient was given Lasix, patient will be admitted for cardiology evaluation, diuresis. Undiagnosed new problem with uncertain prognosis? @ -No Drug Therapy requiring intensive monitoring for toxicity (Heparin, Nitro, Insulin, Cardizem)? @ -No Were any procedures done? @ -No Diagnosis/symptom? @ -CHF exacerbation Acute, or Chronic, or Acute on Chronic? @ -Acute on chronic Uncomplicated (without systemic symptoms) or Complicated (systemic symptoms)? @ -Complicated Side effects of treatment? @ -No Exacerbation, Progression, or Severe Exacerbation? @ -Exacerbation Poses a threat to life or bodily function? How? (Chest pain, USA, ND, pneumonia, PE, COPD, DKA, ARF, appy, cholecystitis, CVA, Diverticulitis, Homicidal, Suicidal, threat to staff... and all critical care pts) @ -Yes patient has heart failure could lead to respiratory, cardiac arrest Critical Care Time Critical Care Time: Yes Total Critical Care Time: 35 Disposition Clinical Impression: Acute exacerbation of CHF (congestive heart failure), Chest pain Disposition: ADMITTED IP TO THIS [facility] Condition: Fair Referrals: Benjie Jacques MD [Primary Care Provider] - 1-2 days Time of Disposition: 16:16
[2022-11-21 15:38] LABS: Basophils % (A) 0 %; Eosinophils % (A) 0 %; HCT 48.1 % (39.0-53.0); HGB 15.6 gm/dL (13.0-17.5); Lymphocytes # (A) 0.8 k/uL (1.0-4.8); Lymphocytes % (A) 7 %; MCH 34.4 pg (25.0-35.0); MCHC 32.5 g/dL (31.0-37.0); MCV 105.9 fL (80.0-100.0); Macrocytosis Moderate; Mean Platelet Volume 9.3; Monocytes # (A) 0.6 k/uL (0-1.0); Monocytes % (A) 6 %; Neutrophils # (A) 9.2 k/uL (1.3-7.7); Neutrophils % (A) 84 %; Platelet Count 187 k/uL (150-450); RBC 4.55 m/uL (4.30-5.90); RDW 13.8 % (11.5-15.5)
[2022-11-21 15:49] LABS: INR 1.1 (<1.2); Partial Thromboplastin Time 25.8 sec (22.0-30.0); Prothrombin Time 11.8 sec (9.0-12.0)
[2022-11-21 15:55] LABS: ALT 68 U/L (4-49); AST 55 U/L (17-59); African American GFR (CKD) 69 (>60 ml/min/1.73 sqM); Albumin 3.8 g/dL (3.5-5.0); Alkaline Phosphatase 78 U/L (38-126); Anion Gap 8 mmol/L; Blood Urea Nitrogen 39 mg/dL (9-20); Calcium 9.5 mg/dL (8.4-10.2); Carbon Dioxide 23 mmol/L (22-30); Chloride 107 mmol/L (98-107); Glucose 95 mg/dL (74-99); Magnesium 2.4 mg/dL (1.6-2.3); Non-African American GFR(CKD) 60 (>60 ml/min/1.73 sqM); Potassium 4.5 mmol/L (3.5-5.1); Sodium 138 mmol/L (137-145); Total Bilirubin 1.4 mg/dL (0.2-1.3); Total Protein 6.3 g/dL (6.3-8.2)
[2022-11-21 16:02] LABS: NT-Pro-B-Type Natriuretic Pept 19800 pg/mL
[2022-11-21] MEDS ORDERED: FUROSEMIDE 10 MG/ML 4 ML VIAL IV STA (16:15)
--- NOTE | 2022-11-21 16:20 | XR ---
EXAMINATION TYPE: XR chest 2V DATE OF EXAM: 11/21/2022 4:13 PM COMPARISON: Chest radiographs from 08/30/2022 TECHNIQUE: XR chest 2V Frontal and lateral views of the chest. CLINICAL INDICATION:Male, 82 years old with history of Chest Pain; FINDINGS: Lungs/Pleura: Small left pleural effusion. No focal consolidation or pneumothorax. Chronic senescent parenchyma change. Underlying COPD changes with flattening of the hemidiaphragms. Pulmonary vascularity: Unremarkable. Heart/mediastinum: Cardiomediastinal silhouette is enlarged and stable. Postsurgical changes of the aortic valve. Musculoskeletal: No acute osseous pathology. Midline sternotomy wires are noted and stable. IMPRESSION: Cardiomegaly with small left pleural effusion. No overt pulmonary vascular congestion.
[2022-11-21] MEDS ORDERED: methylPREDNISolone SOD SUCCI 40 MG/ML 1 ML VIAL IV STA (17:48)
[2022-11-21] MEDS ORDERED: IPRATROPIUM-ALBUTEROL 3 ML NEB INHALATION STA (17:48)
--- NOTE | 2022-11-21 20:13 | HP ---
HISTORY AND PHYSICAL HISTORY OF PRESENT ILLNESS: An 82-year-old male, came to the hospital with chest pain and shortness of breath with CHF exacerbation. He has PND and orthopnea. He sleeps in his recliner. He gained 10 pounds recently. He has some worsening shortness of breath with exertion. Denies any fever or chills. Pain in his lower chest region. HOME MEDICATIONS: Include: 1. Metoprolol 25 at night. 2. Symbicort inhaler b.i.d. 3. Zestril 20 mg b.i.d. 4. Flomax 0.4 mg daily. 5. Imdur 60 mg daily. 6. Potassium chloride 8 mEq b.i.d. 7. Trulicity 1.5 mg subcutaneously weekly. 8. Lasix 40 mg b.i.d. 9. Atorvastatin 40 mg daily. 10.Aspirin 81 mg daily. 11.Omeprazole 40 mg daily. ALLERGIES: Negative. REVIEW OF SYSTEMS: A 14-point review of systems is otherwise negative. EKG shows sinus rhythm. PAST MEDICAL HISTORY: Asthma, cancer, heart failure, hypertension, aortic stenosis, valve replacement, and heart catheterization. PHYSICAL EXAMINATION: VITAL SIGNS: Blood pressure 141/47, O2 of 94%, pulse 70, respiratory rate 16 to 18, temperature 98.4. CARDIOVASCULAR: S1 and S2. LUNGS: Scattered wheeze and rhonchi. HEMATOLOGY: Negative Homans. PSYCHIATRIC: Fair mood and affect. NEUROLOGIC: Alert and oriented x3. ASSESSMENT: 1. Acute hypoxemic respiratory distress secondary to congestive heart failure. 2. [id number] diastolic heart failure. 3. Chronic obstructive pulmonary disease exacerbation. 4. Tracheobronchitis. 5. Atypical chest pain. PLAN: Continue with breathing treatments and updrafts. Prognosis is guarded. Medications have been reviewed. Please see further orders. MMODL / IJN: [id number] /
[2022-11-22] MEDS: FUROSEMIDE 10 MG/ML 4 ML VIAL IV SCH ×2 (07:01→15:14)
[2022-11-22] MEDS: MAGNESIUM OXIDE 400 MG TAB PO SCH (08:08)
[2022-11-22] MEDS: lisinopriL 20 MG TAB PO SCH ×2 (08:11→20:38)
[2022-11-22] MEDS: CLOPIDOGREL 75 MG TAB PO SCH (08:11)
[2022-11-22] MEDS: amLODIPine 5 MG TAB PO SCH (08:11)
[2022-11-22] MEDS: carvediloL 3.125 MG TAB PO SCH ×2 (08:11→16:34)
[2022-11-22] MEDS: POTASSIUM CHLORIDE ER 10 MEQ TAB.ER.PRT PO SCH ×2 (08:11→20:38)
[2022-11-22] MEDS: ASPIRIN 81 MG PO SCH (08:11)
[2022-11-22] MEDS ORDERED: amLODIPine 2.5 MG TAB PO SCH (09:00)
--- NOTE | 2022-11-22 12:11 | P.CRDCN ---
History of Present Illness Consult date: 11/22/22 Consult reason: congestive heart failure History of present illness: History of present illness: This is an 82-year-old male patient of Dr. Winter with past medical history of prediabetes, hypertension, hyperlipidemia, bleeding ulcer, asthma, and aortic stenosis status post surgical aortic valve replacement and subsequently TAVR with progression of aortic stenosis. We have been asked to evaluate the patient for heart failure. Patient states that he has had more shortness of breath for a couple months. He has had 2 recent hospitalizations in August which time he was treated for acute exacerbation of chronic diastolic heart failure. Patient states when he recently left the hospital he did not receive his nebulizer medications and he seemed to have a relapse. Patient is status post 1 dose of IV Lasix 40 mg and 1 not Cymetra. He states he is feeling a little bit better now. He is seen in the emergency center waiting for a bed on the cardiac stepdown unit. EKG reveals sinus rhythm Chest xray cardiomegaly with small left pleural effusion. No overt pulmonary vascular congestion. WBC 11. Hemoglobin 15.6, platelet count 187. Electrolytes normal. BUN 39 creatinine 1.1. Magnesium 2.4. Troponin negative 1. ProBNP 19,800. Current home cardiac medications include amlodipine 2.5 mg daily, aspirin 81 mg daily, Plavix 75 mg daily, Lasix 40 mg daily, lisinopril 20 mg twice daily, magnesium oxide 500 mg daily, metolazone 1.25 mg at bedtime, Lopressor 25 mg at bedtime, potassium chloride 8 mEq twice daily. Cardiac catheterization 05/02/2022 revealed 35% stenosis of the mid LM, 20% in the mid LAD, right dominant. Echocardiogram 05/01/2022 revealed normal EF, TTS, [id number] AR, prosthetic AV. REVIEW OF SYSTEMS: At the time of my exam: CONSTITUTIONAL: Denies fever or chills. HEENT: Denies blurred vision, vision changes, or eye pain. Denies hemoptysis CARDIOVASCULAR: Denies chest pain. Denies orthopnea. Denies PND. Denies palpitations RESPIRATORY: Chronic shortness of breath. Dyspnea on exertion. GASTROINTESTINAL: Denies abdominal pain. Denies nausea or vomiting. HEMATOLOGIC: Denies bleeding disorders. GENITOURINARY: Denies any blood in urine. SKIN: Denies pruitis. Denies rash. PHYSICAL EXAM: VITAL SIGNS: Reviewed. GENERAL: Well-developed in no acute distress. HEENT: Head is normocephalic. Pupils are equal, round. Sclerae anicteric. Mucous membranes of the mouth are moist. Neck supple. LUNGS: Respirations even and unlabored. Lungs essentially clear to auscultation bilaterally. HEART: Regular rate and rhythm. S1 and S2 heard. 3/6 Systolic murmur noted radiating to the neck. ABDOMEN: Soft. Nondistended. Nontender. EXTREMITIES: Normal range of motion. No clubbing or cyanosis. Peripheral puls es intact. Mild lower extremity edema NEUROLOGIC: Awake and alert. Oriented x 3. ASSESSMENT: Acute on chronic diastolic heart failure History of aortic valve replacement and TAVR Aortic stenosis, told he was not a good surgical candidate to have AV replaced again Chronic dyspnea on exertion and edema Hypertension Hyperlipidemia Pre-diabetes, per patient History of bleeding ulcer PLAN: Resume home cardiac medications Increase amlodipine to 5 mg daily Patient's been started on IV Lasix 40 mg every 12 hours, monitor I&O, daily weights, electrolytes and renal function Further recommendations pending patient's course Nurse practitioner note has been reviewed by physician. Signing provider agrees with the documented findings, assessment, and plan of care. 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 dental sx Past Anesthesia/Blood Transfusion Reactions: No Reported Reaction Past Psychological History: No Psychological Hx Reported Smoking Status: Never smoker Past Alcohol Use History: None Reported Past Drug Use History: None Reported - Past Family History Diabetes Family Medical History: Diabetes Mellitus Mother Family Medical History: Diabetes Mellitus Father Family Medical History: Myocardial Infarction (MD) Medications and Allergies Home Medications Medication Instructions Recorded Confirmed Type Aspirin EC [Ecotrin Low Dose] 81 mg PO DAILY 04/30/22 11/21/22 History Dulaglutide [Trulicity] 1.5 mg SQ Q7D 04/30/22 11/21/22 History Furosemide [Lasix] 40 mg PO DAILY 04/30/22 11/21/22 History Potassium Chloride [Klor-Con 8] 8 meq PO BID 04/30/22 11/21/22 History Tamsulosin HCl [Flomax] 0.4 mg PO HS 04/30/22 11/21/22 History lisinopriL [Zestril] 20 mg PO BID 04/30/22 11/21/22 History Metoprolol Tartrate [Lopressor] 25 mg PO HS 08/23/22 11/21/22 History Omeprazole 40 mg PO BID 08/23/22 11/21/22 History Budesonide [Pulmicort] 0.5 mg INHALATION RT-BID 30 Days 09/02/22 11/21/22 Rx #60 ml Clopidogrel [Plavix] 75 mg PO DAILY tab 09/02/22 11/21/22 Rx Ipratropium-Albuterol Nebulize 3 ml INHALATION RT-QID 30 Days 09/02/22 11/21/22 Rx [Duoneb 0.5 mg-3 mg/3 ml Soln] #120 each Calcium Carbonate/Vitamin D3 1 tab PO DAILY 11/21/22 11/21/22 History [Calcium 500-Vit D3 5 Mcg (200 Iu)] Empagliflozin [Jardiance] 10 mg PO HS 11/21/22 11/21/22 History Magnesium Oxide [Magnesium] 500 mg PO DAILY 11/21/22 11/21/22 History Multivitamins, Thera [Multivitamin 1 tab PO DAILY 11/21/22 11/21/22 History (formulary)] amLODIPine [Norvasc] 2.5 mg PO DAILY 11/21/22 11/21/22 History metOLazone 1.25 mg PO HS 11/21/22 11/21/22 History Allergies Allergy/AdvReac Type Severity Reaction Status Date / Time No Known Allergies Allergy Verified 11/21/22 18:01 Physical Exam Vitals: Vital Signs Temp Pulse Pulse Resp BP BP Pulse Ox 11/22/22 04:00 57 L 17 133/47 97 11/22/22 00:00 65 19 128/49 96 11/21/22 20:00 98.1 F 67 22 149/62 97 11/21/22 18:35 60 11/21/22 18:28 60 11/21/22 17:26 62 16 136/66 96 11/21/22 13:43 98.4 F 70 18 141/47 94 L Intake and Output 11/21/22 11/22/22 11/22/22 22:59 06:59 14:59 Intake Total 150 Output Total 650 Balance -500 Intake: Oral 150 Output: Urine 650 Other: Voiding Method Urinal Urinal Results 11/21/22 14:09 11/21/22 14:09 Cardiac Enzymes 11/21/22 11/21/22 Range/Units 14:09 14:09 AST 55 (17-59) U/L Troponin I 0.021 (0.000-0.034) ng/mL Coagulation 11/21/22 Range/Units 14:09 PT 11.8 (9.0-12.0) sec APTT 25.8 (22.0-30.0) sec CBC 11/21/22 Range/Units 14:09 WBC 11.0 H (3.8-10.6) k/uL RBC 4.55 (4.30-5.90) m/uL Hgb 15.6 (13.0-17.5) gm/dL Hct 48.1 (39.0-53.0) % Plt Count 187 (150-450) k/uL Comprehensive Metabolic Panel 11/21/22 Range/Units 14:09 Sodium 138 (137-145) mmol/L Potassium 4.5 (3.5-5.1) mmol/L Chloride 107 (98-107) mmol/L Carbon Dioxide 23 (22-30) mmol/L BUN 39 H (9-20) mg/dL Creatinine 1.15 (0.66-1.25) mg/dL Glucose 95 (74-99) mg/dL Calcium 9.5 (8.4-10.2) mg/dL AST 55 (17-59) U/L ALT 68 H (4-49) U/L Alkaline Phosphatase 78 (38-126) U/L Total Protein 6.3 (6.3-8.2) g/dL Albumin 3.8 (3.5-5.0) g/dL Current Medications Generic Name Dose Route Start Last Admin Trade Name Freq PRN Reason Stop Dose Admin Furosemide 40 mg 11/22/22 04:00 11/22/22 07:01 Furosemide 10 Mg/Ml 4 Ml Vial IV 40 mg Q12H ADITHYA Administration Intake and Output 11/21/22 11/22/22 11/22/22 22:59 06:59 14:59 Intake Total 150 Output Total 650 Balance -500 Intake: Oral 150 Output: Urine 650 Other: Voiding Method Urinal Urinal 11/21/22 14:09 11/21/22 14:09
[2022-11-22] MEDS ORDERED: NON FORMULARY DRUG (Dulaglutide [Trulicity] 1.5 MG/0.5 ML Each) SQ SCH (15:30)
[2022-11-22] MEDS: IPRATROPIUM-ALBUTEROL 3 ML NEB INHALATION SCH ×2 (15:53→20:05)
--- NOTE | 2022-11-22 16:08 | CT ---
EXAMINATION TYPE: CT chest wo con DATE OF EXAM: 11/22/2022 COMPARISON: 08/24/22 HISTORY: c/o SOB CT DLP: 589.[address] of the chest was performed with lung and mediastinal window settings submitted. The la ck of contrast limits evaluation of the vascular, mediastinal and parenchymal structures including th e upper abdomen. LUNGS: Persistent pleural effusions noted with right-sided AP dimension of 3.6 cm in left-sided AP di mension of 3.2 cm. Effusions are mildly increased from prior study. Scattered groundglass densities a s noted previously persists but appear to be improved. There is basilar increased density which likel y reflects atelectasis although infiltrates are not excluded. MEDIASTINUM/DOLLY: There is continued cardiomegaly with aortic valvular prosthesis. Increased density coronary arteries. There is right paratracheal adenopathy slightly increased from prior study measuri ng 1.9 cm. No evidence for mediastinal mass. UPPER ABDOMEN: There are calcified and noncalcified cysts noted of the liver. Large exophytic cyst ri ght kidney. Probable sludge material within the gallbladder lumen. Nonobstructing right renal calculu s. OTHER: No significant other abnormality. IMPRESSION: 1. Slight increase in small bilateral pleural effusions with persistent but improving groundglass de nsity may reflect improving congestive failure or inflammatory process. Basilar atelectasis or infilt rates. Prominent right paratracheal lymph node is nonspecific.
[2022-11-22] MEDS: BUDESONIDE 0.5 MG/2 ML NEBU INHALATION SCH (20:05)
[2022-11-22] MEDS: PANTOPRAZOLE 40 MG TABLET PO SCH (20:38)
[2022-11-22] MEDS: TAMSULOSIN 0.4 MG CAP.ER.24H PO SCH (20:38)
[2022-11-22] MEDS ORDERED: METOPROLOL TARTRATE 25 MG TAB PO SCH (21:00)
[2022-11-22] MEDS: metOLazone 2.5 MG TAB PO SCH (21:40)
[2022-11-22] MEDS: DAPAGLIFLOZIN PROPANEDIOL 5 MG TABLET PO SCH (21:40)
[2022-11-23] MEDS: FUROSEMIDE 10 MG/ML 4 ML VIAL IV SCH ×2 (03:37→16:18)
[2022-11-23] MEDS: carvediloL 3.125 MG TAB PO SCH ×2 (06:06→16:18)
--- NOTE | 2022-11-23 06:17 | PN ---
PROGRESS NOTE 82-year-old white male comes in with congestive heart failure, with diastolic heart failure and shortness of breath overnight. He is still short of breath. He did not receive his nebulizer medicines when he left the hospital last time. He was given some Lasix. He came to the emergency room. He was seen by Cardiology. BNP was 19,800. Home medications are reordered. Prostatic aortic valve, mild to moderate AR. REVIEW OF SYSTEMS: 14-point review of systems otherwise negative. PHYSICAL EXAMINATION: CARDIOVASCULAR: S1, S2. LUNGS: Scattered rhonchi and wheeze. HEMATOLOGY: Negative for Homans. GI: Soft. NEUROLOGIC: Cranial nerves intact. ASSESSMENT: Acute on chronic diastolic heart failure. History of aortic valve repair, aortic stenosis, hypertension, dyslipidemia, prediabetes, COPD, pulmonary hypertension. PLAN: IV Lasix, amlodipine, PT, OT, updrafts. PROGNOSIS: Guarded. MMODL / IJN: [id number] /
[2022-11-23] MEDS: PANTOPRAZOLE 40 MG TABLET PO SCH ×2 (07:51→20:03)
[2022-11-23] MEDS: ASPIRIN 81 MG PO SCH (07:51)
[2022-11-23] MEDS: CALCIUM CARB-VIT D 500 MG-5 MCG TAB PO SCH (07:51)
[2022-11-23] MEDS: POTASSIUM CHLORIDE ER 10 MEQ TAB.ER.PRT PO SCH ×2 (07:51→20:03)
[2022-11-23] MEDS: lisinopriL 20 MG TAB PO SCH ×2 (07:51→20:03)
[2022-11-23] MEDS: MAGNESIUM OXIDE 400 MG TAB PO SCH (07:51)
[2022-11-23] MEDS: amLODIPine 5 MG TAB PO SCH (07:51)
[2022-11-23] MEDS: MULTIVITAMINS, THERA 1 EACH TAB PO SCH (07:51)
[2022-11-23] MEDS: CLOPIDOGREL 75 MG TAB PO SCH (07:52)
[2022-11-23] MEDS ORDERED: FUROSEMIDE 40 MG TAB PO SCH (09:00)
[2022-11-23] MEDS: BUDESONIDE 0.5 MG/2 ML NEBU INHALATION SCH ×2 (09:23→22:13)
[2022-11-23] MEDS: IPRATROPIUM-ALBUTEROL 3 ML NEB INHALATION SCH ×4 (09:23→22:13)
[2022-11-23] MEDS ORDERED: diazePAM 5 MG TAB PO STA (10:11)
[2022-11-23 12:54] LABS: African American GFR (CKD) 71 (>60 ml/min/1.73 sqM); Anion Gap 12 mmol/L; Blood Urea Nitrogen 41 mg/dL (9-20); Calcium 9.6 mg/dL (8.4-10.2); Carbon Dioxide 24 mmol/L (22-30); Chloride 103 mmol/L (98-107); Glucose 90 mg/dL (74-99); Non-African American GFR(CKD) 62 (>60 ml/min/1.73 sqM); Potassium 4.5 mmol/L (3.5-5.1); Sodium 139 mmol/L (137-145)
[2022-11-23 12:58] VITALS: BMI 36.1
--- NOTE | 2022-11-23 13:32 | P.PN ---
Subjective Progress Note Date: 11/23/22 The patient is an 82-year-old male of follows in the office with Dr. Winter. He presented to the emergency room with shortness of breath and cardiology was consulted for congestive heart failure. Patient was started on IV furosemide with close monitoring of his electrolytes and kidney function. Patient was interviewed and examined sitting up comfortably on the side of the bed. Nursing staff does believe his edema is slowly improving. He states his breathing has improved since taking his IV diuretics. GENERAL: Well-appearing, well-nourished and in no acute distress. NECK: Supple without JVD or thyromegaly. LUNGS: Breath sounds diminished to auscultation bilaterally. Respiration equal and unlabored. No wheezes, rales or rhonchi. HEART: Regular rate and rhythm. Systolic ejection murmur. No rubs or gallops. S1 and S2 heard. EXTREMITIES: Normal range of motion, 3+ pitting edema. Compression wraps in place. No clubbing or cyanosis. Peripheral pulses intact and strong. TELEMETRY: Sinus rhythm IMPRESSION: Acute on chronic diastolic heart failure History of aortic valve replacement, TAVR Hypertension Hyperlipidemia Prediabetes Chronic lower extremity edema PLAN: Continue IV Lasix today Transition to furosemide 80 mg oral starting tomorrow morning Further recommendations to be based upon clinical course I am dictating on behalf of Dr Noah Tucker's history/physical and assessmen t/plan. Objective - Vital Signs Vital signs: Vital Signs Temp 97.6 F 11/23/22 11:30 Pulse 60 11/23/22 12:18 Resp 20 11/23/22 11:30 BP 144/54 11/23/22 11:30 Pulse Ox 96 11/23/22 12:11 FiO2 Intake & Output 11/22/22 11/23/22 11/23/22 18:59 06:59 18:59 Intake Total 540 320 Output Total 800 900 903 Balance -769 -885 -467 Weight 99.79 kg 101.5 kg 101.5 kg Intake: IV 20 Invasive Line 1 20 Oral 540 300 Output: Urine 800 900 900 Stool 3 Other: Voiding Method Urinal Urinal Urinal - Labs CBC & Chem 7: 11/21/22 14:09 11/23/22 11:39 Labs: Abnormal Lab Results - Last 24 Hours (Table) 11/23/22 Range/Units 11:39 BUN 41 H (9-20) mg/dL
[2022-11-23] MEDS: TAMSULOSIN 0.4 MG CAP.ER.24H PO SCH (20:03)
[2022-11-23] MEDS: metOLazone 2.5 MG TAB PO SCH (20:03)
[2022-11-23] MEDS: DAPAGLIFLOZIN PROPANEDIOL 5 MG TABLET PO SCH (20:03)
--- NOTE | 2022-11-23 20:44 | MR ---
EXAMINATION TYPE: MR liver wo/w con DATE OF EXAM: 11/23/2022 2:17 PM CLINICAL INDICATION:Male, 82 years old with history of elevated bilirubin; PHH, Elevated bilirubin, a bnormal MRCP. COMPARISON: CT scan abdomen from 11/22/2022 CT chest, 08/23/2022 CT abdomen pelvis.. TECHNIQUE: Multiplanar multi-sequence imaging was performed without contrast. Post contrast imaging was performed. Post IV contrast subtraction images were also submitted for review. IV Contrast: 9.5 cc Gadavist FINDINGS: LOWER CHEST: Small bilateral pleural effusions. ABDOMEN Motion artifact limits evaluation. Liver: Multiple high T2 signal well-circumscribed cysts are present. There is a lower heterogenous T2 signal, higher heterogenous DWI and intrinsic high T1 signal. This is measuring 4.5 x 3.5 cm, previo usly 3.9 x 3.3 cm on 08/26/2022 and 4.5 x 3.6 cm on 05/13/2016. Gallbladder and Bile ducts: No evidence for ductal dilation, or biliary stricture or evidence of chol edocholithiasis. The gallbladder is within normal limits. Pancreas: No ductal dilation. No evidence for solid mass. Spleen: Normal for size. Adrenal glands: Unremarkable. Kidneys: No evidence for obstructive uropathy. No suspicious renal masses. Similar right renal cyst measuring up to 8.3 cm. Left renal cyst measuring up to 2.1 cm. No abnormal postcontrast enhancement or suspicious renal mass. Stomach and Bowel: No evidence for bowel wall thickening or evidence for obstruction.. Peritoneum: No evidence of pneumoperitoneum or free fluid. Vasculature: No aortic aneurysm. Musculoskeletal: The osseous structures appear intact. Lymph Nodes: No gross evidence for lymphadenopathy. Abdominal wall: Unremarkable. IMPRESSION: 1. Moderate motion which limits evaluation. 2. Area of concern within the liver remains present as seen dating back to [address] chest wi th IV contrast. Size is not significantly changed on multiple prior's. Given stability findings favor benign etiology. 3. Small bilateral pleural effusions. 4. Multiple simple and slightly complex appearing hepatic cysts. Findings similar to prior. 5. No evidence for ductal dilation or stricture or evidence for choledocholithiasis.
[2022-11-24] MEDS: carvediloL 3.125 MG TAB PO SCH ×2 (05:53→17:06)
[2022-11-24] MEDS: CLOPIDOGREL 75 MG TAB PO SCH (07:25)
[2022-11-24] MEDS: lisinopriL 20 MG TAB PO SCH ×2 (07:25→21:06)
[2022-11-24] MEDS: amLODIPine 5 MG TAB PO SCH (07:25)
[2022-11-24] MEDS: POTASSIUM CHLORIDE ER 10 MEQ TAB.ER.PRT PO SCH ×2 (07:25→21:06)
[2022-11-24] MEDS: MAGNESIUM OXIDE 400 MG TAB PO SCH (07:26)
[2022-11-24] MEDS: MULTIVITAMINS, THERA 1 EACH TAB PO SCH (07:26)
[2022-11-24] MEDS: ASPIRIN 81 MG PO SCH (07:26)
[2022-11-24] MEDS: CALCIUM CARB-VIT D 500 MG-5 MCG TAB PO SCH (07:26)
[2022-11-24] MEDS: FUROSEMIDE 80 MG TAB PO SCH (07:26)
[2022-11-24] MEDS: PANTOPRAZOLE 40 MG TABLET PO SCH ×2 (07:26→21:06)
[2022-11-24 08:36] LABS: African American GFR (CKD) 67 (>60 ml/min/1.73 sqM); Anion Gap 9 mmol/L; Blood Urea Nitrogen 41 mg/dL (9-20); Calcium 9.5 mg/dL (8.4-10.2); Carbon Dioxide 28 mmol/L (22-30); Chloride 101 mmol/L (98-107); Glucose 92 mg/dL (74-99); Non-African American GFR(CKD) 58 (>60 ml/min/1.73 sqM); Potassium 4.1 mmol/L (3.5-5.1); Sodium 138 mmol/L (137-145)
[2022-11-24] MEDS: IPRATROPIUM-ALBUTEROL 3 ML NEB INHALATION SCH ×4 (08:55→20:16)
[2022-11-24] MEDS: BUDESONIDE 0.5 MG/2 ML NEBU INHALATION SCH ×2 (08:55→20:16)
[2022-11-24] MEDS: metOLazone 2.5 MG TAB PO SCH (11:50)
--- NOTE | 2022-11-24 14:55 | P.PN ---
Subjective Progress Note Date: 11/24/22 This is Alex Nichols NP, I'm dictating on behalf of Dr. Tucker's H&P and A&P. Patient was interviewed and examined. Patient is a pleasant 82-year-old male who presented to the emergency room with shortness of breath and cardiology was consulted for congestive heart failure. Patient was transitioned to oral furosemide this morning, and appears to be tolerating this well. Patient reports that his breathing is slightly improved today, and he feels the swelling in his legs though still there, has improved. Patient reports that he is feeling better today overall, and is breathing better today. GENERAL: Well-appearing, well-nourished and in no acute distress. NECK: Supple without JVD or thyromegaly. LUNGS: Breath sounds clear to auscultation bilaterally. Respiration equal and unlabored. No wheezes, rales or rhonchi. HEART: Regular rate and rhythm with a midsystolic murmur, no rubs or gallops. S1 and S2 heard. EXTREMITIES: Normal range of motion, no edema. No clubbing or cyanosis. Jackeline pheral pulses intact and strong. VITALS: Temp 98.0, pulse 61, respirations 16, blood pressure 112/48, O2 saturation 97% on room air TELEMETRY: Normal sinus mechanism LABS: Sodium 138, potassium 4.1, BUN 41, creatinine 1.18, calcium 9.5 IMPRESSION: 1. Acute on chronic diastolic heart failure 2. History of aortic valve replacement, TAVR 3. Hypertension 4. Hyperlipidemia 5. Prediabetes 6. Chronic lower extremity edema PLAN: Continue oral Lasix at this time. We want to slowly get the patient's fluid off, as to maintain his blood pressure and not put any further undue stress on the patient. Would maintain 80 mg daily of Lasix at home. Close follow-up with primary care provider in cardiology at discharge. Further recommendations based on patient's clinical course. Objective - Vital Signs Vital signs: Vital Signs Temp 98.0 F 11/24/22 11:41 Pulse 60 11/24/22 12:30 Resp 16 11/24/22 11:41 BP 112/48 11/24/22 11:41 Pulse Ox 97 11/24/22 11:41 FiO2 Intake & Output 11/23/22 11/24/22 11/24/22 18:59 06:59 18:59 Intake Total 560 20 310 Output Total 2903 1403 975 [facility] -[phone] Weight 101.5 kg 99 kg Intake: IV 20 20 15 Invasive Line 1 20 20 15 Oral 540 295 Output: Urine 2900 1400 975 Stool 3 3 Other: Voiding Method Urinal Urinal Urinal # Voids 4 1 # Bowel Movements 1 - Labs CBC & Chem 7: 11/21/22 14:09 11/24/22 07:08 Labs: Abnormal Lab Results - Last 24 Hours (Table) 11/24/22 Range/Units 07:08 BUN 41 H (9-20) mg/dL
--- NOTE | 2022-11-24 20:41 | PN ---
PROGRESS NOTE DATE OF SERVICE: 11/23/2022 SUBJECTIVE: An 82-year-old white male, came with systolic CHF, COPD. I ordered MRI of the liver, which is pending. Appears to be doing better with his IV diuresis with his Cardiology. He saw him yesterday. OBJECTIVE: VITAL SIGNS: Blood pressure 130/49, pulse 60 to 68, respiratory rate 18 to 16, temp 97.6. CARDIOVASCULAR: S1, S2. LUNGS: Scattered rhonchi and wheeze. HEMATOLOGY: Negative Homans. PSYCH: Fair mood and affect. ASSESSMENT: Congestive heart failure, chronic obstructive pulmonary disease, hypertension, generalized weakness. Continue current PT, OT. Prognosis guarded. IV diuresis, updraft treatments, etc. Prognosis is guarded. MMODL / IJN: [id number] /
[2022-11-24] MEDS: TAMSULOSIN 0.4 MG CAP.ER.24H PO SCH (21:06)
[2022-11-24] MEDS: DAPAGLIFLOZIN PROPANEDIOL 5 MG TABLET PO SCH (21:07)
--- NOTE | 2022-11-24 21:16 | PN ---
PROGRESS NOTE SUBJECTIVE: An 82-year-old white male, admitted with congestive heart failure. He has slight increase in pleural effusion, improving ground-glass densities, may reflect improving CHF for inflammatory processes, bibasilar atelectasis or infiltrates, prominent lymph node was seen on CT scan. Cardiology has kept him on IV diuresis. He had an elevated bilirubin, for which liver MRI was done, which shows limited evaluation due to motion. In 2017, the area of concern was in the liver and remains present back to 2017, it has not changed in favor of benign etiology. Multiple slightly complex appearing hepatic cysts similar. No evidence for duct dilation or stricture or evidence of choledocholithiasis. The patient will continue with diuresis. Continue PT, OT. Improve breathing. The patient will be continued with CHF treatment. OBJECTIVE: VITAL SIGNS: He is saturating 96% on room air, blood pressure 130/49, temp 97.6, pulse 68, respiratory rate 16 to 18. CARDIOVASCULAR: S1, S2. LUNGS: Transmitted upper sounds. GI: Soft. LUNGS: Clear. PLAN: Continue current treatment with updrafts. Congestive heart failure. Elevated BNP. Acute on chronic respiratory failure. Prognosis is guarded, but improved. Await for Cardiology recommendations. MMODL / IJN: [id number] /
[2022-11-25] MEDS: carvediloL 3.125 MG TAB PO SCH ×2 (06:48→16:43)
[2022-11-25] MEDS: MAGNESIUM OXIDE 400 MG TAB PO SCH (08:29)
[2022-11-25] MEDS: ASPIRIN 81 MG PO SCH (08:29)
[2022-11-25] MEDS: CLOPIDOGREL 75 MG TAB PO SCH (08:29)
[2022-11-25] MEDS: lisinopriL 20 MG TAB PO SCH (08:29)
[2022-11-25] MEDS: FUROSEMIDE 80 MG TAB PO SCH (08:29)
[2022-11-25] MEDS: POTASSIUM CHLORIDE ER 10 MEQ TAB.ER.PRT PO SCH ×2 (08:29→20:50)
[2022-11-25] MEDS: MULTIVITAMINS, THERA 1 EACH TAB PO SCH (08:29)
[2022-11-25] MEDS: CALCIUM CARB-VIT D 500 MG-5 MCG TAB PO SCH (08:29)
[2022-11-25] MEDS: PANTOPRAZOLE 40 MG TABLET PO SCH ×2 (08:29→20:49)
[2022-11-25] MEDS: amLODIPine 5 MG TAB PO SCH (08:29)
[2022-11-25] MEDS: metOLazone 2.5 MG TAB PO SCH (08:30)
[2022-11-25 09:06] LABS: Basophils % (A) 0 %; Eosinophils # (A) 0.1 k/uL (0-0.7); Eosinophils % (A) 2 %; HCT 48.9 % (39.0-53.0); Lymphocytes % (A) 14 %; MCH 34.4 pg (25.0-35.0); MCHC 32.7 g/dL (31.0-37.0); MCV 105.2 fL (80.0-100.0); Macrocytosis Moderate; Mean Platelet Volume 9.3; Monocytes # (A) 0.5 k/uL (0-1.0); Monocytes % (A) 7 %; Neutrophils # (A) 5.6 k/uL (1.3-7.7); Neutrophils % (A) 74 %; Platelet Count 196 k/uL (150-450); RBC 4.65 m/uL (4.30-5.90); RDW 13.7 % (11.5-15.5); WBC 7.6 k/uL (3.8-10.6)
[2022-11-25 09:25] LABS: ALT 39 U/L (4-49); AST 35 U/L (17-59); African American GFR (CKD) 82 (>60 ml/min/1.73 sqM); Albumin 3.6 g/dL (3.5-5.0); Alkaline Phosphatase 76 U/L (38-126); Anion Gap 10 mmol/L; Blood Urea Nitrogen 36 mg/dL (9-20); Calcium 9.3 mg/dL (8.4-10.2); Carbon Dioxide 23 mmol/L (22-30); Chloride 101 mmol/L (98-107); Glucose 128 mg/dL (74-99); Non-African American GFR(CKD) 71 (>60 ml/min/1.73 sqM); Sodium 134 mmol/L (137-145); Total Bilirubin 1.7 mg/dL (0.2-1.3)
[2022-11-25] MEDS ORDERED: FUROSEMIDE 10 MG/ML 4 ML VIAL IV SCH (09:30)
[2022-11-25] MEDS: BUDESONIDE 0.5 MG/2 ML NEBU INHALATION SCH ×2 (09:31→21:14)
[2022-11-25] MEDS: IPRATROPIUM-ALBUTEROL 3 ML NEB INHALATION SCH ×4 (09:32→21:14)
[2022-11-25 09:51] LABS: Potassium 4.3 mmol/L (3.5-5.1); Total Protein 5.8 g/dL (6.3-8.2)
--- NOTE | 2022-11-25 12:42 | P.PN ---
Subjective HISTORY OF PRESENT ILLNESS: 11/22/2022 This is an 82-year-old male patient of Dr. Winter with past medical history of prediabetes, hypertension, hyperlipidemia, bleeding ulcer, asthma, and aortic stenosis status post surgical aortic valve replacement and subsequently TAVR with progression of aortic stenosis. We have been asked to evaluate the patient for heart failure. Patient states that he has had more shortness of breath for a couple months. He has had 2 recent hospitalizations in August which time he was treated for acute exacerbation of chronic diastolic heart failure. Patient states when he recently left the hospital he did not receive his nebulizer medications and he seemed to have a relapse. Patient is status post 1 dose of IV Lasix 40 mg and 1 not Cymetra. He states he is feeling a little bit better now. He is seen in the emergency center waiting for a bed on the cardiac stepdown unit. EKG reveals sinus rhythm Chest xray cardiomegaly with small left pleural effusion. No overt pulmonary vascular congestion. WBC 11. Hemoglobin 15.6, platelet count 187. Electrolytes normal. BUN 39 creatinine 1.1. Magnesium 2.4. Troponin negative 1. ProBNP 19,800. Current home cardiac medications include amlodipine 2.5 mg daily, aspirin 81 mg daily, Plavix 75 mg daily, Lasix 40 mg daily, lisinopril 20 mg twice daily, magnesium oxide 500 mg daily, metolazone 1.25 mg at bedtime, Lopressor 25 mg at bedtime, potassium chloride 8 mEq twice daily. Cardiac catheterization 05/02/2022 revealed 35% stenosis of the mid LM, 20% in the mid LAD, right dominant. Echocardiogram 05/01/2022 revealed normal EF, TTS, [id number] AR, prosthetic AV. 11/25/2022 Patient examined this morning. Patient is sitting up in the chair. He denies chest pain or pressure. He currently denies shortness of breath. He continues to have significant lower extremity edema. He is maintained on oral diuretics. Vital signs are stable. PHYSICAL EXAM: VITAL SIGNS: Reviewed. GENERAL: Well-developed in no acute distress. NECK: Supple. No JVD or thyromegaly LUNGS: Respirations even and unlabored. Lungs essentially clear to auscultation bilaterally. HEART: Regular rate and rhythm. S1 and S2 heard. Systolic murmur noted EXTREMITIES: Normal range of motion. No clubbing or cyanosis. Peripheral pulses intact. 3+ bilateral lower extremity edema ASSESSMENT: 1. Acute on chronic heart failure with preserved ejection fraction 2. History of aortic valve replacement, TAVR 3. Hypertension 4. Hyperlipidemia 5. Prediabetes PLAN: Continue current cardiac medications Discontinue oral Lasix Begin IV Lasix 40 mg every 12 hours secondary to significant lower extremity edema Daily weights, accurate I&O, and monitor kidney function Further recommendations pending patient's course Nurse practitioner note has been reviewed by physician. Signing provider agrees with the documented findings, assessment, and plan of care. Objective - Vital Signs Vital signs: Vital Signs Temp 97.8 F 11/25/22 08:00 Pulse 56 L 11/25/22 09:50 Resp 18 11/25/22 08:00 BP 105/41 11/25/22 08:00 Pulse Ox 95 11/25/22 08:00 FiO2 Intake & Output 11/24/22 11/25/22 11/25/22 18:59 06:59 18:59 Intake Total 487 10 180 Output Total 2175 300 1125 [facility] -[phone] -[phone] Intake: IV 15 10 Invasive Line 1 15 10 Oral 472 180 Output: Urine 2175 300 1125 Other: Voiding Method Urinal Urinal # Voids 1 # Bowel Movements 1 - Labs CBC & Chem 7: 11/25/22 08:07 11/25/22 08:07 Labs: Abnormal Lab Results - Last 24 Hours (Table) 11/25/22 11/25/22 Range/Units 08:07 08:07 MCV 105.2 H (80.0-100.0) fL Sodium 134 L (137-145) mmol/L BUN 36 H (9-20) mg/dL Glucose 128 H (74-99) mg/dL Total Bilirubin 1.7 H (0.2-1.3) mg/dL Total Protein 5.8 L (6.3-8.2) g/dL
[2022-11-25] MEDS: FUROSEMIDE 10 MG/ML 4 ML VIAL IV SCH (16:43)
[2022-11-25] MEDS: ZOLPIDEM 5 MG TAB PO SCH (20:49)
[2022-11-25] MEDS: DAPAGLIFLOZIN PROPANEDIOL 5 MG TABLET PO SCH (20:50)
[2022-11-25] MEDS: TAMSULOSIN 0.4 MG CAP.ER.24H PO SCH (20:50)
[2022-11-25] MEDS: lisinopriL 10 MG TAB PO SCH (20:50)
[2022-11-26] MEDS: carvediloL 3.125 MG TAB PO SCH ×2 (06:20→17:06)
[2022-11-26 07:19] LABS: African American GFR (CKD) 66 (>60 ml/min/1.73 sqM); Anion Gap 8 mmol/L; Blood Urea Nitrogen 34 mg/dL (9-20); Calcium 8.9 mg/dL (8.4-10.2); Carbon Dioxide 31 mmol/L (22-30); Chloride 97 mmol/L (98-107); Glucose 91 mg/dL (74-99); Non-African American GFR(CKD) 57 (>60 ml/min/1.73 sqM); Potassium 4.2 mmol/L (3.5-5.1); Sodium 136 mmol/L (137-145)
[2022-11-26] MEDS: IPRATROPIUM-ALBUTEROL 3 ML NEB INHALATION SCH ×4 (08:05→22:04)
[2022-11-26] MEDS: BUDESONIDE 0.5 MG/2 ML NEBU INHALATION SCH ×2 (08:05→22:04)
[2022-11-26] MEDS: CLOPIDOGREL 75 MG TAB PO SCH (09:05)
[2022-11-26] MEDS: metOLazone 2.5 MG TAB PO SCH (09:05)
[2022-11-26] MEDS: FUROSEMIDE 10 MG/ML 4 ML VIAL IV SCH ×2 (09:06→19:53)
[2022-11-26] MEDS: PANTOPRAZOLE 40 MG TABLET PO SCH ×2 (09:06→19:52)
[2022-11-26] MEDS: ASPIRIN 81 MG PO SCH (09:06)
[2022-11-26] MEDS: lisinopriL 10 MG TAB PO SCH ×2 (09:06→19:53)
[2022-11-26] MEDS: MAGNESIUM OXIDE 400 MG TAB PO SCH (09:06)
[2022-11-26] MEDS: CALCIUM CARB-VIT D 500 MG-5 MCG TAB PO SCH (09:06)
[2022-11-26] MEDS: MULTIVITAMINS, THERA 1 EACH TAB PO SCH (09:06)
[2022-11-26] MEDS: POTASSIUM CHLORIDE ER 10 MEQ TAB.ER.PRT PO SCH ×2 (09:06→19:52)
[2022-11-26] MEDS: amLODIPine 5 MG TAB PO SCH (09:06)
--- NOTE | 2022-11-26 13:58 | P.PN ---
Subjective HISTORY OF PRESENT ILLNESS: 11/22/2022 This is an 82-year-old male patient of Dr. Winter with past medical history of prediabetes, hypertension, hyperlipidemia, bleeding ulcer, asthma, and aortic stenosis status post surgical aortic valve replacement and subsequently TAVR with progression of aortic stenosis. We have been asked to evaluate the patient for heart failure. Patient states that he has had more shortness of breath for a couple months. He has had 2 recent hospitalizations in August which time he was treated for acute exacerbation of chronic diastolic heart failure. Patient states when he recently left the hospital he did not receive his nebulizer medications and he seemed to have a relapse. Patient is status post 1 dose of IV Lasix 40 mg and 1 not Cymetra. He states he is feeling a little bit better now. He is seen in the emergency center waiting for a bed on the cardiac stepdown unit. EKG reveals sinus rhythm Chest xray cardiomegaly with small left pleural effusion. No overt pulmonary vascular congestion. WBC 11. Hemoglobin 15.6, platelet count 187. Electrolytes normal. BUN 39 creatinine 1.1. Magnesium 2.4. Troponin negative 1. ProBNP 19,800. Current home cardiac medications include amlodipine 2.5 mg daily, aspirin 81 mg daily, Plavix 75 mg daily, Lasix 40 mg daily, lisinopril 20 mg twice daily, magnesium oxide 500 mg daily, metolazone 1.25 mg at bedtime, Lopressor 25 mg at bedtime, potassium chloride 8 mEq twice daily. Cardiac catheterization 05/02/2022 revealed 35% stenosis of the mid LM, 20% in the mid LAD, right dominant. Echocardiogram 05/01/2022 revealed normal EF, TTS, [id number] AR, prosthetic AV. 11/25/2022 Patient examined this morning. Patient is sitting up in the chair. He denies chest pain or pressure. He currently denies shortness of breath. He continues to have significant lower extremity edema. He is maintained on oral diuretics. Vital signs are stable. 11/26/2022 Patient examined this morning at the bedside. Patient reports improvement in his shortness of breath. He states he has been up ambulating in the hallway wi thout assistance. He denies chest pain or pressure. He continues to have lower extremity edema although improved from yesterday. He remains on IV Lasix. Kidney function remained stable. Creatinine 1.19. PHYSICAL EXAM: VITAL SIGNS: Reviewed. GENERAL: Well-developed in no acute distress. NECK: Supple. No JVD or thyromegaly LUNGS: Respirations even and unlabored. Lungs essentially clear to auscultation bilaterally. HEART: Regular rate and rhythm. S1 and S2 heard. Systolic murmur noted EXTREMITIES: Normal range of motion. No clubbing or cyanosis. Peripheral pulses intact. 2+ bilateral lower extremity edema ASSESSMENT: 1. Acute on chronic heart failure with preserved ejection fraction 2. History of aortic valve replacement, TAVR 3. Hypertension 4. Hyperlipidemia 5. Prediabetes PLAN: Continue current cardiac medications Continue IV Lasix 40 mg every 12 hours Daily weights, accurate I&O, and monitor kidney function Further recommendations pending patient's course Possible discharge home this afternoon versus tomorrow morning Nurse practitioner note has been reviewed by physician. Signing provider agrees with the documented findings, assessment, and plan of care. Objective - Vital Signs Vital signs: Vital Signs Temp 97.9 F 11/26/22 08:50 Pulse 68 11/26/22 11:25 Resp 18 11/26/22 13:42 BP 131/61 11/26/22 11:25 Pulse Ox 97 11/26/22 11:25 FiO2 Intake & Output 11/25/22 11/26/22 11/26/22 18:59 06:59 18:59 Intake Total 540 120 240 Output Total 2750 950 1503 Balance -2210 -830 -1263 Weight 95.3 kg Intake: Oral 540 120 240 Output: Urine 2750 950 1500 Stool 3 Other: Voiding Method Urinal - Labs CBC & Chem 7: 11/25/22 08:07 11/26/22 06:20 Labs: Abnormal Lab Results - Last 24 Hours (Table) 11/26/22 Range/Units 06:20 Sodium 136 L (137-145) mmol/L Chloride 97 L (98-107) mmol/L Carbon Dioxide 31 H (22-30) mmol/L BUN 34 H (9-20) mg/dL
[2022-11-26] MEDS: ZOLPIDEM 5 MG TAB PO SCH (19:53)
[2022-11-26] MEDS: TAMSULOSIN 0.4 MG CAP.ER.24H PO SCH (19:53)
[2022-11-26] MEDS: DAPAGLIFLOZIN PROPANEDIOL 5 MG TABLET PO SCH (19:54)
--- NOTE | 2022-11-26 23:56 | PN ---
PROGRESS NOTE DATE OF SERVICE: 11/25/2022 SUBJECTIVE: This 82-year-old white male continues on IV Lasix for congestive heart failure, large amount of edema in the legs 2 to 3+. OBJECTIVE: CARDIOVASCULAR: Irregularly irregular rhythm. LUNGS: Rales at the base. PSYCH: Fair mood and affect. NEUROLOGIC: Alert and oriented x3. ASSESSMENT: Acute on chronic congestive heart failure diastolic, COPD, coronary artery disease. Prognosis guarded. Continue current treatments, diuresis, updrafts, IV Lasix. Prognosis guarded. Wait for Cardiology to clear. Continue breathing treatments. MMODL / IJN: [id number] /
--- NOTE | 2022-11-27 00:41 | PN ---
PROGRESS NOTE SUBJECTIVE: This is an 82-year-old white male with congestive heart failure, chronic chest pain, remains on IV Lasix 40 q.12 hours, will switch to oral Lasix for discharge tomorrow. OBJECTIVE: CARDIOVASCULAR: S1, S2. LUNGS: Rales at the bases. EXTREMITIES: There is 2+ to 3+ edema. PSYCH: Fair mood and affect. ASSESSMENT: CHF, COPD, acute on chronic diastolic heart failure. Switch IV Lasix to oral. Possible discharge home in the morning. MMODL / IJN: [id number] /
[2022-11-27] MEDS: carvediloL 3.125 MG TAB PO SCH (06:29)
[2022-11-27] MEDS: BUDESONIDE 0.5 MG/2 ML NEBU INHALATION SCH (07:54)
[2022-11-27] MEDS: IPRATROPIUM-ALBUTEROL 3 ML NEB INHALATION SCH ×2 (07:54→11:43)
[2022-11-27] MEDS: CALCIUM CARB-VIT D 500 MG-5 MCG TAB PO SCH (08:50)
[2022-11-27] MEDS: PANTOPRAZOLE 40 MG TABLET PO SCH (08:50)
[2022-11-27] MEDS: POTASSIUM CHLORIDE ER 10 MEQ TAB.ER.PRT PO SCH (08:50)
[2022-11-27] MEDS: MULTIVITAMINS, THERA 1 EACH TAB PO SCH (08:50)
[2022-11-27] MEDS: CLOPIDOGREL 75 MG TAB PO SCH (08:50)
[2022-11-27] MEDS: metOLazone 2.5 MG TAB PO SCH (08:50)
[2022-11-27] MEDS: lisinopriL 10 MG TAB PO SCH (08:50)
[2022-11-27] MEDS: MAGNESIUM OXIDE 400 MG TAB PO SCH (08:50)
[2022-11-27] MEDS: ASPIRIN 81 MG PO SCH (08:51)
[2022-11-27] MEDS: FUROSEMIDE 10 MG/ML 4 ML VIAL IV SCH (08:51)
[2022-11-27 09:58] VITALS: BP 107/57; PULSE 66; RESP 16; TEMP 97.5
[2022-11-27] MEDS: amLODIPine 5 MG TAB PO SCH (11:21)
--- NOTE | 2022-11-27 11:22 | P.PN ---
Subjective HISTORY OF PRESENT ILLNESS: 11/22/2022 This is an 82-year-old male patient of Dr. Winter with past medical history of prediabetes, hypertension, hyperlipidemia, bleeding ulcer, asthma, and aortic stenosis status post surgical aortic valve replacement and subsequently TAVR with progression of aortic stenosis. We have been asked to evaluate the patient for heart failure. Patient states that he has had more shortness of breath for a couple months. He has had 2 recent hospitalizations in August which time he was treated for acute exacerbation of chronic diastolic heart failure. Patient states when he recently left the hospital he did not receive his nebulizer medications and he seemed to have a relapse. Patient is status post 1 dose of IV Lasix 40 mg and 1 not Cymetra. He states he is feeling a little bit better now. He is seen in the emergency center waiting for a bed on the cardiac stepdown unit. EKG reveals sinus rhythm Chest xray cardiomegaly with small left pleural effusion. No overt pulmonary vascular congestion. WBC 11. Hemoglobin 15.6, platelet count 187. Electrolytes normal. BUN 39 creatinine 1.1. Magnesium 2.4. Troponin negative 1. ProBNP 19,800. Current home cardiac medications include amlodipine 2.5 mg daily, aspirin 81 mg daily, Plavix 75 mg daily, Lasix 40 mg daily, lisinopril 20 mg twice daily, magnesium oxide 500 mg daily, metolazone 1.25 mg at bedtime, Lopressor 25 mg at bedtime, potassium chloride 8 mEq twice daily. Cardiac catheterization 05/02/2022 revealed 35% stenosis of the mid LM, 20% in the mid LAD, right dominant. Echocardiogram 05/01/2022 revealed normal EF, TTS, [id number] AR, prosthetic AV. 11/25/2022 Patient examined this morning. Patient is sitting up in the chair. He denies chest pain or pressure. He currently denies shortness of breath. He continues to have significant lower extremity edema. He is maintained on oral diuretics. Vital signs are stable. 11/26/2022 Patient examined this morning at the bedside. Patient reports improvement in his shortness of breath. He states he has been up ambulating in the hallway wi thout assistance. He denies chest pain or pressure. He continues to have lower extremity edema although improved from yesterday. He remains on IV Lasix. Kidney function remained stable. Creatinine 1.19. 11/27/2022 Patient examined this morning at the bedside. Patient denies chest pain or pressure. He reports improvement in his lower summary edema. He remains on Lasix 40 mg every 12 hours. Vital signs are stable. He is hoping to be discharged home today. PHYSICAL EXAM: VITAL SIGNS: Reviewed. GENERAL: Well-developed in no acute distress. NECK: Supple. No JVD or thyromegaly LUNGS: Respirations even and unlabored. Lungs essentially clear to auscultation bilaterally. HEART: Regular rate and rhythm. S1 and S2 heard. Systolic murmur noted EXTREMITIES: Normal range of motion. No clubbing or cyanosis. Peripheral pulses intact. Trace bilateral lower extremity edema ASSESSMENT: 1. Acute on chronic heart failure with preserved ejection fraction 2. History of aortic valve replacement, TAVR 3. Hypertension 4. Hyperlipidemia 5. Prediabetes PLAN: Continue current cardiac medications Discontinue IV Lasix. Begin oral Lasix 40 mg twice a day Patient is stable for discharge home today from a cardiac standpoint We will sign off. Please reconsult if needed. Nurse practitioner note has been reviewed by physician. Signing provider agrees with the documented findings, assessment, and plan of care. Objective - Vital Signs Vital signs: Vital Signs Temp 97.5 F L 11/27/22 08:30 Pulse 66 11/27/22 08:30 Resp 16 11/27/22 08:30 BP 107/57 11/27/22 08:30 Pulse Ox 92 L 11/27/22 08:30 FiO2 Intake & Output 11/26/22 11/27/22 11/27/22 18:59 06:59 18:59 Intake Total 420 248 Output Total 1503 700 3 Balance -1083 -700 245 Weight 96 kg Intake: Oral 420 248 Output: Urine 1500 700 Stool 3 3 Other: Voiding Method Urinal Urinal Urinal - Labs CBC & Chem 7: 11/25/22 08:07 11/26/22 06:20
[2022-11-27] MEDS ORDERED: FUROSEMIDE 40 MG TAB PO SCH (16:00)
== END 2022-11-27 11:44 | disposition home or self-care (01) | DRG 291 ==
LOC: EC 13:42 → 3SCARD 17:59
PROVIDERS: ADMIT Family Medicine; ATTEND Family Medicine
DX: I11.0 Hypertensive heart disease with heart failure (principal); I50.43 Acute on chronic combined systolic (congestive) and diastolic (congestive) heart failure; J96.01 Acute respiratory failure with hypoxia; J44.1 Chronic obstructive pulmonary disease with (acute) exacerbation; G89.29 Other chronic pain; I25.10 Atherosclerotic heart disease of native coronary artery without angina pectoris; R73.03 Prediabetes; R07.89 Other chest pain; I27.20 Pulmonary hypertension, unspecified; I35.0 Nonrheumatic aortic (valve) stenosis; E78.5 Hyperlipidemia, unspecified; Z95.2 Presence of prosthetic heart valve; K76.89 Other specified diseases of liver; Z79.51 Long term (current) use of inhaled steroids; Z79.02 Long term (current) use of antithrombotics/antiplatelets; Z79.82 Long term (current) use of aspirin; Z79.84 Long term (current) use of oral hypoglycemic drugs; Z79.85 Long-term (current) use of injectable non-insulin antidiabetic drugs; Z79.899 Other long term (current) drug therapy; Z82.49 Family history of ischemic heart disease and other diseases of the circulatory system; Z85.819 Personal history of malignant neoplasm of unspecified site of lip, oral cavity, and pharynx; Z86.12 Personal history of poliomyelitis; Z83.3 Family history of diabetes mellitus
CPT/HCPCS: 36415; 71046; 71250; 74183; 80048; 80053; 82105; 83735; 83880; 84145; 84443; 84484; 85025; 85610; 85730; 93005; 94640; 94760; 96374; 96375; 96376; 99291

== ENCOUNTER 2022-12-16 13:08 | Inpatient (IN) | payer MEDICARE ==
[2022-12-16] MEDS ORDERED: NITROGLYCERIN OINT 1 INCH/GM PACKET TOPICAL STA (14:14)
[2022-12-16] MEDS ORDERED: ASPIRIN 81 MG PO STA (14:14)
--- NOTE | 2022-12-16 14:17 | ED ---
General Adult HPI - General Chief complaint: Chest Pain Stated complaint: SOB,Chest Pain Time Seen by Provider: 12/16/22 13:55 Source: patient, RN notes reviewed Mode of arrival: wheelchair Limitations: no limitations - History of Present Illness Initial comments: Patient is a pleasant 82-year-old male presenting to the emergency Department with chest pain and exertional dyspnea. Onset of symptoms was several days ago. Patient does have increased leg edema. No Pain. Patient has had similar symptoms several times previously this year. Patient was last admitted around a month ago for this. Symptoms are only with exertion. Currently patient is symptom-free. - Related Data Home Medications Medication Instructions Recorded Confirmed Aspirin EC [Ecotrin Low Dose] 81 mg PO DAILY 04/30/22 11/21/22 Dulaglutide [Trulicity] 1.5 mg SQ Q7D 04/30/22 11/21/22 Furosemide [Lasix] 40 mg PO DAILY 04/30/22 11/21/22 Potassium Chloride [Klor-Con 8] 8 meq PO BID 04/30/22 11/21/22 Tamsulosin HCl [Flomax] 0.4 mg PO HS 04/30/22 11/21/22 Omeprazole 40 mg PO BID 08/23/22 11/21/22 Calcium Carbonate/Vitamin D3 1 tab PO DAILY 11/21/22 11/21/22 [Calcium 500-Vit D3 5 Mcg (200 Iu)] Empagliflozin [Jardiance] 10 mg PO HS 11/21/22 11/21/22 Magnesium Oxide [Magnesium] 500 mg PO DAILY 11/21/22 11/21/22 Multivitamins, Thera [Multivitamin 1 tab PO DAILY 11/21/22 11/21/22 (formulary)] metOLazone 1.25 mg PO HS 11/21/22 11/21/22 Previous Rx's Medication Instructions Recorded Clopidogrel [Plavix] 75 mg PO DAILY tab 09/02/22 Ipratropium-Albuterol Nebulize 3 ml INHALATION RT-QID 30 Days 09/02/22 [Duoneb 0.5 mg-3 mg/3 ml Soln] #120 each Budesonide [Pulmicort] 0.5 mg INHALATION RT-BID 30 Days 11/26/22 #60 ml amLODIPine [Norvasc] 5 mg PO DAILY 90 Days #90 tab 11/26/22 carvediloL [Coreg] 3.125 mg PO BID-W/MEALS 90 Days 11/26/22 #180 tab lisinopriL [Zestril] 10 mg PO BID 90 Days #180 tab 11/26/22 Allergies Allergy/AdvReac Type Severity Reaction Status Date / Time No Known Allergies Allergy Verified 12/16/22 13:18 Review of Systems ROS Statement: Those systems with pertinent positive or pertinent negative responses have been documented in the HPI. ROS Other: All systems not noted in ROS Statement are negative. Constitutional: Denies: fever Eyes: Denies: eye pain ENT: Denies: ear pain Respiratory: Reports: as per HPI. Denies: cough Cardiovascular: Reports: as per HPI, dyspnea on exertion, edema Endocrine: Denies: fatigue Gastrointestinal: Denies: abdominal pain Genitourinary: Denies: dysuria Past Medical History Past Medical History: Asthma, Cancer, Heart Failure, Hypertension Additional Past Medical History / Comment(s): pre diabetic, mouth cancer, aortic stenosis, polio as a child History of Any Multi-Drug Resistant Organisms: None Reported Past Surgical History: Cardiac Valve Replacement, Heart Catheterization Additional Past Surgical History / Comment(s): Aortic valve replaced - to cor valve inside other valve, colonoscopy- polyp removal. dental sx Past Anesthesia/Blood Transfusion Reactions: No Reported Reaction Past Psychological History: No Psychological Hx Reported Smoking Status: Never smoker Past Alcohol Use History: None Reported Past Drug Use History: None Reported - Past Family History Mother Family Medical History: Diabetes Mellitus Father Family Medical History: Myocardial Infarction ([place]) Diabetes Family Medical History: Diabetes Mellitus General Exam Limitations: no limitations General appearance: alert, in no apparent distress Head exam: Present: normocephalic Eye exam: Present: normal appearance Neck exam: Present: normal inspection Respiratory exam: Present: decreased breath sounds (Bilateral bases) Cardiovascular Exam: Present: regular rate, normal rhythm GI/Abdominal exam: Present: soft. Absent: tenderness Extremities exam: Present: pedal edema. Absent: calf tenderness Neurological exam: Present: alert Psychiatric exam: Present: normal affect, normal mood Skin exam: Present: normal color Course Vital Signs 12/16/22 12/16/22 12/16/22 13:18 14:30 15:00 Temperature 97.3 F L Pulse Rate 69 66 64 Respiratory 16 18 18 Rate Blood Pressure 146/50 144/66 122/62 O2 Sat by Pulse 94 L Oximetry 12/16/22 15:22 Temperature Pulse Rate 66 Respiratory 18 Rate Blood Pressure 138/68 O2 Sat by Pulse Oximetry EKG Findings - EKG Results: EKG: interpreted by SAMANTHAD (Septal Q waves. ST depression in lead V6, similar to EKG dated 11/21/22), sinus rhythm, normal axis Medical Decision Making - Medical Decision Making Was pt. sent in by a medical professional or institution (, [facility], LODGING FACILITIES MANAGER, urgent care, hospital, or long-term...) When possible be specific @ -No Did you speak to anyone other than the patient for history (EMS, parent, family, police, friend...)? What history was obtained from this source @ -No Did you review nursing and triage notes (agree or disagree)? Why? @ -I reviewed and agree with nursing and triage notes Were old charts reviewed (outside hosp., previous admission, EMS record, old EKG, old radiological studies, urgent care reports/EKG's, long-term records)? Report findings @ -Previous admission reviewed Differential Diagnosis (chest pain, altered mental status, abdominal pain women, abdominal pain men, vaginal bleeding, weakness, fever, dyspnea, syncope, headache, dizziness, GI bleed, back pain, seizure, CVA, palpatations, mental health, musculoskeletal)? @ -Differential Dyspnea: Coronary syndrome, arrhythmia, tamponade, asthma, COPD, pulmonary embolism, pneumonia, pneumothorax, pulmonary effusion, anaphylaxis, diabetic ketoacidosis, flailed chest, pulmonary contusion, diaphragmatic rupture, anemia, neuromuscular, this is not meant to be an all-inclusive list. EKG interpreted by me (3pts min.). @ -As above X-rays interpreted by me (1pt min.). @ -Chest x-ray shows cardiomegaly, effusions, increased interstitial infiltrates CT interpreted by me (1pt min.). @ -None done U/S interpreted by me (1pt. min.). @ -None done What testing was considered but not performed or refused? (CT, X-rays, U/S, labs)? Why? @ -None What meds were considered but not given or refused? Why? @ -None Did you discuss the management of the patient with other professionals (professionals i.e. , [facility], LODGING FACILITIES MANAGER, lab, RT, psych nurse, social media project manager, area operations manager, teacher, administrative officer, shelter case manager)? Give summary @ -Case was discussed with Dr. Jacques, who will admit his patient Was smoking cessation discussed for >3mins.? @ -No Was critical care preformed (if so, how long)? @ -No Were there social determinants of health that impacted care today? How? (Homelessness, low income, unemployed, alcoholism, drug addiction, transportation, low edu. Level, literacy, decrease access to med. care, shelter, rehab)? @ -No Was there de-escalation of care discussed even if they declined (Discuss DNR or withdrawal of care, Hospice)? DNR status @ -No What co-morbidities impacted this encounter? (DM, HTN, Smoking, COPD, CAD, Cancer, CVA, ARF, Chemo, Hep., AIDS, mental health diagnosis, sleep apnea, morbid obesity)? @ -None Was patient admitted / discharged? Hospital course, mention meds given and rout e, prescriptions, significant lab abnormalities, going to OR and other pertinent info. @ -Patient reevaluated. Patient and family updated. Patient will be admitted with cardiology consult. Admission orders written. Undiagnosed new problem with uncertain prognosis? @ -No Drug Therapy requiring intensive monitoring for toxicity (Heparin, Nitro, Insulin, Cardizem)? @ -No Were any procedures done? @ -No Diagnosis/symptom? @ -Congestive heart failure Acute, or Chronic, or Acute on Chronic? @ -Acute Uncomplicated (without systemic symptoms) or Complicated (systemic symptoms)? @ -default Side effects of treatment? @ -No Exacerbation, Progression, or Severe Exacerbation? @ -No Poses a threat to life or bodily function? How? (Chest pain, [place], [place], pneumonia, PE, COPD, DKA, ARF, appy, cholecystitis, CVA, Diverticulitis, Homicidal, Suicidal, threat to staff... and all critical care pts) @ -No - Lab Data Result diagrams: 12/16/22 13:49 12/16/22 13:49 Lab Results 12/16/22 12/16/22 12/16/22 Range/Units 13:49 13:49 13:49 WBC 9.2 (3.8-10.6) k/uL RBC 4.61 (4.30-5.90) m/uL Hgb 15.7 (13.0-17.5) gm/dL Hct 48.0 (39.0-53.0) % MCV 104.0 H (80.0-100.0) fL MCH 33.9 (25.0-35.0) pg MCHC 32.6 (31.0-37.0) g/dL RDW 13.6 (11.5-15.5) % Plt Count 224 (150-450) k/uL MPV 9.1 Neutrophils % 79 % Lymphocytes % 10 % Monocytes % 7 % Eosinophils % 0 % Basophils % 0 % Neutrophils # 7.3 (1.3-7.7) k/uL Lymphocytes # 0.9 L (1.0-4.8) k/uL Monocytes # 0.6 (0-1.0) k/uL Eosinophils # 0.0 (0-0.7) k/uL Basophils # 0.0 (0-0.2) k/uL Macrocytosis Slight PT 12.8 H (10.0-12.5) sec INR 1.2 H (<1.2) APTT 27.0 (22.0-30.0) sec Sodium 136 L (137-145) mmol/L Potassium 4.8 (3.5-5.1) mmol/L Chloride 108 H (98-107) mmol/L Carbon Dioxide 18 L (22-30) mmol/L Anion Gap 10 mmol/L BUN 32 H (9-20) mg/dL Creatinine 0.93 (0.66-1.25) mg/dL Est GFR (CKD-EPI)AfAm 89 (>60 ml/min/1.73 sqM) Est GFR (CKD-EPI)NonAf 77 (>60 ml/min/1.73 sqM) Glucose 94 (74-99) mg/dL Calcium 9.4 (8.4-10.2) mg/dL Total Bilirubin 1.6 H (0.2-1.3) mg/dL AST 30 (17-59) U/L ALT 32 (4-49) U/L Alkaline Phosphatase 69 (38-126) U/L Troponin I (0.000-0.034) ng/mL NT-Pro-B Natriuret Pep 18065 pg/mL Total Protein 5.9 L (6.3-8.2) g/dL Albumin 3.7 (3.5-5.0) g/dL 12/16/22 Range/Units 13:49 WBC (3.8-10.6) k/uL RBC (4.30-5.90) m/uL Hgb (13.0-17.5) gm/dL Hct (39.0-53.0) % MCV (80.0-100.0) fL MCH (25.0-35.0) pg MCHC (31.0-37.0) g/dL RDW (11.5-15.5) % Plt Count (150-450) k/uL MPV Neutrophils % % Lymphocytes % % Monocytes % % Eosinophils % % Basophils % % Neutrophils # (1.3-7.7) k/uL Lymphocytes # (1.0-4.8) k/uL Monocytes # (0-1.0) k/uL Eosinophils # (0-0.7) k/uL Basophils # (0-0.2) k/uL Macrocytosis PT (10.0-12.5) sec INR (<1.2) APTT (22.0-30.0) sec Sodium (137-145) mmol/L Potassium (3.5-5.1) mmol/L Chloride (98-107) mmol/L Carbon Dioxide (22-30) mmol/L Anion Gap mmol/L BUN (9-20) mg/dL Creatinine (0.66-1.25) mg/dL Est GFR (CKD-EPI)AfAm (>60 ml/min/1.73 sqM) Est GFR (CKD-EPI)NonAf (>60 ml/min/1.73 sqM) Glucose (74-99) mg/dL Calcium (8.4-10.2) mg/dL Total Bilirubin (0.2-1.3) mg/dL AST (17-59) U/L ALT (4-49) U/L Alkaline Phosphatase (38-126) U/L Troponin I 0.036 H* (0.000-0.034) ng/mL NT-Pro-B Natriuret Pep pg/mL Total Protein (6.3-8.2) g/dL Albumin (3.5-5.0) g/dL Disposition Clinical Impression: Acute exacerbation of CHF (congestive heart failure) Disposition: ADMITTED IP TO THIS HOSP Is patient prescribed a controlled substance at d/c from ED?: No Referrals: Benjie Jacques MD [Primary Care Provider] - 1-2 days Time of Disposition: 15:34
[2022-12-16 14:36] LABS: Basophils % (A) 0 %; Eosinophils % (A) 0 %; HGB 15.7 gm/dL (13.0-17.5); Lymphocytes # (A) 0.9 k/uL (1.0-4.8); Lymphocytes % (A) 10 %; MCH 33.9 pg (25.0-35.0); MCHC 32.6 g/dL (31.0-37.0); Macrocytosis Slight; Mean Platelet Volume 9.1; Monocytes # (A) 0.6 k/uL (0-1.0); Monocytes % (A) 7 %; Neutrophils # (A) 7.3 k/uL (1.3-7.7); Neutrophils % (A) 79 %; Platelet Count 224 k/uL (150-450); RBC 4.61 m/uL (4.30-5.90); RDW 13.6 % (11.5-15.5); WBC 9.2 k/uL (3.8-10.6)
[2022-12-16 14:47] LABS: INR 1.2 (<1.2); Prothrombin Time 12.8 sec (10.0-12.5)
--- NOTE | 2022-12-16 14:54 | XR ---
EXAMINATION TYPE: XR chest 2V DATE OF EXAM: 12/16/2022 2:45 PM CLINICAL INDICATION:Male, 82 years old with history of chest pain; [facility] COMPARISON: Chest radiographs from 11/13/2022 TECHNIQUE: XR chest 2V Frontal and lateral views of the chest. FINDINGS: Lungs/Pleura: Prominent interstitial lung markings are seen scattered throughout the lungs with abraham ening of the diaphragm and increased lucency of the lung apices. No evidence of focal consolidation, pneumothorax or pleural effusion. Pulmonary vascularity: Pulmonary vascular congestion. Heart/mediastinum: Cardiomediastinal silhouette is enlarged and stable. The aorta appears tortuous, a finding usually associated with either atherosclerosis or systemic hypertension. Musculoskeletal: No acute osseous pathology. Midline sternotomy wires are noted. IMPRESSION: Cardiomegaly, pulmonary vascular congestion and bilateral pleural effusions. Correlate with BNP for c ongestive heart failure.
[2022-12-16 14:59] LABS: Anion Gap 10 mmol/L; Blood Urea Nitrogen 32 mg/dL (9-20); Carbon Dioxide 18 mmol/L (22-30); Chloride 108 mmol/L (98-107); Glucose 94 mg/dL (74-99); Potassium 4.8 mmol/L (3.5-5.1); Sodium 136 mmol/L (137-145)
[2022-12-16 15:00] LABS: ALT 32 U/L (4-49); AST 30 U/L (17-59); African American GFR (CKD) 89 (>60 ml/min/1.73 sqM); Albumin 3.7 g/dL (3.5-5.0); Alkaline Phosphatase 69 U/L (38-126); Calcium 9.4 mg/dL (8.4-10.2); Non-African American GFR(CKD) 77 (>60 ml/min/1.73 sqM); Total Bilirubin 1.6 mg/dL (0.2-1.3); Total Protein 5.9 g/dL (6.3-8.2)
[2022-12-16 15:08] LABS: NT-Pro-B-Type Natriuretic Pept 22900 pg/mL
[2022-12-16] MEDS ORDERED: ASPIRIN 325 MG TAB PO STA (15:34)
[2022-12-16] MEDS: NITROGLYCERIN OINT 1 INCH/GM PACKET TOPICAL SCH (15:40)
[2022-12-16] MEDS: NON FORMULARY DRUG (Dulaglutide [Trulicity] 1.5 MG/0.5 ML Each) SQ SCH (16:35)
[2022-12-16] MEDS: FUROSEMIDE 10 MG/ML 4 ML VIAL IV SCH (16:35)
[2022-12-16] MEDS: carvediloL 3.125 MG TAB PO SCH (16:35)
[2022-12-16] MEDS: IPRATROPIUM-ALBUTEROL 3 ML NEB INHALATION SCH ×2 (17:01→20:13)
[2022-12-16] MEDS: BUDESONIDE 0.5 MG/2 ML NEBU INHALATION SCH (20:13)
[2022-12-16] MEDS: metOLazone 2.5 MG TAB PO SCH (20:36)
[2022-12-16] MEDS: lisinopriL 10 MG TAB PO SCH (20:36)
[2022-12-16] MEDS: POTASSIUM CHLORIDE ER 10 MEQ TAB.ER.PRT PO SCH (20:36)
[2022-12-16] MEDS: DAPAGLIFLOZIN PROPANEDIOL 5 MG TABLET PO SCH (20:36)
[2022-12-16] MEDS: PANTOPRAZOLE 40 MG TABLET PO SCH (20:37)
[2022-12-16] MEDS: TAMSULOSIN 0.4 MG CAP.ER.24H PO SCH (20:37)
[2022-12-17] MEDS: FUROSEMIDE 10 MG/ML 4 ML VIAL IV SCH ×4 (00:30→23:29)
[2022-12-17] MEDS: NITROGLYCERIN OINT 1 INCH/GM PACKET TOPICAL SCH ×2 (00:30→06:23)
--- NOTE | 2022-12-17 01:59 | HP ---
HISTORY AND PHYSICAL HISTORY OF PRESENT ILLNESS: Came in with shortness of breath, failing outpatient treatment. Cardiology is consulted. Acute on chronic diastolic heart failure. Chest tightness with deep breathing. Ordered some Solu-Medrol and updrafts for him. Increased leg edema, worsening shortness of breath hospital over the last month or 2. MEDICATIONS: See list. ALLERGIES: Negative. REVIEW OF SYSTEMS: A 14-point review of systems, PND, orthopnea, chronic dyspnea. PAST SURGICAL HISTORY: Aortic valve replaced, colonoscopy, polyp removal. FAMILY HISTORY: Mother, diabetes mellitus . PHYSICAL EXAMINATION: GENERAL: Obese white male, appears in mild respiratory distress. CARDIOVASCULAR: S1, S2. LUNGS: Rales at the base. PSYCH: Mood and affect. NEUROLOGIC: Alert and oriented x3. Cranial nerves intact. HEENT: Ophthalmologic, pupils equal, round, and reactive. HEMATOLOGY: 2 to 3+ edema. Prognosis guarded. Diuresis some, get Cardiology involved. Breathing treatments, steroids. Rehydrate if necessary. Prognosis guarded. Please see further orders. MMODL / IJN: [id number] /
--- NOTE | 2022-12-17 03:10 | P.CNPUL ---
History of Present Illness Consult date: 12/17/22 Requesting physician: Benjie Jacques Reason for consult: dyspnea Chief complaint: Shortness of breath and increased lower extremity swelling History of present illness: I am seeing this patient in consultation today 12/17/2022 on the general medical floor after he presented to the emergency room yesterday afternoon with concerns of shortness of breath and increased lower extremity swelling over the last 1 week. Patient is a 82-year-old white male with past medical history significant for diastolic congestive heart failure, prior aortic valve replacement and TAVR, hypertension, hyperlipidemia, COPD, polio as a child, among other things. Patient reports that he had similar symptoms back in April of this year. He did have a heart catheterization back in April, which showed mild to moderate disease of the left main, LAD, and left circumflex. No PCI was performed. Echocardiogram done on that admission showed a preserved left ventricular ejection fraction of 55-60%, mild concentric left ventricular hypertrophy. Grade 2 diastolic dysfunction. Patient states that over the last week, he's been having progressively worsening shortness of breath. He states that it is worse when trying to ambulate, even a few feet to the bathroom. He admits orthopnea. He has had increased lower extremity swelling. Denies any chest pain, Heart palpitations, syncope. He denies any infectious symptoms such as fever, cough, sputum production. Patient is currently sitting up in bed, on 2 L/m nasal cannula, in no acute distress. Chest x-ray on arrival showed cardiomegaly, pulmonary congestion, and bilateral pleural effusions. NT proBNP was significantly elevated at 22,900. Patient is started and started on Lasix 40 mg 3 times a day. CBC on arrival was unremarkable. BMP shows sodium 136, potassium 4.8, chloride 108, serum bicarb 18, BUN 32, creatinine 0.9, glucose 94. LFTs not elevated. Troponins mildly elevated but flat, 0.0363 measurements. EKG on admission shows sinus rhythm with a rate of 69 beats per minutes without any obvious acute ischemic changes. There is left axis deviation. Patient is being monitored on the observation unit. Review of Systems REVIEW OF SYSTEMS: CONSTITUTIONAL: Denies any recent significant weight loss or weight gain. EYES: Denies change in vision. EARS, NOSE, MOUTH, THROAT: Denies headaches, denies sore throat. CARDIOVASCULAR: Denies chest pain, palpitations or syncopal episodes. Admits increased lower extremity edema and orthopnea RESPIRATORY: Denies cough, congestion or hemoptysis. Admits exertional shortness of breath with minimal walking to the bathroom and back GASTROINTESTINAL: Denies change in appetite, abdominal pain, nausea and vomiting, or diarrhea GENITOURINARY: Denies hematuria, denies infections. MUSKULOSKELETAL: Denies pain, denies swelling. INTEGUMENTARY: Denies rash, denies eczema. NEUROLOGICAL: Denies recent memory loss, no recent seizure activity. PSYCHIATRIC: Denies anxiety, denies depression. HEMATOLOGIC/LYMPHATIC: Denies anemia, denies enlarged lymph node Past Medical History Past Medical History: Asthma, Cancer, Heart Failure, Hypertension Additional Past Medical History / Comment(s): pre diabetic, mouth cancer, aortic stenosis, polio as a child History of Any Multi-Drug Resistant Organisms: None Reported Past Surgical History: Cardiac Valve Replacement, Heart Catheterization Additional Past Surgical History / Comment(s): Aortic valve replaced - to cor valve inside other valve, colonoscopy- polyp removal. dental sx Past Anesthesia/Blood Transfusion Reactions: No Reported Reaction Past Psychological History: No Psychological Hx Reported Smoking Status: Former smoker Past Alcohol Use History: None Reported Past Drug Use History: None Reported - Past Family History Mother Family Medical History: Diabetes Mellitus Father Family Medical History: Myocardial Infarction ([place]) Diabetes Family Medical History: Diabetes Mellitus Medications and Allergies Home Medications Medication Instructions Recorded Confirmed Type Aspirin EC [Ecotrin Low Dose] 81 mg PO DAILY 04/30/22 12/16/22 History Dulaglutide [Trulicity] 1.5 mg SQ Q7D 04/30/22 12/16/22 History Furosemide [Lasix] 40 mg PO DAILY 04/30/22 12/16/22 History Potassium Chloride [Klor-Con 8] 8 meq PO BID 04/30/22 12/16/22 History Tamsulosin HCl [Flomax] 0.4 mg PO HS 04/30/22 12/16/22 History Omeprazole 40 mg PO BID 08/23/22 12/16/22 History Clopidogrel [Plavix] 75 mg PO DAILY tab 09/02/22 12/16/22 Rx Ipratropium-Albuterol Nebulize 3 ml INHALATION RT-QID 30 Days 09/02/22 12/16/22 Rx [Duoneb 0.5 mg-3 mg/3 ml Soln] #120 each Calcium Carbonate/Vitamin D3 1 tab PO DAILY 11/21/22 12/16/22 History [Calcium 500-Vit D3 5 Mcg (200 Iu)] Empagliflozin [Jardiance] 10 mg PO HS 11/21/22 12/16/22 History Magnesium Oxide [Magnesium] 500 mg PO DAILY 11/21/22 12/16/22 History Multivitamins, Thera [Multivitamin 1 tab PO DAILY 11/21/22 12/16/22 History (formulary)] metOLazone 1.25 mg PO HS 11/21/22 12/16/22 History Budesonide [Pulmicort] 0.5 mg INHALATION RT-BID 30 Days 11/26/22 12/16/22 Rx #60 ml amLODIPine [Norvasc] 5 mg PO DAILY 90 Days #90 tab 11/26/22 12/16/22 Rx carvediloL [Coreg] 3.125 mg PO BID-W/MEALS 90 Days 11/26/22 12/16/22 Rx #180 tab lisinopriL [Zestril] 10 mg PO BID 90 Days #180 tab 11/26/22 12/16/22 Rx Albuterol Sulfate [Albuterol 2 puff PO RT-Q4H PRN 12/16/22 12/16/22 History Sulfate Hfa] Fluticasone/Umeclidin/Vilanter 2 puff INHALATION RT-DAILY 12/16/22 12/16/22 History [Trelegy Ellipta 200-62.5-25] Zolpidem Tartrate [Ambien] 5 mg PO HS 12/16/22 12/16/22 History Allergies Allergy/AdvReac Type Severity Reaction Status Date / Time No Known Allergies Allergy Verified 12/16/22 15:58 Physical Exam Vitals: Vital Signs Temp Pulse Pulse Resp BP BP Pulse Ox 12/16/22 21:47 97.5 F L 71 18 149/61 96 12/16/22 20:30 88 12/16/22 20:15 65 12/16/22 19:47 68 18 120/53 94 L 12/16/22 18:26 66 18 133/53 93 L 12/16/22 17:12 71 12/16/22 17:11 100 12/16/22 17:03 69 12/16/22 15:22 66 18 138/68 12/16/22 15:00 64 18 122/62 12/16/22 14:30 66 18 144/66 12/16/22 13:18 97.3 F L 69 16 146/50 94 L Intake and Output 12/16/22 12/16/22 12/17/22 14:59 22:59 06:59 Output Total 640 Balance -640 Output: Urine 640 Other: Voiding Method Urinal Weight 97.522 kg 97.522 kg GENERAL EXAM: Alert, 82-year-old white male , comfortable in no apparent distress. HEAD: Normocephalic and atraumatic EYES: Normal reaction of pupils, equal size. NOSE: Clear with pink turbinates. THROAT: No erythema or exudates. NECK: No masses, no JVD. CHEST: No chest wall deformity. LUNGS: Equal air entry with bibasilar inspiratory crackles. No wheezes, rhonchi, focal dullness. On 2 L/m nasal cannula. No conversational dyspnea or accessory muscle use.. CVS: S1 and S2 normal with grade 3 systolic ejection murmur heard best at the second right intercostal space, regular rhythm. No other extra heart sounds ABDOMEN: No hepatosplenomegaly, active bowel sounds, no guarding or rigidity. SPINE: No scoliosis or deformity SKIN: No rashes CENTRAL NERVOUS SYSTEM: No focal deficits, tone is normal in all 4 extremities. EXTREMITIES: There is 3-4+ pitting bilateral lower extremity edema. No clubbing, or cyanosis. Peripheral pulses are intact. Results - Laboratory Findings CBC and BMP: 12/16/22 13:49 12/16/22 13:49 PT/INR, D-dimer PT 12.8 sec (10.0-12.5) H 12/16/22 13:49 INR 1.2 (<1.2) H 12/16/22 13:49 Abnormal lab findings: Abnormal Labs 12/16/22 12/16/22 12/16/22 13:49 13:49 13:49 MCV 104.0 H Lymphocytes # 0.9 L PT 12.8 H INR 1.2 H Sodium 136 L Chloride 108 H Carbon Dioxide 18 L BUN 32 H Total Bilirubin 1.6 H Troponin I Total Protein 5.9 L 12/16/22 12/16/22 12/16/22 13:49 16:41 19:50 MCV Lymphocytes # PT INR Sodium Chloride Carbon Dioxide BUN Total Bilirubin Troponin I 0.036 H* 0.036 H* 0.036 H* Total Protein - Diagnostic Findings Chest x-ray: image reviewed Assessment and Plan Assessment: Acute hypoxemic respiratory failure, currently on 2 L/m nasal cannula, secondary to an exacerbation of diastolic congestive heart failure. Chest x-ray shows cardiomegaly, pulmonary vascular congestion, and bilateral small pleural effusions. NT proBNP was significantly elevated at 22,900. Non-anion gap metabolic acidosis Elevated troponins, flat Aortic stenosis, with previous Aortic valve replacement and subsequent TAVR Benign essential hypertension Hyperlipidemia Chronic obstructive pulmonary disease, not in exacerbation. Normally maintained on Trelegy inhaler, [id number] DuoNeb's, and when necessary Ventolin HFA Former tobacco smoker Plan: Patient's medications, labs, chest x-ray reviewed Continue supplemental oxygen Patient has been started on diuretics in the form of Lasix 40 mg 3 times a day. Chronically on Farxiga. Maintenance COPD medications have been restarted. COPD does not seem to be in exacerbation. We will continue to follow I have personally seen and examined the patient, performed the documentation and the assessment and plan as written. Number of minutes spent on the visit:20 This is a joint evaluation that was done along with the nurse practitioner. The patient was seen in this evaluation was done in more than 30 minutes. The patient is coming in with worsening shortness of breath and decompensated heart failure and the patient has small bilateral pleural effusion and increasing lower extremity edema. The patient's proBNP level is 22,009 100. The patient is currently on IV Lasix. The patient is producing adequate urine output. No new complaints otherwise for now. Oxygen patient is stable and the patient is currently on 2 L of oxygen nasal cannula. He is known to have COPD which is currently inactive and stable. We'll continue to follow. Time with Patient: Greater than 30
[2022-12-17] MEDS: carvediloL 3.125 MG TAB PO SCH ×2 (06:23→16:51)
[2022-12-17] MEDS: IPRATROPIUM-ALBUTEROL 3 ML NEB INHALATION SCH ×4 (08:09→19:48)
[2022-12-17] MEDS: BUDESONIDE 0.5 MG/2 ML NEBU INHALATION SCH ×2 (08:09→19:48)
[2022-12-17] MEDS: lisinopriL 10 MG TAB PO SCH ×2 (08:31→20:10)
[2022-12-17] MEDS: PANTOPRAZOLE 40 MG TABLET PO SCH ×2 (08:31→20:10)
[2022-12-17] MEDS: ASPIRIN 81 MG PO SCH (08:31)
[2022-12-17] MEDS: amLODIPine 5 MG TAB PO SCH (08:32)
[2022-12-17] MEDS: CLOPIDOGREL 75 MG TAB PO SCH (08:32)
[2022-12-17] MEDS: MAGNESIUM OXIDE 400 MG TAB PO SCH (08:32)
[2022-12-17] MEDS: MULTIVITAMINS, THERA 1 EACH TAB PO SCH (08:32)
[2022-12-17] MEDS: POTASSIUM CHLORIDE ER 10 MEQ TAB.ER.PRT PO SCH ×2 (08:32→20:10)
[2022-12-17] MEDS: methylPREDNISolone SOD SUCCI 40 MG/ML 1 ML VIAL IV SCH ×3 (08:32→23:29)
[2022-12-17] MEDS ORDERED: ASPIRIN 325 MG TAB PO SCH (09:00)
--- NOTE | 2022-12-17 11:13 | P.CRDCN ---
History of Present Illness History of present illness: HISTORY OF PRESENT ILLNESS: This is a 82-year-old male with a past medical history significant for hypertension, hyperlipidemia, nonobstructive coronary artery disease, and aortic stenosis with previous AVR in 2008 and subsequent TAVR in 2016. Patient follows in the office with Dr. Winter. Patient also follows with Dr. Reyes. We have been asked to see the patient in consultation for congestive heart failure. Patient examined at the bedside. Patient presented to the hospital with a chief complaint of shortness of breath. Patient states he has been progressively getting short of breath over the past few days. He was recently discharged from the hospital on 40 mg of Lasix daily which the patient does not think was enough. He also reports increased lower extremity edema worse than his baseline. He currently denies any chest pain or pressure. He states that he saw Dr. Reyes recently and he is wanting to schedule a cardiac catheterization and is considering a possible third valve replacement surgery. * EKG reveals sinus mechanism with nonspecific ST-T wave changes. No signs of acute ischemia * Chest xray cardiomegaly, pulmonary vascular congestion and bilateral pleural effusions. * Current home cardiac medications include Jardiance 10 mg at night, metolazone 1.25 mg at night, lisinopril 10 mg twice a day, carvedilol 3.125 mg twice a da y, amlodipine 5 mg daily, Lasix 40 mg daily, Plavix 75 mg daily, and aspirin 81 mg daily * Most recent echocardiogram obtained in April 2022 revealed ejection fraction 55-60%, technically difficult study, trace to mild tricuspid regurgitation, and bovine prosthetic aortic valve with minimal perivalvular AR and mild to moderate central AR * Cardiac catheterization history: April 2022 revealing 35% left main, 20% mid LAD, right dominant system REVIEW OF SYSTEMS: At the time of my exam: CONSTITUTIONAL: Denies fever or chills. HEENT: Denies blurred vision, vision changes, or eye pain. Denies hemoptysis CARDIOVASCULAR: Denies chest pain. Denies orthopnea. Denies PND. Denies palpitations RESPIRATORY: Reports shortness of breath. GASTROINTESTINAL: Denies abdominal pain. Denies nausea or vomiting. HEMATOLOGIC: Denies bleeding disorders. GENITOURINARY: Denies any blood in urine. SKIN: Denies pruitis. Denies rash. PHYSICAL EXAM: VITAL SIGNS: Reviewed. GENERAL: Well-developed in no acute distress. HEENT: Head is normocephalic. Pupils are equal, round. Sclerae anicteric. Mucous membranes of the mouth are moist. Neck supple. No JVD or thyromegaly LUNGS: Respirations even and unlabored. Lungs essentially clear to auscultation bilaterally. HEART: Regular rate and rhythm. S1 and S2 heard. Systolic murmur noted ABDOMEN: Soft. Nondistended. Nontender. EXTREMITIES: Normal range of motion. No clubbing or cyanosis. Peripheral pulses intact. 3+ bilateral lower extremity edema NEUROLOGIC: Awake and alert. Oriented x 3. ASSESSMENT: Shortness of breath Acute on chronic heart failure with preserved ejection fraction, 55-60%, proBNP 22,900; exacerbated by valvular disease and inadequate diuretic regimen Bilateral pleural effusions Abnormal troponins, flat, not suggestive of acute coronary syndrome Nonobstructive coronary artery disease Aortic stenosis, status post AVR in 2007 and subsequent TAVR in 2016, now with mild to moderate AR Hypertension Hyperlipidemia COPD PLAN: No need to repeat echocardiogram Continue IV Lasix 40 mg every 8 hours Daily weights, accurate I&O, and monitoring of kidney function Decrease aspirin to 81 mg daily Discontinue Nitropaste Recommend Bumex 1 mg twice a day at discharge Further recommendations pending patient's course Nurse practitioner note has been reviewed by physician. Signing provider agrees with the documented findings, assessment, and plan of care. 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 dental sx Past Anesthesia/Blood Transfusion Reactions: No Reported Reaction Past Psychological History: No Psychological Hx Reported Smoking Status: Former smoker Past Alcohol Use History: None Reported Past Drug Use History: None Reported - Past Family History Mother Family Medical History: Diabetes Mellitus Father Family Medical History: Myocardial Infarction ([place]) Diabetes Family Medical History: Diabetes Mellitus Medications and Allergies Home Medications Medication Instructions Recorded Confirmed Type Aspirin EC [Ecotrin Low Dose] 81 mg PO DAILY 04/30/22 12/16/22 History Dulaglutide [Trulicity] 1.5 mg SQ Q7D 04/30/22 12/16/22 History Furosemide [Lasix] 40 mg PO DAILY 04/30/22 12/16/22 History Potassium Chloride [Klor-Con 8] 8 meq PO BID 04/30/22 12/16/22 History Tamsulosin HCl [Flomax] 0.4 mg PO HS 04/30/22 12/16/22 History Omeprazole 40 mg PO BID 08/23/22 12/16/22 History Clopidogrel [Plavix] 75 mg PO DAILY tab 09/02/22 12/16/22 Rx Ipratropium-Albuterol Nebulize 3 ml INHALATION RT-QID 30 Days 09/02/22 12/16/22 Rx [Duoneb 0.5 mg-3 mg/3 ml Soln] #120 each Calcium Carbonate/Vitamin D3 1 tab PO DAILY 11/21/22 12/16/22 History [Calcium 500-Vit D3 5 Mcg (200 Iu)] Empagliflozin [Jardiance] 10 mg PO HS 11/21/22 12/16/22 History Magnesium Oxide [Magnesium] 500 mg PO DAILY 11/21/22 12/16/22 History Multivitamins, Thera [Multivitamin 1 tab PO DAILY 11/21/22 12/16/22 History (formulary)] metOLazone 1.25 mg PO HS 11/21/22 12/16/22 History Budesonide [Pulmicort] 0.5 mg INHALATION RT-BID 30 Days 11/26/22 12/16/22 Rx #60 ml amLODIPine [Norvasc] 5 mg PO DAILY 90 Days #90 tab 11/26/22 12/16/22 Rx carvediloL [Coreg] 3.125 mg PO BID-W/MEALS 90 Days 11/26/22 12/16/22 Rx #180 tab lisinopriL [Zestril] 10 mg PO BID 90 Days #180 tab 11/26/22 12/16/22 Rx Albuterol Sulfate [Albuterol 2 puff PO RT-Q4H PRN 12/16/22 12/16/22 History Sulfate Hfa] Fluticasone/Umeclidin/Vilanter 2 puff INHALATION RT-DAILY 12/16/22 12/16/22 History [Trelegy Ellipta 200-62.5-25] Zolpidem Tartrate [Ambien] 5 mg PO HS 12/16/22 12/16/22 History Allergies Allergy/AdvReac Type Severity Reaction Status Date / Time No Known Allergies Allergy Verified 12/16/22 15:58 Physical Exam Vitals: Vital Signs Temp Pulse Pulse Resp BP BP BP 12/17/22 07:00 97.8 F 62 18 128/46 12/17/22 00:31 97.3 F L 63 19 127/51 12/16/22 21:47 97.5 F L 71 18 149/61 12/16/22 20:30 88 12/16/22 20:15 65 12/16/22 19:47 68 18 120/53 12/16/22 18:26 66 18 133/53 12/16/22 17:12 71 12/16/22 17:11 12/16/22 17:03 69 12/16/22 15:22 66 18 138/68 12/16/22 15:00 64 18 122/62 12/16/22 14:30 66 18 144/66 12/16/22 13:18 97.3 F L 69 16 146/50 Pulse Ox 12/17/22 07:00 96 12/17/22 00:31 93 L 12/16/22 21:47 96 12/16/22 20:30 12/16/22 20:15 12/16/22 19:47 94 L 12/16/22 18:26 93 L 12/16/22 17:12 12/16/22 17:11 100 12/16/22 17:03 12/16/22 15:22 12/16/22 15:00 12/16/22 14:30 12/16/22 13:18 94 L Intake and Output 12/16/22 12/17/22 12/17/22 22:59 06:59 14:59 Output Total 640 700 240 Balance -640 -700 -240 Output: Urine 640 700 240 Other: Voiding Method Urinal Weight 97.522 kg 97.8 kg Results 12/16/22 13:49 12/16/22 13:49 Cardiac Enzymes 12/16/22 12/16/22 12/16/22 Range/Units 13:49 13:49 16:41 AST 30 (17-59) U/L Troponin I 0.036 H* 0.036 H* (0.000-0.034) ng/mL 12/16/22 Range/Units 19:50 AST (17-59) U/L Troponin I 0.036 H* (0.000-0.034) ng/mL Coagulation 12/16/22 Range/Units 13:49 PT 12.8 H (10.0-12.5) sec APTT 27.0 (22.0-30.0) sec CBC 12/16/22 Range/Units 13:49 WBC 9.2 (3.8-10.6) k/uL RBC 4.61 (4.30-5.90) m/uL Hgb 15.7 (13.0-17.5) gm/dL Hct 48.0 (39.0-53.0) % Plt Count 224 (150-450) k/uL Comprehensive Metabolic Panel 12/16/22 Range/Units 13:49 Sodium 136 L (137-145) mmol/L Potassium 4.8 (3.5-5.1) mmol/L Chloride 108 H (98-107) mmol/L Carbon Dioxide 18 L (22-30) mmol/L BUN 32 H (9-20) mg/dL Creatinine 0.93 (0.66-1.25) mg/dL Glucose 94 (74-99) mg/dL Calcium 9.4 (8.4-10.2) mg/dL AST 30 (17-59) U/L ALT 32 (4-49) U/L Alkaline Phosphatase 69 (38-126) U/L Total Protein 5.9 L (6.3-8.2) g/dL Albumin 3.7 (3.5-5.0) g/dL Current Medications Generic Name Dose Route Start Last Admin Trade Name Freq PRN Reason Stop Dose Admin Albuterol/Ipratropium 3 ml 12/16/22 16:00 12/16/22 20:13 Ipratropium-Albuterol 3 Ml Neb INHALATION 3 ml RT-QID ADITHYA Administration Amlodipine Besylate 5 mg 12/17/22 09:00 Amlodipine 5 Mg Tab PO DAILY [facility] Aspirin 325 mg 12/17/22 09:00 Aspirin 325 Mg Tab PO DAILY [facility] Budesonide 0.5 mg 12/16/22 20:00 12/16/22 20:13 Budesonide 0.5 Mg/2 Ml Nebu INHALATION 0.5 mg RT-BID ADITHYA Administration Carvedilol 3.125 mg 12/16/22 17:30 12/17/22 06:23 Carvedilol 3.125 Mg Tab PO 3.125 mg BID-W/MEALS ADITHYA Administration Clopidogrel Bisulfate 75 mg 12/17/22 09:00 Clopidogrel 75 Mg Tab PO DAILY ADITHYA Dapagliflozin 5 mg 12/16/22 21:00 12/16/22 20:36 Dapagliflozin Propanediol 5 Mg Tablet PO 5 mg HS ADITHYA Administration Furosemide 40 mg 12/16/22 16:00 12/17/22 00:30 Furosemide 10 Mg/Ml 4 Ml Vial IV 40 mg Q8HR ADITHYA Administration Lisinopril 10 mg 12/16/22 21:00 12/16/22 20:36 Lisinopril 10 Mg Tab PO 10 mg BID ADITHYA Administration Magnesium Oxide 400 mg 12/17/22 09:00 Magnesium Oxide 400 Mg Tab PO DAILY [facility] Methylprednisolone Sodium Succinate 40 mg 12/17/22 08:00 Methylprednisolone Sod Succi 40 Mg/Ml 1 Ml Vial IV Q8HR [facility] Metolazone 1.25 mg 12/16/22 21:00 12/16/22 20:36 Metolazone 2.5 Mg Tab PO 1.25 mg HS [facility] Administration Multivitamins 1 each 12/17/22 09:00 Multivitamins, Thera 1 Each Tab PO DAILY [facility] Nitroglycerin 1 inch 12/16/22 18:00 12/17/22 06:23 Nitroglycerin Oint 1 Inch/Gm Packet TOPICAL 12/17/22 18:01 1 inch Q6HR ADITHYA Administration Non-Formulary Medication 1.5 mg 12/16/22 16:00 12/16/22 16:35 Dulaglutide [Trulicity] SQ Not Given Q7D [facility] Pantoprazole Sodium 40 mg 12/16/22 21:00 12/16/22 20:37 Pantoprazole 40 Mg Tablet PO 40 mg BID ADITHYA Administration Potassium Chloride 10 meq 12/16/22 21:00 12/16/22 20:36 Potassium Chloride Er 10 Meq Tab.Er.Prt PO 10 meq BID ADITHYA Administration Tamsulosin HCl 0.4 mg 12/16/22 21:00 12/16/22 20:37 Tamsulosin 0.4 Mg Cap.Er.24h PO 0.4 mg HS ADITHYA Administration Intake and Output 12/16/22 12/17/22 12/17/22 22:59 06:59 14:59 Output Total 640 700 240 Balance -992 -700 -240 Output: Urine 640 700 240 Other: Voiding Method Urinal Weight 97.522 kg 97.8 kg 12/16/22 13:49 12/16/22 13:49
[2022-12-17 15:00] VITALS: BMI 33.7
[2022-12-17] MEDS: metOLazone 2.5 MG TAB PO SCH (20:10)
[2022-12-17] MEDS: DAPAGLIFLOZIN PROPANEDIOL 5 MG TABLET PO SCH (20:10)
[2022-12-17] MEDS: TAMSULOSIN 0.4 MG CAP.ER.24H PO SCH (20:10)
--- NOTE | 2022-12-17 20:35 | PN ---
PROGRESS NOTE SUBJECTIVE: An 82-year-old white male, came in with CHF, COPD, acute on chronic diastolic heart failure. Continues to have chest pain. We ordered steroids and updraft treatments for him. Bilateral pleural effusions, pulmonary consult is pending. He is on home medicines. Feels better since he came in. OBJECTIVE: CARDIOVASCULAR: S1, S2. LUNGS: Decreased breath sounds x4. HEMATOLOGY: 2 to 3+ edema. ASSESSMENT: Preserved ejection fraction. BNP 22,906. Bilateral pleural effusions, abnormal troponins, nonocclusive coronary artery disease, aortic stenosis, hypertension, dyslipidemia, chronic obstructive pulmonary disease, IV Lasix every 8 hours, aspirin, Bumex 1 mg b.i.d. is what he has been getting. Wait for Pulmonary recommendations and continue breathing treatments, etc. Prognosis guarded. MMODL / IJN: [id number] /
[2022-12-17] MEDS: ZOLPIDEM 5 MG TAB PO PRN (23:29)
[2022-12-18] MEDS: carvediloL 3.125 MG TAB PO SCH ×2 (06:28→16:34)
[2022-12-18] MEDS: methylPREDNISolone SOD SUCCI 40 MG/ML 1 ML VIAL IV SCH ×2 (07:45→16:34)
[2022-12-18] MEDS: amLODIPine 5 MG TAB PO SCH (07:46)
[2022-12-18] MEDS: MULTIVITAMINS, THERA 1 EACH TAB PO SCH (07:46)
[2022-12-18] MEDS: PANTOPRAZOLE 40 MG TABLET PO SCH ×2 (07:46→21:20)
[2022-12-18] MEDS: CLOPIDOGREL 75 MG TAB PO SCH (07:46)
[2022-12-18] MEDS: FUROSEMIDE 10 MG/ML 4 ML VIAL IV SCH ×2 (07:46→16:34)
[2022-12-18] MEDS: MAGNESIUM OXIDE 400 MG TAB PO SCH (07:46)
[2022-12-18] MEDS: POTASSIUM CHLORIDE ER 10 MEQ TAB.ER.PRT PO SCH ×2 (07:46→21:20)
[2022-12-18] MEDS: lisinopriL 10 MG TAB PO SCH ×2 (07:46→21:21)
[2022-12-18] MEDS: ASPIRIN 81 MG PO SCH (07:46)
[2022-12-18] MEDS: metOLazone 2.5 MG TAB PO SCH (07:53)
[2022-12-18] MEDS: IPRATROPIUM-ALBUTEROL 3 ML NEB INHALATION SCH ×4 (07:57→20:02)
[2022-12-18] MEDS: BUDESONIDE 0.5 MG/2 ML NEBU INHALATION SCH ×2 (07:57→20:02)
--- NOTE | 2022-12-18 10:12 | P.PN ---
Subjective HISTORY OF PRESENT ILLNESS: This is a 82-year-old male with a past medical history significant for hypertension, hyperlipidemia, nonobstructive coronary artery disease, and aortic stenosis with previous AVR in 2008 and subsequent TAVR in 2016. Patient follows in the office with Dr. Winter. Patient also follows with Dr. Reyes. We have been asked to see the patient in consultation for congestive heart failure. Patient examined at the bedside. Patient presented to the hospital with a chief complaint of shortness of breath. Patient states he has been progressively getting short of breath over the past few days. He was recently discharged from the hospital on 40 mg of Lasix daily which the patient does not think was enough. He also reports increased lower extremity edema worse than his baseline. He currently denies any chest pain or pressure. He states that he saw Dr. Reyes recently and he is wanting to schedule a cardiac catheterization and is considering a possible third valve replacement surgery. * EKG reveals sinus mechanism with nonspecific ST-T wave changes. No signs of acute ischemia * Chest xray cardiomegaly, pulmonary vascular congestion and bilateral pleural effusions. * Current home cardiac medications include Jardiance 10 mg at night, metolazone 1.25 mg at night, lisinopril 10 mg twice a day, carvedilol 3.125 mg twice a day, amlodipine 5 mg daily, Lasix 40 mg daily, Plavix 75 mg daily, and aspirin 81 mg daily * Most recent echocardiogram obtained in April 2022 revealed ejection fraction 55-60%, technically difficult study, trace to mild tricuspid regurgitation, and bovine prosthetic aortic valve with minimal perivalvular AR and mild to moderate central AR * Cardiac catheterization history: April 2022 revealing 35% left main, 20% mid LAD, right dominant system 12/18/2022 Patient examined this morning at the bedside. Patient denies chest pain or pressure. He reports improvement in his shortness of breath. He remains on IV Lasix. Urine output over the last 24 hours is 2675 mL. Kidney function from this morning is pending. PHYSICAL EXAM: VITAL SIGNS: Reviewed. GENERAL: Well-developed in no acute distress. HEENT: Head is normocephalic. Pupils are equal, round. Sclerae anicteric. Mucous membranes of the mouth are moist. Neck supple. No JVD or thyromegaly LUNGS: Respirations even and unlabored. Lungs essentially clear to auscultation bilaterally. HEART: Regular rate and rhythm. S1 and S2 heard. Systolic murmur noted ABDOMEN: Soft. Nondistended. Nontender. EXTREMITIES: Normal range of motion. No clubbing or cyanosis. Peripheral pulses intact. 2+ bilateral lower extremity edema NEUROLOGIC: Awake and alert. Oriented x 3. ASSESSMENT: Shortness of breath Acute on chronic heart failure with preserved ejection fraction, 55-60%, proBNP 22,900; exacerbated by valvular disease and inadequate diuretic regimen Bilateral pleural effusions Abnormal troponins, flat, not suggestive of acute coronary syndrome Nonobstructive coronary artery disease Aortic stenosis, status post AVR in 2007 and subsequent TAVR in 2016, now with mild to moderate AR Hypertension Hyperlipidemia COPD PLAN: Obtain limited echo Continue IV Lasix 40 mg every 8 hours Daily weights, accurate I&O, and monitoring of kidney function Change Zaroxolyn dosing to in the morning instead of at night Recommend Bumex 1 mg twice a day at discharge Further recommendations pending patient's course Nurse practitioner note has been reviewed by physician. Signing provider agrees with the documented findings, assessment, and plan of care. Objective - Vital Signs Vital signs: Vital Signs Temp 97.5 F L 12/18/22 07:00 Pulse 72 12/18/22 08:21 Resp 16 12/18/22 07:00 BP 129/48 12/18/22 07:00 Pulse Ox 96 12/18/22 07:00 FiO2 Intake & Output 12/17/22 12/18/22 12/18/22 18:59 06:59 18:59 Intake Total 1098 400 Output Total 1700 975 320 Balance -602 -575 -320 Weight 97.8 kg 96.9 kg Intake: Oral 1098 400 Output: Urine 1700 975 320 Other: Voiding Method Urinal - Labs CBC & Chem 7: 12/16/22 13:49 12/16/22 13:49
[2022-12-18 10:58] LABS: BUN/Creat Ratio 26.08 Ratio (12.00-20.00); Blood Urea Nitrogen 31.3 mg/dL (9.0-27.0); Calcium 9.3 mg/dL (8.7-10.3); Carbon Dioxide 24.9 mmol/L (21.6-31.8); Chloride 102 mmol/L (96-109); Glucose 145 mg/dL (70-110); Potassium 4.6 mmol/L (3.5-5.5); Sodium 140 mmol/L (135-145)
--- NOTE | 2022-12-18 12:21 | CA ---
Transthoracic Echo Report Name: Lonnie Guzman Age: 82 Gender: M : 1940 Exam Date: 12/18/2022 10:17 Exam Location: [facility] Ht (in): 67 Wt (lb): 213 Ordering Physician: Anne Escobar Attending/Referring Phys: [id number], Luz Personal Security Specialist Lissy Zabala RDCS Procedure CPT: Indications: LV function, eval aortic valve Cardiac Hx: Technical Quality: Fair Contrast 1: Total Dose (mL): Contrast 2: Total Dose (mL): MEASUREMENTS (Male / Female) Normal Values 2D ECHO LV Diastolic Diameter PLAX 4.4 cm 4.2 - 5.9 / 3.9 - 5.3 cm LV Systolic Diameter PLAX 3.3 cm IVS Diastolic Thickness 1.1 cm 0.6 - 1.0 / 0.6 - 0.9 cm LVPW Diastolic Thickness 1.3 cm 0.6 - 1.0 / 0.6 - 0.9 cm LV Relative Wall Thickness 0.6 DOPPLER AV Peak Velocity 424.6 cm/s AV Peak Gradient 72.1 mmHg AV Mean Velocity 311.4 cm/s AV Mean Gradient 44.1 mmHg AV Velocity Time Integral 103.3 cm AI Peak Velocity 408.2 cm/s AI Peak Gradient 66.6 mmHg AI Pressure Half Time 307.3 ms LVOT Peak Velocity 99.6 cm/s LVOT Peak Gradient 4.0 mmHg LVOT Velocity Time Integral 24.4 cm FINDINGS Left Ventricle Mildly increased left ventricular wall thickness. Left ventricular cavity size normal. Mildly reduced global left ventricular systolic function. Left ventricular ejection fraction is estimated at 45-50 %. Right Ventricle Right Atrium Left Atrium Mitral Valve Mild MR Aortic Valve Gradient recorded across the prosthetic aortic valve above the expected range. Prosthetic aortic valve stenosis. Severe aortic stenosis with a peak velocity of 4 m/s, mean gradient 44 mmHg. DVI 0.23, Acceleration time >100msec Tricuspid Valve Pulmonic Valve Pericardium No pericardial effusion. Aorta CONCLUSIONS Prosthetic aortic valve stenosis. Severe aortic stenosis with a peak velocity of 4 m/s, mean gradient 44 mmHg. DVI 0.23, Acceleration time >100msec. Mildly reduced global LV systolic function LVEF estimated at 45-50% Mild Concentric LVH Mild MR Previewed by: Dr Juan Crespo (Electronically Signed) Final Date: 18 December 2022 12:21
--- NOTE | 2022-12-18 15:46 | P.PN ---
Subjective Progress Note Date: 12/18/22 I am seeing this patient in consultation today 12/17/2022 on the general medical floor after he presented to the emergency room yesterday afternoon with concerns of shortness of breath and increased lower extremity swelling over the last 1 week. Patient is a 82-year-old white male with past medical history significant for diastolic congestive heart failure, prior aortic valve replacement and TAVR, hypertension, hyperlipidemia, COPD, polio as a child, among other things. Patient reports that he had similar symptoms back in April of this year. He did have a heart catheterization back in April, which showed mild to moderate disease of the left main, LAD, and left circumflex. No PCI was performed. Echocardiogram done on that admission showed a preserved left ventricular ejection fraction of 55-60%, mild concentric left ventricular hypertrophy. Grade 2 diastolic dysfunction. Patient states that over the last week, he's been having progressively worsening shortness of breath. He states that it is worse when trying to ambulate, even a few feet to the bathroom. He admits orthopnea. He has had increased lower extremity swelling. Denies any chest pain, Heart palpitations, syncope. He denies any infectious symptoms such as fever, cough, sputum production. Patient is currently sitting up in bed, on 2 L/m nasal cannula, in no acute distress. Chest x-ray on arrival showed cardio megaly, pulmonary congestion, and bilateral pleural effusions. NT proBNP was significantly elevated at 22,900. Patient is started and started on Lasix 40 mg 3 times a day. CBC on arrival was unremarkable. BMP shows sodium 136, potassium 4.8, chloride 108, serum bicarb 18, BUN 32, creatinine 0.9, glucose 94. LFTs not elevated. Troponins mildly elevated but flat, 0.0363 measurements. EKG on admission shows sinus rhythm with a rate of 69 beats per minutes without any obvious acute ischemic changes. There is left axis deviation. Patient is being monitored on the observation unit. 12/18/2022, the patient is being seen for a follow-up. No chest pain. Shortness of breath is gradually improving. The patient is producing excellent urine output in the order of 2.6 L over the past 24 hours. The patient remains on IV Lasix. Meanwhile, the renal function is being monitored. He is at 31 with a creatinine of 1.2. Sodium level is at 140 with a potassium level of 4.6. He remains on oxygen the patient is currently on 2 L O2 nasal cannula with pulse ox of 96%. No fever. No chest pain no other specific complaints other issues for now. Objective - Vital Signs Vital signs: Vital Signs Temp 97.5 F L 12/18/22 07:00 Pulse 64 12/18/22 12:15 Resp 16 12/18/22 07:00 BP 129/48 12/18/22 07:00 Pulse Ox 96 12/18/22 07:00 FiO2 Intake & Output 12/17/22 12/18/22 12/18/22 18:59 06:59 18:59 Intake Total 1098 400 240 Output Total 1700 975 600 Balance -671 -570 -627 Weight 97.8 kg 96.9 kg Intake: Oral 1098 400 240 Output: Urine 1700 975 600 Other: Voiding Method Urinal - Exam GENERAL EXAM: Alert, 82-year-old white male , comfortable in no apparent distress. HEAD: Normocephalic and atraumatic EYES: Normal reaction of pupils, equal size. NOSE: Clear with pink turbinates. THROAT: No erythema or exudates. NECK: No masses, no JVD. CHEST: No chest wall deformity. LUNGS: Equal air entry with bibasilar inspiratory crackles. No wheezes, rhonchi, focal dullness. On 2 L/m nasal cannula. No conversational dyspnea or accessory muscle use.. CVS: S1 and S2 normal with grade 3 systolic ejection murmur heard best at the second right intercostal space, regular rhythm. No other extra heart sounds ABDOMEN: No hepatosplenomegaly, active bowel sounds, no guarding or rigidity. SPINE: No scoliosis or deformity SKIN: No rashes CENTRAL NERVOUS SYSTEM: No focal deficits, tone is normal in all 4 extremities. EXTREMITIES: There is 3-4+ pitting bilateral lower extremity edema. No clubbing, or cyanosis. Peripheral pulses are intact. - Labs CBC & Chem 7: 12/16/22 13:49 12/18/22 06:11 Labs: Abnormal Lab Results - Last 24 Hours (Table) 12/18/22 Range/Units 06:11 Anion Gap 13.10 H (4.00-12.00) mmol/L BUN 31.3 H (9.0-27.0) mg/dL BUN/Creatinine Ratio 26.08 H (12.00-20.00) Ratio Glucose 145 H (70-110) mg/dL Assessment and Plan Assessment: Acute hypoxemic respiratory failure, currently on 2 L/m nasal cannula, secondary to an exacerbation of diastolic congestive heart failure. Chest x-ray shows cardiomegaly, pulmonary vascular congestion, and bilateral small pleural effu sions. NT proBNP was significantly elevated at 22,900. Non-anion gap metabolic acidosis, improved and the serum bicarbs up to 24 Elevated troponins, nonspecific Aortic stenosis, with previous Aortic valve replacement and subsequent TAVR Benign essential hypertension Hyperlipidemia Chronic obstructive pulmonary disease, not in exacerbation. Normally maintained on Trelegy inhaler, [id number] DuoNeb's, and when necessary Ventolin HFA Former tobacco smoker Plan: The patient is clinically responding to the treatment and the patient will be kept on IV Lasix for another 24 hours. We'll closely monitor his renal function The patient is coming in with worsening shortness of breath and decompensated heart failure and the patient has small bilateral pleural effusion and increasing lower extremity edema. The patient's proBNP level is 22,009 100. The patient is currently on IV Lasix. The patient is producing adequate urine output. No new complaints otherwise for now. Oxygen patient is stable and the patient is currently on 2 L of oxygen nasal cannula. He is known to have COPD which is currently inactive and stable. We'll continue to follow.
[2022-12-18] MEDS: ZOLPIDEM 5 MG TAB PO PRN (21:20)
[2022-12-18] MEDS: TAMSULOSIN 0.4 MG CAP.ER.24H PO SCH (21:20)
[2022-12-18] MEDS: DAPAGLIFLOZIN PROPANEDIOL 5 MG TABLET PO SCH (21:20)
[2022-12-19] MEDS: FUROSEMIDE 10 MG/ML 4 ML VIAL IV SCH ×3 (00:29→20:42)
[2022-12-19] MEDS: methylPREDNISolone SOD SUCCI 40 MG/ML 1 ML VIAL IV SCH ×3 (00:29→17:48)
--- NOTE | 2022-12-19 01:05 | PN ---
PROGRESS NOTE SUBJECTIVE: This is an 82-year-old white male. He is just on IV Lasix, he would keep on for another 24 hours. He is getting better breathing, less chest pain, and shortness of breath. BNP is 22,000, on IV Lasix 40 q.8. He has good urine output. His BUN and creatinine are good. He has COPD which is stable, when acute on chronic CHF, the patient has bad aortic valve as seen on echo. He is being evaluated for valvular heart surgery in the next week or 2 with cardiac catheter. In April 2022, he had a catheterization that showed nonobstructive blockages. Going to give him Bumex on discharge. Continue current treatment. He did Zaroxolyn in the morning with severe aortic stenosis and possibly have to have a valve fixed. His GFR looks like it went down from 55 to 60, down to 45 to 50 on the recent echo with Cardiology recommendations. MMODL / IJN: [id number] /
--- NOTE | 2022-12-19 01:26 | PN ---
PROGRESS NOTE SUBJECTIVE: This is an 82-year-old white male, Dr. Garza did a limited echo, is at 45% to 50% ejection fraction, gradient across the prosthetic aortic valve above the expected range. 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 Most likely this is the reason, he is going back into heart failure. He is supposed to get a heart catheterization, possible aortic stenosis surgery soon. Prognosis guarded. Please see further orders. Continue with IV diuresis in the meantime. Please see further orders. MMODL / IJN: [id number] /
[2022-12-19] MEDS: carvediloL 3.125 MG TAB PO SCH ×2 (06:09→17:48)
[2022-12-19] MEDS: BUDESONIDE 0.5 MG/2 ML NEBU INHALATION SCH ×2 (08:57→18:25)
[2022-12-19] MEDS: IPRATROPIUM-ALBUTEROL 3 ML NEB INHALATION SCH ×4 (08:57→18:25)
[2022-12-19] MEDS: MULTIVITAMINS, THERA 1 EACH TAB PO SCH (09:38)
[2022-12-19] MEDS: CLOPIDOGREL 75 MG TAB PO SCH (09:39)
[2022-12-19] MEDS: MAGNESIUM OXIDE 400 MG TAB PO SCH (09:39)
[2022-12-19] MEDS: amLODIPine 5 MG TAB PO SCH (09:39)
[2022-12-19] MEDS: ASPIRIN 81 MG PO SCH (09:39)
[2022-12-19] MEDS: metOLazone 2.5 MG TAB PO SCH (09:39)
[2022-12-19] MEDS: lisinopriL 10 MG TAB PO SCH ×2 (09:39→20:43)
[2022-12-19] MEDS: PANTOPRAZOLE 40 MG TABLET PO SCH ×2 (09:39→20:43)
[2022-12-19] MEDS: POTASSIUM CHLORIDE ER 10 MEQ TAB.ER.PRT PO SCH ×2 (09:39→20:43)
--- NOTE | 2022-12-19 11:03 | P.PN ---
Subjective HISTORY OF PRESENT ILLNESS: This is a 82-year-old male with a past medical history significant for hypertension, hyperlipidemia, nonobstructive coronary artery disease, and aortic stenosis with previous AVR in 2008 and subsequent TAVR in 2016. Patient follows in the office with Dr. Winter. Patient also follows with Dr. Reyes. We have been asked to see the patient in consultation for congestive heart failure. Patient examined at the bedside. Patient presented to the hospital with a chief complaint of shortness of breath. Patient states he has been progressively getting short of breath over the past few days. He was recently discharged from the hospital on 40 mg of Lasix daily which the patient does not think was enough. He also reports increased lower extremity edema worse than his baseline. He currently denies any chest pain or pressure. He states that he saw Dr. Reyes recently and he is wanting to schedule a cardiac catheterization and is considering a possible third valve replacement surgery. * EKG reveals sinus mechanism with nonspecific ST-T wave changes. No signs of acute ischemia * Chest xray cardiomegaly, pulmonary vascular congestion and bilateral pleural effusions. * Current home cardiac medications include Jardiance 10 mg at night, metolazone 1.25 mg at night, lisinopril 10 mg twice a day, carvedilol 3.125 mg twice a day, amlodipine 5 mg daily, Lasix 40 mg daily, Plavix 75 mg daily, and aspirin 81 mg daily * Most recent echocardiogram obtained in April 2022 revealed ejection fraction 55-60%, technically difficult study, trace to mild tricuspid regurgitation, and bovine prosthetic aortic valve with minimal perivalvular AR and mild to moderate central AR * Cardiac catheterization history: April 2022 revealing 35% left main, 20% mid LAD, right dominant system 12/18/2022 Patient examined this morning at the bedside. Patient denies chest pain or pressure. He reports improvement in his shortness of breath. He remains on IV Lasix. Urine output over the last 24 hours is 2675 mL. Kidney function from this morning is pending. 12/19/2022 Patient examined this morning at the bedside. Patient currently denies chest pain or pressure. He continues to report shortness of breath although improved. He also reports improved lower extremity edema. He remains on Lasix 40 mg every 8 hours. Echocardiogram completed revealing ejection fraction 45-50% with severe and severe AR. PHYSICAL EXAM: VITAL SIGNS: Reviewed. GENERAL: Well-developed in no acute distress. HEENT: Head is normocephalic. Pupils are equal, round. Sclerae anicteric. Mucous membranes of the mouth are moist. Neck supple. No JVD or thyromegaly LUNGS: Respirations even and unlabored. Lungs essentially clear to auscultation bilaterally. HEART: Regular rate and rhythm. S1 and S2 heard. Systolic murmur noted ABDOMEN: Soft. Nondistended. Nontender. EXTREMITIES: Normal range of motion. No clubbing or cyanosis. Peripheral pulses intact. 2+ bilateral lower extremity edema NEUROLOGIC: Awake and alert. Oriented x 3. ASSESSMENT: Shortness of breath Acute on chronic heart failure with preserved ejection fraction, 55-60%, proBNP 22,900; exacerbated by valvular disease and inadequate diuretic regimen Bilateral pleural effusions Abnormal troponins, flat, not suggestive of acute coronary syndrome Nonobstructive coronary artery disease Aortic stenosis, status post AVR in 2007 and subsequent TAVR in 2016, now with severe aortic stenosis and severe aortic regurgitation Hypertension Hyperlipidemia COPD PLAN: Decrease Lasix to every 12 hours Daily weights, accurate I&O, and monitoring of kidney function Recommend Bumex 1 mg twice a day at discharge Continue additional cardiac medications Patient is not interested in pursuing workup for valvular surgery at this facility. He would like to follow-up with his physician, Dr. Reyes. Dr. Crespo to speak with Dr. Reyes regarding his case. Will await recommendations. Further recommendations pending patient's course Nurse practitioner note has been reviewed by physician. Signing provider agrees with the documented findings, assessment, and plan of care. Objective - Vital Signs Vital signs: Vital Signs Temp 97.6 F 12/19/22 07:00 Pulse 68 12/19/22 09:17 Resp 17 12/19/22 07:00 BP 121/49 12/19/22 07:00 Pulse Ox 96 12/19/22 07:00 FiO2 Intake & Output 12/18/22 12/19/22 12/19/22 18:59 06:59 18:59 Intake Total 480 118 Output Total 1025 1575 400 Balance -545 -1575 -282 Weight 95.9 kg Intake: Oral 480 118 Output: Urine 1025 1575 400 Other: Voiding Method Toilet Urinal - Labs CBC & Chem 7: 12/16/22 13:49 12/18/22 06:11
--- NOTE | 2022-12-19 14:26 | P.GSCN ---
History of Present Illness Consult date: 12/19/22 Reason for Consult: TAVR workup Requesting physician: Benjie Jacques History of present illness: This is an 82-year-old gentleman who follows outpatient with Dr. Jacques for primary care and Dr. Reyes for cardiology. He has a previous medical history of aortic stenosis with surgical aortic valve replacement in 2005 at the [facility] followed by transcatheter aortic valve stenosis in 2014, also at the [facility], chronic congestive heart failure with preserved ejection fraction, nonobstructive coronary artery disease, hypertension, hyperlipidemia, and COPD. The patient reports he has been hospitalized multiple times since April for shortness of breath and congestive heart failure. 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 He presented to [facility] emergency room again 3 days ago with acute heart failure exacerbation including symptoms of significant shortness of breath as well as chest pain and lower extremity edema. EKG revealed sinus rhythm without evidence of ischemia. Chest x-ray demonstrated pulmonary vascular congestion as well as bilateral pleural effusions. BNP was elevated at 22,900. He was admitted for evaluation and treatment with initiation of IV Lasix. Transthoracic echocardiogram was completed demonstrating mildly reduced left ventricular systolic function with EF 5-50%, severe prosthetic aortic stenosis with peak/mean gradient 72/44 mmHg, peak velocity 4.25 m/s, and mild mitral regurgitation. Due to these findings consultation was placed to Dr. Shaffer from cardiothoracic surgery for repeat TAVR recommendations. Review of Systems Review of systems was completed and was negative except as noted. - Cardiovascular Reports as per HPI, Reports chest pain, Reports decreased exercise tolerance, Reports dyspnea on exertion, Reports leg edema, Reports shortness of breath Past Medical History Past Medical History: Asthma, Cancer, Heart Failure, Hypertension Additional Past Medical History / Comment(s): pre diabetic, mouth cancer, aortic stenosis, polio as a child History of Any Multi-Drug Resistant Organisms: None Reported Past Surgical History: Cardiac Valve Replacement, Heart Catheterization Additional Past Surgical History / Comment(s): Aortic valve replaced - to cor valve inside other valve, colonoscopy- polyp removal. dental sx Past Anesthesia/Blood Transfusion Reactions: No Reported Reaction Past Psychological History: No Psychological Hx Reported Smoking Status: Former smoker Past Alcohol Use History: None Reported Past Drug Use History: None Reported - Past Family History Mother Family Medical History: Diabetes Mellitus Father Family Medical History: Myocardial Infarction ([place]) Diabetes Family Medical History: Diabetes Mellitus Medications and Allergies Home Medications Medication Instructions Recorded Confirmed Type Aspirin EC [Ecotrin Low Dose] 81 mg PO DAILY 04/30/22 12/16/22 History Dulaglutide [Trulicity] 1.5 mg SQ Q7D 04/30/22 12/16/22 History Furosemide [Lasix] 40 mg PO DAILY 04/30/22 12/16/22 History Potassium Chloride [Klor-Con 8] 8 meq PO BID 04/30/22 12/16/22 History Tamsulosin HCl [Flomax] 0.4 mg PO HS 04/30/22 12/16/22 History Omeprazole 40 mg PO BID 08/23/22 12/16/22 History Clopidogrel [Plavix] 75 mg PO DAILY tab 09/02/22 12/16/22 Rx Ipratropium-Albuterol Nebulize 3 ml INHALATION RT-QID 30 Days 09/02/22 12/16/22 Rx [Duoneb 0.5 mg-3 mg/3 ml Soln] #120 each Calcium Carbonate/Vitamin D3 1 tab PO DAILY 11/21/22 12/16/22 History [Calcium 500-Vit D3 5 Mcg (200 Iu)] Empagliflozin [Jardiance] 10 mg PO HS 11/21/22 12/16/22 History Magnesium Oxide [Magnesium] 500 mg PO DAILY 11/21/22 12/16/22 History Multivitamins, Thera [Multivitamin 1 tab PO DAILY 11/21/22 12/16/22 History (formulary)] metOLazone 1.25 mg PO HS 11/21/22 12/16/22 History Budesonide [Pulmicort] 0.5 mg INHALATION RT-BID 30 Days 11/26/22 12/16/22 Rx #60 ml amLODIPine [Norvasc] 5 mg PO DAILY 90 Days #90 tab 11/26/22 12/16/22 Rx carvediloL [Coreg] 3.125 mg PO BID-W/MEALS 90 Days 11/26/22 12/16/22 Rx #180 tab lisinopriL [Zestril] 10 mg PO BID 90 Days #180 tab 11/26/22 12/16/22 Rx Albuterol Sulfate [Albuterol 2 puff PO RT-Q4H PRN 12/16/22 12/16/22 History Sulfate Hfa] Fluticasone/Umeclidin/Vilanter 2 puff INHALATION RT-DAILY 12/16/22 12/16/22 History [Trelegy Ellipta 200-62.5-25] Zolpidem Tartrate [Ambien] 5 mg PO HS 12/16/22 12/16/22 History Allergies Allergy/AdvReac Type Severity Reaction Status Date / Time No Known Allergies Allergy Verified 12/16/22 15:58 Surgical - Exam Vital Signs Temp Pulse Resp BP Pulse Ox 97.3 F L 69 16 146/50 94 L 12/16/22 13:18 12/16/22 13:18 12/16/22 13:18 12/16/22 13:18 12/16/22 13:18 CONSTITUTIONAL: Awake and alert, appears comfortable, cooperative, well- developed, well-nourished, no pain, no acute distress EYES: Pupils equal, round, reactive to light, normal ocular movement ENT: Moist mucous membranes without oral lesions present NECK: No masses, no bruits, trachea midline RESPIRATORY: Lungs sounds diminished bilaterally. Respirations even, nonlabored. Currently on 2 L nasal cannula with oxygen saturation 96%. Strong cough CARDIOVASCULAR: S1, S2 present. Regular rate and rhythm, sinus rhythm on telemetry. Palpable peripheral pulses bilaterally. Bilateral lower extremity edema present. No calf pain or tenderness noted GASTROINTESTINAL: Abdomen soft, nontender, nondistended without masses or organomegaly noted. There is no rebound or guarding present. Active bowel sounds present 4 quadrants. GENITOURINARY: Deferred INTEGUMENTARY: Skin is warm and dry with evidence of good perfusion. NEUROLOGIC: Cranial nerves II through XII intact, normal coordination, no obvious motor or sensory deficits, speech is normal MUSKULOSKELETAL: Able to move all extremities, strength equal bilaterally, normal posture PSYCHIATRIC: Alert and oriented to person place and time, appropriate affect, intact judgment and insight Results - Labs 12/16/22 13:49 12/18/22 06:11 - Imaging Chest x-ray: report reviewed, image reviewed EKG: image reviewed Additional studies: Echo results reviewed Assessment and Plan Assessment: Acute on chronic heart failure, EF on current TTE 45-50% Shortness of breath secondary to above Severe aortic stenosis of bioprosthetic valve, peak/mean gradient 72/44 mmHg, peak velocity 4.25 m/s History of aortic stenosis with surgical aortic valve replacement in 2005 followed by transcatheter aortic valve stenosis in 2015 History of chronic congestive heart failure with preserved ejection fraction, with multiple admissions in the last 7 months for acute exacerbation Nonobstructive coronary artery disease Hypertension Hyperlipidemia COPD Plan: The patient was seen and examined sitting up in a recliner in the observation unit in no significant acute distress. Does appear a bit short of breath with talking. Currently on 2 L nasal cannula and does state he feels better than when he was admitted. We did discuss repeat transcatheter aortic valve replacement. The patient indicated that he has had this discussion with Dr. Reyes over the past year and knows he does need another TAVR, however he does not wish to have TAVR at this institution. He would prefer to follow with Dr. Reyes at [facility] for repeat heart cath and repeat TAVR. Dr. Shaffer does follow and perform TAVR at [facility], this information was discussed with the patient. From our standpoint patient may follow with Dr. Reyes per his wishes. Please call us with any further questions. Thank you Dr. Jacquse for this consult. I have personally seen and examined the patient, performed the documentation and the assessment and plan as written. Number of minutes spent on the visit: 30. GERALDINE Kerr
[2022-12-19 16:37] LABS: BUN/Creat Ratio 30.07 Ratio (12.00-20.00); Blood Urea Nitrogen 42.1 mg/dL (9.0-27.0); Calcium 9.5 mg/dL (8.7-10.3); Carbon Dioxide 25.4 mmol/L (21.6-31.8); Chloride 98 mmol/L (96-109); Glucose 148 mg/dL (70-110); Potassium 4.4 mmol/L (3.5-5.5); Sodium 138 mmol/L (135-145)
--- NOTE | 2022-12-19 19:54 | P.PN ---
Subjective Progress Note Date: 12/19/22 I am seeing this patient in consultation today 12/17/2022 on the general medical floor after he presented to the emergency room yesterday afternoon with concerns of shortness of breath and increased lower extremity swelling over the last 1 week. Patient is a 82-year-old white male with past medical history significant for diastolic congestive heart failure, prior aortic valve replacement and TAVR, hypertension, hyperlipidemia, COPD, polio as a child, among other things. Patient reports that he had similar symptoms back in April of this year. He did have a heart catheterization back in April, which showed mild to moderate disease of the left main, LAD, and left circumflex. No PCI was performed. Echocardiogram done on that admission showed a preserved left ventricular ejection fraction of 55-60%, mild concentric left ventricular hypertrophy. Grade 2 diastolic dysfunction. Patient states that over the last week, he's been having progressively worsening shortness of breath. He states that it is worse when trying to ambulate, even a few feet to the bathroom. He admits orthopnea. He has had increased lower extremity swelling. Denies any chest pain, Heart palpitations, syncope. He denies any infectious symptoms such as fever, cough, sputum production. Patient is currently sitting up in bed, on 2 L/m nasal cannula, in no acute distress. Chest x-ray on arrival showed cardio megaly, pulmonary congestion, and bilateral pleural effusions. NT proBNP was significantly elevated at 22,900. Patient is started and started on Lasix 40 mg 3 times a day. CBC on arrival was unremarkable. BMP shows sodium 136, potassium 4.8, chloride 108, serum bicarb 18, BUN 32, creatinine 0.9, glucose 94. LFTs not elevated. Troponins mildly elevated but flat, 0.0363 measurements. EKG on admission shows sinus rhythm with a rate of 69 beats per minutes without any obvious acute ischemic changes. There is left axis deviation. Patient is being monitored on the observation unit. 12/18/2022, the patient is being seen for a follow-up. No chest pain. Shortness of breath is gradually improving. The patient is producing excellent urine output in the order of 2.6 L over the past 24 hours. The patient remains on IV Lasix. Meanwhile, the renal function is being monitored. He is at 31 with a creatinine of 1.2. Sodium level is at 140 with a potassium level of 4.6. He remains on oxygen the patient is currently on 2 L O2 nasal cannula with pulse ox of 96%. No fever. No chest pain no other specific complaints other issues for now. On today's evaluation of 12/19/2021, the patient is still being diuresed. The patient has severe aortic stenosis and CHF with a ejection fraction of 45-50%. The patient has undergone previous aortic valve present back in 2005 and transcatheter aortic valve placement 2014. The patient has been diuresing well and the patient is negative fluid balance. The patient developed a acute kidney injury and the creatinine currently is up to 1.4 related to diuretics and cardiorenal factors. The patient will be seen by the cardiothoracic surgery again regarding his aortic valve. Meanwhile, the patient is still on Lasix 40 mg IV every 12 hours. He denies having any chest pain. Reports improvement in lower extremity edema. Objective - Vital Signs Vital signs: Vital Signs Temp 97.6 F 12/19/22 15:00 Pulse 72 12/19/22 18:44 Resp 17 12/19/22 15:00 BP 108/46 12/19/22 15:00 Pulse Ox 95 12/19/22 15:00 FiO2 Intake & Output 12/19/22 12/19/22 12/20/22 06:59 18:59 06:59 Intake Total 472 Output Total 1575 1300 Balance -1575 -828 Weight 95.9 kg Intake: Oral 472 Output: Urine 1575 1300 Other: Voiding Method Toilet Urinal - Exam GENERAL EXAM: Alert, 82-year-old white male , comfortable in no apparent distress. HEAD: Normocephalic and atraumatic EYES: Normal reaction of pupils, equal size. NOSE: Clear with pink turbinates. THROAT: No erythema or exudates. NECK: No masses, no JVD. CHEST: No chest wall deformity. LUNGS: Equal air entry with bibasilar inspiratory crackles. No wheezes, rhonchi, focal dullness. On 2 L/m nasal cannula. No conversational dyspnea or accessory muscle use.. CVS: S1 and S2 normal with grade 3 systolic ejection murmur heard best at the second right intercostal space, regular rhythm. No other extra heart sounds ABDOMEN: No hepatosplenomegaly, active bowel sounds, no guarding or rigidity. SPINE: No scoliosis or deformity SKIN: No rashes CENTRAL NERVOUS SYSTEM: No focal deficits, tone is normal in all 4 extremities. EXTREMITIES: There is 3-4+ pitting bilateral lower extremity edema. No clubbing, or cyanosis. Peripheral pulses are intact. - Labs CBC & Chem 7: 12/16/22 13:49 12/19/22 10:06 Labs: Abnormal Lab Results - Last 24 Hours (Table) 12/19/22 Range/Units 10:06 Anion Gap 14.60 H (4.00-12.00) mmol/L BUN 42.1 H (9.0-27.0) mg/dL Est GFR (CKD-EPI) 50 L (>=60) BUN/Creatinine Ratio 30.07 H (12.00-20.00) Ratio Glucose 148 H (70-110) mg/dL Assessment and Plan Assessment: Acute hypoxemic respiratory failure, currently on 2 L/m nasal cannula, secondary to an exacerbation of diastolic congestive heart failure. Chest x-ray shows cardiomegaly, pulmonary vascular congestion, and bilateral small pleural effusions. NT proBNP was significantly elevated at 22,900. Non-anion gap metabolic acidosis, improved and the serum bicarbs up to normal Elevated troponins, nonspecific Aortic stenosis, with previous Aortic valve replacement and subsequent TAVR Benign essential hypertension Hyperlipidemia Chronic obstructive pulmonary disease, not in exacerbation. Normally maintained on Trelegy inhaler, [id number] DuoNeb's, and when necessary Ventolin HFA Former tobacco smoker Plan: Continue diuretics for another 24 hours Monitor renal function and the patient is a rise in the creatinine Diuretic dose has been decreased by cardiology Cardiothoracic surgery evaluation regarding aortic valve stenosis Lower extremity edema is improving Oxygen patient is stable and the patient is currently on 2 L of oxygen nasal cannula. He is known to have COPD which is currently inactive and stable. We'll continue to follow.
[2022-12-19] MEDS: ZOLPIDEM 5 MG TAB PO PRN (20:42)
[2022-12-19] MEDS: DAPAGLIFLOZIN PROPANEDIOL 5 MG TABLET PO SCH (20:43)
[2022-12-19] MEDS: TAMSULOSIN 0.4 MG CAP.ER.24H PO SCH (20:43)
[2022-12-20] MEDS: methylPREDNISolone SOD SUCCI 40 MG/ML 1 ML VIAL IV SCH ×4 (00:22→23:07)
[2022-12-20] MEDS: carvediloL 3.125 MG TAB PO SCH ×2 (05:32→16:48)
[2022-12-20] MEDS: PANTOPRAZOLE 40 MG TABLET PO SCH ×2 (08:29→20:25)
[2022-12-20] MEDS: ASPIRIN 81 MG PO SCH (08:29)
[2022-12-20] MEDS: CLOPIDOGREL 75 MG TAB PO SCH (08:30)
[2022-12-20] MEDS: FUROSEMIDE 10 MG/ML 4 ML VIAL IV SCH ×2 (08:30→20:26)
[2022-12-20] MEDS: MULTIVITAMINS, THERA 1 EACH TAB PO SCH (08:30)
[2022-12-20] MEDS: MAGNESIUM OXIDE 400 MG TAB PO SCH (08:30)
[2022-12-20] MEDS: amLODIPine 5 MG TAB PO SCH (08:31)
[2022-12-20] MEDS: metOLazone 2.5 MG TAB PO SCH (08:31)
[2022-12-20] MEDS: POTASSIUM CHLORIDE ER 10 MEQ TAB.ER.PRT PO SCH ×2 (08:31→20:25)
[2022-12-20] MEDS: lisinopriL 10 MG TAB PO SCH ×2 (08:31→20:25)
[2022-12-20] MEDS: BUDESONIDE 0.5 MG/2 ML NEBU INHALATION SCH ×2 (08:45→20:57)
[2022-12-20] MEDS: IPRATROPIUM-ALBUTEROL 3 ML NEB INHALATION SCH ×4 (08:45→20:56)
[2022-12-20 09:08] LABS: BUN/Creat Ratio 34.93 Ratio (12.00-20.00); Blood Urea Nitrogen 52.4 mg/dL (9.0-27.0); Glucose 136 mg/dL (70-110)
[2022-12-20 09:09] LABS: Calcium 9.1 mg/dL (8.7-10.3); Carbon Dioxide 31.8 mmol/L (21.6-31.8); Chloride 97 mmol/L (96-109); Potassium 4.3 mmol/L (3.5-5.5); Sodium 136 mmol/L (135-145)
--- NOTE | 2022-12-20 10:37 | XR ---
EXAMINATION TYPE: XR chest 2V DATE OF EXAM: 12/20/2022 COMPARISON: 12/16/2022. HISTORY: CHF. TECHNIQUE: Frontal and lateral views of the chest are obtained. FINDINGS: The cardiac silhouette is mildly enlarged and there is mild diffuse interstitial changes a nd small bilateral pleural effusions compatible with mild edema. There are midline sternotomy wires. IMPRESSION: Cardiomegaly with mild edema and small pleural effusions is not significant change.
[2022-12-20] MEDS ORDERED: MAGNESIUM HYDROXIDE 2,400 MG/30 ML CUP PO PRN (10:42)
--- NOTE | 2022-12-20 11:19 | P.PN ---
Subjective HISTORY OF PRESENT ILLNESS: This is a 82-year-old male with a past medical history significant for hypertension, hyperlipidemia, nonobstructive coronary artery disease, and aortic stenosis with previous AVR in 2008 and subsequent TAVR in 2016. Patient follows in the office with Dr. Winter. Patient also follows with Dr. Reyes. We have been asked to see the patient in consultation for congestive heart failure. Patient examined at the bedside. Patient presented to the hospital with a chief complaint of shortness of breath. Patient states he has been progressively getting short of breath over the past few days. He was recently discharged from the hospital on 40 mg of Lasix daily which the patient does not think was enough. He also reports increased lower extremity edema worse than his baseline. He currently denies any chest pain or pressure. He states that he saw Dr. Reyes recently and he is wanting to schedule a cardiac catheterization and is considering a possible third valve replacement surgery. * EKG reveals sinus mechanism with nonspecific ST-T wave changes. No signs of acute ischemia * Chest xray cardiomegaly, pulmonary vascular congestion and bilateral pleural effusions. * Current home cardiac medications include Jardiance 10 mg at night, metolazone 1.25 mg at night, lisinopril 10 mg twice a day, carvedilol 3.125 mg twice a day, amlodipine 5 mg daily, Lasix 40 mg daily, Plavix 75 mg daily, and aspirin 81 mg daily * Most recent echocardiogram obtained in April 2022 revealed ejection fraction 55-60%, technically difficult study, trace to mild tricuspid regurgitation, and bovine prosthetic aortic valve with minimal perivalvular AR and mild to moderate central AR * Cardiac catheterization history: April 2022 revealing 35% left main, 20% mid LAD, right dominant system 12/18/2022 Patient examined this morning at the bedside. Patient denies chest pain or pressure. He reports improvement in his shortness of breath. He remains on IV Lasix. Urine output over the last 24 hours is 2675 mL. Kidney function from this morning is pending. 12/19/2022 Patient examined this morning at the bedside. Patient currently denies chest pain or pressure. He continues to report shortness of breath although improved. He also reports improved lower extremity edema. He remains on Lasix 40 mg every 8 hours. Echocardiogram completed revealing ejection fraction 45-50% with severe and severe AR. 12/20/2022 Patient examined this morning at the bedside. Patient denies chest pain or pressure. He reports his breathing feels about the same as yesterday. He remains on IV Lasix. Creatinine today 1.5. PHYSICAL EXAM: VITAL SIGNS: Reviewed. GENERAL: Well-developed in no acute distress. HEENT: Head is normocephalic. Pupils are equal, round. Sclerae anicteric. Mucous membranes of the mouth are moist. Neck supple. No JVD or thyromegaly LUNGS: Respirations even and unlabored. Lungs essentially clear to auscultation bilaterally. HEART: Regular rate and rhythm. S1 and S2 heard. Systolic murmur noted ABDOMEN: Soft. Nondistended. Nontender. EXTREMITIES: Normal range of motion. No clubbing or cyanosis. Peripheral pulses intact. 2+ bilateral lower extremity edema NEUROLOGIC: Awake and alert. Oriented x 3. ASSESSMENT: Shortness of breath Acute on chronic heart failure with preserved ejection fraction, 55-60%, proBNP 22,900; exacerbated by valvular disease and inadequate diuretic regimen Bilateral pleural effusions Abnormal troponins, flat, not suggestive of acute coronary syndrome Nonobstructive coronary artery disease Aortic stenosis, status post AVR in 2007 and subsequent TAVR in 2016, now with severe aortic stenosis and severe aortic regurgitation Hypertension Hyperlipidemia COPD PLAN: Continue IV Lasix 40 mg every 12 hours Daily weights, accurate I&O, and monitoring of kidney function Recommend Bumex 1 mg twice a day at discharge Continue additional cardiac medications Patient states he is now considering valve replacement to be performed at this facility instead of downtown with his primary physician. CT surgery updated. Await further recommendations. Further recommendations pending patient's course Nurse practitioner note has been reviewed by physician. Signing provider agrees with the documented findings, assessment, and plan of care. Objective - Vital Signs Vital signs: Vital Signs Temp 98.1 F 12/20/22 07:25 Pulse 72 12/20/22 09:01 Resp 15 12/20/22 08:00 BP 107/52 12/20/22 07:25 Pulse Ox 94 L 12/20/22 07:25 FiO2 Intake & Output 12/19/22 12/20/22 12/20/22 18:59 06:59 18:59 Intake Total 472 118 Output Total 1300 Balance -828 118 Weight 95.8 kg Intake: Oral 472 118 Output: Urine 1300 Other: Voiding Method Toilet Toilet Urinal Urinal # Voids 1 - Labs CBC & Chem 7: 12/16/22 13:49 12/20/22 05:21 Labs: Abnormal Lab Results - Last 24 Hours (Table) 12/19/22 12/20/22 Range/Units 10:06 05:21 Anion Gap 14.60 H (4.00-12.00) mmol/L BUN 42.1 H 52.4 H (9.0-27.0) mg/dL Est GFR (CKD-EPI) 50 L 46 L (>=60) BUN/Creatinine Ratio 30.07 H 34.93 H (12.00-20.00) Ratio Glucose 148 H 136 H (70-110) mg/dL
--- NOTE | 2022-12-20 15:51 | P.PN ---
Subjective Progress Note Date: 12/20/22 I am seeing this patient in consultation today 12/17/2022 on the general medical floor after he presented to the emergency room yesterday afternoon with concerns of shortness of breath and increased lower extremity swelling over the last 1 week. Patient is a 82-year-old white male with past medical history significant for diastolic congestive heart failure, prior aortic valve replacement and TAVR, hypertension, hyperlipidemia, COPD, polio as a child, among other things. Patient reports that he had similar symptoms back in April of this year. He did have a heart catheterization back in April, which showed mild to moderate disease of the left main, LAD, and left circumflex. No PCI was performed. Echocardiogram done on that admission showed a preserved left ventricular ejection fraction of 55-60%, mild concentric left ventricular hypertrophy. Grade 2 diastolic dysfunction. Patient states that over the last week, he's been having progressively worsening shortness of breath. He states that it is worse when trying to ambulate, even a few feet to the bathroom. He admits orthopnea. He has had increased lower extremity swelling. Denies any chest pain, Heart palpitations, syncope. He denies any infectious symptoms such as fever, cough, sputum production. Patient is currently sitting up in bed, on 2 L/m nasal cannula, in no acute distress. Chest x-ray on arrival showed cardio megaly, pulmonary congestion, and bilateral pleural effusions. NT proBNP was significantly elevated at 22,900. Patient is started and started on Lasix 40 mg 3 times a day. CBC on arrival was unremarkable. BMP shows sodium 136, potassium 4.8, chloride 108, serum bicarb 18, BUN 32, creatinine 0.9, glucose 94. LFTs not elevated. Troponins mildly elevated but flat, 0.0363 measurements. EKG on admission shows sinus rhythm with a rate of 69 beats per minutes without any obvious acute ischemic changes. There is left axis deviation. Patient is being monitored on the observation unit. 12/18/2022, the patient is being seen for a follow-up. No chest pain. Shortness of breath is gradually improving. The patient is producing excellent urine output in the order of 2.6 L over the past 24 hours. The patient remains on IV Lasix. Meanwhile, the renal function is being monitored. He is at 31 with a creatinine of 1.2. Sodium level is at 140 with a potassium level of 4.6. He remains on oxygen the patient is currently on 2 L O2 nasal cannula with pulse ox of 96%. No fever. No chest pain no other specific complaints other issues for now. On today's evaluation of 12/19/2021, the patient is still being diuresed. The patient has severe aortic stenosis and CHF with a ejection fraction of 45-50%. The patient has undergone previous aortic valve present back in 2005 and transcatheter aortic valve placement 2014. The patient has been diuresing well and the patient is negative fluid balance. The patient developed a acute kidney injury and the creatinine currently is up to 1.4 related to diuretics and cardiorenal factors. The patient will be seen by the cardiothoracic surgery again regarding his aortic valve. Meanwhile, the patient is still on Lasix 40 mg IV every 12 hours. He denies having any chest pain. Reports improvement in lower extremity edema. On today's evaluation of 12/20/2022, the patient diuresing well on IV Lasix. No major respiratory distress. The patient is in negative fluid balance. The patient is sitting 40 mg IV Lasix every 12 hours. There is still edema lower oximetry is bilaterally. The patient is also Zaroxolyn 1.25 mg by mouth on a daily basis. He remains on Coreg 3.125 mg by mouth twice a day. He remains on amlodipine for blood pressure control. He is receiving 5 mg by mouth daily. Blood work from today shows again a 52 a creatinine of 1.5 and a sodium level is at 136. Pro-calcitonin has been negative and the patient remains on room air oxygen. Objective - Vital Signs Vital signs: Vital Signs Temp 98.1 F 12/20/22 07:25 Pulse 68 12/20/22 13:50 Resp 15 12/20/22 13:50 BP 107/52 12/20/22 07:25 Pulse Ox 94 L 12/20/22 07:25 FiO2 Intake & Output 12/19/22 12/20/22 12/20/22 18:59 06:59 18:59 Intake Total 472 118 Output Total 1300 900 Balance -828 -782 Weight 95.8 kg Intake: Oral 472 118 Output: Urine 1300 900 Other: Voiding Method Toilet Toilet Urinal Urinal # Voids 1 - Exam GENERAL EXAM: Alert, 82-year-old white male , comfortable in no apparent distress. The patient is currently on room air oxygen HEAD: Normocephalic and atraumatic EYES: Normal reaction of pupils, equal size. NOSE: Clear with pink turbinates. THROAT: No erythema or exudates. NECK: No masses, no JVD. CHEST: No chest wall deformity. LUNGS: Equal air entry with bibasilar inspiratory crackles. No wheezes, rhonchi, focal dullness. No conversational dyspnea or accessory muscle use.. CVS: S1 and S2 normal with grade 3 systolic ejection murmur heard best at the second right intercostal space, regular rhythm. No other extra heart sounds ABDOMEN: No hepatosplenomegaly, active bowel sounds, no guarding or rigidity. SPINE: No scoliosis or deformity SKIN: No rashes CENTRAL NERVOUS SYSTEM: No focal deficits, tone is normal in all 4 extremities. EXTREMITIES: There is 3-4+ pitting bilateral lower extremity edema. No clubbing, or cyanosis. Peripheral pulses are intact. - Labs CBC & Chem 7: 12/16/22 13:49 12/20/22 05:21 Labs: Abnormal Lab Results - Last 24 Hours (Table) 12/19/22 12/20/22 Range/Units 10:06 05:21 Anion Gap 14.60 H (4.00-12.00) mmol/L BUN 42.1 H 52.4 H (9.0-27.0) mg/dL Est GFR (CKD-EPI) 50 L 46 L (>=60) BUN/Creatinine Ratio 30.07 H 34.93 H (12.00-20.00) Ratio Glucose 148 H 136 H (70-110) mg/dL Assessment and Plan Assessment: Acute hypoxemic respiratory failure, improving and the patient is currently on room air oxygen and this is related to exacerbation of diastolic congestive heart failure. Chest x-ray shows cardiomegaly, pulmonary vascular congestion, and bilateral small pleural effusions. NT proBNP was significantly elevated at 22,900. Aortic valve stenosis and patient is post AVR in 2007 and post opacity there is aortic valve replacement 2016 and the patient has severe aortic stenosis and severe regurgitation, will need another surgical evaluation outpatient basis Non-anion gap metabolic acidosis, improved and the serum bicarbs up to normal Elevated troponins, nonspecific Aortic stenosis, with previous Aortic valve replacement and subsequent TAVR Benign essential hypertension Hyperlipidemia Chronic obstructive pulmonary disease, not in exacerbation. Normally maintained on Trelegy inhaler, [id number] DuoNeb's, and when necessary Ventolin HFA Former tobacco smoker Plan: Continue diuretics for another 24 hours, currently on Lasix 40 mg IV every 12 hours Negative fluid balance Monitor renal function and the patient is a rise in the creatinine Diuretic dose has been decreased by cardiology, currently on 40 mg twice a day IV in combination with Zaroxolyn Cardiothoracic surgery evaluation regarding aortic valve stenosis Lower extremity edema is improving Oxygen patient is stable and the patient is currently on room air oxygen He is known to have COPD which is currently inactive and stable. We'll continue to follow.
[2022-12-20] MEDS: DAPAGLIFLOZIN PROPANEDIOL 5 MG TABLET PO SCH (20:25)
[2022-12-20] MEDS: TAMSULOSIN 0.4 MG CAP.ER.24H PO SCH (20:25)
[2022-12-20] MEDS: ZOLPIDEM 5 MG TAB PO PRN (20:34)
--- NOTE | 2022-12-20 21:55 | PN ---
PROGRESS NOTE DATE OF SERVICE: 12/19/2022 SUBJECTIVE: An 82-year-old white male, remains on DuoNeb, Norvasc, Coreg, Plavix. He is on IV steroids for COPD, IV Lasix for CHF. He feels better. He is going to consult with Dr. Shaffer for possible TAVR here. His blood pressures are good. He is doing better. OBJECTIVE: CARDIOVASCULAR: S1, S2. LUNGS: Decreased breath sounds x3. HEMATOLOGY: Negative Homans. PSYCH: Fair mood and affect. PLAN: Continue with diuresis, TAVR evaluation and cardiology evaluation. Continue diuresis and steroids for COPD. Prognosis guarded. Continues to improve. Please see further orders. MMODL / IJN: [id number] /
[2022-12-21] MEDS: carvediloL 3.125 MG TAB PO SCH ×2 (06:06→17:12)
[2022-12-21] MEDS: IPRATROPIUM-ALBUTEROL 3 ML NEB INHALATION SCH ×4 (07:50→19:43)
[2022-12-21] MEDS: BUDESONIDE 0.5 MG/2 ML NEBU INHALATION SCH ×2 (07:50→19:43)
[2022-12-21] MEDS: methylPREDNISolone SOD SUCCI 40 MG/ML 1 ML VIAL IV SCH ×3 (09:02→20:02)
[2022-12-21] MEDS: POTASSIUM CHLORIDE ER 10 MEQ TAB.ER.PRT PO SCH ×2 (09:03→20:01)
[2022-12-21] MEDS: MAGNESIUM OXIDE 400 MG TAB PO SCH (09:03)
[2022-12-21] MEDS: FUROSEMIDE 10 MG/ML 4 ML VIAL IV SCH ×2 (09:03→20:02)
[2022-12-21] MEDS: ASPIRIN 81 MG PO SCH (09:03)
[2022-12-21] MEDS: PANTOPRAZOLE 40 MG TABLET PO SCH ×2 (09:03→20:02)
[2022-12-21] MEDS: lisinopriL 10 MG TAB PO SCH ×2 (09:03→20:01)
[2022-12-21] MEDS: CLOPIDOGREL 75 MG TAB PO SCH (09:03)
[2022-12-21] MEDS: metOLazone 2.5 MG TAB PO SCH (09:03)
[2022-12-21] MEDS: amLODIPine 5 MG TAB PO SCH (09:03)
[2022-12-21] MEDS: MULTIVITAMINS, THERA 1 EACH TAB PO SCH (09:03)
[2022-12-21 09:34] LABS: BUN/Creat Ratio 49.15 Ratio (12.00-20.00); Blood Urea Nitrogen 63.9 mg/dL (9.0-27.0); Calcium 9.3 mg/dL (8.7-10.3); Carbon Dioxide 28.2 mmol/L (21.6-31.8); Chloride 94 mmol/L (96-109); Glucose 139 mg/dL (70-110); Potassium 4.3 mmol/L (3.5-5.5); Sodium 135 mmol/L (135-145)
--- NOTE | 2022-12-21 10:31 | P.PN ---
Subjective Progress Note Date: 12/21/22 Principal diagnosis: Shortness of breath related to heart failure likely acute on chronic diastolic heart failure Bilateral pleural effusion due to congestive heart failure Elevated troponin Aortic stenosis status post prior aortic replacement/water/TAVR Hypertension hypertensive cardiovascular disease Dyslipidemia COPD on inhaled bronchodilator not in exacerbation History of smoking and nicotine use 12/21/2022, patient seen eval examined during the rounds, patient sitting up right breathing comfortably, denies any chest pain, remains on bronchodilators and IV steroids for COPD, cough congestion shortness of breath improved, patient has been on gentle diuresis director dose has been readjusted cardiovascular services and pulmonary service has been following, patient is still very weak the last PT OT to evaluate the patient Review of the data revealed that patient is a 82-year-old white male with past medical history significant for diastolic congestive heart failure, prior aortic valve replacement and TAVR, hypertension, hyperlipidemia, COPD, polio as a child, among other things. Patient reports that he had similar symptoms back in April of this year. He did have a heart catheterization back in April, which showed mild to moderate disease of the left main, LAD, and left circumflex. No PCI was performed. Echocardiogram done on that admission showed a preserved left ventricular ejection fraction of 55-60%, mild concentric left ventricular hypertrophy. Grade 2 diastolic dysfunction. Patient states that over the last week, he's been having progressively worsening shortness of breath. He states that it is worse when trying to ambulate, even a few feet to the bathroom. He admits orthopnea. He has had increased lower extremity swelling. Denies any chest pain, Heart palpitations, syncope. He denies any infectious symptoms such as fever, cough, sputum production. Patient is currently sitting up in bed, on 2 L/m nasal cannula, in no acute distress. Chest x-ray on arrival showed cardiomegaly, pulmonary congestion, and bilateral pleural effusions. NT proBNP was significantly elevated at 22,900. Patient is started and started on Lasix 40 mg 3 times a day. CBC on arrival was unremarkable. BMP shows sodium 136, potassium 4.8, chloride 108, serum bicarb 18, BUN 32, creatinine 0.9, glucose 94. LFTs not elevated. Troponins mildly elevated but flat, 0.0363 measurements. EKG on admission shows sinus rhythm with a rate of 69 beats per minutes without any obvious acute ischemic changes. There is left axis deviation. Objective - Vital Signs Vital signs: Vital Signs Temp 97.8 F 12/21/22 07:00 Pulse 76 12/21/22 08:05 Resp 17 12/21/22 07:00 BP 128/70 12/21/22 07:00 Pulse Ox 97 12/21/22 07:50 FiO2 Intake & Output 12/20/22 12/21/22 12/21/22 18:59 06:59 18:59 Intake Total 914 118 Output Total 1300 1150 Balance -386 -1150 118 Weight 95.7 kg Intake: Oral 914 118 Output: Urine 1300 1150 Other: Voiding Method Toilet Toilet Urinal Urinal - Exam GENERAL EXAM: Alert, 82-year-old white male , comfortable in no apparent distress. HEAD: Normocephalic and atraumatic EYES: Normal reaction of pupils, equal size. NOSE: Clear with pink turbinates. THROAT: No erythema or exudates. NECK: No masses, no JVD. CHEST: No chest wall deformity. LUNGS: Equal air entry with bibasilar inspiratory crackles. No wheezes, rhonchi, focal dullness. On 2 L/m nasal cannula. No conversational dyspnea or accessory muscle use.. CVS: S1 and S2 normal with grade 3 systolic ejection murmur heard best at the second right intercostal space, regular rhythm. No other extra heart sounds ABDOMEN: No hepatosplenomegaly, active bowel sounds, no guarding or rigidity. SPINE: No scoliosis or deformity SKIN: No rashes CENTRAL NERVOUS SYSTEM: No focal deficits, tone is normal in all 4 extremities. EXTREMITIES: There is 3-4+ pitting bilateral lower extremity edema. No clubb ing, or cyanosis. Peripheral pulses are intact. - Labs CBC & Chem 7: 12/16/22 13:49 12/21/22 05:28 Labs: Abnormal Lab Results - Last 24 Hours (Table) 12/21/22 Range/Units 05:28 Chloride 94 L (96-109) mmol/L Anion Gap 12.80 H (4.00-12.00) mmol/L BUN 63.9 H (9.0-27.0) mg/dL Est GFR (CKD-EPI) 55 L (>=60) BUN/Creatinine Ratio 49.15 H (12.00-20.00) Ratio Glucose 139 H (70-110) mg/dL Assessment and Plan Assessment: Shortness of breath related to heart failure likely acute on chronic diastolic heart failure Bilateral pleural effusion due to congestive heart failure Elevated troponin Aortic stenosis status post prior aortic replacement/water/TAVR Hypertension hypertensive cardiovascular disease Dyslipidemia COPD on inhaled bronchodilator not in exacerbation History of smoking and nicotine use Plan: Continue gentle diuresis monitor electrolytes closely cardiovascular services following Continue bronchodilators, as needed DuoNeb Optimize therapy for heart failure with Coreg aspirin and Zestril Continue steroids taper next few days Monitor labs closely
--- NOTE | 2022-12-21 15:10 | P.PN ---
Subjective Progress Note Date: 12/21/22 HPI: This is a 82-year-old male with a past medical history significant for hypertension, hyperlipidemia, nonobstructive coronary artery disease, and aortic stenosis with previous AVR in 2008 and subsequent TAVR in 2016. Patient follows in the office with Dr. Winter. Patient also follows with Dr. Reyes. We have been asked to see the patient in consultation for congestive heart failure. Patient examined at the bedside. Patient presented to the hospital with a chief complaint of shortness of breath. Patient states he has been progressively getting short of breath over the past few days. He was recently discharged from the hospital on 40 mg of Lasix daily which the patient does not think was enough. He also reports increased lower extremity edema worse than his baseline. He currently denies any chest pain or pressure. He states that he saw Dr. Reyes recently and he is wanting to schedule a cardiac catheterization and is considering a possible third valve replacement surgery. * EKG reveals sinus mechanism with nonspecific ST-T wave changes. No signs of acute ischemia * Chest xray cardiomegaly, pulmonary vascular congestion and bilateral pleural effusions. * Current home cardiac medications include Jardiance 10 mg at night, metolazone 1.25 mg at night, lisinopril 10 mg twice a day, carvedilol 3.125 mg twice a day, amlodipine 5 mg daily, Lasix 40 mg daily, Plavix 75 mg daily, and aspirin 81 mg daily * Most recent echocardiogram obtained in April 2022 revealed ejection fraction 55-60%, technically difficult study, trace to mild tricuspid regurgitation, and bovine prosthetic aortic valve with minimal perivalvular AR and mild to moderate central AR * Cardiac catheterization history: April 2022 revealing 35% left main, 20% mid LAD, right dominant system 12/18/2022 Patient examined this morning at the bedside. Patient denies chest pain or p ressure. He reports improvement in his shortness of breath. He remains on IV Lasix. Urine output over the last 24 hours is 2675 mL. Kidney function from this morning is pending. 12/19/2022 Patient examined this morning at the bedside. Patient currently denies chest pain or pressure. He continues to report shortness of breath although improved. He also reports improved lower extremity edema. He remains on Lasix 40 mg every 8 hours. Echocardiogram completed revealing ejection fraction 45-50% with severe and severe AR. 12/20/2022 Patient examined this morning at the bedside. Patient denies chest pain or pressure. He reports his breathing feels about the same as yesterday. He rem ains on IV Lasix. Creatinine today 1.5. 12/21/2022 Pt sitting up in bedside chair. Denies any chest pain or pressure. Breathing feels ok when he walks to the bathroom. He believes swelling is about the same. Creat improved to 1.3. PHYSICAL EXAM: VITAL SIGNS: Reviewed. GENERAL: Well-developed in no acute distress. HEENT: Head is normocephalic. Pupils are equal, round. Sclerae anicteric. Mucous membranes of the mouth are moist. Neck supple. No JVD or thyromegaly LUNGS: Respirations even and unlabored. Lungs essentially clear to auscultation bilaterally. HEART: Regular rate and rhythm. S1 and S2 heard. Systolic murmur noted ABDOMEN: Soft. Nondistended. Nontender. EXTREMITIES: Normal range of motion. No clubbing or cyanosis. Peripheral pulses intact. 1+ bilateral lower extremity edema, JONAS hose on NEUROLOGIC: Awake and alert. Oriented x 3. ASSESSMENT: Shortness of breath Acute on chronic heart failure with preserved ejection fraction, 55-60%, proBNP 22,900; exacerbated by valvular disease and inadequate diuretic regimen Bilateral pleural effusions Abnormal troponins, flat, not suggestive of acute coronary syndrome Nonobstructive coronary artery disease Aortic stenosis, status post AVR in 2008 and subsequent TAVR in 2016, now with severe aortic stenosis and severe aortic regurgitation Hypertension Hyperlipidemia COPD PLAN: Encourage increasing activities Continue IV Lasix 40 mg every 12 hours Daily weights, accurate I&O, and monitoring of kidney function Recommend Bumex 1 mg twice a day at discharge Continue current regimen Pt seen by [facility] and patient wishes to have repeat valve surgery at [facility] with Dr. Reyes. However, today he reports he is not sure where he wants it done now. Anticipate possible discharge home tomorrow. Nurse practitioner note has been reviewed by physician. Signing provider agrees with the documented findings, assessment, and plan of care. Objective - Vital Signs Vital signs: Vital Signs Temp 97.8 F 12/21/22 07:00 Pulse 76 12/21/22 08:05 Resp 17 12/21/22 07:00 BP 128/70 12/21/22 07:00 Pulse Ox 97 12/21/22 07:50 FiO2 Intake & Output 12/20/22 12/21/22 12/21/22 18:59 06:59 18:59 Intake Total 914 Output Total 1300 1150 Balance -386 -1150 Weight 95.7 kg Intake: Oral 914 Output: Urine 1300 1150 Other: Voiding Method Toilet Toilet Urinal Urinal - Labs CBC & Chem 7: 12/16/22 13:49 12/21/22 05:28 Labs: Abnormal Lab Results - Last 24 Hours (Table) 12/20/22 Range/Units 05:21 BUN 52.4 H (9.0-27.0) mg/dL Est GFR (CKD-EPI) 46 L (>=60) BUN/Creatinine Ratio 34.93 H (12.00-20.00) Ratio Glucose 136 H (70-110) mg/dL
[2022-12-21] MEDS: DAPAGLIFLOZIN PROPANEDIOL 5 MG TABLET PO SCH (20:01)
[2022-12-21] MEDS: ZOLPIDEM 5 MG TAB PO PRN (20:02)
[2022-12-21] MEDS: TAMSULOSIN 0.4 MG CAP.ER.24H PO SCH (20:02)
[2022-12-22] MEDS: carvediloL 3.125 MG TAB PO SCH ×2 (05:38→17:28)
[2022-12-22] MEDS: IPRATROPIUM-ALBUTEROL 3 ML NEB INHALATION SCH ×4 (07:52→19:48)
[2022-12-22] MEDS: BUDESONIDE 0.5 MG/2 ML NEBU INHALATION SCH ×2 (07:52→19:48)
[2022-12-22] MEDS: methylPREDNISolone SOD SUCCI 40 MG/ML 1 ML VIAL IV SCH ×3 (08:46→20:14)
[2022-12-22] MEDS: POTASSIUM CHLORIDE ER 10 MEQ TAB.ER.PRT PO SCH ×2 (08:46→20:13)
[2022-12-22] MEDS: CLOPIDOGREL 75 MG TAB PO SCH (08:46)
[2022-12-22] MEDS: FUROSEMIDE 10 MG/ML 4 ML VIAL IV SCH ×2 (08:46→20:13)
[2022-12-22] MEDS: metOLazone 2.5 MG TAB PO SCH (08:47)
[2022-12-22] MEDS: ASPIRIN 81 MG PO SCH (08:47)
[2022-12-22] MEDS: PANTOPRAZOLE 40 MG TABLET PO SCH ×2 (08:47→20:13)
[2022-12-22] MEDS: MULTIVITAMINS, THERA 1 EACH TAB PO SCH (08:47)
[2022-12-22] MEDS: MAGNESIUM OXIDE 400 MG TAB PO SCH (08:47)
[2022-12-22] MEDS: amLODIPine 5 MG TAB PO SCH (08:59)
[2022-12-22] MEDS: lisinopriL 10 MG TAB PO SCH ×2 (08:59→20:13)
[2022-12-22 09:40] LABS: BUN/Creat Ratio 52.77 Ratio (12.00-20.00); Blood Urea Nitrogen 68.6 mg/dL (9.0-27.0); Calcium 9.3 mg/dL (8.7-10.3); Carbon Dioxide 28.2 mmol/L (21.6-31.8); Chloride 92 mmol/L (96-109); Glucose 140 mg/dL (70-110); Potassium 4.1 mmol/L (3.5-5.5); Sodium 134 mmol/L (135-145)
--- NOTE | 2022-12-22 10:26 | P.PN ---
Subjective Progress Note Date: 12/22/22 Principal diagnosis: Shortness of breath related to heart failure likely acute on chronic diastolic heart failure Bilateral pleural effusion due to congestive heart failure Elevated troponin Aortic stenosis status post prior aortic replacement/water/TAVR Hypertension hypertensive cardiovascular disease Dyslipidemia COPD on inhaled bronchodilator not in exacerbation History of smoking and nicotine use 12/22/2022, patient seen funmi reexamined on 2 L nasal cannula denies any chest pain breathing comfortably was not able to sleep last night trying to sleep, labs and chemistry from today reviewed she remains on bronchodilator as well as antihypertensive agents, gently being diuresed with Lasix IV Solu-Medrol is 40 mg IV every 8 12/21/2022, patient seen funmi examined during the rounds, patient sitting upright breathing comfortably, denies any chest pain, remains on bronchodilators and IV steroids for COPD, cough congestion shortness of breath improved, patient has been on gentle diuresis director dose has been readjusted cardiovascular services and pulmonary service has been following, patient is still very weak the last PT OT to evaluate the patient Review of the data revealed that patient is a 82-year-old white male with past medical history significant for diastolic congestive heart failure, prior aortic valve replacement and TAVR, hypertension, hyperlipidemia, COPD, polio as a child, among other things. Patient reports that he had similar symptoms back in April of this year. He did have a heart catheterization back in April, which showed mild to moderate disease of the left main, LAD, and left circumflex. No PCI was performed. Echocardiogram done on that admission showed a preserved left ventricular ejection fraction of 55-60%, mild concentric left ventricular hypertrophy. Grade 2 diastolic dysfunction. Patient states that over the last week, he's been having progressively worsening shortness of breath. He states that it is worse when trying to ambulate, even a few feet to the bathroom. He admits orthopnea. He has had increased lower extremity swelling. Denies any chest pain, Heart palpitations, syncope. He denies any infectious symptoms such as fever, cough, sputum production. Patient is currently sitting up in bed, on 2 L/m nasal cannula, in no acute distress. Chest x-ray on arrival showed cardiomegaly, pulmonary congestion, and bilateral pleural effusions. NT proBNP was significantly elevated at 22,900. Patient is started and started on Lasix 40 mg 3 times a day. CBC on arrival was unremarkable. BMP shows sodium 136, potassium 4.8, chloride 108, serum bicarb 18, BUN 32, creatinine 0.9, glucose 94. LFTs not elevated. Troponins mildly elevated but flat, 0.0363 measurements. EKG on admission shows sinus rhythm with a rate of 69 beats per minutes without any obvious acute ischemic changes. There is left axis deviation. Objective - Vital Signs Vital signs: Vital Signs Temp 97.6 F 12/22/22 07:00 Pulse 74 12/22/22 08:17 Resp 16 12/22/22 07:00 BP 97/52 12/22/22 07:00 Pulse Ox 93 L 12/22/22 07:00 FiO2 Intake & Output 12/21/22 12/22/22 12/22/22 18:59 06:59 18:59 Intake Total 590 100 180 Output Total 900 925 Balance -310 -825 180 Weight 90 kg Intake: Oral 590 100 180 Output: Urine 900 925 Other: Voiding Method Toilet Urinal - Exam GENERAL EXAM: Alert, 82-year-old white male , comfortable in no apparent distress. HEAD: Normocephalic and atraumatic EYES: Normal reaction of pupils, equal size. NOSE: Clear with pink turbinates. THROAT: No erythema or exudates. NECK: No masses, no JVD. CHEST: No chest wall deformity. LUNGS: Equal air entry with bibasilar inspiratory crackles. No wheezes, rhonchi, focal dullness. On 2 L/m nasal cannula. No conversational dyspnea or accessory muscle use.. CVS: S1 and S2 normal with grade 3 systolic ejection murmur heard best at the second right intercostal space, regular rhythm. No other extra heart sounds ABDOMEN: No hepatosplenomegaly, active bowel sounds, no guarding or rigidity. SPINE: No scoliosis or deformity SKIN: No rashes CENTRAL NERVOUS SYSTEM: No focal deficits, tone is normal in all 4 extremities. EXTREMITIES: There is 3-4+ pitting bilateral lower extremity edema. No clubbing, or cyanosis. Peripheral pulses are intact. - Labs CBC & Chem 7: 12/16/22 13:49 12/22/22 05:29 Labs: Abnormal Lab Results - Last 24 Hours (Table) 12/22/22 Range/Units 05:29 Sodium 134 L (135-145) mmol/L Chloride 92 L (96-109) mmol/L Anion Gap 13.80 H (4.00-12.00) mmol/L BUN 68.6 H (9.0-27.0) mg/dL Est GFR (CKD-EPI) 55 L (>=60) BUN/Creatinine Ratio 52.77 H (12.00-20.00) Ratio Glucose 140 H (70-110) mg/dL Assessment and Plan Assessment: Shortness of breath related to heart failure likely acute on chronic diastolic heart failure Bilateral pleural effusion due to congestive heart failure Elevated troponin Aortic stenosis status post prior aortic replacement/water/TAVR Hypertension hypertensive cardiovascular disease Dyslipidemia COPD on inhaled bronchodilator not in exacerbation History of smoking and nicotine use Plan: Continue gentle diuresis monitor electrolytes closely cardiovascular services following Continue bronchodilators, as needed DuoNeb Optimize therapy for heart failure with Coreg aspirin and Zestril Continue steroids taper next few days Monitor labs closely Time with Patient: Greater than 30
--- NOTE | 2022-12-22 11:51 | P.PN ---
Subjective Progress Note Date: 12/22/22 HPI: This is a 82-year-old male with a past medical history significant for hypertension, hyperlipidemia, nonobstructive coronary artery disease, and aortic stenosis with previous AVR in 2008 and subsequent TAVR in 2016. Patient follows in the office with Dr. Winter. Patient also follows with Dr. Reyes. We have been asked to see the patient in consultation for congestive heart failure. Patient examined at the bedside. Patient presented to the hospital with a chief complaint of shortness of breath. Patient states he has been progressively getting short of breath over the past few days. He was recently discharged from the hospital on 40 mg of Lasix daily which the patient does not think was enough. He also reports increased lower extremity edema worse than his baseline. He currently denies any chest pain or pressure. He states that he saw Dr. Reyes recently and he is wanting to schedule a cardiac catheterization and is considering a possible third valve replacement surgery. * EKG reveals sinus mechanism with nonspecific ST-T wave changes. No signs of acute ischemia * Chest xray cardiomegaly, pulmonary vascular congestion and bilateral pleural effusions. * Current home cardiac medications include Jardiance 10 mg at night, metolazone 1.25 mg at night, lisinopril 10 mg twice a day, carvedilol 3.125 mg twice a day, amlodipine 5 mg daily, Lasix 40 mg daily, Plavix 75 mg daily, and aspirin 81 mg daily * Most recent echocardiogram obtained in April 2022 revealed ejection fraction 55-60%, technically difficult study, trace to mild tricuspid regurgitation, and bovine prosthetic aortic valve with minimal perivalvular AR and mild to moderate central AR * Cardiac catheterization history: April 2022 revealing 35% left main, 20% mid LAD, right dominant system 12/18/2022 Patient examined this morning at the bedside. Patient denies chest pain or p ressure. He reports improvement in his shortness of breath. He remains on IV Lasix. Urine output over the last 24 hours is 2675 mL. Kidney function from this morning is pending. 12/19/2022 Patient examined this morning at the bedside. Patient currently denies chest pain or pressure. He continues to report shortness of breath although improved. He also reports improved lower extremity edema. He remains on Lasix 40 mg every 8 hours. Echocardiogram completed revealing ejection fraction 45-50% with severe and severe AR. 12/20/2022 Patient examined this morning at the bedside. Patient denies chest pain or pressure. He reports his breathing feels about the same as yesterday. He rem ains on IV Lasix. Creatinine today 1.5. 12/21/2022 Pt sitting up in bedside chair. Denies any chest pain or pressure. Breathing feels ok when he walks to the bathroom. He believes swelling is about the same. Creat improved to 1.3. 12/22/2022 He is ambulatory in the hallway unassisted. Swelling is unchanged. No chest pain or pressure. Shortness of breath is stable. No dizziness. Creat stable at 1.3. PHYSICAL EXAM: VITAL SIGNS: Reviewed. GENERAL: Well-developed in no acute distress. HEENT: Head is normocephalic. Pupils are equal, round. Sclerae anicteric. Mucous membranes of the mouth are moist. Neck supple. No JVD or thyromegaly LUNGS: Respirations even and unlabored. Lungs essentially clear to auscultation bilaterally. HEART: Regular rate and rhythm. S1 and S2 heard. Systolic murmur noted ABDOMEN: Soft. Nondistended. Nontender. EXTREMITIES: Normal range of motion. No clubbing or cyanosis. Peripheral pulses intact. 1+ bilateral lower extremity edema, JONAS hose on NEUROLOGIC: Awake and alert. Oriented x 3. ASSESSMENT: Shortness of breath Acute on chronic heart failure with preserved ejection fraction, 55-60%, proBNP 22,900; exacerbated by valvular disease and inadequate diuretic regimen Bilateral pleural effusions Abnormal troponins, flat, not suggestive of acute coronary syndrome Nonobstructive coronary artery disease Aortic stenosis, status post AVR in 2007 and subsequent TAVR in 2016, now with severe aortic stenosis and severe aortic regurgitation Hypertension Hyperlipidemia COPD PLAN: Encourage increasing activities Continue IV Lasix 40 mg every 12 hours for likely 1 more day Daily weights, accurate I&O, and monitoring of kidney function Recommend Bumex 1 mg twice a day at discharge Continue current regimen Pt seen by BROOKE [place] and patient wishes to have repeat valve surgery at [facility] with Dr. Reyes. However, today he reports he is not sure where he wants it done now. Recommend outpt follow up. Will follow. Nurse practitioner note has been reviewed by physician. Signing provider agrees with the documented findings, assessment, and plan of care. Objective - Vital Signs Vital signs: Vital Signs Temp 97.6 F 12/22/22 07:00 Pulse 74 12/22/22 08:17 Resp 16 12/22/22 07:00 BP 97/52 12/22/22 07:00 Pulse Ox 93 L 12/22/22 07:00 FiO2 Intake & Output 12/21/22 12/22/22 12/22/22 18:59 06:59 18:59 Intake Total 590 100 Output Total 900 925 Balance -310 -825 Weight 90 kg Intake: Oral 590 100 Output: Urine 900 925 Other: Voiding Method Toilet Urinal - Labs CBC & Chem 7: 12/16/22 13:49 12/22/22 05:29 Labs: Abnormal Lab Results - Last 24 Hours (Table) 12/21/22 Range/Units 05:28 Chloride 94 L (96-109) mmol/L Anion Gap 12.80 H (4.00-12.00) mmol/L BUN 63.9 H (9.0-27.0) mg/dL Est GFR (CKD-EPI) 55 L (>=60) BUN/Creatinine Ratio 49.15 H (12.00-20.00) Ratio Glucose 139 H (70-110) mg/dL
[2022-12-22] MEDS: ZOLPIDEM 5 MG TAB PO PRN (20:13)
[2022-12-22] MEDS: TAMSULOSIN 0.4 MG CAP.ER.24H PO SCH (20:13)
[2022-12-22] MEDS: DAPAGLIFLOZIN PROPANEDIOL 5 MG TABLET PO SCH (20:13)
[2022-12-23] MEDS: carvediloL 3.125 MG TAB PO SCH ×2 (05:30→17:28)
[2022-12-23] MEDS: IPRATROPIUM-ALBUTEROL 3 ML NEB INHALATION SCH ×4 (08:44→20:28)
[2022-12-23] MEDS: BUDESONIDE 0.5 MG/2 ML NEBU INHALATION SCH ×2 (08:44→20:29)
[2022-12-23] MEDS: MULTIVITAMINS, THERA 1 EACH TAB PO SCH (09:59)
[2022-12-23] MEDS: ASPIRIN 81 MG PO SCH (09:59)
[2022-12-23] MEDS: FUROSEMIDE 10 MG/ML 4 ML VIAL IV SCH (09:59)
[2022-12-23] MEDS: PANTOPRAZOLE 40 MG TABLET PO SCH ×2 (09:59→20:38)
[2022-12-23] MEDS: amLODIPine 5 MG TAB PO SCH (09:59)
[2022-12-23] MEDS: MAGNESIUM OXIDE 400 MG TAB PO SCH (09:59)
[2022-12-23] MEDS: CLOPIDOGREL 75 MG TAB PO SCH (09:59)
[2022-12-23] MEDS: lisinopriL 10 MG TAB PO SCH ×2 (09:59→20:38)
[2022-12-23] MEDS: POTASSIUM CHLORIDE ER 10 MEQ TAB.ER.PRT PO SCH ×2 (09:59→20:38)
[2022-12-23] MEDS: metOLazone 2.5 MG TAB PO SCH (10:00)
[2022-12-23] MEDS: methylPREDNISolone SOD SUCCI 40 MG/ML 1 ML VIAL IV SCH ×3 (10:00→20:38)
--- NOTE | 2022-12-23 11:27 | P.PN ---
Subjective Progress Note Date: 12/23/22 Principal diagnosis: Shortness of breath related to heart failure likely acute on chronic diastolic heart failure Bilateral pleural effusion due to congestive heart failure Elevated troponin Aortic stenosis status post prior aortic replacement/water/TAVR Hypertension hypertensive cardiovascular disease Dyslipidemia COPD on inhaled bronchodilator not in exacerbation History of smoking and nicotine use 12/23/2022, patient seen eval examined during rounds sitting upright on the bed, denies any chest pain, ongoing shortness of breath is present, patient was being evaluated for aortic valve replacement surgery by Dr. Shaffer patient was to discuss issues about surgery patient remains medications for COPD exacerbation with bronchodilators with the slightest steroids along with IV Solu-Medrol, as well as on the antihypertensive agents Coreg and diuretics with Lasix 40 mg IV every 12 has been on Zestril as well cardiovascular services been following 12/22/2022, patient seen eval reexamined on 2 L nasal cannula denies any chest pain breathing comfortably was not able to sleep last night trying to sleep, labs and chemistry from today reviewed she remains on bronchodilator as well as antihypertensive agents, gently being diuresed with Lasix IV Solu-Medrol is 40 mg IV every 8 12/21/2022, patient seen eval examined during the rounds, patient sitting upright breathing comfortably, denies any chest pain, remains on bronchodilators and IV steroids for COPD, cough congestion shortness of breath improved, patient has been on gentle diuresis director dose has been readjusted cardiovascular services and pulmonary service has been following, patient is still very weak the last PT OT to evaluate the patient Review of the data revealed that patient is a 82-year-old white male with past medical history significant for diastolic congestive heart failure, prior aortic valve replacement and TAVR, hypertension, hyperlipidemia, COPD, polio as a child, among other things. Patient reports that he had similar symptoms back in April of this year. He did have a heart catheterization back in April, which showed mild to moderate disease of the left main, LAD, and left circumflex. No PCI was performed. Echocardiogram done on that admission showed a preserved left ventricular ejection fraction of 55-60%, mild concentric left ventricular hypertrophy. Grade 2 diastolic dysfunction. Patient states that over the last week, he's been having progressively worsening shortness of breath. He states that it is worse when trying to ambulate, even a few feet to the bathroom. He admits orthopnea. He has had increased lower extremity swelling. Denies any chest pain, Heart palpitations, syncope. He denies any infectious symptoms such as fever, cough, sputum production. Patient is currently sitting up in bed, on 2 L/m nasal cannula, in no acute distress. C hest x-ray on arrival showed cardiomegaly, pulmonary congestion, and bilateral pleural effusions. NT proBNP was significantly elevated at 22,900. Patient is started and started on Lasix 40 mg 3 times a day. CBC on arrival was unremarkable. BMP shows sodium 136, potassium 4.8, chloride 108, serum bicarb 18, BUN 32, creatinine 0.9, glucose 94. LFTs not elevated. Troponins mildly elevated but flat, 0.0363 measurements. EKG on admission shows sinus rhythm with a rate of 69 beats per minutes without any obvious acute ischemic changes. There is left axis deviation. Objective - Vital Signs Vital signs: Vital Signs Temp 98.0 F 12/23/22 07:40 Pulse 56 L 12/23/22 08:58 Resp 18 12/23/22 07:40 BP 124/68 12/23/22 07:40 Pulse Ox 95 12/23/22 07:40 FiO2 Intake & Output 12/22/22 12/23/22 12/23/22 18:59 06:59 18:59 Intake Total 478 Output Total 500 1025 Balance -22 -1025 Weight 93.5 kg Intake: Oral 478 Output: Urine 500 1025 Other: Voiding Method Toilet Urinal # Bowel Movements 1 - Exam GENERAL EXAM: Alert, 82-year-old white male , comfortable in no apparent distress. HEAD: Normocephalic and atraumatic EYES: Normal reaction of pupils, equal size. NOSE: Clear with pink turbinates. THROAT: No erythema or exudates. NECK: No masses, no JVD. CHEST: No chest wall deformity. LUNGS: Equal air entry with bibasilar inspiratory crackles. No wheezes, rhonchi, focal dullness. On 2 L/m nasal cannula. No conversational dyspnea or accessory muscle use.. CVS: S1 and S2 normal with grade 3 systolic ejection murmur heard best at the second right intercostal space, regular rhythm. No other extra heart sounds ABDOMEN: No hepatosplenomegaly, active bowel sounds, no guarding or rigidity. SPINE: No scoliosis or deformity SKIN: No rashes CENTRAL NERVOUS SYSTEM: No focal deficits, tone is normal in all 4 extremities. EXTREMITIES: There is 3-4+ pitting bilateral lower extremity edema. No clubbing, or cyanosis. Peripheral pulses are intact. 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, patient is being evaluated for valve surgery Shortness of breath related to heart failure likely acute on chronic diastolic heart failure Bilateral pleural effusion due to congestive heart failure Elevated troponin Aortic stenosis status post prior aortic replacement/water/TAVR Hypertension hypertensive cardiovascular disease Dyslipidemia COPD on inhaled bronchodilator not in exacerbation History of smoking and nicotine use Plan: Awaiting evaluation from cardiothoracic surgery Continue gentle diuresis monitor electrolytes closely cardiovascular services following Continue bronchodilators, as needed DuoNeb Optimize therapy for heart failure with Coreg aspirin and Zestril Continue steroids taper next few days Monitor labs closely Time with Patient: Greater than 30
--- NOTE | 2022-12-23 11:35 | P.PN ---
Subjective Progress Note Date: 12/23/22 HPI: This is a 82-year-old male with a past medical history significant for hypertension, hyperlipidemia, nonobstructive coronary artery disease, and aortic stenosis with previous AVR in 2008 and subsequent TAVR in 2016. Patient follows in the office with Dr. Winter. Patient also follows with Dr. Reyes. We have been asked to see the patient in consultation for congestive heart failure. Patient examined at the bedside. Patient presented to the hospital with a chief complaint of shortness of breath. Patient states he has been progressively getting short of breath over the past few days. He was recently discharged from the hospital on 40 mg of Lasix daily which the patient does not think was enough. He also reports increased lower extremity edema worse than his baseline. He currently denies any chest pain or pressure. He states that he saw Dr. Reyes recently and he is wanting to schedule a cardiac catheterization and is considering a possible third valve replacement surgery. * EKG reveals sinus mechanism with nonspecific ST-T wave changes. No signs of acute ischemia * Chest xray cardiomegaly, pulmonary vascular congestion and bilateral pleural effusions. * Current home cardiac medications include Jardiance 10 mg at night, metolazone 1.25 mg at night, lisinopril 10 mg twice a day, carvedilol 3.125 mg twice a day, amlodipine 5 mg daily, Lasix 40 mg daily, Plavix 75 mg daily, and aspirin 81 mg daily * Most recent echocardiogram obtained in April 2022 revealed ejection fraction 55-60%, technically difficult study, trace to mild tricuspid regurgitation, and bovine prosthetic aortic valve with minimal perivalvular AR and mild to moderate central AR * Cardiac catheterization history: April 2022 revealing 35% left main, 20% mid LAD, right dominant system 12/18/2022 Patient examined this morning at the bedside. Patient denies chest pain or pressure. He reports improvement in his shortness of breath. He remains on IV Lasix. Urine output over the last 24 hours is 2675 mL. Kidney function from this morning is pending. 12/19/2022 Patient examined this morning at the bedside. Patient currently denies chest pain or pressure. He continues to report shortness of breath although improved. He also reports improved lower extremity edema. He remains on Lasix 40 mg e very 8 hours. Echocardiogram completed revealing ejection fraction 45-50% with severe and severe AR. 12/20/2022 Patient examined this morning at the bedside. Patient denies chest pain or pressure. He reports his breathing feels about the same as yesterday. He remains on IV Lasix. Creatinine today 1.5. 12/21/2022 Pt sitting up in bedside chair. Denies any chest pain or pressure. Breathing feels ok when he walks to the bathroom. He believes swelling is about the same. Creat improved to 1.3. 12/22/2022 He is ambulatory in the hallway unassisted. Swelling is unchanged. No chest pain or pressure. Shortness of breath is stable. No dizziness. Creat stable at 1.3. 12/23 Patient denies chest discomfort. LE edema and breathing are improving. He has been maintained on Lasix IV 40 mg q12h and may be transitioned to Bumex oral. Discussed aortic stenosis with the patient. He does not recall what his primary application support lead had told him about this. His heart rate is in the 60s and 70s, blood pressure 127/46, pulse ox 93% on 2 L nasal cannula is been afebrile. Patient noted to have lost 4 kg since admission. He is in a negative fluid balance of 1100 ML's. PHYSICAL EXAM: VITAL SIGNS: Reviewed. GENERAL: Well-developed in no acute distress. HEENT: Head is normocephalic. Pupils are equal, round. Sclerae anicteric. Mucous membranes of the mouth are moist. Neck supple. No JVD or thyromegaly LUNGS: Respirations even and unlabored. Lungs essentially clear to auscultation bilaterally. HEART: Regular rate and rhythm. S1 and S2 heard. Systolic murmur noted ABDOMEN: Soft. Nondistended. Nontender. EXTREMITIES: Normal range of motion. No clubbing or cyanosis. Peripheral pulses intact. 1+ bilateral lower extremity edema, JONAS hose on NEUROLOGIC: Awake and alert. Oriented x 3. ASSESSMENT: Shortness of breath Acute on chronic heart failure with preserved ejection fraction, 55-60%, proBNP 22,900; exacerbated by valvular disease and inadequate diuretic regimen Bilateral pleural effusions Abnormal troponins, flat, not suggestive of acute coronary syndrome Nonobstructive coronary artery disease Aortic stenosis, status post AVR in 2007 and subsequent TAVR in 2016, now with severe aortic stenosis and severe aortic regurgitation Hypertension Hyperlipidemia COPD PLAN: Encourage increasing activities Transition IV Lasix to Bumex 1 mg twice daily continue at home Daily weights, accurate I&O, and monitoring of kidney function Pt seen by CT surgery and patient wishes to have repeat valve surgery at [facility] with Dr. Reyes. Patient is cleared for discharge from cardiology and may follow-up with Dr. Reyes in 1-2 weeks. Patient may also follow-up with Dr. Shaffer regarding valve surgery. Cardiac medications have been reconciled for discharge and prescription for Bumex has been sent to his pharmacy. Nurse practitioner note has been reviewed by physician. Signing provider agrees with the documented findings, assessment, and plan of care. Objective - Vital Signs Vital signs: Vital Signs Temp 97.5 F L 12/23/22 02:00 Pulse 61 12/23/22 02:00 Resp 16 12/23/22 02:00 BP 127/46 12/23/22 02:00 Pulse Ox 93 L 12/23/22 02:00 FiO2 Intake & Output 12/22/22 12/23/22 12/23/22 18:59 06:59 18:59 Intake Total 478 Output Total 500 1025 Balance -22 -1025 Weight 93.5 kg Intake: Oral 478 Output: Urine 500 1025 Other: Voiding Method Toilet Urinal # Bowel Movements 1 - Labs CBC & Chem 7: 12/16/22 13:49 12/22/22 05:29 Labs: Abnormal Lab Results - Last 24 Hours (Table) 12/22/22 Range/Units 05:29 Sodium 134 L (135-145) mmol/L Chloride 92 L (96-109) mmol/L Anion Gap 13.80 H (4.00-12.00) mmol/L BUN 68.6 H (9.0-27.0) mg/dL Est GFR (CKD-EPI) 55 L (>=60) BUN/Creatinine Ratio 52.77 H (12.00-20.00) Ratio Glucose 140 H (70-110) mg/dL
[2022-12-23] MEDS: BUMETANIDE 1 MG TAB PO SCH (15:59)
[2022-12-23] MEDS: NON FORMULARY DRUG (Dulaglutide [Trulicity] 1.5 MG/0.5 ML Each) SQ SCH (15:59)
[2022-12-23] MEDS: TAMSULOSIN 0.4 MG CAP.ER.24H PO SCH (20:38)
[2022-12-23] MEDS: DAPAGLIFLOZIN PROPANEDIOL 5 MG TABLET PO SCH (20:38)
[2022-12-23] MEDS: ZOLPIDEM 5 MG TAB PO PRN (20:38)
[2022-12-24] MEDS: carvediloL 3.125 MG TAB PO SCH (05:46)
[2022-12-24] MEDS: amLODIPine 5 MG TAB PO SCH (08:37)
[2022-12-24] MEDS: metOLazone 2.5 MG TAB PO SCH (08:37)
[2022-12-24] MEDS: MULTIVITAMINS, THERA 1 EACH TAB PO SCH (08:38)
[2022-12-24] MEDS: PANTOPRAZOLE 40 MG TABLET PO SCH (08:38)
[2022-12-24] MEDS: CLOPIDOGREL 75 MG TAB PO SCH (08:38)
[2022-12-24] MEDS: methylPREDNISolone SOD SUCCI 40 MG/ML 1 ML VIAL IV SCH ×2 (08:38→15:55)
[2022-12-24] MEDS: lisinopriL 10 MG TAB PO SCH (08:38)
[2022-12-24] MEDS: POTASSIUM CHLORIDE ER 10 MEQ TAB.ER.PRT PO SCH (08:38)
[2022-12-24] MEDS: ASPIRIN 81 MG PO SCH (08:38)
[2022-12-24] MEDS: BUMETANIDE 1 MG TAB PO SCH ×2 (08:38→15:55)
[2022-12-24] MEDS: MAGNESIUM OXIDE 400 MG TAB PO SCH (08:38)
[2022-12-24] MEDS: BUDESONIDE 0.5 MG/2 ML NEBU INHALATION SCH (08:50)
[2022-12-24] MEDS: IPRATROPIUM-ALBUTEROL 3 ML NEB INHALATION SCH ×3 (08:50→15:24)
--- NOTE | 2022-12-24 10:11 | P.PN ---
Subjective Progress Note Date: 12/24/22 HPI: This is a 82-year-old male with a past medical history significant for hypertension, hyperlipidemia, nonobstructive coronary artery disease, and aortic stenosis with previous AVR in 2008 and subsequent TAVR in 2016. Patient follows in the office with Dr. Winter. Patient also follows with Dr. Reyes. We have been asked to see the patient in consultation for congestive heart failure. Patient examined at the bedside. Patient presented to the hospital with a chief complaint of shortness of breath. Patient states he has been progressively getting short of breath over the past few days. He was recently discharged from the hospital on 40 mg of Lasix daily which the patient does not think was enough. He also reports increased lower extremity edema worse than his baseline. He currently denies any chest pain or pressure. He states that he saw Dr. Reyes recently and he is wanting to schedule a cardiac catheterization and is considering a possible third valve replacement surgery. * EKG reveals sinus mechanism with nonspecific ST-T wave changes. No signs of acute ischemia * Chest xray cardiomegaly, pulmonary vascular congestion and bilateral pleural effusions. * Current home cardiac medications include Jardiance 10 mg at night, metolazone 1.25 mg at night, lisinopril 10 mg twice a day, carvedilol 3.125 mg twice a day, amlodipine 5 mg daily, Lasix 40 mg daily, Plavix 75 mg daily, and aspirin 81 mg daily * Most recent echocardiogram obtained in April 2022 revealed ejection fraction 55-60%, technically difficult study, trace to mild tricuspid regurgitation, and bovine prosthetic aortic valve with minimal perivalvular AR and mild to moderate central AR * Cardiac catheterization history: April 2022 revealing 35% left main, 20% mid LAD, right dominant system 12/18/2022 Patient examined this morning at the bedside. Patient denies chest pain or pressure. He reports improvement in his shortness of breath. He remains on IV Lasix. Urine output over the last 24 hours is 2675 mL. Kidney function from this morning is pending. 12/19/2022 Patient examined this morning at the bedside. Patient currently denies chest pain or pressure. He continues to report shortness of breath although improved. He also reports improved lower extremity edema. He remains on Lasix 40 mg e very 8 hours. Echocardiogram completed revealing ejection fraction 45-50% with severe and severe AR. 12/20/2022 Patient examined this morning at the bedside. Patient denies chest pain or pressure. He reports his breathing feels about the same as yesterday. He remains on IV Lasix. Creatinine today 1.5. 12/21/2022 Pt sitting up in bedside chair. Denies any chest pain or pressure. Breathing feels ok when he walks to the bathroom. He believes swelling is about the same. Creat improved to 1.3. 12/22/2022 He is ambulatory in the hallway unassisted. Swelling is unchanged. No chest pain or pressure. Shortness of breath is stable. No dizziness. Creat stable at 1.3. 12/23 Patient denies chest discomfort. LE edema and breathing are improving. He has been maintained on Lasix IV 40 mg q12h and may be transitioned to Bumex oral. Discussed aortic stenosis with the patient. 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 His heart rate is in the 60s and 70s, blood pressure 127/46, pulse ox 93% on 2 L nasal cannula is been afebrile. Patient noted to have lost 4 kg since admission. He is in a negative fluid balance of 1100 ML's. 12/24 yesterday, IV Lasix was transitioned to oral Bumex 1 mg twice daily which is recommended for home. Patient denies having any chest pain. He states he slept better last night. His breathing is stable. He states his legs feel little bit wobbly. He has less lower extremity edema. Heart rate is in the 60s and 70s, blood pressure 124/43, pulse ox 98% on 2 L nasal cannula. PHYSICAL EXAM: VITAL SIGNS: Reviewed. GENERAL: Well-developed in no acute distress. HEENT: Head is normocephalic. Pupils are equal, round. Sclerae anicteric. Mucous membranes of the mouth are moist. Neck supple. No JVD or thyromegaly LUNGS: Respirations even and unlabored. Lungs essentially clear to auscultation bilaterally. HEART: Regular rate and rhythm. S1 and S2 heard. Systolic murmur noted ABDOMEN: Soft. Nondistended. Nontender. EXTREMITIES: Normal range of motion. No clubbing or cyanosis. Peripheral pulses intact. trace bilateral lower extremity edema NEUROLOGIC: Awake and alert. Oriented x 3. ASSESSMENT: Shortness of breath Acute on chronic heart failure with preserved ejection fraction, 55-60%, proBNP 22,900; exacerbated by valvular disease and inadequate diuretic regimen Bilateral pleural effusions Abnormal troponins, flat, not suggestive of acute coronary syndrome Nonobstructive coronary artery disease Aortic stenosis, status post AVR in 2007 and subsequent TAVR in 2016, now with severe aortic stenosis and severe aortic regurgitation Hypertension Hyperlipidemia COPD PLAN: Encourage increasing activities Continue Bumex 1 mg twice daily continue at home Daily weights, accurate I&O, and monitoring of kidney function Pt seen by CT surgery and patient wishes to have repeat valve surgery at [facility] with Dr. Reyes. Patient is cleared for discharge from cardiology and may follow-up with Dr. Reyes in 1-2 weeks. Patient may also follow-up with Dr. Shaffer regarding valve surgery. Cardiac medications have been reconciled for discharge and prescription for Bumex has been sent to his pharmacy. Nurse practitioner note has been reviewed by physician. Signing provider agrees with the documented findings, assessment, and plan of care. Objective - Vital Signs Vital signs: Vital Signs Temp 96.3 F L 12/24/22 01:14 Pulse 70 12/24/22 01:14 Resp 18 12/24/22 01:14 BP 135/65 12/24/22 01:14 Pulse Ox 93 L 12/24/22 01:14 FiO2 Intake & Output 12/23/22 12/24/22 12/24/22 18:59 06:59 18:59 Intake Total 118 Output Total 750 5 Balance -632 -2074 Weight 92.8 kg Intake: Oral 118 Output: Urine 750 5 Other: Voiding Method Toilet Urinal - Labs CBC & Chem 7: 12/16/22 13:49 12/22/22 05:29
[2022-12-24 14:09] VITALS: BP 110/60; PULSE 64; RESP 12; TEMP 97.5
--- NOTE | 2022-12-24 16:03 | P.DS ---
Providers Date of admission: 12/20/22 07:52 Expected date of discharge: 12/24/22 Attending physician: Benjie Jacques Consults: 12/16/22 15:34 Consult Physician Routine Consulting Provider: Aris Hernandez Consult Reason/Comments: chf Do you want consulting provider notified?: Yes 12/17/22 01:02 Consult Physician Routine Consulting Provider: Jonah Biggs Consult Reason/Comments: dyspnea Do you want consulting provider notified?: Yes 12/18/22 23:23 Consult Physician Routine Consulting Provider: Anuel Shaffer Consult Reason/Comments: tavr opinion Do you want consulting provider notified?: Yes Primary care physician: [facility] Course: 12/24/2022, patient has been cleared by cardiology, patient will see Dr. Shaffer as outpatient will follow as outpatient with Dr. Jacques and the primary care, patient seen eval examined during rounds sitting upright on the bed, denies any chest pain, ongoing shortness of breath is present, patient was being evaluated for aortic valve replacement surgery by Dr. Shaffer patient was to discuss issues about surgery patient remains medications for COPD exacerbation with bronchodilators with the slightest steroids along with IV Solu-Medrol, as well as on the antihypertensive agents Coreg and diuretics with Lasix 40 mg IV every 12 has been on Zestril as well cardiovascular services been following patient seen eval reexamined on 2 L nasal cannula denies any chest pain breathing comfortably was not able to sleep last night trying to sleep, labs and chemistry from today reviewed she remains on bronchodilator as well as antihypertensive agents, gently being diuresed with Lasix IV Solu-Medrol is 40 mg IV every 8 12/21/2022, patient seen eval examined during the rounds, patient sitting upright breathing comfortably, denies any chest pain, remains on bronchodilators and IV steroids for COPD, cough congestion shortness of breath improved, patient has been on gentle diuresis director dose has been readjusted cardiovascular services and pulmonary service has been following, patient is still very weak the last PT OT to evaluate the patient Review of the data revealed that patient is a 82-year-old white male with past medical history significant for diastolic congestive heart failure, prior aortic valve replacement and TAVR, hypertension, hyperlipidemia, COPD, polio as a child, among other things. Patient reports that he had similar symptoms back in April of this year. He did have a heart catheterization back in April, which showed mild to moderate disease of the left main, LAD, and left circumflex. No PCI was performed. Echocardiogram done on that admission showed a preserved left ventricular ejection fraction of 55-60%, mild concentric left ventricular hypertrophy. Grade 2 diastolic dysfunction. Patient states that over the last week, he's been having progressively worsening shortness of breath. He states that it is worse when trying to ambulate, even a few feet to the bathroom. He admits orthopnea. He has had increased lower extremity swelling. Denies any chest pain, Heart palpitations, syncope. He denies any infectious symptoms such as fever, cough, sputum production. Patient is currently sitting up in bed, on 2 L/m nasal cannula, in no acute distress. Chest x-ray on arrival showed cardiomegaly, pulmonary congestion, and bilateral pleural effusions. NT proBNP was significantly elevated at 22,900. Patient is started and started on Lasix 40 mg 3 times a day. CBC on arrival was unremarkable. BMP shows sodium 136, potassium 4.8, chloride 108, serum bicarb 18, BUN 32, creatinine 0.9, glucose 94. LFTs not elevated. Troponins mildly elevated but flat, 0.0363 measurements. EKG on admission shows sinus rhythm with a rate of 69 beats per minutes without any obvious acute ischemic changes. There is left axis deviation. 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 Shaffer cardiothoracic surgery about further management of aortic valve Patient Condition at Discharge: Good Plan - Discharge Summary New Discharge Prescriptions: New Bumetanide [BUMEX] 1 mg PO BID #60 tablet Continue Potassium Chloride [Klor-Con 8] 8 meq PO BID Aspirin EC [Ecotrin Low Dose] 81 mg PO DAILY Clopidogrel [Plavix] 75 mg PO DAILY tab metOLazone 1.25 mg PO HS Empagliflozin [Jardiance] 10 mg PO HS carvediloL [Coreg] 3.125 mg PO BID-W/MEALS 90 Days #180 tab lisinopriL [Zestril] 10 mg PO BID 90 Days #180 tab amLODIPine [Norvasc] 5 mg PO DAILY 90 Days #90 tab Discontinued Furosemide [Lasix] 40 mg PO DAILY No Action Omeprazole 40 mg PO BID Magnesium Oxide [Magnesium] 500 mg PO DAILY Budesonide [Pulmicort] 0.5 mg INHALATION RT-BID 30 Days #60 ml Fluticasone/Umeclidin/Vilanter [Trelegy Ellipta 200-62.5-25] 2 puff INHALATION RT-DAILY Zolpidem Tartrate [Ambien] 5 mg PO HS Dulaglutide [Trulicity] 1.5 mg SQ Q7D Tamsulosin HCl [Flomax] 0.4 mg PO HS Ipratropium-Albuterol Nebulize [Duoneb 0.5 mg-3 mg/3 ml Soln] 3 ml INHALATION RT-QID 30 Days #120 each Multivitamins, Thera [Multivitamin (formulary)] 1 tab PO DAILY Calcium Carbonate/Vitamin D3 [Calcium 500-Vit D3 5 Mcg (200 Iu)] 1 tab PO DAILY Albuterol Sulfate [Albuterol Sulfate Hfa] 2 puff PO RT-Q4H PRN PRN Reason: Shortness Of Breath Discharge Medication List Aspirin EC [Ecotrin Low Dose] 81 mg PO DAILY 04/30/22 [History] Dulaglutide [Trulicity] 1.5 mg SQ Q7D 04/30/22 [History] Potassium Chloride [Klor-Con 8] 8 meq PO BID 04/30/22 [History] Tamsulosin HCl [Flomax] 0.4 mg PO HS 04/30/22 [History] Omeprazole 40 mg PO BID 08/23/22 [History] Clopidogrel [Plavix] 75 mg PO DAILY tab 09/02/22 [Rx] Ipratropium-Albuterol Nebulize [Duoneb 0.5 mg-3 mg/3 ml Soln] 3 ml INHALATION RT-QID 30 Days #120 each 09/02/22 [Rx] Calcium Carbonate/Vitamin D3 [Calcium 500-Vit D3 5 Mcg (200 Iu)] 1 tab PO DAILY 11/21/22 [History] Empagliflozin [Jardiance] 10 mg PO HS 11/21/22 [History] Magnesium Oxide [Magnesium] 500 mg PO DAILY 11/21/22 [History] Multivitamins, Thera [Multivitamin (formulary)] 1 tab PO DAILY 11/21/22 [History] metOLazone 1.25 mg PO HS 11/21/22 [History] Budesonide [Pulmicort] 0.5 mg INHALATION RT-BID 30 Days #60 ml 11/26/22 [Rx] amLODIPine [Norvasc] 5 mg PO DAILY 90 Days #90 tab 11/26/22 [Rx] carvediloL [Coreg] 3.125 mg PO BID-W/MEALS 90 Days #180 tab 11/26/22 [Rx] lisinopriL [Zestril] 10 mg PO BID 90 Days #180 tab 11/26/22 [Rx] Albuterol Sulfate [Albuterol Sulfate Hfa] 2 puff PO RT-Q4H PRN 12/16/22 [History] Fluticasone/Umeclidin/Vilanter [Trelegy Ellipta 200-62.5-25] 2 puff INHALATION RT-DAILY 12/16/22 [History] Zolpidem Tartrate [Ambien] 5 mg PO HS 12/16/22 [History] Bumetanide [BUMEX] 1 mg PO BID #60 tablet 12/23/22 [Rx] Follow up Appointment(s)/Referral(s): Benjie Jacques MD [Primary Care Provider] - 1-2 days Anuel Shaffer MD [STAFF PHYSICIAN] - 1 Week (Please call to make appointment upon discharge if still wanting to talk about aortic valve replacement options) [facility] [NON-STAFF] - 1 Week ([facility] will call you to arrange a visit) Martin Gutierrez MD [STAFF PHYSICIAN] - 1 Week Kaiser Reyes MD [REFERRING] - 1 Week Discharge/Stand Alone Forms: [facility]
== END 2022-12-24 16:30 | disposition home health service (06) | DRG 291 ==
LOC: EC 13:08 → 6NMEDSUR 15:34 → OBSVTOIN 12-20 07:52
PROVIDERS: ADMIT Family Medicine; ATTEND Family Medicine
DX: I11.0 Hypertensive heart disease with heart failure (principal); I50.33 Acute on chronic diastolic (congestive) heart failure; J96.01 Acute respiratory failure with hypoxia; N17.9 Acute kidney failure, unspecified; E78.5 Hyperlipidemia, unspecified; I25.10 Atherosclerotic heart disease of native coronary artery without angina pectoris; R73.03 Prediabetes; J44.9 Chronic obstructive pulmonary disease, unspecified; I35.2 Nonrheumatic aortic (valve) stenosis with insufficiency; E66.9 Obesity, unspecified; T50.2X5A Adverse effect of carbonic-anhydrase inhibitors, benzothiadiazides and other diuretics, initial encounter; Z95.2 Presence of prosthetic heart valve; Z79.02 Long term (current) use of antithrombotics/antiplatelets; Z79.82 Long term (current) use of aspirin; Z79.84 Long term (current) use of oral hypoglycemic drugs; Z79.899 Other long term (current) drug therapy; Z82.49 Family history of ischemic heart disease and other diseases of the circulatory system; Z83.3 Family history of diabetes mellitus; Z86.12 Personal history of poliomyelitis; Z85.819 Personal history of malignant neoplasm of unspecified site of lip, oral cavity, and pharynx; Z87.891 Personal history of nicotine dependence; Z68.32 Body mass index [BMI] 32.0-32.9, adult
CPT/HCPCS: 36415; 71046; 80048; 80053; 83036; 83880; 84145; 84443; 84484; 85025; 85610; 85730; 93005; 93308; 94640; 94760; 96374; 99285

== ENCOUNTER → 2023-01-07 | Outpatient (CLI) | payer MEDICARE | LOC: CPPFTMAIN 07:06 | PROVIDERS: ATTEND Family Medicine | DX: E80.7 Disorder of bilirubin metabolism, unspecified (principal); J44.9 Chronic obstructive pulmonary disease, unspecified; Z79.899 Other long term (current) drug therapy | CPT/HCPCS: 94060; 94726; 94729 ==

== ENCOUNTER 2023-01-22 14:35 | Observation (INO) | payer OTHER, MEDICARE ==
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
[2023-01-22 16:25] LABS: Basophils % (A) 0 %; Eosinophils % (A) 0 %; HCT 42.4 % (39.0-53.0); HGB 14.1 gm/dL (13.0-17.5); Lymphocytes # (A) 0.6 k/uL (1.0-4.8); Lymphocytes % (A) 8 %; MCH 34.1 pg (25.0-35.0); MCHC 33.3 g/dL (31.0-37.0); MCV 102.2 fL (80.0-100.0); Macrocytosis Slight; Mean Platelet Volume 9.1; Monocytes # (A) 0.6 k/uL (0-1.0); Monocytes % (A) 7 %; Neutrophils # (A) 6.5 k/uL (1.3-7.7); Neutrophils % (A) 80 %; Platelet Count 250 k/uL (150-450); RBC 4.14 m/uL (4.30-5.90); WBC 8.2 k/uL (3.8-10.6)
[2023-01-22 16:33] LABS: INR 1.2 (<1.2); Partial Thromboplastin Time 26.5 sec (22.0-30.0); Prothrombin Time 12.8 sec (10.0-12.5)
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
[2023-01-22 17:18] LABS: ALT 56 U/L (4-49); AST 51 U/L (17-59); African American GFR (CKD) 51 (>60 ml/min/1.73 sqM); Albumin 3.4 g/dL (3.5-5.0); Alcohol <10 mg/dL; Alkaline Phosphatase 120 U/L (38-126); Anion Gap 12 mmol/L; Blood Urea Nitrogen 69 mg/dL (9-20); Calcium 9.3 mg/dL (8.4-10.2); Carbon Dioxide 25 mmol/L (22-30); Chloride 96 mmol/L (98-107); Glucose 107 mg/dL (74-99); Non-African American GFR(CKD) 44 (>60 ml/min/1.73 sqM); Potassium 4.1 mmol/L (3.5-5.1); Sodium 133 mmol/L (137-145); Total Bilirubin 1.1 mg/dL (0.2-1.3); Total Protein 5.6 g/dL (6.3-8.2)
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
[2023-01-22] MEDS ORDERED: MORPHINE SULFATE 4 MG/ML SYRINGE IV STA (19:12)
[2023-01-22] MEDS ORDERED: NALOXONE 0.4 MG/ML 1 ML VIAL IV PRN (19:51)
[2023-01-22] MEDS: SODIUM CHLORIDE 0.9% 1,000 ML IV SCH (20:11)
[2023-01-23] MEDS: ASPIRIN 81 MG PO SCH (08:31)
[2023-01-23] MEDS: carvediloL 3.125 MG TAB PO SCH ×2 (08:31→16:33)
[2023-01-23] MEDS: lisinopriL 10 MG TAB PO SCH ×2 (08:32→19:52)
[2023-01-23] MEDS: CLOPIDOGREL 75 MG TAB PO SCH (08:32)
[2023-01-23] MEDS: BUMETANIDE 1 MG TAB PO SCH ×2 (08:32→16:33)
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
[2023-01-23] MEDS ORDERED: FUROSEMIDE 40 MG TAB PO SCH (09:00)
[2023-01-23 12:07] LABS: Amphetamine Screen,Urine Not Detected (NotDetected); Barbiturate Screen,Urine Not Detected (NotDetected); Benzodiazepines Screen,Urine Not Detected (NotDetected); Cocaine Screen,Urine Not Detected (NotDetected); Methadone Screen, Urine Not Detected (NotDetected); Opiate Screen,Urine Detected (NotDetected); Oxycodone Screen, Urine Not Detected (NotDetected); Phencyclidine Screen,Urine Not Detected (NotDetected); Tricyclic Antidepressant,Urine Not Detected (NotDetected); Urn Cannabinoid Scrn Not Detected (NotDetected)
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
[2023-01-23 14:32] LABS: African American GFR (CKD) 59 (>60 ml/min/1.73 sqM); Anion Gap 13 mmol/L; Blood Urea Nitrogen 71 mg/dL (9-20); Carbon Dioxide 22 mmol/L (22-30); Chloride 97 mmol/L (98-107); Glucose 119 mg/dL (74-99); Non-African American GFR(CKD) 51 (>60 ml/min/1.73 sqM); Potassium 4.1 mmol/L (3.5-5.1); Sodium 132 mmol/L (137-145)
[2023-01-23 16:50] LABS: Glucose,Whole Blood 126 mg/dL (70-110)
[2023-01-23] MEDS ORDERED: bisacodyL 5 MG TABLET.DR PO PRN (18:48)
[2023-01-23] MEDS ORDERED: MAGNESIUM HYDROXIDE 2,400 MG/30 ML CUP PO PRN (18:48)
[2023-01-23] MEDS: POTASSIUM CHLORIDE ER 10 MEQ TAB.ER.PRT PO SCH (19:45)
[2023-01-23] MEDS: SODIUM CHLORIDE 0.9% 1,000 ML IV SCH (19:45)
[2023-01-23] MEDS: PANTOPRAZOLE 40 MG TABLET PO SCH (19:45)
[2023-01-23 20:04] LABS: Glucose,Whole Blood 141 mg/dL (70-110)
[2023-01-23] MEDS ORDERED: TAMSULOSIN 0.4 MG CAP.ER.24H PO SCH (21:00)
[2023-01-23] MEDS ORDERED: metOLazone 2.5 MG TAB PO SCH (21:00)
[2023-01-23] MEDS ORDERED: ATORVASTATIN 40 MG TAB PO SCH (21:00)
[2023-01-23] MEDS ORDERED: DAPAGLIFLOZIN PROPANEDIOL 5 MG TABLET PO SCH (21:00)
[2023-01-23] MEDS: ACETAMINOPHEN TAB 325 MG TAB PO PRN (21:03)
[2023-01-23] MEDS: BUDESONIDE 0.5 MG/2 ML NEBU INHALATION SCH (21:40)
[2023-01-23] MEDS: IPRATROPIUM-ALBUTEROL 3 ML NEB INHALATION SCH (21:40)
[2023-01-23 22:23] VITALS: RESP 19
[2023-01-24] MEDS: ACETAMINOPHEN TAB 325 MG TAB PO PRN (04:44)
[2023-01-24 05:24] VITALS: TEMP 97.9
[2023-01-24 06:22] LABS: Glucose,Whole Blood 124 mg/dL (70-110)
[2023-01-24] MEDS: PANTOPRAZOLE 40 MG TABLET PO SCH (06:37)
[2023-01-24] MEDS: BUDESONIDE 0.5 MG/2 ML NEBU INHALATION SCH (08:37)
[2023-01-24] MEDS: IPRATROPIUM-ALBUTEROL 3 ML NEB INHALATION SCH ×2 (08:37→11:28)
[2023-01-24] MEDS: BUMETANIDE 1 MG TAB PO SCH (08:56)
[2023-01-24] MEDS: CLOPIDOGREL 75 MG TAB PO SCH (08:56)
[2023-01-24] MEDS: POTASSIUM CHLORIDE ER 10 MEQ TAB.ER.PRT PO SCH (08:57)
[2023-01-24] MEDS: lisinopriL 10 MG TAB PO SCH (08:57)
[2023-01-24] MEDS: ASPIRIN 81 MG PO SCH (08:57)
[2023-01-24] MEDS: carvediloL 3.125 MG TAB PO SCH (08:59)
[2023-01-24] MEDS ORDERED: CALCIUM CARB-VIT D 500 MG-5 MCG TAB PO SCH (09:00)
[2023-01-24] MEDS ORDERED: MAGNESIUM OXIDE 400 MG TAB PO SCH (09:00)
[2023-01-24] MEDS ORDERED: MULTIVITAMINS, THERA 1 EACH TAB PO SCH (09:00)
[2023-01-24 10:44] LABS: African American GFR (CKD) 47 (>60 ml/min/1.73 sqM); Anion Gap 15 mmol/L; Blood Urea Nitrogen 72 mg/dL (9-20); Calcium 9.2 mg/dL (8.4-10.2); Carbon Dioxide 21 mmol/L (22-30); Chloride 96 mmol/L (98-107); Glucose 135 mg/dL (74-99); Non-African American GFR(CKD) 41 (>60 ml/min/1.73 sqM); Potassium 4.4 mmol/L (3.5-5.1); Sodium 132 mmol/L (137-145)
[2023-01-24] MEDS ORDERED: SODIUM CHLORIDE 0.9% 1,000 ML IV SCH (11:30)
[2023-01-24 11:37] LABS: Glucose,Whole Blood 137 mg/dL (70-110)
[2023-01-24 12:39] VITALS: BP 101/40; PULSE 60
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
[2023-01-24] MEDS ORDERED: BUMETANIDE 1 MG TAB PO SCH (16:00)
[2023-01-25] MEDS ORDERED: BUMETANIDE 1 MG TAB PO SCH (09:00)
== END 2023-01-24 14:26 | disposition home or self-care (01) ==
LOC: EC 14:35 → 3SCARD 19:51
PROVIDERS: ADMIT Surgery Plastic and Reconstructive Surgery; ATTEND Surgery Plastic and Reconstructive Surgery
DX: R07.9 Chest pain, unspecified (principal); S60.511A Abrasion of right hand, initial encounter; V89.2XXA Person injured in unspecified motor-vehicle accident, traffic, initial encounter; R79.89 Other specified abnormal findings of blood chemistry; R55 Syncope and collapse; N17.9 Acute kidney failure, unspecified; I35.2 Nonrheumatic aortic (valve) stenosis with insufficiency; I11.0 Hypertensive heart disease with heart failure; I50.9 Heart failure, unspecified; J45.909 Unspecified asthma, uncomplicated; E78.5 Hyperlipidemia, unspecified; I25.10 Atherosclerotic heart disease of native coronary artery without angina pectoris; R73.03 Prediabetes; Z85.819 Personal history of malignant neoplasm of unspecified site of lip, oral cavity, and pharynx; Z87.891 Personal history of nicotine dependence; Z95.2 Presence of prosthetic heart valve; Z79.82 Long term (current) use of aspirin; Z79.84 Long term (current) use of oral hypoglycemic drugs; Z79.899 Other long term (current) drug therapy; Z79.02 Long term (current) use of antithrombotics/antiplatelets
CPT/HCPCS: 96361 ×3; 96374; 99285; 36415; 94640 ×2; 93005; 97161; 86900; 86901; 80053; 80048 ×2; 84484 ×2; 85025; 85610; 85730; 86850; 80306; 80320; 72125; 70450; 71260; 74177; G0378 ×3; G0390; J2270; Q9967